=== PATIENT | female | born 1980 | race Caucasian/White ===

== ENCOUNTER 2018-02-06 21:09 | Emergency (ER) | payer MEDICAID ==
--- OUTSIDE RECORDS SUMMARY | 2018-02-06 21:17 | XMS REPORT ---
:1980 External Reference #:[id number] Author Organization [email or web address] Address [address] [address] Phone [phone] Care Team Providers Name Role Phone Chary Glass MD Primary Care Physician Unavailable Payers Type Date Identification Numbers Payment Provider Subscriber Medicaid Policy Number: [id number] Medicaid Arminda Conrad Group Name: 1 1 [address] PayID: [id number] [place] [address] Commercial Expires: 2016 Policy Number: [id number] Edgar Conrad Group Name: [id number] [address] PayID: [id number] [place] [address] Problems Description No Information Social History Type Date Description Comments Smoking Heavy tobacco smoker (more than 10 cigarettes/day) Allergies, Adverse Reactions, Alerts Date Description Reaction Status Severity Comments 01/31/2018 Penicillin active hives/swallowing Medications Medication Date Status Form Strength Qnty SIG Indications Ordering Provider Gabapentin Active Capsules 300mg 90caps 1 by M54.5 Leonora 018 mouth at Varn, N.P. bedtime x 7 nights, then boost to bid for 7 days, then take tid Omeprazole Active Tablets DR 20mg 30tabs 1 by Leonora 018 mouth Varn, N.P. every day Hydroxyzine Active Tablets 50mg take 2 Unknown HCL 000 tab by mouth daily for anxiety as needed Buspirone HCL Active Tablets 10mg 1 by Unknown 000 mouth 5 times a day Venlafaxine Active Tablets ER 75mg 2 by Unknown HCL ER 000 24HR mouth every day Duloxetine HCL 00/00/[address] 30mg 3 by Unknown 000 Part mouth every day Vital Signs Date Vital Result Comment 01/31/2018 Height 63.5 inches 5'3.50" Weight 162.00 lb Heart Rate 104 /min BP Systolic Sitting 110 mmHg BP Diastolic Sitting 75 mmHg Body Temperature 98.5 F Pain Level 6 back/degen disc, etc. O2 % BldC Oximetry 98 % BMI (Body Mass Index) 28.2 kg/m2 Results Description No Information Procedures Date CPT Code Description Status 02/19/2016 20848 EKG, Interpretation Only Completed 01/21/2013 97920 Polysomnography Sleep Staging 4+ Parameters W/Cpap Completed 11/07/2012 73609 EEG Recording Awake & Asleep Completed 10/22/2012 43904 Polysomnography Sleep Staging 4+ Parameters W/Cpap Completed 10/26/2009 22112 EKG, Interpretation Only Completed Encounters Type Date Location Provider CPT E/M Dx Office Visit 02/14/2016 [facility], Jared Hernandez, [address]79 F19.20 12:27p Hospitalists Pal F32.9 A41.9 Office Visit 02/13/2016 12:27p [facility], Jared Hernandez, [address] F32.9 Hospitalists Pal F19.20 G89.29 A41.9 Office Visit 02/12/2016 12:26p [facility], Jared Hernandez, 42147 F32.9 Hospitalists Pal F19.20 G89.29 A41.9 Office Visit 02/11/2016 12:25p 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, Kacey Cash, N.P. 91859 R41.0 Hospitalists J11.1 G47.33 Office Visit 12/01/2015 10:[facility]a [facility] Kacey Cash, N.P. 92014 R41.0 Hospitalists J11.1 G47.33 Office Visit 11/30/2015 10:29a [facility], Joon Juarez, 81887 R41.0 Hospitalists N.P. J11.1 G47.33 Office Visit 04/07/2014 4:52p [facility], Kacey Cash N.P. 68917 519.11 Hospitalists 276.2 780.97 305.1 Office Visit 04/06/2014 4:51p [facility], 95316 519.11 Assoc, Hospitalists Pal 276.2 780.97 305.1 Office Visit 04/05/2014 4:50p [facility], Adithya Grover D.O. 50974 519.11 Hospitalists 276.2 780.97 305.1 Office Visit 01/07/2014 2:58p [facility], Dayton Arteaga M.D. 85124 466.0 Hospitalists 305.60 278.01 305.1 Office Visit 01/06/2014 2:58p [facility],yk Arteaga M.D. 49753 466.0 Hospitalists 305.60 278.01 305.1 Office Visit 01/05/2014 2:58p [facility], Adithya Grover D.O. 67912 785.0 Hospitalists 466.0 305.60 305.1 Office Visit 01/04/2014 2:57p [facility],ky Grover D.O. 37300 276.2 Hospitalists 780.97 305.60 785.0 Office Visit 03/27/2013 2:45p [facility] Yahir Rico, 60967 327.23 M.DOly Office Visit 11/30/2012 8:20a [facility],ky Arteaga M.D. 97994 300.00 Hospitalists 311 305.1 493.12 Office Visit 11/29/2012 8:20a [facility],ky Arteaga M.D. 10064 493.12 Hospitalists 300.00 311 305.1 Office Visit 11/28/2012 8:19a [facility],ky Arteaga M.D. 26053 493.12 Hospitalists 311 300.00 305.1 Office Visit 11/27/2012 8:19a [facility], 19062 493.12 Assoc, Hospitalists N.P. 311 300.00 305.1 Office Visit 10/30/2012 2:24p [facility] John Tejada, 94804 327.23 Disorder Center M.D. Office Visit 09/10/2012 11:08a [facility] John Tejada, 61578 786.09 Disorder Center MJoceline 780.79 Office Visit 06/29/2012 1:45p [facility], Deangelo Gibson, 01155 995.91 Hospitalists M.Dane 780.97 507.0 Office Visit 06/28/2012 11:10a [facility], Deangelo Gibson, 59142 995.91 Hospitalists M.DOly 780.97 507.0 Office Visit 06/27/2012 11:09a [facility], Deangelo Gibson, 10793 995.91 Hospitalists M.Dane 780.97 507.0 Office Visit 06/26/2012 11:09a [facility], Adithya Grover D.O. 10265 518.84 Hospitalists 427.0 250.90 338.19 Office Visit 06/25/2012 1:44p [facility], 32914 995.91 Assoc, Hospitalists N.P. 780.97 507.0 Office Visit 10/27/2009 12:30a [facility], Adithya Grover D.O. 20784 977.9 Hospitalists 507.0 311 Office Visit 10/26/2009 12:15a [facility], Adithya Grover D.O. 73874 977.9 Hospitalists 348.89 507.0 288.60 790.29 278.00 Office Visit 10/14/2009 10:15a [facility], 08075 724.2 Garrick Aguillon Plan of Care Future Appointment(s):03/04/2018 10:20 am - Leonora Hoffman NAllyson at [facility]01/31/2018 - Leonora Hoffman N.KaylaM54.5 Low back painNew Medication:Gabapentin 300 mgNew Therapy:Physical TherapyComments:For your back pain: I have prescribe Gabapentin for you. Take 1 tablet at bedtime for 7 nights , thenboost it to twice daily, then your maintenance will be to take this 3 times daily.If you find a clinic you would like to be referred to, please contact me, I will be happy to refer you to.Follow up:[facility] 4 kajhgR59.9 Major depressive disorder, single episode, unspecifiedComments:For your depression and anxiety: Conitue your current management. Please touch base with the [facility] Department to set up an appointment.N91.2 Amenorrhea, unspecifiedComments:I am ordering blood work to check your thyroid hormone and a hormone to screen you for menopause.B18.2 Chronic viral hepatitis CComments:I am ordering blood work to screen for Hepatitis C and antibody level. I also am ordering blood workto check your kidney and liver function.H02.402 Unspecified ptosis of left eyelidComments:To help evaluate your left eyelid you need to see a specialist.Referral:Timbo Cobb MD, Ophthalmology
[2018-02-06 21:18] VITALS: BP 115/76
--- NOTE | 2018-02-06 21:47 | UC ---
Skin Complaint HPI - HPI Summary HPI Summary: Patient is an otherwise healthy 37-year-old female presenting to the with chief complaint of bilateral erythema, itching and burning feeling to the bilateral groin area. Symptoms have been present for approximately one month. She states nothing has improved her symptoms. She has not shaved in the area recently. She has not taken anything for relief. - History of Current Complaint Chief Complaint: UCSkin Time Seen by Provider: 02/06/18 21:25 Stated Complaint: SKIN IRRITATION Hx Obtained From: Patient Hx Last Menstrual Period: 9 YEARS AGO (HX PCOS) ?: No Onset/Duration: Sudden Onset Skin Exposure Onset/Duration: Hours Ago Timing: Constant Onset Severity: Mild Current Severity: Mild Pain Intensity: 7 Pain Scale Used: 0-10 Numeric Character: Pruritus, Pain, Redness Alleviating Factor(s): Nothing Associated Signs & Symptoms: Positive: Negative - Allergy/Home Medications Allergies/Adverse Reactions: Allergies Allergy/AdvReac Type Severity Reaction Status Date / Time Penicillins Allergy Severe Rash Verified 02/06/18 21:20 varenicline [From Chantix] Allergy Severe GI Upset Verified 02/06/18 21:20 bupropion [From Wellbutrin] Allergy Anxiety Verified 02/06/18 21:20 Home Medications: Home Medications Buprenorphine/Naloxone SL TAB* [Suboxone 8-2 mg SL TAB*] 1 tab SL 02/06/18 [ History] Gabapentin CAP(*) [Neurontin 300 CAP(*)] 300 mg PO TID 02/06/18 [History Confirmed 02/06/18] Venlafaxine TAB (NF) [Effexor TAB (NF)] 02/06/18 [History Confirmed 02/06/18] Review of Systems Constitutional: Negative Skin: Rash Eyes: Negative Cardiovascular: Negative Gastrointestinal: Negative Genitourinary: Negative Neurovascular: Negative Musculoskeletal: Negative Neurological: Negative Is Patient Immunocompromised?: No All Other Systems Reviewed And Are Negative: Yes PMH/Surg Hx/FS Hx/Imm Hx Previously Healthy: Yes - Surgical History Surgical History: Yes Surgery Procedure, Year, and Place: LEFT EYE SURGERY (LAZY EYE REPAIR) 2008, RHINOPLASTY. APPENDECTOMY. BREAST REDUCTION. BILAT EYE SURGERY AT AGE 9 (SO SHE WOULD NOT HAVE TO WEAR GLASSES). left knee arthroscopic surgery, TWO KNEE SURGERIES - Family History Known Family History: Positive: None - Social History Occupation: Employed Full-time Lives: With Family Alcohol Use: None Substance Use Type: None Substance Use Comment - Amount & Last Used: HX HEROIN USE Smoking Status (MU): Current Some Day Smoker Type: Cigarettes Amount Used/How Often: 1 ppd Length of Time of Smoking/Using Tobacco: 10 Have You Smoked in the Last Year: Yes When Did the Patient Quit Smoking/Using Tobacco: 22 Household Exposure Type: Cigarettes - Immunization History Most Recent Influenza Vaccination: None Most Recent Tetanus Shot: thinks current Most Recent Pneumonia Vaccination: None Physical Exam Triage Information Reviewed: Yes Appearance: Well-Appearing, Well-Nourished Vital Signs: Initial Vital Signs Temp 97.3 F 02/06/18 21:15 Pulse 84 02/06/18 21:15 Resp 16 02/06/18 21:15 BP 115/76 02/06/18 21:15 Pulse Ox 98 02/06/18 21:15 Vital Signs Reviewed: Yes Eye Exam: Normal Eyes: Positive: Conjunctiva Clear Neck exam: Normal Neck: Positive: Supple, No Lymphadenopathy Respiratory Exam: Normal Respiratory: Positive: Chest non-tender, Lungs clear Cardiovascular Exam: Normal Cardiovascular: Positive: RRR Musculoskeletal Exam: Normal Musculoskeletal: Positive: Strength Intact Psychological Exam: Normal Psychological: Positive: Normal Response To Family Skin: Positive: rashes Course/Dx - Course Course Of Treatment: Patient has excoriations with erythema resembling chafing to the intertriginous regions of the bilateral groins. Symptoms have been present times one month, but worsening recently. She wears boxer's and states she lost a lot of weight recently with excess skin to the area. She states she does not routinely dry the area and it is soft and moist. The area appears to have a minor amount of Maryann to the area. Patient is given nystatin as a barrier. For any worsening or changing symptoms she will return to the . - Diagnoses Provider Diagnoses: Intertriginous Rash Discharge - Sign-Out/Discharge Documenting (check all that apply): Discharge/Admit/Transfer - Discharge Plan Condition: Stable Disposition: HOME Prescriptions: Nystatin TOP POWDER* 1 applic TOPICAL TID #1 btl Patient Education Materials: Nystatin (On the skin) Referrals: Leonora Hoffman NP [Primary Care Provider] - Additional Instructions: Ol[place]a starch until you are able to bead picker nystatin Apply this three times daily Keep the area cool and dry Periodically throughout the day, dry the area and reapply the nystatin - Billing Disposition and Condition Condition: STABLE Disposition: HOME
== END 2018-02-06 22:09 | disposition home or self-care (01) ==
LOC: UCEAST 21:09
DX: L30.4 Erythema intertrigo (principal); Z88.0 Allergy status to penicillin; Z88.8 Allergy status to other drugs, medicaments and biological substances; Z72.0 Tobacco use
CPT/HCPCS: 99212; G0463

== ENCOUNTER 2018-02-08 18:15 | Emergency (ER) | payer MEDICAID ==
[2018-02-08 19:43] LABS: ABS Basophils 0 10^3/ul (0-0.2); ABS Eosinophils 0.1 10^3/ul (0-0.6); ABS Lymphocytes 1.7 10^3/ul (1.0-4.8); ABS Monocytes 0.7 10^3/ul (0-0.8); ABS Neutrophils 5.3 10^3/ul (1.5-7.7); ABS Nucleated RBC 0 10^3/ul; Eosinophil % 1.4 % (0-6); Hematocrit 34 % (35-47); Hemoglobin 11.4 g/dl (12.0-16.0); Lymphocyte % 21.6 % (25-47); Mean Corpuscular HGB Conc 33 g/dl (31-36); Mean Corpuscular Hemoglobin 29 pg (27-31); Mean Corpuscular Volume 87 fL (80-97); Mean Platelet Volume 7.2 um3 (7.4-10.4); Nucleated Red Blood Cells % 0; Platelet Count 315 10^3/ul (150-450); Red Blood Count 3.97 10^6/ul (4.0-5.4); Red Cell Distribution Width 15 % (10.5-15); White Blood Count 7.9 10^3/ul (3.5-10.8)
[2018-02-08 19:44] LABS: EGFR Non-African American 83.6 (>60)
[2018-02-08 19:53] LABS: Urine Appearance Cloudy; Urine Blood Negative (Negative); Urine Color Amber; Urine Ketones Trace (Negative); Urine Protein Negative (Negative); Urine Specific Gravity 1.027 (1.010-1.030); Urine Urobilinogen Negative (Negative)
--- NOTE | 2018-02-08 20:37 | RAD ---
INDICATION: Weakness and fatigue COMPARISON: CT of the brain November 30, 2015 TECHNIQUE: Contiguous axial sections of the brain were obtained from the skull base to the vertex without contrast. FINDINGS: The ventricles, cisterns and sulci are within normal limits. The tabor-white matter differentiation is adequately maintained and there is no sulcal effacement. No significant focal abnormality or mass effect is present. There is no evidence for intracranial hemorrhage. No significant focal osseous abnormality is present. The visualized portion of the paranasal sinuses appear clear. The mastoid air cells are well aerated bilaterally. IMPRESSION: Normal CT of the brain.
--- NOTE | 2018-02-08 21:13 | ED ---
Maninder Carver Natalie, scribed for Avtar Sommers MD on 02/08/18 at 1907 . Altered Mental Status - HPI Summary HPI Summary: The pt is a 37 y/o F presenting to the ED per mother c/o being lethargic for a few days. The pt was a drug addict who had just gotten out of assisted three weeks ago. Since then, she has relapsed and used heroin and cocaine. After the heroin incident, the pt was placed on Suboxone, which she took two of today. She most recently used cocaine on 02/04/18. She also takes other psychotropic medications, which have been added and changed recently. The pt may possibly take these medications in the wrong dosage or at the wrong time, per mother. Pt additionally c/o minor head trauma s/p fall the other day. She has hx of asthma. - History Of Current Complaint Chief Complaint: EDAltMentalStatus Stated Complaint: WEAKNESS/FATIGUE Time Seen by Provider: 02/08/18 18:30 Hx Obtained From: Patient, Family/Pra[employer]raw[employer] Hand - mother Hx Last Menstrual Period: 9 YEARS AGO (HX PCOS) Onset/Duration: Still Present Timing: Constant, Lasting Days Severity Initially: Moderate Severity Currently: Moderate Character: Lethargy Aggravating Factor(s): Medication Change, Drug Abuse Alleviating Factor(s): Nothing Associated Signs And Symptoms: Positive: Recent Trauma - head injury - Allergies/Home Medications Allergies/Adverse Reactions: Allergies Allergy/AdvReac Type Severity Reaction Status Date / Time Penicillins Allergy Severe Rash Verified 02/08/18 18:27 varenicline [From Chantix] Allergy Severe GI Upset Verified 02/08/18 18:27 bupropion [From Wellbutrin] Allergy Anxiety Verified 02/08/18 18:27 Home Medications: Home Medications Buprenorphine/Naloxone SL TAB* [Suboxone 8-2 mg SL TAB*] 1 tab.sl SL BID [History Confirmed 02/08/18] PMH/Surg Hx/FS Hx/Imm Hx Respiratory History: Reports: Hx Asthma, Hx Chronic Bronchitis, Hx Pneumonia, Hx Sleep Apnea Comment Only: Other Respiratory Problems/Disorders - HX OF MULTIPLE PNEUMONIAS GI History: Reports: Hx Gastroesophageal Reflux Disease Musculoskeletal History: Reports: Hx Arthritis - LEFT KNEE, Hx Back Problems, Other Musculoskeletal History - chronic pain Sensory History: Reports: Other Sensory Impairments - eye surgeries Opthamlomology History: Reports: Other Sensory Impairments - eye surgeries Psychiatric History: Reports: Hx Anxiety - meds, Hx Depression, Hx Community Mental Health Tx, Hx Suicide Attempt - didnt remember what she did, Hx Substance Abuse Denies: Hx Eating Disorder, Hx of Violent Episodes Against Others - Cancer History Hx Chemotherapy: No Hx Radiation Therapy: No Hx Palliative Cancer Treatment: No - Surgical History Surgery Procedure, Year, and Place: LEFT EYE SURGERY (LAZY EYE REPAIR) 2008, RHINOPLASTY. APPENDECTOMY. BREAST REDUCTION. BILAT EYE SURGERY AT AGE 9 (SO SHE WOULD NOT HAVE TO WEAR GLASSES). left knee arthroscopic surgery, TWO KNEE SURGERIES Hx Anesthesia Reactions: No - Immunization History Date of Tetanus Vaccine: Unknown Date of Influenza Vaccine: never Infectious Disease History: No Infectious Disease History: Denies: Hx Hepatitis, Hx Tuberculosis, History Other Infectious Disease, Traveled Outside the [place] in Last 30 Days - Family History Known Family History: Negative: Hypertension - Social History Alcohol Use: None Hx Substance Use: Yes Substance Use Type: Reports: None Substance Use Comment - Amount & Last Used: HX HEROIN USE Hx Tobacco Use: Yes Smoking Status (MU): Light Every Day Tobacco Smoker Type: Cigarettes Amount Used/How Often: 1 ppd Length of Time of Smoking/Using Tobacco: 10 Have You Smoked in the Last Year: Yes Review of Systems Positive: Fatigue Positive: Other - head injury with bruising Positive: Other - drug use (heroin, cocaine) All Other Systems Reviewed And Are Negative: Yes Physical Exam - Summary Physical Exam Summary: Appearance: The patient is well-nourished in no acute distress and in no acute pain. The patient is stuporous but rousable to voice. She falls back asleep again very quickly. Skin: The skin is warm and dry and skin color reflects adequate perfusion. HEENT: The head is normocephalic and atraumatic. The pupils are equal and reactive. The conjunctivae are clear and without drainage. Nares are patent and without drainage. Mouth reveals moist mucous membranes and the throat is without erythema and exudate. The external ears are intact. The ear canals are patent and without drainage. The tympanic membranes are intact. Neck: the neck is supple with full range of motion and non-tender. There are no carotid bruits. There is no neck vein distension. Respiratory: Chest is non-tender. Lungs are clear to auscultation and breath sounds are symmetrical and equal. Cardiovascular: Heart is regular rate and rhythm. There is no murmur or rub auscultated. There is no peripheral edema and pulses are symmetrical and equal. Abdomen: The abdomen is soft and non-tender. There are normal bowel sounds heard in all four quadrants and there is no organomegaly palpated. Musculoskeletal: There is no back tenderness noted. Extremities are non-tender with full range of motion. There is good capillary refill. There is no peripheral edema or calf tenderness elicited. Neurological: Patient is alert and oriented to person, place and time. The patient has symmetrical motor strength in all four extremities. Cranial nerves are grossly intact. Deep tendon reflexes are symmetrical and equal in all four extremities. Psychiatric: The patient has an appropriate affect and does not exhibit any anxiety or depression. Triage Information Reviewed: Yes Vital Signs On Initial Exam: Initial Vitals Temp Pulse Resp BP Pulse Ox 98.4 F 98 14 98/68 100 02/08/18 18:19 02/08/18 18:19 02/08/18 18:19 02/08/18 18:19 02/08/18 18:19 Vital Signs Reviewed: Yes Diagnostics - Vital Signs Vital Signs Temp Pulse Resp BP Pulse Ox 02/08/18 18:19 98.4 F 98 14 98/68 100 - Laboratory Lab Results: Lab Results 02/08/18 02/08/18 02/08/18 Range/Units 19:17 19:17 19:17 WBC 7.9 (3.5-10.8) 10^3/ul RBC 3.97 L (4.0-5.4) 10^6/ul Hgb 11.4 L (12.0-16.0) g/dl Hct 34 L (35-47) % MCV 87 (80-97) fL MCH 29 (27-31) pg MCHC 33 (31-36) g/dl RDW 15 (10.5-15) % Plt Count 315 (150-450) 10^3/ul MPV 7.2 L (7.4-10.4) um3 Neut % (Auto) 67.5 (38-83) % Lymph % (Auto) 21.6 L (25-47) % [place] % (Auto) 9.2 H (0-7) % Eos % (Auto) 1.4 (0-6) % Baso % (Auto) 0.3 (0-2) % Absolute Neuts (auto) 5.3 (1.5-7.7) 10^3/ul Absolute Lymphs (auto) 1.7 (1.0-4.8) 10^3/ul Absolute Monos (auto) 0.7 (0-0.8) 10^3/ul Absolute Eos (auto) 0.1 (0-0.6) 10^3/ul Absolute Basos (auto) 0 (0-0.2) 10^3/ul Absolute Nucleated RBC 0 10^3/ul Nucleated RBC % 0 Sodium 140 (139-145) mmol/L Potassium 4.2 (3.5-5.0) mmol/L Chloride 101 (101-111) mmol/L Carbon Dioxide 34 H (22-32) mmol/L Anion Gap 5 (2-11) mmol/L BUN 13 (6-24) mg/dL Creatinine 0.78 (0.51-0.95) mg/dL Est GFR ( Amer) 107.5 (>60) Est GFR (Non-Af Amer) 83.6 (>60) BUN/Creatinine Ratio 16.7 (8-20) Glucose 109 H (70-100) mg/dL Lactic Acid 1.0 (0.5-2.0) mmol/L Calcium 8.8 (8.6-10.3) mg/dL Total Bilirubin 0.50 (0.2-1.0) mg/dL AST 152 H (13-39) U/L ALT 382 H (7-52) U/L Alkaline Phosphatase 81 (34-104) U/L Total Protein 6.3 L (6.4-8.9) g/dL Albumin 3.7 (3.2-5.2) g/dL Globulin 2.6 (2-4) g/dL Albumin/Globulin Ratio 1.4 (1-3) Beta HCG, Quant < 0.60 mIU/mL Urine Color Urine Appearance Urine pH (5-9) Ur Specific [place] (1.010-1.030) Urine Protein (Negative) Urine Ketones (Negative) Urine Blood (Negative) Urine Nitrate (Negative) Urine Bilirubin (Negative) Urine Urobilinogen (Negative) Ur Leukocyte Esterase (Negative) Urine WBC (Auto) (Absent) Urine RBC (Auto) (Absent) Ur Squamous Epith Cells (Absent) Urine Bacteria (Absent) Urine Glucose (Negative) Urine Ascorbic Acid (Negative) Salicylates < 2.50 (<30) mg/dL Urine Opiates Screen (None Detect) Acetaminophen < 15 mcg/mL Ur Barbiturates Screen (None Detect) Ur Phencyclidine Scrn (None Detect) Ur Amphetamines Screen (None Detect) U Benzodiazepines Scrn (None Detect) Urine Cocaine Screen (None Detect) U Cannabinoids Screen (None Detect) Serum Alcohol < 10 (<10) mg/dL 02/08/18 02/08/18 Range/Units 19:29 19:29 WBC (3.5-10.8) 10^3/ul RBC (4.0-5.4) 10^6/ul Hgb (12.0-16.0) g/dl Hct (35-47) % MCV (80-97) fL MCH (27-31) pg MCHC (31-36) g/dl RDW (10.5-15) % Plt Count (150-450) 10^3/ul MPV (7.4-10.4) um3 Neut % (Auto) (38-83) % Lymph % (Auto) (25-47) % [place] % (Auto) (0-7) % Eos % (Auto) (0-6) % Baso % (Auto) (0-2) % Absolute Neuts (auto) (1.5-7.7) 10^3/ul Absolute Lymphs (auto) (1.0-4.8) 10^3/ul Absolute Monos (auto) (0-0.8) 10^3/ul Absolute Eos (auto) (0-0.6) 10^3/ul Absolute Basos (auto) (0-0.2) 10^3/ul Absolute Nucleated RBC 10^3/ul Nucleated RBC % Sodium (139-145) mmol/L Potassium (3.5-5.0) mmol/L Chloride (101-111) mmol/L Carbon Dioxide (22-32) mmol/L Anion Gap (2-11) mmol/L BUN (6-24) mg/dL Creatinine (0.51-0.95) mg/dL Est GFR ( Amer) (>60) Est GFR (Non-Af Amer) (>60) BUN/Creatinine Ratio (8-20) Glucose (70-100) mg/dL Lactic Acid (0.5-2.0) mmol/L Calcium (8.6-10.3) mg/dL Total Bilirubin (0.2-1.0) mg/dL AST (13-39) U/L ALT (7-52) U/L Alkaline Phosphatase (34-104) U/L Total Protein (6.4-8.9) g/dL Albumin (3.2-5.2) g/dL Globulin (2-4) g/dL Albumin/Globulin Ratio (1-3) Beta HCG, Quant mIU/mL Urine Color [place] Urine Appearance Cloudy Urine pH 5.0 (5-9) Ur Specific [place] 1.027 (1.010-1.030) Urine Protein Negative (Negative) Urine Ketones Trace A (Negative) Urine Blood Negative (Negative) Urine Nitrate Negative (Negative) Urine Bilirubin Negative (Negative) Urine Urobilinogen Negative (Negative) Ur Leukocyte Esterase 3+ A (Negative) Urine WBC (Auto) 2+(11-20/hpf) A (Absent) Urine RBC (Auto) 2+(6-10/hpf) A (Absent) Ur Squamous Epith Cells Present A (Absent) Urine Bacteria 1+ A (Absent) Urine Glucose Negative (Negative) Urine Ascorbic Acid * A (Negative) Salicylates (<30) mg/dL Urine Opiates Screen Presumptive positive A (None Detect) Acetaminophen mcg/mL Ur Barbiturates Screen None detected (None Detect) Ur Phencyclidine Scrn None detected (None Detect) Ur Amphetamines Screen None detected (None Detect) U Benzodiazepines Scrn Presumptive positive A (None Detect) Urine Cocaine Screen Presumptive positive A (None Detect) U Cannabinoids Screen None detected (None Detect) Serum Alcohol (<10) mg/dL Result Diagrams: 02/08/18 19:17 02/08/18 19:17 Lab Statement: Any lab studies that have been ordered have been reviewed, and results considered in the medical decision making process. - CT Brain CT CT Interpretation: No Acute Changes - Normal CT of the brain. ED physician has reviewed this report. CT Interpretation Completed By: Radiologist Altered Mental Statu Course/Dx - Course Course Of Treatment: Ms. Conrad presented stuporous but easily arousable to voice. She will wake up and answer questions and coopeerate with the exam but falls immediately back asleep if unattended for more than a minute or so. She is currently on maintenance suboxone and alprazolam and that is consistent with her urine with the addition of cocaine. She is currently sleeping and will have to be questioned more when she is more alert. Her mother believes that she is taking her medications improperly and that is possible. - Diagnoses Provider Diagnoses: Polysubstance abuse Discharge - Sign-Out/Discharge Documenting (check all that apply): Discharge/Admit/Transfer - Discharge Plan Condition: Stable Disposition: HOME Patient Education Materials: Polysubstance Abuse (ED) Referrals: Leonora Hoffman NP [Primary Care Provider] - 3 Days Additional Instructions: Follow up with your primary care physician in 2-3 days. Return to the emergency department for any new or worsening symptoms. - Billing Disposition and Condition Condition: STABLE Disposition: HOME The documentation as recorded by the Maninder hernández Natalie accurately reflects the service I personally performed and the decisions made by me, Avtar Sommers MD.
[2018-02-09 02:57] VITALS: BP 100/63
--- NOTE | 2018-02-12 08:29 | ED ---
Progress - Progress Note Progress Note: Patient's urine culture reveals 10-25,000 Staphylococcus aureus, 1-10,000 strep group B, 25-50,000 normal nora. This appears to be a contaminated specimen and with low counts, no treatment is necessary at this time. Course/Dx - Course Course Of Treatment: Ms. Conrad presented stuporous but easily arousable to voice. She will wake up and answer questions and coopeerate with the exam but falls immediately back asleep if unattended for more than a minute or so. She is currently on maintenance suboxone and alprazolam and that is consistent with her urine with the addition of cocaine. She is currently sleeping and will have to be questioned more when she is more alert. Her mother believes that she is taking her medications improperly and that is possible. - Diagnoses Provider Diagnoses: Polysubstance abuse Discharge - Sign-Out/Discharge Documenting (check all that apply): Post-Discharge Follow Up - Discharge Plan Condition: Stable Disposition: HOME Patient Education Materials: Polysubstance Abuse (ED) Referrals: Leonora Hoffman NP [Primary Care Provider] - 3 Days Additional Instructions: Follow up with your primary care physician in 2-3 days. Return to the emergency department for any new or worsening symptoms. - Billing Disposition and Condition Condition: STABLE Disposition: HOME
== END 2018-02-09 03:07 | disposition home or self-care (01) ==
LOC: ED 18:15
DX: F19.10 Other psychoactive substance abuse, uncomplicated (principal); R53.83 Other fatigue; F17.210 Nicotine dependence, cigarettes, uncomplicated
CPT/HCPCS: 36415; 70450; 80053; 80307; 80320; 80329; 81003; 81015; 83605; 84702; 85025; 87077; 87086; 87186; 99284; G0480

== ENCOUNTER 2018-02-18 22:01 | Emergency (ER) | payer MEDICAID ==
[2018-02-18] MEDS ORDERED: Naloxone* 0.4 MG/ML 1 ML VIAL ONE (22:31)
[2018-02-18] MEDS ORDERED: Naloxone Nasal Spray* 4 MG/0.1 ML NASAL.SPR NASAL ONE ×2 (22:31)
--- OUTSIDE RECORDS SUMMARY | 2018-02-18 22:46 | XMS REPORT ---
:1980 External Reference #:[id number] Author Organization [facility] Address [address] [address] Phone [phone] Care Team Providers Name Role Phone Chary Glass MD Primary Care Physician Unavailable Payers Type Date Identification Numbers Payment Provider Subscriber Medicaid Policy Number: [id number] Medicaid [employer] Name: 1 1 [address] PayID: [id number] [place] [address] Commercial Expires: 2016 Policy Number: [id number] [place] [employer] Name: [id number] [address] PayID: [id number] [place] [address] Problems Date Description Provider Status Onset: 02/08/2018 History of drug abuse Leonora Hoffman, N.P. Active Onset: 02/08/2018 Viral hepatitis C Leonora Hoffman, N.P. Active Onset: 02/08/2018 Depressive disorder Leonora Hoffman, N.P. Active Onset: 02/08/2018 Anxiety Leonora Hoffman, N.P. Active Note: cigarette Onset: 02/08/2018 Cigarette smoker Leonora Hoffman, N.P. Active Family History Date Family Member(s) Problem(s) Comments Father Alive And Well Mother Hypertension Mother Hypercholesterolemia Siblings 1 1 Sister - Healthy Social History Type Date Description Comments Smoking Heavy tobacco smoker (more than 10 cigarettes/day) Recreational Drug Use Former Drug User Recovering heroin addict. Has not used since 2015 Allergies, Adverse Reactions, Alerts Date Description Reaction [...] 000 24HR mouth every day Duloxetine HCL Active Caps DR 30mg 3 by Unknown 000 Part mouth every day Alprazolam Active Tablets 1mg take 1 Unknown 000 tablet twice daily as needed Suboxone Active Film 8-2mg 3 films Unknown 000 per day Vital Signs Date Vital Result Comment 02/11/2018 Weight 192.50 lb Heart Rate 93 /min BP Systolic 90 mmHg BP Diastolic 50 mmHg Body Temperature 97.2 F O2 % BldC Oximetry 95 % 01/31/2018 Height 63.5 inches 5'3.50" Weight 162.00 lb Heart Rate 104 /min BP Systolic Sitting 110 mmHg BP Diastolic Sitting 75 mmHg Body Temperature 98.5 F Pain Level 6 back/degen disc, etc. O2 % BldC Oximetry 98 % BMI (Body Mass Index) 28.2 kg/m2 Results Test Date Test Result H/L Range Note Laboratory test finding 02/08/2018 Lactic Acid 1.0 mmol/L 0.5-2.0 1 CBC Auto Diff 02/08/2018 White Blood Count 7.9 10^3/uL 3.5-10.8 Red Blood Count 3.97 10^6/uL Low 4.0-5.4 Hemoglobin 11.4 g/dL Low 12.0-16.0 Hematocrit 34 % Low 35-47 Mean Corpuscular Volume 87 fL 80-97 Mean Corpuscular Hemoglobin 29 pg 27-31 Mean Corpuscular HGB Conc 33 g/dL 31-36 Red Cell Distribution Width 15 % 10.5-15 Platelet Count 315 10^3/uL 150-450 Mean Platelet Volume 7.2 um3 Low 7.4-10.4 Abs Neutrophils 5.3 10^3/uL 1.5-7.7 Abs Lymphocytes 1.7 10^3/uL 1.0-4.8 Abs Monocytes 0.7 10^3/uL 0-0.8 Abs Eosinophils 0.1 10^3/uL 0-0.6 Abs Basophils 0 10^3/uL 0-0.2 Abs Nucleated RBC 0 10^3/uL Granulocyte % 67.5 % 38-83 Lymphocyte % 21.6 % Low 25-47 Monocyte % 9.2 % High 0-7 Eosinophil % 1.4 % 0-6 Basophil % 0.3 % 0-2 Nucleated Red Blood Cells % 0 Urinalysis Profile 02/08/2018 Urine Color [place] Urine Appearance Cloudy Urine Specific [place] 1.027 1.010-1.030 Urine pH 5.0 5-9 Urine Urobilinogen Negative Negative Urine Ketones Trace Negative Urine Protein Negative Negative Urine Leukocytes 3+ Negative Urine Blood Negative Negative * * Negative 2 Urine Nitrite Negative Negative Urine Bilirubin Negative Negative Urine Glucose Negative Negative Urine White Blood Cell 2+(11-20/hpf) Absent Urine Red Blood Cell 2+(6-10/hpf) Absent Urine Bacteria 1+ Absent Urine Squamous Epithelial Cell Present Absent Urine Drug SCR ED 02/08/2018 Amphetamine Ur Screen None Detected None Detect & [facility] Barbiturates Urine Screen None Detected None Detect Benzodiazepine Urine Screen Presumptive Posi <SEE NOTE> None Detect 3 Urine Cannabinoids Screen None Detected None Detect Urine Cocaine Screen Presumptive Posi <SEE NOTE> None Detect 4 Urine Opiates Screen Presumptive Posi <SEE NOTE> None Detect 5 Urine Phencyclidine Screen None Detected None Detect 6 Comp Metabolic Panel 02/08/2018 Sodium 140 mmol/L 139-145 Potassium 4.2 mmol/L 3.5-5.0 Chloride 101 mmol/L 101-111 Co2 Carbon Dioxide 34 mmol/L High 22-32 Anion Gap 5 mmol/L 2-11 Glucose 109 mg/dL High 70-100 Blood Urea Nitrogen 13 mg/dL 6-24 Creatinine 0.78 mg/dL 0.51-0.95 BUN/Creatinine Ratio 16.7 8-20 Calcium 8.8 mg/dL 8.6-10.3 Total Protein 6.3 g/dL Low 6.4-8.9 Albumin 3.7 g/dL 3.2-5.2 Globulin 2.6 g/dL 2-4 Albumin/Globulin Ratio 1.4 1-3 Total Bilirubin 0.50 mg/dL 0.2-1.0 Alkaline Phosphatase 81 U/L 34-104 Alt 382 U/L High 7-52 Ast 152 U/L High 13-39 Egfr Non- 83.6 >60 Egfr 107.5 >60 7 Laboratory test finding 02/08/2018 HCG < 0.60 mIU/mL 8 Acetaminophen < 15 g/mL 9 Alcohol < 10 mg/dL <10 Salicylate < 2.50 mg/dL <30 Urine Culture And 02/08/2018 Urine Culture SEE RESULT BELOW 10 Sensitivities Laboratory test finding 02/08/2018 Point of Care 125 mg/dL High 70-100 11 Glucose Laboratory test finding 02/06/2018 TSH (Thyroid Stim 2.80 mcIU/mL 0.34- 5.60 Horm) FSH (Follicle Stim Hormone) 1.4 mIU/mL 12 Hepatitis C Antibody High Reactive Nonreactive 13 Hepatitis C Rna Quant [id number] IU/mL Undetected 14 Comp Metabolic Panel 02/06/2018 Sodium 139 mmol/L 139-145 Potassium 4.1 mmol/L 3.5-5.0 Chloride 101 mmol/L 101-111 Co2 Carbon Dioxide 32 mmol/L 22-32 Anion Gap 6 mmol/L 2-11 Glucose 84 mg/dL 70-100 Blood Urea Nitrogen 8 mg/dL 6-24 Creatinine 0.68 mg/dL 0.51-0.95 BUN/Creatinine Ratio 11.8 8-20 Calcium 8.8 mg/dL 8.6-10.3 Total Protein 6.0 g/dL Low 6.4-8.9 Albumin 3.7 g/dL 3.2-5.2 Globulin 2.3 g/dL 2-4 Albumin/Globulin Ratio 1.6 1-3 Total Bilirubin 0.40 mg/dL 0.2-1.0 Alkaline Phosphatase 76 U/L 34-104 Alt 339 U/L High 7-52 Ast 163 U/L High 13-39 Egfr Non- 97.9 >60 Egfr 125.9 >60 15 1 [facility] Severe Sepsis and Septic Shock Management Bundle Measure requires all lactic acids initially measuring >2.0 mmol/L be repeated. 2 *Ascorbic acid is present which may interfere with detection of blood. 3 Presumptive Positive Presumptive positive results are unconfirmed. 4 Presumptive Positive Presumptive positive results are unconfirmed. 5 Presumptive Positive Presumptive positive results are unconfirmed. 6 The urine specimen was tested at the listed cutoffs: Drug class test level (ng/mL) Amphetamines 500 Barbiturates 200 Benzodiazepine metabolites 200 Cocaine metabolites 150 Cannabinoids 50 Opiates 300 Pcp 25 Specimen was received without chain of custody. Results should be used for medical purposes only. 7 Because ethnic data is not always readily available, this report includes an eGFR for both -Americans and non- Americans. The National Kidney Disease Education Program (NKDEP) does not endorse the use of the MDRD equation for patients that are not between the ages of 18 and 70, are , have extremes of body size, muscle mass, or nutritional status, or are non- or non-. According to the National Kidney Foundation, irrespective of diagnosis, the stage of the disease is based on the level of kidney function: Stage Description GFR(mL/min/1.73 m(2)) 1 Kidney damage with normal or decreased GFR 90 2 Kidney damage with mild decrease in GFR 60-89 3 Moderate decrease in GFR 30-59 4 Severe decrease in GFR 15-29 5 Kidney failure <15 (or dialysis) 8 <5.0 Negative 5.0 - 25.0 Indeterminate (Repeat testing recommended after 72 hours) >25.0 Positive Perimenopausal women can display HCG levels of up to 20 mIU/mL 9 Therapeutic concentration: <50 ug/mL Toxic concentration: >120 ug/mL 10 SEE RESULT BELOW Name: ЮЛИЯ THOMAS : [address]: Avtar Sommers MD Acct: [id number] Unit: [id number] AGE: 37 Location: ED Re02/08/18 SEX: F Status: DEP ER SPEC: [id number] LEON: [birth year][address] [facility] [address]: Avtar Sommers MD REQ: [id number] RECD: 02/08/18 STATUS: CRESCENCIO DAMON DR: Leonora Hoffman 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 _ SOURCE: URINE SPDESC: ORDERED: Urine Culture Procedure Result Reported Site Urine Culture Final 02/11/18- 0840 ML Organism 1 STAPHYLOCOCCUS AUREUS [place] Count 10-25,000 (Moderate) CFU/ML Organism 2 STREP GROUP B [place] Count 1-10,000 (Few) CFU/ML Organism 3 NORMAL VIVI [place] Count 25-50,000 (Moderate) CFU/ML Susceptibility testing of penicillins and other B-lactams approved by FDA for treatment of Streptococcus pyogenes (Group A Strep) and Streptococcus agalactiae (Group B Strep) is not necessary for clinical purposes and need not be done routinely, since as with vancomycin, resistant strains have not been recognized. (CLSI W729-L78;p.66) Positive isolates will be saved for one week. Please call the Microbiology Laboratory if further susceptibility testing is needed. 1. STAPHYLOCOCCUS AUREUS M.I.C. RX --------- ------ Penicillin 0.06 S Gentamicin <=0.5 S Linezolid 2 S Nitrofurantoin <=16 S Oxacillin <=0.25 S * Quinupristin/Dalfopristin <=0.25 S Rifampin <=0.5 S Tetracycline <=1 S CONTINUED ON NEXT PAGE DEPARTMENT OF PATHOLOGY, [address] [place] [address] Johan Quiroz M.D. Director [facility] # [id number] Patient: ЮЛИЯ THOMAS [id number] (Continued) Specimen: [id number] Collected: 02/08/18 Received: 02/08/18 (Continued) Procedure Result Reported Site Urine Culture Final (continued) 02/11/18- 839 1. STAPHYLOCOCCUS AUREUS (continued) M.I.C. RX --------- ------ Doxycycline - Deduced S * Minocycline - Deduced S Trimethoprim/Sulfamethoxazole <=10 S Vancomycin <=0.5 S Imipenem-Deduced S * Ampicillin/Sulbactam-Deduced S Cefazolin-Deduced S * These antibiotics are not available in the [facility] Formulary Contact the Microbiology Department for any additional antibiotic reporting. * ML - Main Lab . END OF REPORT DEPARTMENT OF PATHOLOGY, [address] [place] [address] Johan Quiroz M.D. Director [facility] # [id number] 11 Dining Room Host: [id number] 12 Normally menstruating females - Follicular phase 3 - 9 - Mid-cycle peak 4 - 23 - Luteal phase 1 - 6 Postmenopausal females 16 - 114 13 High reactive sample are considered positive for Hepatitis C 14 Result in log IU/mL is 6.40. ADDITIONAL INFORMATION The quantification range of this assay is 15 to 100,000,000 IU/mL (1.18 log to 8.00 log IU/mL). Testing was performed using the rick HCV test ([employer] with the rick 6800 System. Test Performed by: [facility] [address] [place] [address] 15 Because ethnic data is not always readily available, this report includes an eGFR for both -Americans and non- Americans. The National Kidney Disease Education Program (NKDEP) does not endorse the use of the MDRD equation for patients that are not between the ages of 18 and 70, are , have extremes of body size, muscle mass, or nutritional status, or are non- or non-. According to the National Kidney Foundation, irrespective of diagnosis, the stage of the disease is based on the level of kidney function: Stage Description GFR(mL/min/1.73 m(2)) 1 Kidney damage with normal or decreased GFR 90 2 Kidney damage with mild decrease in GFR 60-89 3 Moderate decrease in GFR 30-59 4 Severe decrease in GFR 15-29 5 Kidney failure <15 (or dialysis) Procedures Date CPT Code Description Status 02/19/2016 15519 EKG, Interpretation Only Completed 01/21/2013 17826 Polysomnography Sleep Staging 4+ Parameters W/Cpap Completed 11/07/2012 86294 EEG Recording Awake & Asleep Completed 10/22/2012 53481 Polysomnography Sleep Staging 4+ Parameters W/Cpap Completed 10/26/2009 06469 EKG, Interpretation Only Completed Encounters Type Date Location Provider CPT E/M Dx Office Visit 01/31/2018 9:00a [facility] Internal Medicine Leonora Hoffman, N.P. 81554 M54.5 [facility] F32.9 N91.2 B18.2 H02.402 Office Visit 02/14/2016 12:27p [facility] Jared Hernandez, 49320 F19.20 [facility]oc[facility] F32.9 A41.9 Office Visit 02/13/2016 12:27p [facility] , Jared Hernandez, 25344 F32.9 Hospital[facility] F19.20 G89.29 A41.9 Office Visit 02/12/2016 12:26p [facility] Jared Hernnadez, 34768 F32.9 Hospitalists Pal F19.20 G89.29 A41.9 Office Visit 02/11/2016 12:25p [facility] Hilda Kearney, 90310 F32.9 Assoc,pc 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 Hospitalists F19.20 G89.29 A41.9 Office Visit 12/02/2015 10:30a [facility] Kacey Cash, N.P. 39300 R41.0 Hospitalists J11.1 G47.33 Office Visit 12/01/2015 10:30a [facility], Kacey Cash, N.P. 58579 R41.0 Hospitalists J11.1 G47.33 Office Visit 11/30/2015 10:29a [facility], Joon Juarez, 11103 R41.0 Hospitalists N.P. J11.1 G47.33 Office Visit 04/07/2014 4:52p [facility] Kacey Cash, N.P. 08335 519.11 Hospitalists 276.2 780.97 305.1 Office Visit 04/06/2014 4:51p [facility] James Pulido, 25968 519.11 Assoc, Hospitalists Pal 276.2 780.97 305.1 Office Visit 04/05/2014 4:50p [facility], Adithya Grover D.O. 80994 519.11 Hospitalists 276.2 780.97 305.1 Office Visit 01/07/2014 2:58p [facility], Dayton Arteaga M.D. 05578 466.0 Hospitalists 305.60 278.01 305.1 Office Visit 01/06/2014 2:58p [facility], [place] Arteaga M.D. 89419 466.0 Hospitalists 305.60 278.01 305.1 Office Visit 01/05/2014 2:58p [facility], Adithya Grover D.O. 18538 785.0 Hospitalists 466.0 305.60 305.1 Office Visit 01/04/2014 2:57p [facility], Adithya Grover D.O. 43522 276.2 Hospitalists 780.97 305.60 785.0 Office Visit 03/27/2013 2:45p [facility] Yahir FANGOly Rico, 16642 327.23 M.D. Office Visit 11/30/2012 8:20a [facility],ky Arteaga M.D. 03077 300.00 Hospitalists 311 305.1 493.12 Office Visit 11/29/2012 8:20a [facility], Dayton Arteaga M.D. 69386 493.12 Hospitalists 300.00 311 305.1 Office Visit 11/28/2012 8:19a [facility], [place] Arteaga M.D. 09388 493.12 Hospitalists 311 300.00 305.1 Office Visit 11/27/2012 8:19a [facility] Juarez, 88202 493.12 Assoc, Hospitalists N.P. 311 300.00 305.1 Office Visit 10/30/2012 2:[facility]p [facility] Tejada, 05048 327.23 Disorder Center M.Dane Office Visit 09/10/2012 11:08a [facility] John Tejada, 75390 786.09 Disorder Center MJoceline 780.79 Office Visit 06/29/2012 1:45p [facility], Deangelo Gibson, 64391 995.91 Hospitalists MJoceline 780.97 507.0 Office Visit 06/28/2012 11:10a [facility], Deangelo Gibson, 60201 995.91 Hospitalists MJoceline 780.97 507.0 Office Visit 06/27/2012 11:09a [facility], Deangelo Gibson 16542 995.91 Hospitalists MOlyDOly 780.97 507.0 Office Visit 06/26/2012 11:09a [facility], Adithya Grover D.O. 51679 518.84 Hospitalists 427.0 250.90 338.19 Office Visit 06/25/2012 1:44p [facility], 47246 995.91 Assoc, Hospitalists N.P. 780.97 507.0 Office Visit 10/27/2009 12:30a [facility], Adithya Grover D.O. 99151 977.9 Hospitalists 507.0 311 Office Visit 10/26/2009 12:15a [facility]pc Adithya Grover D.O. 07297 977.9 Hospitalists 348.89 507.0 288.60 790.29 278.00 Office Visit 10/14/2009 10:15a [facility] Thompson, 91359 724.2 [facility] Pal Plan of Care Future Appointment(s):03/04/2018 10:20 am - Leonora Hoffman N.P. at [facility] Internal Medicine [facility]02/11/2018 - Leonora Hoffman NZaire.Z71.51 Drug abuse counseling and surveillance of drug abuserComments:I have set up an appointment for you with the yenny at [facility] at 9:40. I STRONGLY urge you to consider some type of rehab program.F41.1 Generalized anxiety disorder
[2018-02-18 23:13] LABS: ABS Basophils 0.1 10^3/ul (0-0.2); ABS Eosinophils 0.3 10^3/ul (0-0.6); ABS Lymphocytes 2.2 10^3/ul (1.0-4.8); ABS Monocytes 0.6 10^3/ul (0-0.8); ABS Neutrophils 3.1 10^3/ul (1.5-7.7); ABS Nucleated RBC 0 10^3/ul; Eosinophil % 4.4 % (0-6); Hematocrit 34 % (35-47); Hemoglobin 11.1 g/dl (12.0-16.0); Lymphocyte % 35.7 % (25-47); Mean Corpuscular HGB Conc 32 g/dl (31-36); Mean Corpuscular Hemoglobin 28 pg (27-31); Mean Corpuscular Volume 87 fL (80-97); Mean Platelet Volume 7.8 um3 (7.4-10.4); Nucleated Red Blood Cells % 0; Platelet Count 356 10^3/ul (150-450); Red Blood Count 3.97 10^6/ul (4.0-5.4); Red Cell Distribution Width 14 % (10.5-15); White Blood Count 6.2 10^3/ul (3.5-10.8)
[2018-02-18 23:58] LABS: Urine Appearance Cloudy; Urine Blood Negative (Negative); Urine Color Yellow; Urine Ketones Negative (Negative); Urine Protein Negative (Negative); Urine Specific Gravity 1.023 (1.010-1.030); Urine Urobilinogen Negative (Negative)
--- NOTE | 2018-02-19 00:12 | ED ---
Altered Mental Status - HPI Summary HPI Summary: 37-year-old female with history of substance abuse brought in by her mother with chief complaint of altered mental status. The patient is drowsy but is able to provide some history. She developed this alteration in mental status just prior to arrival. It is worsening now. Mother states that she went to her doctor's appointment downtown today which is the first time she's been out of the house alone in about 2 weeks. 2 weeks ago she used drugs, was evaluated here and proved to have several substances in her system. At that time she reported cocaine and heroin use. Today, the patient denies using any type of substance. She is on probation after recently being released from detention. The patient denies any injury, changes in her medication or use of alcohol. We suggested trialing Narcan which she has refused initially but then submitted to. She denies any headache, numbness or weakness, nausea or vomiting or pain of any sort. - History Of Current Complaint Chief Complaint: EDOverdose Stated Complaint: WEAKNESS Time Seen by Provider: 02/18/18 22:22 Hx Obtained From: Patient, Family/Legal Support Specialist Hx Last Menstrual Period: 9 YEARS AGO (HX PCOS) - Allergies/Home Medications Allergies/Adverse Reactions: Allergies Allergy/AdvReac Type Severity Reaction Status Date / Time Penicillins Allergy Severe Rash Verified 02/08/18 18:27 varenicline [From Chantix] Allergy Severe GI Upset Verified 02/08/18 18:27 bupropion [From Wellbutrin] Allergy Anxiety Verified 02/08/18 18:27 PMH/Surg Hx/FS Hx/Imm Hx Previously Healthy: No - take several prescribed medications. Known history of substance abuse Respiratory History: Reports: Hx Asthma, Hx Chronic Bronchitis, Hx Pneumonia, Hx Sleep Apnea Comment Only: Other Respiratory Problems/Disorders - HX OF MULTIPLE PNEUMONIAS GI History: Reports: Hx Gastroesophageal Reflux Disease Musculoskeletal History: Reports: Hx Arthritis - LEFT KNEE, Hx Back Problems, Other Musculoskeletal History - chronic pain Sensory History: Reports: Other Sensory Impairments - eye surgeries Opthamlomology History: Reports: Other Sensory Impairments - eye surgeries Psychiatric History: Reports: Hx Anxiety - meds, Hx Depression, Hx Community Mental Health Tx, Hx Suicide Attempt - didnt remember what she did, Hx Substance Abuse Denies: Hx Eating Disorder, Hx of Violent Episodes Against Others - Cancer History Hx Chemotherapy: No Hx Radiation Therapy: No Hx Palliative Cancer Treatment: No - Surgical History Surgery Procedure, Year, and Place: LEFT EYE SURGERY (LAZY EYE REPAIR) 2009, RHINOPLASTY. APPENDECTOMY. BREAST REDUCTION. BILAT EYE SURGERY AT AGE 9 (SO SHE WOULD NOT HAVE TO WEAR GLASSES). left knee arthroscopic surgery, TWO KNEE SURGERIES Hx Anesthesia Reactions: No - Immunization History Date of Tetanus Vaccine: Unknown Date of Influenza Vaccine: never Infectious Disease History: No Infectious Disease History: Denies: Hx Hepatitis, Hx Tuberculosis, History Other Infectious Disease, Traveled Outside the [place] in Last 30 Days - Family History Known Family History: Positive: None Negative: Hypertension - Social History Alcohol Use: None Hx Substance Use: Yes Substance Use Type: Reports: Prescribed, Sedatives Substance Use Comment - Amount & Last Used: HX HEROIN USE, benzo, gabipentin Hx Tobacco Use: Yes Smoking Status (MU): Heavy Every Day Tobacco Smoker Type: Cigarettes Amount Used/How Often: 1 ppd Length of Time of Smoking/Using Tobacco: 10 Have You Smoked in the Last Year: Yes Review of Systems Negative: Fever Negative: Palpitations Negative: Shortness Of Breath Negative: Abdominal Pain, Vomiting Negative: Myalgia Negative: Rash Positive: Slurred Speech. Negative: Headache Positive: Other - denies use of any substance today. Negative: Anxious All Other Systems Reviewed And Are Negative: Yes Physical Exam Triage Information Reviewed: Yes Vital Signs On Initial Exam: Initial Vitals Temp Pulse Resp BP Pulse Ox 97.5 F 88 16 85/61 100 02/18/18 22:02 02/18/18 22:02 02/18/18 22:02 02/18/18 22:02 02/18/18 22:02 Vital Signs Reviewed: Yes Completion Of Physical Exam Limited Due To: Other - Intoxication Appearance: Positive: No Pain Distress - Appears intoxicated, require repeat stimulation to answer questions, participate in physical exam. Negative: Signs of Trauma Skin: Positive: Warm, Dry, Pale Head/Face: Positive: Normal Head/Face Inspection Eyes: Positive: Other: - Pupils 2-3 mm bilaterally but dilated with decreased light ENT: Positive: Normal ENT inspection, Hearing grossly normal. Negative: Nasal drainage Neck: Positive: Supple, Nontender Respiratory/Lung Sounds: Positive: Clear to Auscultation, Breath Sounds Present. Negative: Rales, Rhonchi Cardiovascular: Positive: Normal, RRR Abdomen Description: Positive: Nontender, Soft Musculoskeletal: Positive: Normal. Negative: Edema Left, Edema Right Neurological: Positive: Sensory/Motor Intact, Alert, Oriented to Person Place, Time, Other - Gait not tested. Slurred speech but easily arousable and answers questions appropriately. Psychiatric: Positive: Other - Unable to fully assess due to alteration of mental status Diagnostics - Vital Signs Vital Signs Temp Pulse Resp BP Pulse Ox 02/18/18 23:26 18 80/54 02/18/18 23:05 17 02/18/18 22:25 82 12 95/63 97 02/18/18 22:02 97.5 F 88 16 85/61 100 - Laboratory Lab Results: Lab Results 02/18/18 02/18/18 02/18/18 Range/Units 22:52 22:54 23:41 WBC 6.2 (3.5-10.8) 10^3/ul RBC 3.97 L (4.0-5.4) 10^6/ul Hgb 11.1 L (12.0-16.0) g/dl Hct 34 L (35-47) % MCV 87 (80-97) fL MCH 28 (27-31) pg MCHC 32 (31-36) g/dl RDW 14 (10.5-15) % Plt Count 356 (150-450) 10^3/ul MPV 7.8 (7.4-10.4) um3 Neut % (Auto) 49.6 (38-83) % Lymph % (Auto) 35.7 (25-47) % [place] % (Auto) 9.2 H (0-7) % Eos % (Auto) 4.4 (0-6) % Baso % (Auto) 1.1 (0-2) % Absolute Neuts (auto) 3.1 (1.5-7.7) 10^3/ul Absolute Lymphs (auto) 2.2 (1.0-4.8) 10^3/ul Absolute Monos (auto) 0.6 (0-0.8) 10^3/ul Absolute Eos (auto) 0.3 (0-0.6) 10^3/ul Absolute Basos (auto) 0.1 (0-0.2) 10^3/ul Absolute Nucleated RBC 0 10^3/ul Nucleated RBC % 0 Urine Color Yellow Urine Appearance Cloudy Urine pH 5.0 (5-9) Ur Specific [place] 1.023 (1.010-1.030) Urine Protein Negative (Negative) Urine Ketones Negative (Negative) Urine Blood Negative (Negative) Urine Nitrate Negative (Negative) Urine Bilirubin Negative (Negative) Urine Urobilinogen Negative (Negative) Ur Leukocyte Esterase 3+ A (Negative) Urine WBC (Auto) 3+(>20/hpf) A (Absent) Urine RBC (Auto) Absent (Absent) Ur Squamous Epith Cells Present A (Absent) Urine Bacteria Absent (Absent) Urine Glucose Negative (Negative) Urine Ascorbic Acid * A (Negative) Serum Alcohol < 10 (<10) mg/dL Result Diagrams: 02/18/18 22:52 02/18/18 22:54 Lab Statement: Any lab studies that have been ordered have been reviewed, and results considered in the medical decision making process. - CT CT brain CT Interpretation: No Acute Changes CT Interpretation Completed By: Radiologist Re-Evaluation - Re-Evaluation First Eval Re-Evaluation Time: 01:50 Change: Improved Altered Mental Statu Course/Dx - Course Course Of Treatment: Patient with presumed intoxication from substance use. This could be prescription drugs to include overmedication with benzodiazepines. She is on long-term benzos and so flumazenil was not appropriate. There is no response with Narcan. She is expected to be negative for opiates given that she is on only synthetic Suboxone. There is 3+ WBCs and 3+ leukocyte esterase with absence of bacteria seen in the urine. Antibiotic will be given in case this is early UTI. CT scan was obtained and was negative. I does possible that this may be related to her gabapentin or other nonopiate medications obtained off the street. Laboratory testing is nonrevealing. Her screen is positive only for benzos today. She remains easily arousable but drowsy. She was able to get up and use the restroom. She is able to reason at this point will be discharged to the care of her mother. We have discussed rehabilitation opportunities. I'm sure her business practices officer also has opportunities for her to seek recovery. - Diagnoses Differential Diagnosis/HQI/PQRI: Hypoglycemia, Injury, Intoxication, Medication Reaction, Sepsis, Seizure Provider Diagnoses: Substance abuse, Drug intoxication Discharge - Sign-Out/Discharge Documenting (check all that apply): Discharge/Admit/Transfer - Discharge Plan Condition: Improved Disposition: HOME Patient Education Materials: Polysubstance Abuse (ED) Referrals: Leonora Hoffman NP [Primary Care Provider] - Additional Instructions: You have been provided with handout regarding local resources for drug and alcohol abuse. You may also investigate [facility], which is a long-term [place]-based rehabilitation program that might be of little help you. It is very low-cost. Return if worse, new symptoms or other concerns. Do not take medications above prescribed dose or street drugs. - Billing Disposition and Condition Condition: IMPROVED Disposition: HOME
[2018-02-19] MEDS ORDERED: cefTRIAXone(*) 1 GM in NS 0.9% 50 ML* 50 ML IVPB ONE (00:19)
[2018-02-19] MEDS ORDERED: cefTRIAXone VIAL(*) 1,000 MG VIAL IM ONE ×2 (00:30)
[2018-02-19 00:48] LABS: EGFR Non-African American 78.9 (>60)
[2018-02-19 01:40] VITALS: BP 95/56
--- NOTE | 2018-02-19 07:47 | RAD ---
INDICATION: Altered mental status COMPARISON: CT brain February 08, 2018 TECHNIQUE: Noncontrast axial source images were acquired from the skull base to the vertex. FINDINGS: Ventricles/sulci: The ventricles and cisterns are normal in size and configuration for age. Brain parenchyma: There is no focal parenchymal finding, evidence of intracranial mass, or intracranial mass effect. Intracranial hemorrhage:None. Extra-axial spaces: There are no abnormal extra axial fluid collections or evidence of extra-axial mass. Calvarium: There is no calvarial fracture or other calvarial abnormality. Scalp: There is no evidence of scalp or extracalvarial soft tissue abnormality. Paranasal sinuses/mastoid: The paranasal sinuses and mastoid air cells are clear. Other: None. IMPRESSION: No acute intracranial findings
--- NOTE | 2018-02-21 06:50 | PN ---
Progress Note - Progress Note Date of Service: 02/21/18 Note: Patient's urine showed 1 through 10,000 staph aureus and normal nora. Patient given Rocephin. not significant amount to continue treating. no further action required.
== END 2018-02-19 02:03 | disposition home or self-care (01) ==
LOC: ED 22:01
DX: F19.10 Other psychoactive substance abuse, uncomplicated (principal)
CPT/HCPCS: 36415; 70450; 80053; 80307; 80320; 81003; 81015; 85025; 87077; 87086; 87186; 93005; 96365; 96372; 99283; A9270-GY; G0480; J0696; J2310

== ENCOUNTER 2018-02-26 17:49 | Inpatient (IN) | payer MEDICAID ==
--- OUTSIDE RECORDS SUMMARY | 2018-02-26 18:08 | XMS REPORT ---
:1980 External Reference #:[id number] Author Organization [email or web address] Address [address] [address] Phone [phone] Care Team Providers Name Role Phone Chary Glass MD Primary Care Physician Unavailable Payers Type Date Identification Numbers Payment Provider Subscriber Medicaid Policy Number: [id number] Medicaid [employer] Name: 1 1 [address] PayID: [id number] [place] [address] Commercial Expires: 2016 Policy Number: [id number] Liborio Negron Torres [employer] Name: [id number] [address] PayID: [id number] [place] [address] Problems Date Description Provider Status Onset: 02/08/2018 History of drug abuse Leonora Hoffman, N.P. Active Onset: 02/08/2018 Viral hepatitis C Leonora Hoffmna, N.P. Active Onset: 02/08/2018 Depressive disorder Leonora Hoffman, N.P. Active Onset: 02/08/2018 Anxiety Leonora Hoffman, N.P. Active Note: cigarette Onset: 02/08/2018 Cigarette smoker Leonora Hoffman, N.P. Active Onset: 02/19/2018 Gastroesophageal reflux disease Leonora Hoffman, N.P. Active Family History Date [...] day Vital Signs Date Vital Result Comment 02/21/2018 Height 64 inches 5'4" Weight 187.00 lb Heart Rate 84 /min BP Systolic Sitting 100 mmHg BP Diastolic Sitting 66 mmHg Respiratory Rate 14 /min Body Temperature 97.8 F BMI (Body Mass Index) 32.1 kg/m2 02/11/2018 Weight 192.50 lb Heart Rate 93 [...] Test Date Test Result H/L Range Note Urine Culture And 02/18/2018 Urine Culture SEE RESULT BELOW 1 Sensitivities Laboratory test finding 02/18/2018 Alcohol < 10 mg/dL <10 Comp Metabolic Panel 02/18/2018 Sodium 138 mmol/L Low 139-145 Potassium 4.0 mmol/L 3.5-5.0 Chloride 104 mmol/L 101-111 Co2 Carbon Dioxide 32 mmol/L 22-32 Anion Gap 2 mmol/L 2-11 Glucose 99 mg/dL 70-100 Blood Urea Nitrogen 12 mg/dL 6-24 Creatinine 0.82 mg/dL 0.51-0.95 BUN/Creatinine Ratio 14.6 8-20 Calcium 9.0 mg/dL 8.6-10.3 Total Protein 6.5 g/dL 6.4-8.9 Albumin 3.6 g/dL 3.2-5.2 Globulin 2.9 g/dL 2-4 Albumin/Globulin Ratio 1.2 1-3 Total Bilirubin 0.40 mg/dL 0.2-1.0 Alkaline Phosphatase 107 U/L High 34-104 Alt 124 U/L High 7-52 Ast 77 U/L High 13-39 Egfr Non- 78.9 >60 Egfr 101.4 >60 2 Urine Drug SCR ED 02/18/2018 Amphetamine Ur Screen None Detected None Detect & [facility] Barbiturates Urine Screen None Detected None Detect Benzodiazepine Urine Screen Presumptive Posi <SEE NOTE> None Detect 3 Urine Cannabinoids Screen None Detected None Detect Urine Cocaine Screen None Detected None Detect Urine Opiates Screen None Detected None Detect Urine Phencyclidine Screen None Detected None Detect 4 Urinalysis Profile 02/18/2018 Urine Color Yellow Urine Appearance Cloudy Urine Specific [place] 1.023 1.010-1.030 Urine pH 5.0 5-9 Urine Urobilinogen Negative Negative Urine Ketones Negative Negative Urine Protein Negative Negative Urine Leukocytes 3+ Negative Urine Blood Negative Negative * * Negative 5 Urine Nitrite Negative Negative Urine Bilirubin Negative Negative Urine Glucose Negative Negative Urine White Blood Cell 3+(>20/hpf) Absent Urine Red Blood Cell Absent Absent Urine Bacteria Absent Absent Urine Squamous Epithelial Cell Present Absent CBC Auto Diff 02/18/2018 White Blood Count 6.2 10^3/uL 3.5-10.8 Red Blood Count 3.97 10^6/uL Low 4.0-5.4 Hemoglobin 11.1 g/dL Low 12.0-16.0 Hematocrit 34 % Low 35-47 Mean Corpuscular Volume 87 fL 80-97 Mean Corpuscular Hemoglobin 28 pg 27-31 Mean Corpuscular HGB Conc 32 g/dL 31-36 Red Cell Distribution Width 14 % 10.5-15 Platelet Count 356 10^3/uL 150-450 Mean Platelet Volume 7.8 um3 7.4-10.4 Abs Neutrophils 3.1 10^3/uL 1.5-7.7 Abs Lymphocytes 2.2 10^3/uL 1.0-4.8 Abs Monocytes 0.6 10^3/uL 0-0.8 Abs Eosinophils 0.3 10^3/uL 0-0.6 Abs Basophils 0.1 10^3/uL 0-0.2 Abs Nucleated RBC 0 10^3/uL Granulocyte % 49.6 % 38-83 Lymphocyte % 35.7 % 25-47 Monocyte % 9.2 % High 0-7 Eosinophil % 4.4 % 0-6 Basophil % 1.1 % 0-2 Nucleated Red Blood Cells % 0 Laboratory test finding 02/08/2018 Lactic Acid 1.0 mmol/L 0.5-2.0 6 CBC Auto Diff 02/08/2018 White Blood Count [...] Color Dayana Urine Appearance Cloudy Urine Specific [place] 1.027 1.010-1.030 Urine pH 5.0 5-9 Urine Urobilinogen Negative Negative Urine Ketones Trace Negative Urine Protein Negative Negative Urine Leukocytes 3+ Negative Urine Blood Negative Negative * * Negative 7 Urine Nitrite Negative Negative Urine Bilirubin Negative [...] Screen Presumptive Posi <SEE NOTE> None Detect 8 Urine Cannabinoids Screen None Detected None Detect Urine Cocaine Screen Presumptive Posi <SEE NOTE> None Detect 9 Urine Opiates Screen Presumptive Posi <SEE NOTE> None Detect 10 Urine Phencyclidine Screen None Detected None Detect 11 Comp Metabolic Panel 02/08/2018 Sodium 140 mmol/L [...] Egfr Non- 83.6 >60 Egfr 107.5 >60 12 Laboratory test finding 02/08/2018 HCG < 0.60 mIU/mL 13 Acetaminophen < 15 g/mL 14 Alcohol < 10 mg/dL <10 Salicylate < 2.50 mg/dL <30 Urine Culture And 02/08/2018 Urine Culture SEE RESULT BELOW 15 Sensitivities Laboratory test finding 02/08/2018 Point of Care 125 mg/dL High 70-100 16 Glucose Laboratory test finding 02/06/2018 TSH (Thyroid Stim 2.80 mcIU/mL 0.34- 5.60 Horm) FSH (Follicle Stim Hormone) 1.4 mIU/mL 17 Hepatitis C Antibody High Reactive Nonreactive 18 Hepatitis C Rna Quant [id number] IU/mL Undetected 19 Comp Metabolic Panel 02/06/2018 Sodium 139 mmol/L [...] Egfr Non- 97.9 >60 Egfr 125.9 >60 20 1 SEE RESULT BELOW Name: ЮЛИЯ THOMAS : [address]: Evgeny Haynes MD Acct: [id number] Unit: [id number] AGE: 37 Location: ED Re02/18/18 SEX: F Status: DEP ER SPEC: [id number] LEON: 02/18/[address]: Evgeny Haynes MD REQ: [id number] RECD: 02/18/18 STATUS: CRESCENCIO DAMON DR: Leonora Hoffman PHARMACY GENERAL MANAGER _ SOURCE: URINE SPDESC: ORDERED: Urine Culture Procedure Result Reported Site Urine Culture Final 02/21/18- 0821 ML Organism 1 STAPHYLOCOCCUS AUREUS Muse Count 1-10,000 (Few) CFU/ML Organism 2 NORMAL VIVI Muse Count 1-10,000 (Few) CFU/ML 1. STAPHYLOCOCCUS AUREUS M.I.C. RX --------- ------ Penicillin 0.06 S Gentamicin <=0.5 S Linezolid 2 S Nitrofurantoin <=16 S Oxacillin <=0.25 S * Quinupristin/Dalfopristin <=0.25 S Rifampin <=0.5 S Tetracycline <=1 S Doxycycline - Deduced S * Minocycline - Deduced S Trimethoprim/Sulfamethoxazole <=10 S Vancomycin <=0.5 S Imipenem-Deduced S * Ampicillin/Sulbactam-Deduced S Cefazolin-Deduced S CONTINUED ON NEXT PAGE DEPARTMENT OF PATHOLOGY, [address] [place] [address] Johan Quiroz M.D. Director TODD # [id number] Patient: ЮЛИЯ THOMAS [id number] (Continued) Specimen: [id number] Collected: 02/18/18 Received: 02/18/18 (Continued) Procedure Result Reported Site Urine Culture Final (continued) * These antibiotics are not available in the [facility] Formulary Contact the Microbiology Department for any additional antibiotic reporting. * ML - Main Lab . END OF REPORT DEPARTMENT OF PATHOLOGY, [address] [place] [address] Johan Quiroz M.D. Director [facility] # [id number] 2 Because ethnic data is not always readily [...] 15-29 5 Kidney failure <15 (or dialysis) 3 Presumptive Positive Presumptive positive results are unconfirmed. 4 The urine specimen was tested at the listed cutoffs: Drug class test level (ng/mL) Amphetamines 500 Barbiturates 200 Benzodiazepine metabolites 200 Cocaine metabolites 150 Cannabinoids 50 Opiates 300 Pcp 25 Specimen was received without chain of custody. Results should be used for medical purposes only. 5 *Ascorbic acid is present which may interfere with detection of blood. 6 PRS Severe Sepsis and Septic Shock Management Bundle Measure requires all lactic acids initially measuring >2.0 mmol/L be repeated. 7 *Ascorbic acid is present which may interfere with detection of blood. 8 Presumptive Positive Presumptive positive results are unconfirmed. 9 Presumptive Positive Presumptive positive results are unconfirmed. 10 Presumptive Positive Presumptive positive results are unconfirmed. 11 The urine specimen was tested at the listed cutoffs: Drug class test level (ng/mL) Amphetamines 500 Barbiturates 200 Benzodiazepine metabolites 200 Cocaine metabolites 150 Cannabinoids 50 Opiates 300 Pcp 25 Specimen was received without chain of custody. Results should be used for medical purposes only. 12 Because ethnic data is not always readily [...] 15-29 5 Kidney failure <15 (or dialysis) 13 <5.0 Negative 5.0 - 25.0 Indeterminate (Repeat testing recommended after 72 hours) >25.0 Positive Perimenopausal women can display HCG levels of up to 20 mIU/mL 14 Therapeutic concentration: <50 ug/mL Toxic concentration: >120 ug/mL 15 SEE RESULT BELOW Name: ЮЛИЯ THOMAS : [address]: Avtar Sommers MD Acct: [id number] Unit: [id number] AGE: 37 Location: ED Re02/08/18 SEX: F Status: DEP ER SPEC: [id number] LEON: 02/08/[address] [facility] [address]: Avtar Sommers MD REQ: [id number] RECD: 02/08/18 STATUS: CRESCENCIO DAMON DR: Leonora Hoffman PHARMACY GENERAL MANAGER _ SOURCE: URINE [facility]: ORDERED: Urine Culture Procedure Result Reported Site Urine Culture Final 02/11/18- 0840 ML Organism 1 STAPHYLOCOCCUS AUREUS Muse Count 10-25,000 (Moderate) CFU/ML Organism 2 STREP GROUP B Muse Count 1-10,000 (Few) CFU/ML Organism 3 NORMAL VIVI Muse Count 25-50,000 (Moderate) CFU/ML Susceptibility testing of penicillins and other B-lactams approved by FDA for treatment of Streptococcus pyogenes (Group A Strep) and Streptococcus agalactiae (Group B Strep) is not necessary for clinical purposes and need not be done routinely, since as with vancomycin, resistant strains have not been recognized. (CLSI R817-P56;p.66) Positive isolates will be saved for one week. Please call the Microbiology Laboratory if further susceptibility testing is needed. 1. STAPHYLOCOCCUS AUREUS M.I.C. RX --------- ------ Penicillin 0.06 S Gentamicin <=0.5 S Linezolid 2 S Nitrofurantoin <=16 S Oxacillin <=0.25 S * Quinupristin/Dalfopristin <=0.25 S Rifampin <=0.5 S Tetracycline <=1 S CONTINUED ON NEXT PAGE DEPARTMENT OF PATHOLOGY, [address] [place] [address] Johan Quiroz M.D. Director [facility] # [id number] Patient: ЮЛИЯ THOMAS [id number] (Continued) Specimen: [id number] Collected: 02/08/18 Received: 02/08/18 (Continued) Procedure Result Reported Site Urine Culture Final (continued) 02/11/18- 839 1. STAPHYLOCOCCUS AUREUS (continued) M.I.C. RX --------- ------ Doxycycline - Deduced S * Minocycline - Deduced S Trimethoprim/Sulfamethoxazole <=10 S Vancomycin <=0.5 S Imipenem-Deduced S * Ampicillin/Sulbactam-Deduced S Cefazolin-Deduced S * These antibiotics are not available in the [facility] Formulary Contact the Microbiology Department for any additional antibiotic reporting. * ML - Main Lab . END OF REPORT DEPARTMENT OF PATHOLOGY, [address] [place] [address] Johan Quiroz M.D. Director [facility] # [id number] 16 Thermospray Operator: [id number] 17 Normally menstruating females - Follicular phase 3 - 9 - Mid-cycle peak 4 - 23 - Luteal phase 1 - 6 Postmenopausal females 16 - 114 18 High reactive sample are considered positive for Hepatitis C 19 Result in log IU/mL is 6.40. ADDITIONAL INFORMATION The quantification range of this assay is 15 to 100,000,000 IU/mL (1.18 log to 8.00 log IU/mL). Testing was performed using the rick HCV test ([employer] with the rick 6800 System. Test Performed by: [facility] [address] [place] [address] 20 Because ethnic data is not always readily [...] Procedures Date CPT Code Description Status 02/19/2016 44074 EKG, Interpretation Only Completed 01/21/2013 72852 Polysomnography Sleep Staging 4+ Parameters W/Cpap Completed 11/07/2012 54861 EEG Recording Awake & Asleep Completed 10/22/2012 96320 Polysomnography Sleep Staging 4+ Parameters W/Cpap Completed 10/26/2009 27233 EKG, Interpretation Only Completed Encounters Type Date Location Provider CPT E/M Dx Office Visit 02/11/2018 [facility] Leonora Hoffman, N.P. 58115 Z71.51 3:40p - Roland F41.1 Office Visit 01/31/2018 9:00a [facility] Leonora Hoffman, N.P. 35655 M54.5 - Roland F32.9 N91.2 B18.2 H02.402 Office Visit 02/14/2016 12:27p [facility] Jared Hernandez, 07509 F19.20 Assoc,ky Payne M.D. F32.9 A41.9 Office Visit 02/13/2016 12:27p [facility] ,ky Hernandez, 61348 F32.9 Hospitalists Pal F19.20 G89.29 A41.9 Office Visit 02/12/2016 12:26p [facility] Jared Hernandez, 77660 F32.9 Hospitalists MJoceline F19.20 G89.29 A41.9 Office Visit 02/11/2016 12:25p [facility] Hilda Caio, 19585 F32.9 Assoc,pc PHARMACY GENERAL MANAGER Hospitalists F19.20 G89.29 A41.9 Office Visit 12/02/2015 10:30a [facility] Kacey Cash, N.P. 82629 R41.0 Hospitalists J11.1 G47.33 Office Visit 12/01/2015 10:30a [facility] Kacey Cash, N.P. 37284 R41.0 Hospitalists J11.1 G47.33 Office Visit 11/30/2015 10:29a [facility], Joon Juarez, 92065 R41.0 Hospitalists N.P. J11.1 G47.33 Office Visit 04/07/2014 4:52p [facility] Kacey Cash, N.P. 01270 519.11 Hospitalists 276.2 780.97 305.1 Office Visit 04/06/2014 4:51p [facility] James Pulido, 77218 519.11 Assoc, Hospitalists Pal 276.2 780.97 305.1 Office Visit 04/05/2014 4:50p [facility], Adithya Grover D.O. 85462 519.11 Hospitalists 276.2 780.97 305.1 Office Visit 01/07/2014 2:58p [facility] Dayton Arteaga M.D. 44488 466.0 Hospitalists 305.60 278.01 305.1 Office Visit 01/06/2014 2:58p [facility], Dayton Arteaga M.D. 13109 466.0 Hospitalists 305.60 278.01 305.1 Office Visit 01/05/2014 2:58p [facility], Adithya Grover D.O. 85748 785.0 Hospitalists 466.0 305.60 305.1 Office Visit 01/04/2014 2:57p [facility], Adithya Grover D.O. 97037 276.2 Hospitalists 780.97 305.60 785.0 Office Visit 03/27/2013 2:45p [facility] Yahir GEORGE Rico, 77298 327.23 M.D. Office Visit 11/30/2012 8:20a [facility],ky Arteaga M.D. 42320 300.00 Hospitalists 311 305.1 493.12 Office Visit 11/29/2012 8:20a [facility] Ass, Dayton Arteaga M.D. 58765 493.12 Hospitalists 300.00 311 305.1 Office Visit 11/28/2012 8:19a [facility], Dayton Arteaga M.D. 54845 493.12 Hospitalists 311 300.00 305.1 Office Visit 11/27/2012 8:19a [facility], 52273 493.12 Assoc, Hospitalists N.P. 311 300.00 305.1 Office Visit 10/30/2012 2:24p [facility] John Tejada, 73149 327.23 Disorder Center M.D. Office Visit 09/10/2012 11:08a [facility] John Tejada, 25813 786.09 Disorder Center M.DOly 780.79 Office Visit 06/29/2012 1:45p [facility], Deangelo Gibson, 26590 995.91 Hospitalists M.DOly 780.97 507.0 Office Visit 06/28/2012 11:10a [facility], Deangelo Gibson, 25016 995.91 Hospitalists M.DOly 780.97 507.0 Office Visit 06/27/2012 11:09a [facility], Deangelo Gibson 82105 995.91 Hospitalists M.D. 780.97 507.0 Office Visit 06/26/2012 11:09a [facility], Adithya Grover D.O. 06926 518.84 Hospitalists 427.0 250.90 338.19 Office Visit 06/25/2012 1:44p [facility] Juarez, 26984 995.91 Assoc,pc Hospitalists N.P. 780.97 507.0 Office Visit 10/27/2009 12:30a [facility], Adithya Grover D.O. 60755 977.9 Hospitalists 507.0 311 Office Visit 10/26/2009 12:15a [facility], Adithya Grover D.O. 17738 977.9 Hospitalists 348.89 507.0 288.60 790.29 278.00 Office Visit 10/14/2009 10:15a [facility] Thompson, 80012 724.2 [facility] Future Appointment(s):03/21/2018 2:00 pm - Tigre Alvarez M.D. at [facility] [id number] 10:20 am - Leonora Hoffman N.P. at [facility]02/21/2018 - Tigre Alvarez M.D.B18.2 Chronic viral hepatitis CFollow up:3 weeks
[2018-02-26] MEDS ORDERED: NS 0.9% 1000 ML* 1,000 ML IV ONE (18:14)
--- NOTE | 2018-02-26 18:46 | RAD ---
HISTORY: Altered mental status COMPARISONS: February 18, 2018 TECHNIQUE: Multiple contiguous axial CT scans were obtained of the head without intravenous contrast. FINDINGS: HEMORRHAGE/INFARCT: There is no hemorrhage or acute infarct. MASSES/SHIFT: There is no mass or shift. EXTRA-AXIAL SPACES: There are no extra-axial fluid collections. SULCI AND VENTRICLES: The sulci and ventricles are normal in size and position for the patient's stated age. CEREBRUM: There are no focal parenchymal abnormalities. BRAINSTEM: There are no focal parenchymal abnormalities. CEREBELLUM: There are no focal parenchymal abnormalities. VESSELS: The vessels are grossly normal. PARANASAL SINUSES: The paranasal sinuses are clear. ORBITS: The orbits are unremarkable. BONES AND SOFT TISSUE: No bone or soft tissue abnormalities are noted. OTHER: None IMPRESSION: NO ACUTE INTRACRANIAL PATHOLOGY.
--- NOTE | 2018-02-26 18:50 | RAD ---
HISTORY: Altered mental status COMPARISONS: 14 2015 VIEWS: 1: frontal portable view of the chest at 6:47 PM FINDINGS: LINES AND TUBES: None. CARDIOMEDIASTINAL SILHOUETTE: The cardiomediastinal silhouette is normal for portable technique. PLEURA: The costophrenic angles are sharp. No pleural abnormalities are noted. LUNG PARENCHYMA: The lung volumes are low. The lungs are clear accounting for the phase of respiration. ABDOMEN: The upper abdomen is clear. There is no subphrenic gas. BONES AND SOFT TISSUES: No bone or soft tissue abnormalities are noted. IMPRESSION: NO ACTIVE CARDIOPULMONARY DISEASE.
[2018-02-26 19:03] LABS: ABS Basophils 0.1 10^3/ul (0-0.2); ABS Eosinophils 0.3 10^3/ul (0-0.6); ABS Lymphocytes 2.4 10^3/ul (1.0-4.8); ABS Monocytes 0.6 10^3/ul (0-0.8); ABS Neutrophils 2.6 10^3/ul (1.5-7.7); ABS Nucleated RBC 0 10^3/ul; Eosinophil % 4.5 % (0-6); Hematocrit 34 % (35-47); Hemoglobin 11.2 g/dl (12.0-16.0); Lymphocyte % 39.9 % (25-47); Mean Corpuscular HGB Conc 33 g/dl (31-36); Mean Corpuscular Hemoglobin 28 pg (27-31); Mean Corpuscular Volume 87 fL (80-97); Mean Platelet Volume 7.9 um3 (7.4-10.4); Nucleated Red Blood Cells % 0; Platelet Count 306 10^3/ul (150-450); Red Blood Count 3.94 10^6/ul (4.0-5.4); Red Cell Distribution Width 14 % (10.5-15); White Blood Count 5.9 10^3/ul (3.5-10.8)
[2018-02-26 19:22] LABS: EGFR Non-African American 86.1 (>60)
[2018-02-26 20:11] LABS: Urine Appearance Clear; Urine Blood Negative (Negative); Urine Color Yellow; Urine Ketones Negative (Negative); Urine Protein Negative (Negative); Urine Specific Gravity 1.012 (1.010-1.030); Urine Urobilinogen Negative (Negative)
[2018-02-26] MEDS ORDERED: Ondansetron INJ* 2 MG/ML VIAL IV PRN (21:43)
[2018-02-26 22:18] LABS: INR 0.94 (0.77-1.02)
[2018-02-26] MEDS ORDERED: Albuterol 2.5 MG/3 ML NEB.SOL* (0.083%) INH PRN (22:24)
[2018-02-27] MEDS: NS 0.9% 1000 ML* 1,000 ML IV SCH ×2 (00:43→10:42)
[2018-02-27] MEDS ORDERED: Ondansetron 40 MG VIAL* 2 MG/ML 20 ML VIAL IV PRN (05:00)
[2018-02-27 06:39] LABS: ABS Basophils 0 10^3/ul (0-0.2); ABS Eosinophils 0.3 10^3/ul (0-0.6); ABS Lymphocytes 2.2 10^3/ul (1.0-4.8); ABS Monocytes 0.5 10^3/ul (0-0.8); ABS Neutrophils 4.3 10^3/ul (1.5-7.7); ABS Nucleated RBC 0 10^3/ul; Eosinophil % 3.7 % (0-6); Hematocrit 35 % (35-47); Hemoglobin 11.2 g/dl (12.0-16.0); Lymphocyte % 29.8 % (25-47); Mean Corpuscular HGB Conc 32 g/dl (31-36); Mean Corpuscular Hemoglobin 28 pg (27-31); Mean Corpuscular Volume 87 fL (80-97); Mean Platelet Volume 7.9 um3 (7.4-10.4); Nucleated Red Blood Cells % 0; Platelet Count 303 10^3/ul (150-450); Red Cell Distribution Width 14 % (10.5-15); White Blood Count 7.3 10^3/ul (3.5-10.8)
[2018-02-27 06:49] LABS: EGFR Non-African American 96.3 (>60)
--- NOTE | 2018-02-27 07:10 | RAD ---
INDICATION: Elevated liver function tests. COMPARISON: Comparison is made with a prior study from July 01, 2014. TECHNIQUE: Multiple real-time images of the right upper quadrant were obtained. FINDINGS: There is a small amount of sludge within the gallbladder. No gallstones or gallbladder wall thickening is seen. No pericholecystic fluid or positive sonographic Casey sign was present. No intra or extrahepatic ductal distention is present. The common bile duct measured 0.3 cm in diameter. The liver is mildly enlarged without significant focal abnormality. The pancreas is partially inferior by overlying bowel gas. No ductal distention is present. The right kidney is normal in size without evidence for hydronephrosis. IMPRESSION: 1. SMALL AMOUNT OF BILIARY SLUDGE, NO EVIDENCE FOR ACUTE CHOLECYSTITIS. 2. MILD HEPATOMEGALY.
[2018-02-27] MEDS: Buprenorphine/Naloxone 8-2 MG SL TAB* 1 TAB SL SCH ×3 (08:41→20:37)
--- NOTE | 2018-02-27 08:49 | HP ---
CC: Leonora Hoffman NP * HISTORY AND PHYSICAL: DATE OF ADMISSION: 02/26/18 PRIMARY CARE PROVIDER: Leonora Hoffman NP ATTENDING PHYSICIAN WHILE IN THE HOSPITAL: Dr. Layton Carreon * (report dictated by Julian Juarez NP). CHIEF COMPLAINT: Altered mental status. HISTORY OF PRESENT ILLNESS: Ms. Conrad is a 37-year-old female patient. She has a history of polysubstance abuse, history of asthma, chronic pain, TRACI, history of GERD, anxiety, depression, PTSD, and PCOS. She comes into our ER today, the mother says that she was recently incarcerated for about a year. She has been home for the last month and she has had intermittent episodes where she has been confused and not acting herself for the last month. She has been very drowsy, almost at times lethargic. The mother said that she was discharged, [facility] from [facility], and was prescribed 5 medications which she has been giving with the exception the last 3 days the patient's mother did withhold Cymbalta, Effexor, and her BuSpar. The patient, when evaluating her, says that she does not have a headache or neck pain but she is very drowsy, she falls asleep quickly during my exam. She denies having any chest pain or shortness of breath. No fevers. She denies any abdominal pain. No nausea or vomiting. The mom to her knowledge states that there has not been any illicit drug use, there has not been any again abdominal pain or any nausea or vomiting. No fevers or chills or shortness of breath. It has been noted that she has been evaluated in the ED several times for this drowsiness. She was positive again for cocaine on 02/08/18 and she was positive for opiates on 02/08 as well, but she was negative last week and today. She has been again in the ER several times for altered mental status, she comes back again today for drowsiness, altered mental status, and because of this, we were asked to evaluate. There have been no reports of weakness to one side, slurring of her words, no reports of facial drooping according to the mother. She was in the ED , it was noted that she had an elevated ammonia level and because of this, we were asked to evaluate for admission. PAST MEDICAL HISTORY: 1. Polysubstance abuse. 2. Asthma. 3. Chronic pain. 4. TRACI. 5. GERD. 6. Anxiety and depression. 7. PTSD. 8. PCOS. PAST SURGICAL HISTORY: 1. She has had bilateral eye surgery. 2. She has had breast reduction. 3. She has had rhinoplasty. 4. She has had appendectomy. MEDICATIONS: Home medications include: 1. BuSpar 50 mg at bedtime. 2. Cymbalta 90 mg at bedtime. 3. Effexor 150 mg p.o. at bedtime. 4. Suboxone 1 tablet sublingual t.i.d. 5. Xanax 1 mg p.o. b.i.d. These were read from the pill bottles to me from her mother. ALLERGIES TO MEDICATIONS: Include PENICILLIN, CHANTIX, and WELLBUTRIN. FAMILY HISTORY: Reviewed and noncontributory. SOCIAL HISTORY: She is a kedi-t-jhkj-a-day smoker. She has been smoking for 12 plus years now. She does not drink alcohol. She has a history of polysubstance abuse. According to last drug screen, she did have cocaine and opiates in her system on 02/08/18. Surrogate decision maker is her mother. REVIEW OF SYSTEMS: Again, it is difficult to obtain from the patient, but when she does awaken, she does state to me she had no fevers recently, no vomiting or diarrhea. No chest pain or shortness of breath. No abdominal pain. There has been no nausea, vomiting, or any dysuria. She denied having any loss of consciousness to me as well. Review of 14 systems completed, all others negative. PHYSICAL EXAMINATION GENERAL: At this time, Ms. Conrad is a 37-year-old female patient. She is sitting in the ED stretcher. She does not appear to be in any acute distress. VITAL SIGNS: Blood pressure 105/81, respirations were 14, O2 sat 96%, and temperature 98.0. HEENT: Head is atraumatic and normocephalic. Eyes: EOMs are intact. Her sclerae were anicteric and not pale. Throat: Oral mucosa appears to be moist. No oropharyngeal erythema. NECK: Her neck was supple. LUNGS: Clear to auscultation bilaterally. She had no wheezes, rales, or rhonchi. HEART: Sounds S1 and S2. She had a regular rate and rhythm. No murmurs, rubs , or gallops. ABDOMEN: Soft, it was flat, and nontender. Bowel sounds were present. EXTREMITIES: Pulses were 2+ throughout. She is moving all 4 extremities with 5 /5 strength. NEUROLOGIC: The patient does awaken. She will follow commands. Her speech was clear. She is not confused, but she is definitely drowsy. No gross focal deficits, no facial drooping. Scgscn-xz-[id number] intact bilaterally. Svff-hz-jvcq intact bilaterally. SKIN: Intact. DIAGNOSTIC STUDIES/LAB DATA: Reveal a WBC of 5.9, RBC of 3.94, hemoglobin of 11.2, hematocrit of 34, platelet count of 306. Sodium is 141, potassium 4.3, chloride 105, bicarb was 34, glucose 96, lactate 0.7, calcium 8.8, mag 2.0. Total bili 0.4, AST 143, ALT 185. Ammonia 69. Albumin 2.6. TSH was normal. Urine showed 3+ leukocyte esterase, 3+ wbc's, and she was positive for benzodiazepine from [employer]. U-tox again previously, she was positive this month for opiates and cocaine. She did have a brain CT obtained today, which revealed no acute intracranial pathology. She had a chest x-ray obtained today, showed no active cardiopulmonary disease. There was an EKG obtained today, which did show a normal sinus rhythm, rate of , no ST elevations or T-wave inversions were noted. Old medical records were reviewed. ASSESSMENT AND PLAN: Ms. Conrad is a 37-year-old female patient with multiple medical problems coming into the ED today with complaints of altered mental status. The etiology is unclear. She will be admitted under inpatient status for: 1. Altered mental status. Etiology is unclear. I am concerned that she is on 2 SNRI medications, Cymbalta and Effexor. Obviously, the altered mental status could be secondary to serotonin syndrome, although she is not exhibiting hyperthermia or agitation. There is no tremor noted in her muscles. There was no rigidity in her muscles. She did not appear to have dry mucous membranes or she did not appear to be flushed and diaphoretic. She was not tachycardic or hypertensive; however, this is in the differential. In addition to this, the other reasons for altered mental status could be accumulation of benzodiazepines given the liver disease and in addition to this, could be also hepatic encephalopathy as her ammonia is 69. I am going to go ahead and give her lactulose, hold her medications. I am going to ask Psychiatry come and evaluate her to help with her medication regimen as I am concerned that she in on Cymbalta and Effexor and also is taking standing Xanax with BuSpar and she is taking an unusual dose in the sense that she is taking 50 mg all at once at bedtime and then may need to be spread out for the BuSpar. So, again I am going to get Psychiatry involved to help us to manage these medications. I am holding them for now and we will continue to follow. 2. History of polysubstance abuse. Continue meds as prescribed. 3. Asthma. I will order p.r.n. albuterol, though she does not appear to be in any acute exacerbation currently. 4. History of obstructive sleep apnea. I am going to check an ABG given the altered mental status and make sure she is not having any hypercarbia. 5. Hepatitis C. I do note that her LFTs have been elevated. Her quantitative levels have been coming down. I did touch base with Dr. Magana. He will be evaluating her tomorrow. I did order an ultrasound of the liver as well. 6. Chronic pain. Again, will continue with supportive care. 7. History of gastroesophageal reflux disease. Continue meds as prescribed. 8. Anxiety and depression. Continue supportive care. 9. History of posttraumatic stress disorder. Continue supportive care. 10. History of polycystic ovarian syndrome. Follow up with her primary. 11. DVT prophylaxis. She is actually low risk. I will place her on SCDs. 12. Code status. Full code. 13. Fluids, electrolytes, and nutrition. I will go ahead and put her on normal saline and I will order n.p.o. except meds until she is a little bit more awake to take a diet. TIME SPENT: On admission is 60 minutes, greater than half the time spent face- to- face with the patient obtaining my history and physical; other half the time spent going over the plan of care with the patient, implementing the plan of care with the patient. I did discuss the plan of care with my attending, Dr. Carreon; he is in agreement. JULIAN JUAREZ NP [id number]/[facility] #: [id number] BELÉN
--- NOTE | 2018-02-27 16:55 | PN ---
Subjective Date of Service: 02/27/18 Interval History: Patient seen and examined at bedside. Denies fever, chills, shortness of breath , chest discomfort, N/V/D. Pt states that she feels much better and is anxious to get home. Per NSG staff Pt continues to be drowsy and appears altered. Family History: Unchanged from Admission Social History: Unchanged from Admission Past Medical History: Unchanged from Admission Objective Active Medications: Albuterol (Ventolin 2.5 Mg/3 Ml Neb.Michela*) 2.5 mg INH Q2H PRN Reason: SOB/ WHEEZING Buprenorphine/Naloxone (Suboxone 8-2 Mg Sl Tab*) 1 tab.sl SL TID JENNIFER Buspirone HCl (Buspar Tab*) 20 mg PO BID JENNIFER Duloxetine HCl (Cymbalta Cap*) 90 mg PO BEDTIME JENNIFER Sodium Chloride (Ns 0.9% 1000 Ml*) 1,000 mls @ 125 mls/hr IV PER RATE JENNIFER Lactulose (Lactulose*) 30 ml PO QID JENNIFER Ondansetron HCl (Zofran 40 Mg Vial*) 4 mg IV Q6H PRN Reason: NAUSEA Vital Signs - 8 hr 02/27/18 02/27/18 02/27/18 11:27 11:34 11:37 Temperature 98.2 F Pulse Rate 87 87 Respiratory 16 16 Rate Blood Pressure 95/56 93/62 (mmHg) O2 Sat by Pulse 97 Oximetry 02/27/18 02/27/18 02/27/18 11:44 13:30 16:04 Temperature Pulse Rate Respiratory 14 16 Rate Blood Pressure 92/68 (mmHg) O2 Sat by Pulse Oximetry Oxygen Devices in Use Now: None Appearance: NAD, sitting up in bed Ears/Nose/Mouth/Throat: Mucous Membranes Moist Respiratory: Symmetrical Chest Expansion and Respiratory Effort, Clear to Auscultation Cardiovascular: NL Sounds; No Murmurs; No JVD, RRR Abdominal: NL Sounds; No Tenderness; No Distention Extremities: No Edema Skin: No Rash or Ulcers Neurological: Alert and Oriented x 3, NL Muscle Strength and Tone, - - Pt with slow cognition and some slurred speech Lines/Tubes/Other Access: Clean, Dry and Intact Peripheral IV - site benign Nutrition: Taking PO's Result Diagrams: 02/27/18 06:24 02/27/18 06:24 Assess/Plan/Problems-Billing Assessment: Ms. Conrad is a 37 yo female with PMH significant for polysubstance abuse, GERD , anxiety, depression, PTSC, PCOS, asthma, TRACI, chronic pain and hep C who presented to the emergency room with confusion and not acting herself. - Patient Problems (1) Altered mental status Code(s): R41.82 - ALTERED MENTAL STATUS, UNSPECIFIED SNOMED Code(s): 363609089 Comment: - Suspect secondary to polysubstance use (toxic encephalopathy) vs hepatic encephalopathy - Unclear baseline - Psych consult, input appreciated - No signs of serotonin syndrome - Will recheck ammonia in the AM - Continue lactulose (2) Hepatitis C Comment: - LFTs elevated - ID consult, input appreciated - Plan for outpatient follow-up (3) Polysubstance abuse Code(s): F19.10 - OTHER PSYCHOACTIVE SUBSTANCE ABUSE, UNCOMPLICATED SNOMED Code(s): 085721939 Comment: - Continue suboxone (4) Anxiety and depression Code(s): F41.9 - ANXIETY DISORDER, UNSPECIFIED; F32.9 - MAJOR DEPRESSIVE DISORDER, SINGLE EPISODE, UNSPECIFIED SNOMED Code(s): 65454544 Comment: - Appreciate Psych input - Continue Buspirone 20 mg PO BID (decreased from 50 daily) - Continue Duloxetine 90 mg PO DAILY - Discontinue effexor and xanax (5) Chronic pain Code(s): G89.29 - OTHER CHRONIC PAIN SNOMED Code(s): 09287865 Comment: - Continue supportive care (6) Asthma Code(s): J45.909 - UNSPECIFIED ASTHMA, UNCOMPLICATED SNOMED Code(s): 412070847 Comment: - No evidence for acute exacerbation (7) GERD (gastroesophageal reflux disease) Code(s): K21.9 - GASTRO-ESOPHAGEAL REFLUX DISEASE WITHOUT ESOPHAGITIS SNOMED Code(s): 784010473 Comment: - Not currently on medications (8) TRACI (obstructive sleep apnea) Code(s): G47.33 - OBSTRUCTIVE SLEEP APNEA (ADULT) (PEDIATRIC) SNOMED Code(s): 14087366 (9) PCOS (polycystic ovarian syndrome) Code(s): E28.2 - POLYCYSTIC OVARIAN SYNDROME SNOMED Code(s): 99747354 Comment: - Associated with obesity and insulin resistance - On metformin in the past, but not currently (10) Obesity (BMI 30-39.9) Code(s): E66.9 - OBESITY, UNSPECIFIED SNOMED Code(s): 720707859 Comment: - BMI ~ 33 (11) PTSD (post-traumatic stress disorder) Code(s): F43.10 - POST-TRAUMATIC STRESS DISORDER, UNSPECIFIED SNOMED Code(s): 73281274 Comment: - Chronic problem; noted. (12) DVT prophylaxis Code(s): USO0121 - SNOMED Code(s): 235744884 Comment: - Heparin SQ (13) Full code status Code(s): Z78.9 - OTHER SPECIFIED HEALTH STATUS SNOMED Code(s): 593187190 Status and Disposition: Inpatient. Discharge to home when medically stable.
--- NOTE | 2018-02-27 20:29 | CONS ---
CONSULTATION REPORT: DATE OF CONSULT: 02/27/18 REQUESTING PROVIDER: Julian Juarez NP CONSULTING SERVICE: Infectious Disease. REASON FOR CONSULT: Encephalopathy. IMPRESSION: 1. Encephalopathy was present on admission. Differential diagnosis includes medication side effects including the 2 serotonergic medications, I think a serotonin syndrome less likely as she is afebrile, no diarrhea, no clonus versus hepatic encephalopathy. She has an elevated ammonia, which is mild that could be contributing to her symptoms. She has had no fevers or headache to suggest a meningitis or encephalitis. Her mental status is improving today with decrease in serotonergic medicines and with lactulose. 2. Hepatitis C. I suspect acute hepatitis C a few months ago. Her transaminase is trending down. The activity of the virus may be leading to some decreased liver function and elevated ammonia; however, INR is 1, her bilirubin is normal, so I think liver synthetic function is essentially normal. 3. History of injection drug use, in remission. 4. Opioid dependence, on maintenance therapy. RECOMMENDATION: Psychiatry consultation is pending. She is going to continue lactulose, follow up with me regarding hep C treatment as an outpatient. HISTORY OF PRESENT ILLNESS: This 37-year-old woman with hepatitis C admitted with encephalopathy. According to her mother, she had been more and more drowsy over the last day and basically sleeping for the last 24 hours, which was worse than her baseline, which had included being drowsy most of the time for about the last 6 weeks. She attributed it to about the time [facility] left [facility] when she was there on a couple of psychiatric medications. She denies fevers, chills, or sweats. Both she and the mom agree that this morning she is much more alert. She had a dose of lactulose overnight. Her other medications were held except for the Suboxone. Her bilirubin and INR normal. When she was here 02/06/18, here ALT was 239, it is down to the 180 range now; her AST was 160, it is 130s now. She has had no fevers, chills, sweats. No headache, no neck pain. Other lab studies here include normal white count, normal TSH, low protein. Tox screen positive for benzos, otherwise negative. Ammonia was 69 last night; 58 this morning after a dose of lactulose. PAST MEDICAL HISTORY: 1. Hepatitis C. 2. Depression. 3. Asthma. 4. Chronic pain. 5. Obstructive sleep apnea. 6. Gastroesophageal reflux disease. 7. Anxiety. 8. PTSD. 9. Polycystic ovary syndrome. 10. History of bilateral eye surgeries. 11. History of breast reduction. 12. Status post rhinoplasty. 13. Status post appendectomy. CURRENT MEDICATIONS: 1. Albuterol. 2. Suboxone. 3. Lactulose. FAMILY HISTORY: No recurrent infections. SOCIAL HISTORY: She has been living with her mother. Recent incarceration. Past injection drug use with relapse recently, now in brief remission. REVIEW OF SYSTEMS: All negative except as noted above to 14-point review. PHYSICAL EXAM: Vital Signs: Temperature 36.4, heart rate is 70, respiratory rate 14, blood pressure is 103/69, oxygen saturation 95% on 2 L. In general, she is awake, not in distress. Neurologic: She is oriented x3, follows all commands. Moves all of her extremities. Cranial nerves II through XII are intact. HEENT: There is no conjunctival hemorrhage. Oropharynx without lesions. Neck: Supple without mass. Heart: Regular rate and rhythm without murmurs, rubs, or gallops. Lungs are clear to auscultation bilaterally. Abdomen : Soft, nontender, nondistended. There are bowel sounds present. Skin: There is no rash or splinter hemorrhages. Musculoskeletal: There is no spine tenderness to palpation or joint synovitis. There is no asterixis. LABORATORY DATA: White blood cell count 7, hemoglobin 11, platelets 303. Creatinine is 0.7. ALT 193. Please see impressions and recommendations outlined above, which I have discussed with Hilda Olsen NP. Thanks for asking me to see Ms. Conrad in consultation. [id number]/[facility] #: [id number] [facility] HOSPITALAamir
[2018-02-27] MEDS: busPIRone TAB* 10 MG PO SCH (20:35)
[2018-02-27] MEDS ORDERED: DULoxetine DR CAP* 30 MG CAP.DR PO SCH (21:00)
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
[2018-02-28 07:58] VITALS: BP 124/79
[2018-02-28] MEDS: busPIRone TAB* 10 MG PO SCH (09:35)
[2018-02-28] MEDS: Buprenorphine/Naloxone 8-2 MG SL TAB* 1 TAB SL SCH (09:35)
--- NOTE | 2018-02-28 09:42 | PN ---
Progress Note - Progress Note Date of Service: 02/28/18 SOAP: Subjective: CC: encephalopathy HPI: 37 year old woman with likely acute HCV and encephalopathy, more awake today and eager to go home. Appetite is good. Fever overnight. No dysuria rash or diarrhea. Objective: Vital Signs Temp 36.6 C 02/28/18 07:46 Pulse 71 02/28/18 07:46 Resp 20 02/28/18 09:35 BP 124/79 02/28/18 07:46 Pulse Ox 92 02/28/18 07:46 Intake & Output 02/27/18 02/28/18 02/28/18 18:59 06:59 18:59 Intake Total 1170 1623 Output Total 0 Balance 1170 1623 Intake: IV Fluids 1573 NS (0.9%) 1573 Oral 1170 50 Output: Urine 0 Other: Estimated Void Small Large # Bowel Movements 1 Estimated Stool Amount Small # Voids 4 2 Gen:awake, no distress HEENT:no thrush Heart:RRR no murmur Lungs:CTA BL Abd:+BS NTND soft; no SP or flank tenderness Skin: no rash MSK: no joint synovitis Laboratory Results - last 24 hr 02/28/18 06:47 Ammonia 61 H Microbiology 02/26/18 19:57 Urine Culture - Final Urine Staphylococcus Aureus Assessment: 1. encephalopathy, present on admission, much improved after decr in serotonergic medications, I do not think it is related to liver function acute HCV 2. Staph aureus in urine, asymptomatic, not a pathogen 3. HCV Plan: 1. fu with me as already scheduled for HCV treatment
--- NOTE | 2018-02-28 21:26 | ED ---
David Carver Angela, scribed for Rudolph Vieira MD on 02/26/18 at 1831 . Complex/Multi-Sys Presentation - HPI Summary HPI Summary: This pt is a 37 y/o female, accompanied by her mother, [facility] [place] [facility]CP for lethargy and weakness for the past month. Mother reports the pt was in [facility] and has hx of substance abuse. Per mother, pt has only used once (in December 2017) since pt was released from [facility]. Mother states the pt suddenly began to become lethargic and brought her to the ED. Pt has been in the ED twice before in the past month. Per mother, doctors assumed she was over using her own medications. Mother decided to take control of the medications and dispense them to the pt herself. Mother reports the only medication the pt has taken in the last 2 days is Xanax BID and suboxone BID. Pt has been very lethargic (sleeps all day) and is unable to get up and eat or even take a shower. Per mother, lethargy happens intermittently and one day she'll be fine but the next day she'll be tired and lethargic. Mother states pt's PCP (Leonora Hoffman NP) today referred her to the ED to acquire an ammonia level. Pt was also referred to Dr. Magana. Dr. Magana reported elevated liver levels and pt is scheduled for a liver biopsy in 1 month. PMHx includes Hepatitis C, substance abuse. LMP: pt has not had one in 10-12 years. - History Of Current Complaint Chief Complaint: EDWeakness Time Seen by Provider: 02/26/18 17:56 Hx Obtained From: Patient, Family/Furniture Maker - Mother Onset/Duration: Lasting Weeks, Still Present Timing: Intermittent, Lasting:, Weeks Severity Initially: Severe Location: Negative Aggravating Factor(s): nothing Alleviating Factor(s): nothing Associated Signs And Symptoms: Positive: Weakness - generalized, Other - POS: fatigue, lethargy. Negative: Headache, Chest Pain, Nausea, Vomiting, Diarrhea, Abdominal Pain, Fever - Allergies/Home Medications Allergies/Adverse Reactions: Allergies Allergy/AdvReac Type Severity Reaction Status Date / Time Penicillins Allergy Severe Rash Verified 02/08/18 18:27 varenicline [From Chantix] Allergy Severe GI Upset Verified 02/08/18 18:27 bupropion [From Wellbutrin] Allergy Anxiety Verified 02/08/18 18:27 PMH/Surg Hx/FS Hx/Imm Hx Respiratory History: Reports: Hx Asthma, Hx Chronic Bronchitis, Hx Pneumonia, Hx Sleep Apnea Comment Only: Other Respiratory Problems/Disorders - HX OF MULTIPLE PNEUMONIAS GI History: Reports: Hx Gastroesophageal Reflux Disease Musculoskeletal History: Reports: Hx Arthritis - LEFT KNEE, Hx Back Problems, Other Musculoskeletal History - chronic pain Sensory History: Reports: Other Sensory Impairments - eye surgeries Opthamlomology History: Reports: Other Sensory Impairments - eye surgeries Psychiatric History: Reports: Hx Anxiety - meds, Hx Depression, Hx Community Mental Health Tx, Hx Suicide Attempt - didnt remember what she did, Hx Substance Abuse Denies: Hx Eating Disorder, Hx of Violent Episodes Against Others - Cancer History Hx Chemotherapy: No Hx Radiation Therapy: No Hx Palliative Cancer Treatment: No - Surgical History Surgery Procedure, Year, and Place: LEFT EYE SURGERY (LAZY EYE REPAIR) 2008, RHINOPLASTY. APPENDECTOMY. BREAST REDUCTION. BILAT EYE SURGERY AT AGE 9 (SO SHE WOULD NOT HAVE TO WEAR GLASSES). left knee arthroscopic surgery, TWO KNEE SURGERIES Hx Anesthesia Reactions: No - Immunization History Date of Tetanus Vaccine: Unknown Date of Influenza Vaccine: never Infectious Disease History: No Infectious Disease History: Denies: Hx Hepatitis, Hx Tuberculosis, History Other Infectious Disease, Traveled Outside the [place] in Last 30 Days - Family History Known Family History: Negative: Hypertension - Social History Alcohol Use: None Hx Substance Use: Yes Substance Use Type: Reports: Prescribed, Sedatives Substance Use Comment - Amount & Last Used: HX HEROIN USE, benzo, gabapentin Hx Tobacco Use: Yes Smoking Status (MU): Heavy Every Day Tobacco Smoker Type: Cigarettes Amount Used/How Often: 1 ppd Length of Time of Smoking/Using Tobacco: 10 Have You Smoked in the Last Year: Yes Review of Systems Positive: Fatigue. Negative: Fever Negative: Chest Pain Negative: Shortness Of Breath Negative: Abdominal Pain, Vomiting, Diarrhea, Nausea Neurological: Other - POS: lethargy Positive: Weakness. Negative: Headache All Other Systems Reviewed And Are Negative: Yes Physical Exam - Summary Physical Exam Summary: VITAL SIGNS: Reviewed. GENERAL: Patient is a well-developed and nourished female who is lying comfortable in the stretcher. Patient is not in any acute respiratory distress. Pt is very lethargic and obtunded. Most of the history is obtained from the mother. Pt seems dry. HEAD AND FACE: No signs of trauma. No ecchymosis, hematomas or skull depressions. No sinus tenderness. EYES: PERRLA, EOMI x 2, No injected conjunctiva, no nystagmus. EARS: Hearing grossly intact. Ear canals and tympanic membranes are within normal limits. MOUTH: Oropharynx within normal limits. NECK: Supple, trachea is midline, no adenopathy, no JVD, no carotid bruit, no c- spine tenderness, neck with full ROM. CHEST: Symmetric, no tenderness at palpation LUNGS: Clear to auscultation bilaterally. No wheezing or crackles. CVS: Regular rate and rhythm, S1 and S2 present, no murmurs or gallops appreciated. ABDOMEN: Soft, non-tender. No signs of distention. No rebound no guarding, and no masses palpated. Bowel sounds are normal. EXTREMITIES: FROM in all major joints, no edema, no cyanosis or clubbing. NEURO: Pt is very lethargic. No acute neurological deficits. Speech is normal and follows commands. She answers questions appropriate when awake. SKIN: Dry and warm Triage Information Reviewed: Yes Vital Signs On Initial Exam: Initial Vitals Temp Pulse Resp BP Pulse Ox 98 F 75 12 108/69 96 02/26/18 17:50 02/26/18 17:50 02/26/18 17:50 02/26/18 17:50 02/26/18 17:50 Vital Signs Reviewed: Yes Diagnostics - Vital Signs Vital Signs Temp Pulse Resp BP Pulse Ox 02/26/18 18:00 74 9 98 02/26/18 17:57 77 12 100 02/26/18 17:53 74 9 108/69 96 02/26/18 17:50 98 F 75 12 108/69 96 - Laboratory Lab Results: Lab Results 02/26/18 02/26/18 02/26/18 Range/Units 18:53 18:53 18:53 WBC 5.9 (3.5-10.8) 10^3/ul RBC 3.94 L (4.0-5.4) 10^6/ul Hgb 11.2 L (12.0-16.0) g/dl Hct 34 L (35-47) % MCV 87 (80-97) fL MCH 28 (27-31) pg MCHC 33 (31-36) g/dl RDW 14 (10.5-15) % Plt Count 306 (150-450) 10^3/ul MPV 7.9 (7.4-10.4) um3 Neut % (Auto) 44.7 (38-83) % Lymph % (Auto) 39.9 (25-47) % [place] % (Auto) 9.9 H (0-7) % Eos % (Auto) 4.5 (0-6) % Baso % (Auto) 1.0 (0-2) % Absolute Neuts (auto) 2.6 (1.5-7.7) 10^3/ul Absolute Lymphs (auto) 2.4 (1.0-4.8) 10^3/ul Absolute Monos (auto) 0.6 (0-0.8) 10^3/ul Absolute Eos (auto) 0.3 (0-0.6) 10^3/ul Absolute Basos (auto) 0.1 (0-0.2) 10^3/ul Absolute Nucleated RBC 0 10^3/ul Nucleated RBC % 0 Sodium 141 (139-145) mmol/L Potassium 4.3 (3.5-5.0) mmol/L Chloride 105 (101-111) mmol/L Carbon Dioxide 34 H (22-32) mmol/L Anion Gap 2 (2-11) mmol/L BUN 16 (6-24) mg/dL Creatinine 0.76 (0.51-0.95) mg/dL Est GFR ( Amer) 110.7 (>60) Est GFR (Non-Af Amer) 86.1 (>60) BUN/Creatinine Ratio 21.1 H (8-20) Glucose 96 (70-100) mg/dL Lactic Acid 0.7 (0.5-2.0) mmol/L Calcium 8.8 (8.6-10.3) mg/dL Magnesium 2.0 (1.9-2.7) mg/dL Total Bilirubin 0.40 (0.2-1.0) mg/dL AST 143 H (13-39) U/L ALT 185 H (7-52) U/L Alkaline Phosphatase 79 (34-104) U/L Ammonia (16-53) mcmol/L Total Creatine Kinase 46 (10-223) U/L Troponin I 0.01 (<0.04) ng/mL Total Protein 6.2 L (6.4-8.9) g/dL Albumin 3.6 (3.2-5.2) g/dL Globulin 2.6 (2-4) g/dL Albumin/Globulin Ratio 1.4 (1-3) TSH 2.15 (0.34-5.60) mcIU/mL Urine Color Urine Appearance Urine pH (5-9) Ur Specific [place] (1.010-1.030) Urine Protein (Negative) Urine Ketones (Negative) Urine Blood (Negative) Urine Nitrate (Negative) Urine Bilirubin (Negative) Urine Urobilinogen (Negative) Ur Leukocyte Esterase (Negative) Urine WBC (Auto) (Absent) Urine RBC (Auto) (Absent) Ur Squamous Epith Cells (Absent) Urine Bacteria (Absent) Urine Glucose (Negative) Urine Ascorbic Acid (Negative) Salicylates < 2.50 (<30) mg/dL Urine Opiates Screen (None Detect) Acetaminophen < 15 mcg/mL Ur Barbiturates Screen (None Detect) Ur Phencyclidine Scrn (None Detect) Ur Amphetamines Screen (None Detect) U Benzodiazepines Scrn (None Detect) Urine Cocaine Screen (None Detect) U Cannabinoids Screen (None Detect) Serum Alcohol < 10 (<10) mg/dL 02/26/18 02/26/18 02/26/18 Range/Units 18:53 19:57 19:57 WBC (3.5-10.8) 10^3/ul RBC (4.0-5.4) 10^6/ul Hgb (12.0-16.0) g/dl Hct (35-47) % MCV (80-97) fL MCH (27-31) pg MCHC (31-36) g/dl RDW (10.5-15) % Plt Count (150-450) 10^3/ul MPV (7.4-10.4) um3 Neut % (Auto) (38-83) % Lymph % (Auto) (25-47) % [place] % (Auto) (0-7) % Eos % (Auto) (0-6) % Baso % (Auto) (0-2) % Absolute Neuts (auto) (1.5-7.7) 10^3/ul Absolute Lymphs (auto) (1.0-4.8) 10^3/ul Absolute Monos (auto) (0-0.8) 10^3/ul Absolute Eos (auto) (0-0.6) 10^3/ul Absolute Basos (auto) (0-0.2) 10^3/ul Absolute Nucleated RBC 10^3/ul Nucleated RBC % Sodium (139-145) mmol/L Potassium (3.5-5.0) mmol/L Chloride (101-111) mmol/L Carbon Dioxide (22-32) mmol/L Anion Gap (2-11) mmol/L BUN (6-24) mg/dL Creatinine (0.51-0.95) mg/dL Est GFR ( Amer) (>60) Est GFR (Non-Af Amer) (>60) BUN/Creatinine Ratio (8-20) Glucose (70-100) mg/dL Lactic Acid (0.5-2.0) mmol/L Calcium (8.6-10.3) mg/dL Magnesium (1.9-2.7) mg/dL Total Bilirubin (0.2-1.0) mg/dL AST (13-39) U/L ALT (7-52) U/L Alkaline Phosphatase (34-104) U/L Ammonia 69 H (16-53) mcmol/L Total Creatine Kinase (10-223) U/L Troponin I (<0.04) ng/mL Total Protein (6.4-8.9) g/dL Albumin (3.2-5.2) g/dL Globulin (2-4) g/dL Albumin/Globulin Ratio (1-3) TSH (0.34-5.60) mcIU/mL Urine Color Yellow Urine Appearance Clear Urine pH 6.0 (5-9) Ur Specific [place] 1.012 (1.010-1.030) Urine Protein Negative (Negative) Urine Ketones Negative (Negative) Urine Blood Negative (Negative) Urine Nitrate Negative (Negative) Urine Bilirubin Negative (Negative) Urine Urobilinogen Negative (Negative) Ur Leukocyte Esterase 3+ A (Negative) Urine WBC (Auto) 3+(>20/hpf) A (Absent) Urine RBC (Auto) Trace(0-2/hpf) (Absent) Ur Squamous Epith Cells Present A (Absent) Urine Bacteria Absent (Absent) Urine Glucose Negative (Negative) Urine Ascorbic Acid * A (Negative) Salicylates (<30) mg/dL Urine Opiates Screen None detected (None Detect) Acetaminophen mcg/mL Ur Barbiturates Screen None detected (None Detect) Ur Phencyclidine Scrn None detected (None Detect) Ur Amphetamines Screen None detected (None Detect) U Benzodiazepines Scrn Presumptive positive A (None Detect) Urine Cocaine Screen None detected (None Detect) U Cannabinoids Screen None detected (None Detect) Serum Alcohol (<10) mg/dL Result Diagrams: 02/26/18 18:53 02/26/18 18:53 Lab Statement: Any lab studies that have been ordered have been reviewed, and results considered in the medical decision making process. - Radiology Chest XR Xray Interpretation: No Acute Changes - IMPRESSION: No active cardiopulmonary disease. Dr. Vieira has reviewed this radiology report. Radiology Interpretation Completed By: Radiologist - CT Brain CT CT Interpretation: No Acute Changes - IMPRESSION: No acute intracranial pathology. Dr. Vieira has reviewed this radiology report. CT Interpretation Completed By: Radiologist - EKG 18:51 Cardiac Rate: NL - at 66 bpm EKG Rhythm: Sinus Rhythm EKG Interpretation: No ST elevations. Complex Multi-Symp Course/Dx Assessment/Plan: 37-year-old female who presents to the emergency room with mother with chief complaint of having weakness, lethargy, spending most of the day sleeping. She has past medical history of hepatitis and substance abuse. Blood cultures results without any significant abnormality except for normocytic normochromic anemia, Increased LFTs, ammonia 69 which is elevated, urinalysis is negative for UTI, and urine toxicology positive for benzodiazepines. Therefore I believe that since the patient has hepatic disease the use of benzodiazepines will stay longer in the system and that is the reason the patient is having these somnolence and lethargy. She will be also given lactulose for the increased ammonia. I discuss my physical exam, findings and test results with Dr. Carreon from the hospitalist services and he agrees to admit patient to his services. Patient is hemodynamically stable And she continues to be somnolent but arousable. - Diagnoses Provider Diagnoses: Hepatic encephalopathy, Lethargy - Physician Notifications Discussed Care Of Patient With: Julian Juarez Time Discussed With Above Provider: 21:05 Instructed by Provider To: Other - I discussed pt care with GREGORY Evans under Dr. Carreon's services, who have accepted the pt for admission. Discharge - Sign-Out/Discharge Documenting (check all that apply): Discharge/Admit/Transfer - Admit - Discharge Plan Condition: Stable Disposition: ADMITTED TO [facility] Referrals: Leonora Hoffman NP [Primary Care Provider] - - Billing Disposition and Condition Condition: STABLE Disposition: [facility] The documentation as recorded by the David hernández Angela accurately reflects the service I personally performed and the decisions made by Dariel anderson Walter, MD.
--- NOTE | 2018-03-01 14:05 | DS ---
CC: Leonora Hoffman NP; Dr. Tigre Magana; Dr. Ziggy Flores * DISCHARGE SUMMARY: DATE OF ADMISSION: 02/26/18 DATE OF DISCHARGE: 02/28/18 - against medical advice. ATTENDING PHYSICIAN: Dr. Brown Browning * (dictated by Jonelle Mckeon NP). PRIMARY CARE PROVIDER: Leonora Hoffman NP PRIMARY DIAGNOSES: 1. Altered mental status. 2. Polypharmacy. 3. Hepatitis C. 4. Elevated ammonia. SECONDARY DIAGNOSES: 1. Anxiety. 2. Depression. 3. Chronic pain. 4. Asthma. 5. Gastroesophageal reflux disease. 6. Obstructive sleep apnea. 7. Polycystic ovarian syndrome. 8. Obesity with BMI of 33. 9. Posttraumatic stress disorder. CONSULTATIONS WHILE IN THE HOSPITAL: Dr. Tigre Magana with Infectious Disease and Dr. Ziggy Flores with Psychiatry. STUDIES WHILE IN THE HOSPITAL: 1. Brain CT on 02/26/18. Radiologist's impression: No active intracranial pathology. 2. Chest x-ray on 02/26/18. Radiologist's impression: No active cardiopulmonary disease. 3. Liver ultrasound on 02/26/18. Radiologist's impression: Small amount of biliary sludge, no evidence for acute cholecystitis. Mild hepatomegaly. DISCHARGE MEDICATIONS: Continued home medications: 1. Suboxone 8-2 mg sublingual 3 times daily. 2. Duloxetine 90 mg oral daily at bedtime. Changed home medications: 1. BuSpar decreased to 20 mg oral twice daily. Discontinued home medications: 1. Xanax. 2. Effexor. HISTORY OF PRESENT ILLNESS/HOSPITAL COURSE: Ms. Conrad is a 37-year-old female with past medical history significant for polysubstance abuse, asthma, chronic pain, TRACI, GERD, anxiety, depression, PTSD, PCOS, who presented to the emergency room after recently being released from shelter where she has been for approximately a year. The patient has been home for approximately a month with intermittent episodes of confusion and not acting like herself. She has been very drowsy and lethargic. She was prescribed 5 medications, Cymbalta, Effexor , BuSpar, Suboxone of which the mother had been withholding for 3 days due to her behavior. Due to the symptoms, she was brought to the emergency room for further evaluation. While in the emergency room, the patient was noted to be very lethargic, it was felt though this is secondary to polypharmacy and the patient's medications were held. During her stay, she became more awake and less lethargic. She was seen in consultation by Dr. Ziggy Flores with Psychiatry, who recommended discontinuing her Xanax and Effexor and continuing her on her Cymbalta and decreasing her BuSpar to 20 mg twice daily. She was also noted to have slightly elevated ammonia and suspected to have a possible hepatic encephalopathy and she was placed on lactulose. She was also noted to have elevated LFTs and hepatitis C. She was seen in consultation by Dr. Tigre Magana for this. She had a liver ultrasound without significant findings. Initially on the day after admission, she continued to be lethargic with slurred speech. She stayed overnight with plans to be discharged this morning. The patient refused to wait to be seen by a provider to be discharged today and left against medical advice. Ms. Conrad left against medical advice today. Vital signs are as follows: Temperature 97.9, heart rate 71, respiratory rate 18, O2 sat 92% on room air, blood pressure 124/79. DISCHARGE PLAN: Ms. Conrad left against medical advice. Activity as tolerated. She should be on a regular diet. In regards to her medications, her BuSpar should be decreased to 20 mg twice daily. I did not sent in a script to this as she left prior to me seeing her and discussing which pharmacy she would like this send to. Her Effexor and Xanax should be discontinued. She should no longer be prescribed Xanax. She will be continued on her usual Cymbalta for her history of polysubstance abuse. She will be continued on her Suboxone. She has been asked to continue to follow up with the [facility]. Additionally, the patient has been asked to continue to follow up with the [facility] and to follow up with her primary care provider, Leonora Hoffman. She reported yesterday that she has appointments within the next week for this. This is a summarized report of a complex medical history and hospital stay. For further details, please see the entire medical record. TIME SPENT: Time for this discharge was approximately 30 minutes. CONDITION ON DISCHARGE: Left against medical advice. JONELLE BUSTILLO, LAND DEVELOPMENT PROJECT MANAGER [id number]/[facility] #: [id number] BELÉN
== END 2018-02-28 11:45 | disposition left against medical advice (07) | DRG 279 ==
LOC: ED 17:49 → MED 21:54
PROVIDERS: ADMIT Hospitalist; ATTEND Student in an Organized Health Care Education/Training Program
DX: K72.90 Hepatic failure, unspecified without coma (principal); F11.20 Opioid dependence, uncomplicated; E72.20 Disorder of urea cycle metabolism, unspecified; J45.909 Unspecified asthma, uncomplicated; J42 Unspecified chronic bronchitis; G47.33 Obstructive sleep apnea (adult) (pediatric); K21.9 Gastro-esophageal reflux disease without esophagitis; M17.12 Unilateral primary osteoarthritis, left knee; G89.29 Other chronic pain; F32.9 Major depressive disorder, single episode, unspecified; F41.9 Anxiety disorder, unspecified; F17.210 Nicotine dependence, cigarettes, uncomplicated; F43.10 Post-traumatic stress disorder, unspecified; E28.2 Polycystic ovarian syndrome; E66.9 Obesity, unspecified; R16.0 Hepatomegaly, not elsewhere classified; B19.20 Unspecified viral hepatitis C without hepatic coma; A49.01 Methicillin susceptible Staphylococcus aureus infection, unspecified site; D64.9 Anemia, unspecified; F14.10 Cocaine abuse, uncomplicated; F13.10 Sedative, hypnotic or anxiolytic abuse, uncomplicated; Z81.8 Family history of other mental and behavioral disorders; Z81.1 Family history of alcohol abuse and dependence; Z87.01 Personal history of pneumonia (recurrent); Z88.0 Allergy status to penicillin; Z91.410 Personal history of adult physical and sexual abuse; Z68.33 Body mass index [BMI] 33.0-33.9, adult; Z88.8 Allergy status to other drugs, medicaments and biological substances; Z91.5 Personal history of self-harm; Z90.49 Acquired absence of other specified parts of digestive tract
CPT/HCPCS: 36415; 70450; 71045; 76705; 80053; 80307; 80320; 80329; 81003; 81015; 82140; 82550; 82803; 83605; 83735; 84443; 84484; 85025; 85610; 87077; 87086; 87186; 93005; 99285; 99406; A9270-GY; G0480

== ENCOUNTER 2018-12-15 17:07 | Inpatient (IN) | payer MEDICAID, OTHER ==
--- NOTE | 2018-12-15 17:47 | ED ---
Substance Abuse/Use - HPI Summary HPI Summary: This patient is a 38 year old F presenting to [facility] with a chief complaint of polysubstance abuse in a suicide attempt. Patient reports strained relationship with her mother due to her heroin addiction. Patients medications reviewed. Fifty-six 2mg Lorazepam tablets were taken in the past two days, Thirty-two Klonopin were taken since 12/09/18. - History Of Current Complaint Chief Complaint: EDOverdose Stated Complaint: SUICIDAL PER PT Time Seen by Provider: 12/15/18 17:31 Hx Obtained From: Patient Hx Last Menstrual Period: 9 YEARS AGO (HX PCOS) Onset/Duration of Drug/ETOH Abuse: Hours Ingestion History: Type/Name Of Drug - Lorazepam and Klonopin, Amount Ingested - Fifty-six 2mg Lorazepam Thirty-two Klonopin Overdose Characteristics: Oral Character: Depressed Related Hx: Suicidal, Prior Drug Abuse Counseling/Admission, Suicidal: Gesture - Allergies/Home Medications Allergies/Adverse Reactions: Allergies Allergy/AdvReac Type Severity Reaction Status Date / Time Penicillins Allergy Severe Rash Verified 10/02/18 14:08 varenicline [From Chantix] Allergy Severe GI Upset Verified 10/02/18 14:08 bupropion [From Wellbutrin] Allergy Anxiety Verified 10/02/18 14:08 Home Medications: Home Medications LORazepam [Lorazepam] 2 mg PO BID PRN 12/15/18 [History Confirmed 12/15/18] Naloxone Nasal Banks* [Narcan Nasal Banks] 1 spray LEFT NARE DAILY PRN 12/15/18 [History Confirmed 12/15/18] Pregabalin CAP(*) [Lyrica CAP(*)] 300 mg PO BID 12/15/18 [History Confirmed ] clonazePAM [Clonazepam] 1 mg PO BID PRN 12/15/18 [History Confirmed 12/15/18] PMH/Surg Hx/FS Hx/Imm Hx Endocrine/Hematology History: Denies: Hx Diabetes, Hx Sickle Cell Disease, Hx Unexplained Bleeding Cardiovascular History: Denies: Hx Hypertension, Hx Pacemaker/ICD Respiratory History: Reports: Hx Asthma, Hx Chronic Bronchitis, Hx Pneumonia, Hx Sleep Apnea Comment Only: Other Respiratory Problems/Disorders - HX OF MULTIPLE PNEUMONIAS GI History: Reports: Hx Gastroesophageal Reflux Disease History: Denies: Hx Renal Disease Musculoskeletal History: Reports: Hx Arthritis - LEFT KNEE, Hx Back Problems, Other Musculoskeletal History - chronic pain Sensory History: Reports: Other Sensory Impairments - eye surgeries Denies: Hx Contacts or Glasses, Hx Hearing Aid Opthamlomology History: Reports: Other Sensory Impairments - eye surgeries Denies: Hx Contacts or Glasses Psychiatric History: Reports: Hx Anxiety - meds, Hx Depression, Hx Community Mental Health Tx, Hx Suicide Attempt - didnt remember what she did, Hx Substance Abuse Denies: Hx Eating Disorder, Hx Panic Disorder, Hx of Violent Episodes Against Others - Cancer History Hx Chemotherapy: No Hx Radiation Therapy: No Hx Palliative Cancer Treatment: No - Surgical History Surgery Procedure, Year, and Place: LEFT EYE SURGERY (LAZY EYE REPAIR) 2008, RHINOPLASTY. APPENDECTOMY. BREAST REDUCTION. BILAT EYE SURGERY AT AGE 9 (SO SHE WOULD NOT HAVE TO WEAR GLASSES). left knee arthroscopic surgery, LT KNEE DEBRIDEMENT Hx Anesthesia Reactions: No - Immunization History Date of Tetanus Vaccine: Unknown Date of Influenza Vaccine: never Infectious Disease History: Denies: Hx Hepatitis, Hx Tuberculosis, History Other Infectious Disease - Family History Known Family History: Positive: None Negative: Hypertension - Social History Alcohol Use: None Hx Substance Use: Yes Substance Use Type: Reports: Prescribed, Sedatives Substance Use Comment - Amount & Last Used: HX HEROIN USE, benzo, gabapentin Hx Tobacco Use: Yes Smoking Status (MU): Heavy Every Day Tobacco Smoker Type: Cigarettes Amount Used/How Often: 1 ppd Length of Time of Smoking/Using Tobacco: 10 Have You Smoked in the Last Year: Yes Review of Systems Positive: Slurred Speech - slow speech Positive: Depressed, Other - suicidal gesture All Other Systems Reviewed And Are Negative: Yes Physical Exam - Summary Physical Exam Summary: VITAL SIGNS: Reviewed. GENERAL: Patient is a well-developed and nourished female who is lying comfortable in the stretcher. Patient is not in any acute respiratory distress. HEAD AND FACE: No signs of trauma. No ecchymosis, hematomas or skull depressions. No sinus tenderness. EYES: PERRLA, EOMI x 2, No injected conjunctiva, no nystagmus. EARS: Hearing grossly intact. Ear canals and tympanic membranes are within normal limits. MOUTH: Oropharynx within normal limits. NECK: Supple, trachea is midline, no adenopathy, no JVD, no carotid bruit, no c- spine tenderness, neck with full ROM. CHEST: Symmetric, no tenderness at palpation LUNGS: Clear to auscultation bilaterally. No wheezing or crackles. CVS: Regular rate and rhythm, S1 and S2 present, no murmurs or gallops appreciated. ABDOMEN: Soft, non-tender. No signs of distention. No rebound no guarding, and no masses palpated. Bowel sounds are normal. EXTREMITIES: FROM in all major joints, no edema, no cyanosis or clubbing. NEURO: Alert and oriented x 3. No acute neurological deficits. Slow in responding to questioning. SKIN: Dry and warm GCS: 15 Triage Information Reviewed: Yes Vital Signs On Initial Exam: Initial Vitals Temp Pulse Resp BP Pulse Ox 98.6 F 105 20 0/0 97 12/15/18 17:25 12/15/18 17:25 12/15/18 17:25 12/15/18 17:25 12/15/18 17:25 Vital Signs Reviewed: Yes Diagnostics - Vital Signs Vital Signs Temp Pulse Resp BP Pulse Ox 12/15/18 17:25 98.6 F 105 20 0/0 97 - Laboratory Result Diagrams: 12/15/18 17:54 12/15/18 17:54 Lab Statement: Any lab studies that have been ordered have been reviewed, and results considered in the medical decision making process. - Radiology CXR Radiology Interpretation Completed By: ED Physician Summary of Radiographic Findings: Negative. - EKG 1757 Cardiac Rate: NL - 99 BPM EKG Rhythm: Sinus Rhythm Summary of EKG Findings: Low voltage EKG with no ST elevations Course/Dx - Course Assessment/Plan: 38-year-old female who presents to the emergency department with a chief complaint of having suicidal ideation and attempt. The patient reports that she took an unknown number of lorazepam and clonidine. Blood work without any significant abnormality except for CPK of 45, and urinalysis is negative for UTI and urine toxicology positive for benzodiazepines. Poison control recommends for the patient to be observed until the patient is at baseline. At this time the patient continues to be obtunded somnolent. Patient continues to be preserved her airway and she is saturating 97% on room air. I discussed my physical exam, findings and test results with Dr. Pearson from the hospitalist services who accepted the patient for admission. - Diagnoses Differential Diagnosis/HQI/PQRI: Positive: Anxiety, Suicidal Risk Provider Diagnoses: Overdose, Suicidal ideation - Physician Notifications Discussed Care Of Patient With: Natividad Pearson - hospitalist Time Discussed With Above Provider: 20:35 Instructed by Provider To: Admit As Inpatient - Critical Care Time Critical Care Time: 30-74 min Discharge - Sign-Out/Discharge Documenting (check all that apply): Patient Departure - admit - Discharge Plan Condition: Stable Disposition: ADMITTED TO [facility] - Billing Disposition and Condition Condition: STABLE Disposition: Admitted to [facility] - Attestation Statements Document Initiated by Scribe: Yes Documenting Scribe: Anita Cuevas Provider For Whom Maikibe is Documenting (Include Credential): Rudolph Vieira MD Scribe Attestation: Anita Carver, scribed for Rudolph Vieira MD on 12/16/18 at 0742. Scribe Documentation Reviewed: Yes Provider Attestation: The documentation as recorded by the scribeAnita accurately reflects the service I personally performed and the decisions made by Rudolph andesron MD Status of Scribe Document: Viewed
[2018-12-15 18:05] LABS: ABS Basophils 0.1 10^3/ul (0-0.2); ABS Eosinophils 0.3 10^3/ul (0-0.6); ABS Lymphocytes 2.5 10^3/ul (1.0-4.8); ABS Monocytes 0.4 10^3/ul (0-0.8); ABS Neutrophils 3.2 10^3/ul (1.5-7.7); ABS Nucleated RBC 0 10^3/ul; Eosinophil % 4.8 %; Hematocrit 36 % (33-41); Hemoglobin 11.8 g/dL (12.0-16.0); Lymphocyte % 38.9 %; Mean Corpuscular HGB Conc 33 g/dL (31-36); Mean Corpuscular Hemoglobin 28 pg (27-31); Mean Corpuscular Volume 85 fL (80-97); Mean Platelet Volume 8.4 fL (7.4-10.4); Nucleated Red Blood Cells % 0.1; Platelet Count 286 10^3/uL (150-450); Red Blood Count 4.25 10^6 /uL (3.70-4.87); Red Cell Distribution Width 15 % (10.5-15); White Blood Count 6.5 10^3/uL (3.5-10.8)
[2018-12-15 18:11] LABS: Urine Appearance Clear; Urine Bilirubin Negative (Negative); Urine Blood Negative (Negative); Urine Color Yellow; Urine Glucose Negative (Negative); Urine Ketones Negative (Negative); Urine Nitrite Negative (Negative); Urine Protein Negative (Negative); Urine Urobilinogen Negative (Negative)
[2018-12-15 18:21] LABS: Acetaminophen < 15 mcg/mL; Alcohol < 10 mg/dL (<10); Salicylate < 2.50 mg/dL (<30)
[2018-12-15 18:23] LABS: ALT 21 U/L (7-52); AST 28 U/L (13-39); Albumin 4.1 g/dL (3.2-5.2); Albumin/Globulin Ratio 1.6 (1-3); Alkaline Phosphatase 80 U/L (34-104); Anion Gap 7 mmol/L (2-11); BUN/Creatinine Ratio 24.6 (8-20); Barbiturates Urine Screen None Detected (None Detect); Benzodiazepine Urine Screen Presumptive Positive (None Detect); Blood Urea Nitrogen 14 mg/dL (6-24); CO2 Carbon Dioxide 29 mmol/L (22-32); Calcium 8.9 mg/dL (8.6-10.3); Chloride 103 mmol/L (101-111); Creatine Kinase 405 U/L (10-223); EGFR African American 144.4 (>60); EGFR Non-African American 119.3 (>60); Globulin 2.5 g/dL (2-4); Glucose 99 mg/dL (70-100); Sodium 139 mmol/L (135-145); Total Protein 6.6 g/dL (6.4-8.9); Urine Cannabinoids Screen None Detected (None Detect)
[2018-12-15 18:29] LABS: HCG Pregnancy < 0.60 mIU/mL
[2018-12-15] MEDS ORDERED: Nicotine Inhaler* 10 MG AMP INH ONE (18:34)
[2018-12-15] MEDS ORDERED: PROCHLORPERAZINE INJ 5 MG/ML 2 ML VIAL IV PRN (20:32)
[2018-12-15] MEDS: Lactated Ringers 1000 ML Bag* 1,000 ML IV SCH (23:04)
--- NOTE | 2018-12-15 23:39 | HP ---
CC: Dr. Whitney Aguirre at [facility]; Dr. Chary Glass HISTORY AND PHYSICAL: DATE OF ADMISSION: 12/15/18 TIME OF EVALUATION: 8:20 p.m. CHIEF COMPLAINT: Overdose. HISTORY OF PRESENT ILLNESS: Ms. Conrad is a 38-year-old lady with a past medical history of anxiety, depression, chronic pain, asthma, GERD, obstructive sleep apnea, polycystic ovarian syndrome, obesit y, PTSD, hepatitis C, who presents to the emergency room with lethargy. Most of the information is obtained from her chart and from the ED nurse. Apparently, the patient filled up her prescription for Klonopin 56 tablets on 12/09/18 and took 30 ta blets since then and also filled the prescription for lorazepam 56 tablets on 12/13/18 and those pill s are all gone. Her mother brought her in stating that the patient has had multiple falls around the house, it is uncoordinated. It was also reported the patient stole her credit card, her car when dr lopez while the influence of drugs. There was also question of prescription for Lyrica that the blaze ent took reportedly 6 tablets. When I asked the patient, she tells me that she lost a bottle of Lyrica and she does not know what miner ppened to the other pills. Her major complaint at the time of my interview is that she is hungry and she wants another sandwich. She denies suicidal or homicidal ideation to me at this time, but as per ED provider, she was suicida l when he saw her. Poison control was called and recommended the patient be monitored until she is back at her baseline. She denies chest pain, palpitations, shortness of breath, nausea, vomiting, or any other complaints, but she is very persistent in telling me that she is hungry and needs another turkey sandwich. PAST MEDICAL HISTORY: 1. Polysubstance abuse. 2. Asthma. 3. Chronic pain. 4. Obstructive sleep apnea. 5. GERD. 6. Anxiety and depression. 7. PTSD. 8. PCOS. MEDICATION LIST: 1. Suboxone 8/2 mg sublingual t.i.d. 2. Buspirone 10 mg p.o. b.i.d. 3. Clonazepam 1 mg p.o. b.i.d. as needed for anxiety. 4. Duloxetine 90 mg p.o. at bedtime. 5. Lorazepam 2 mg p.o. b.i.d. as needed for anxiety. 6. Naloxone nasal spray 1 spray to the left naris as needed for overdose. 7. Lyrica 300 mg p.o. b.i.d. ALLERGIES: To PENICILLIN, CHANTIX, and WELLBUTRIN. SOCIAL HISTORY: The patient is a half a pack a day smoker for more than 10 years. No history of alco hol abuse, but has a history of polysubstance abuse. On the prior drug screen in 2017, she had cocai ne and opiates. Surrogate decision maker is her mother, Lolita Mendieta, phone number is [phone]. PHYSICAL EXAMINATION GENERAL: The patient is a young, obese lady, lying on the ED stretcher, in no acute distress. VITAL SIGNS: Temperature 98.6, heart rate is 97, respiratory rate is 17, oxygen saturation 96% on ro om air, blood pressure is 98/72. HEENT: Pupils are equal. Moist mucous membranes. CVS: Normal S1, S2. Regular rate and rhythm. CHEST: Breath sounds are present bilaterally with no added sounds. ABDOMEN: Obese. Bowel sounds are present. NEUROLOGIC: She is sleeping, but arousable to voice. She is oriented x3, but her speech is very slu rred. LABORATORY AND IMAGING DATA: The patient had a CBC that showed a WBC of 6.5, hemoglobin of 11.8, he matocrit 36, platelets of 286 with 49% neutrophils. Chemistry showed a sodium of 139, potassium of 4, chloride of 103, bicarb of 29, BUN of 14, creatinine of 0.57, glucose of 99, lactic acid of 1, calci um 8.9. LFTs were normal. HCG is less than 0.6. Urinalysis was negative. Toxicology was positive for benzos. EKG done on 12/15/18 at 1757 shows sinus rhythm at 99 beats per minute with no ST-T changes. No sign ificant change when compared to her prior EKG from January 2018. Chest x-ray done at 1743 not yet officially read by Radiology, but to my read, has poor respiratory e ffort, but no acute pulmonary disease. ASSESSMENT AND PLAN: Ms. Conrad is a 38-year-old lady with a past medical history of polysubstance a buse, asthma, chronic pain, obstructive sleep apnea, gastroesophageal reflux disease, anxiety, depres obey, post-traumatic stress disorder, polycystic ovary syndrome, obesity, who presents to the emergen cy room with altered mental status secondary to likely benzodiazepines overdose. 1. Benzodiazepine overdose. It is unclear to me if this was intentional or accidental. The patient states she does not know what happened to her pills and she denies suicidal ideation, although the E D physician endorsed suicidal ideation when we discussed the case. Apparently, she is taking 40 tabl ets of Klonopin and more than 50 tablets of lorazepam from 12/09/18 till today. She will be admitted to the telemetry floor where we are going to monitor her and when she is alert and awake back to her baseline, she will be seen in consultation by Mental Health. In the meantime, she will be kept as o ne-to-one observation. 2. History of polysubstance abuse. When she is more awake, we may be able to resume her medications . 3. DVT prophylaxis. The patient has a score of 1 on the DVT Prophylaxis Assessment Guide and she wi ll have SCDs. 4. Code status is full. TIME SPENT: Approximately 50 minutes was spent with patient interview, medical record review, physic al examination to complete the admission. More than half this time was spent [id number] with the p atient and coordination of care. [id number]/[facility] #: [id number]
[2018-12-16] MEDS: Lactated Ringers 1000 ML Bag* 1,000 ML IV SCH (08:15)
[2018-12-16] MEDS: Mouth Piece, Nicotine* 1 EACH CARTRIDGE INH PRN ×2 (09:09→12:44)
[2018-12-16] MEDS: Nicotine Inhaler* 10 MG AMP INH PRN ×2 (09:09→12:41)
[2018-12-16] MEDS: Acetaminophen TAB* 325 MG PO PRN (09:09)
[2018-12-16] MEDS: Nicotine PATCH 21 MG/24 HR* PATCH TRANSDERM SCH (12:41)
[2018-12-16] MEDS ORDERED: Al Hydrox/Mg Hydrox/Simet LIQ* 30 ML UDC PO PRN (14:35)
--- NOTE | 2018-12-16 16:12 | CONS ---
PSYCHIATRIC CONSULTATION/HISTORY AND PHYSICAL DATE OF CONSULTATION: 12/16/2018. DATE OF ADMISSION: 12/15/2018. ATTENDING CLINICIAN: Nurse practitioner Carol Perez. CONSULTING PSYCHIATRIST: Dr. Ziggy Flores. REASON FOR CONSULTATION: Benzodiazepine overdose. SUBJECTIVE HISTORY: Psychiatry is asked to see this 38-year-old, single, white female to male transgendered patient with a history of polysubstance abuse, alleged PTSD, and multiple medical comorbidities such as gastroesophageal reflux disease, chronic pain, polycystic ovarian syndrome, obesity, and hepatitis C who is currently receiving treatment on [facility] following a significant overdose on large quantities of benzodiazepines that were prescribed at [facility]. The patient was brought in by her mother with whom she resides with a history that she had been stumbling around the apartment for several days and had been falling. They checked her pill bottles and compared them to the [facility] controlled substances website. These indicated that a supply of 56 tablets of Clonazepam received on the 09 of December only had 24 tablets remaining. Similarly, a 56 tablet supply of Lorazepam which was filled on the 13 of December were all gone. I did speak with Ms. Lolita Mendieta , the patient's mother. She has been allowing Arminda to live with her since her discharge from long term in the spring. She notes that the patient has been stealing her credit card in order to buy beer and cigarettes for some of the friends that she has made at [facility]. She also indicates that the patient has been taking her car out against her wishes. The mother is fearful to report this to Arminda's certified juvenile probation officer, given the fact that her initial offense was for stealing her mother's credit card and she is fearful that Arminda would end up back in long term. When I met with Arminda, she indicates that she is transitioning to male and requests to be called Miguel. Miguel is drowsy and has difficulty following the conversation, but clearly states several times that she was not suicidal and not trying to hurt herself. Despite this, she has no coherent explanation for how so many of her pills could be missing in so short a time frame. She initially insists that she wants to return to her mother's house; however, we mutually confirmed over the phone that her mother is not willing to take her home and thereafter she states that she will live on the streets. I asked her about the possibility of inpatient substance abuse treatment and she declines this saying that she has been going to outpatient treatment at [facility]. Her mother contradicts this by stating that the patient has only attended two total appointments there and has likely been dropped from their service at this time. On examination, Miguel is mostly lethargic and then becomes argumentative and attempts to leave against medical advice at the end of our interview. She is insistent that she not be made to stay in the hospital any longer. PAST PSYCHIATRIC HISTORY: The patient has had several psychiatric admissions to the Behavioral Science Unit, the most recent being in November of 2015 when she requested drug detoxification and was thereafter referred to substance abuse treatment at [facility]. Prior to this, she had several BSU admissions, including one in 2009 and three total in the year 1999 while on the adolescent unit. SUBSTANCE ABUSE HISTORY: Substance abuse history is quite extensive, mostly for cocaine and heroin. The patient denies using heroin recently, but her mother indicates that she has used at least within the last month. She has been through substance abuse treatment at [facility], but recently has not been attending. She denies the abuse of alcohol. She smokes one to two packs of cigarettes per day. PAST MEDICAL HISTORY: Significant for degenerative disk disease, spondylolisthesis of the spine, polycystic ovarian syndrome, osteoarthritis, obesity, gastroesophageal reflux disease, chronic pain, and asthma. FAMILY HISTORY: Significant for a maternal grandfather and paternal uncle both with alcohol abuse. Her mother has been diagnosed with depression and taken Celexa in the past. SOCIAL HISTORY: The patient has one older sister who is a registered nurse. She grew up in the [place] area, going to [employer] before dropping out. She did complete her GED while in long term in her early 20s and does have two years of college at [employer]. Most recently she was jailed for two years of forgery in the second degree after stealing her mother's credit card. She currently has a certified juvenile probation officer, but cannot remember this person's name. She currently lives with her mother here in [place]. She has never been , has no children, has never been in the . She is currently identifying as male and does not have any current relationships. MENTAL STATUS EXAMINATION: The patient is a young, white female with extremely short brown hair, looking fairly masculine, dressed in patient blue scrubs, lying down in bed. She is awake, but lethargic. Morbidly obese. At times she appears to close her eyes as though falling asleep. She is calm, but somewhat argumentative. Speech is halting at times, but otherwise fluent. Mood appears to be euthymic with a somewhat dulled affect. Thought process is confused at times. Thought content is significant for her desire to be discharged from the hospital. She adamantly denies suicidal or homicidal ideations. She denies auditory or visual hallucinations. Insight and judgment appear to be markedly impaired given her gross over utilization of several benzodiazepine medications. Cognitively, she is awake but lethargic and drowsy. DIAGNOSES: AXIS I: Benzodiazepine use disorder, opioid use disorder, cocaine use disorder by history, posttraumatic stress disorder by history. AXIS II: Deferred. ASSESSMENT: The patient is a 38-year-old, single, white female to male transgendered individual with a history of alleged posttraumatic stress disorder , as well as abuse of opioids, benzodiazepines, and cocaine who was brought to the hospital by her mother and currently admitted to the Hospitalist Service due to confusion, lethargy, and periods of falling presumed to be secondary to over utilization of benzodiazepines. This clinician has placed a call to the [facility] and left a message for the patient's prescriber, Dr. Whitney Aguirre. I have also spoken extensively with the patient's mother with whom she resides. Clearly the mother is no longer willing to enable the patient' s misuse of substances. I do not have any alona at this time that the patient would be safe if discharged given her lack of insight into her drug misuse and her proven history of overutilizing very dangerous narcotic substances. RECOMMENDATIONS TO PRIMARY TEAM: Psychiatry feels this patient would be best served on the [facility] Science Unit. We are encouraging the primary team to sign 9.39 involuntary paperwork and I will put in an order for admission to the BSU. We will certainly continue her treatment with Duloxetine, but hold all narcotic agents and look for signs of symptoms of acute withdrawal. We will be reaching out to her certified juvenile probation officer and we will also be encouraging substance abuse treatment on an inpatient basis. [id number]/[facility] #: [id number] BELÉN
[2018-12-16] MEDS: busPIRone TAB* 10 MG PO SCH (22:04)
[2018-12-16] MEDS: Buprenorp/Nalox 8-2 MG SL TAB.SL SL SCH (22:05)
[2018-12-16] MEDS: DULoxetine DR CAP* 30 MG CAP.DR PO SCH (22:05)
[2018-12-16] MEDS: Nicotine Patch Removal NOTE FOLLOW UP SCH (22:11)
--- NOTE | 2018-12-16 22:50 | DS ---
CC: Dr. Flores; Dr. Glass * DISCHARGE/TRANSFER SUMMARY: DATE OF ADMISSION: 12/15/18 DATE OF TRANSFER TO [facility]: 12/16/18 PROVIDER: Carol Perez NP. ATTENDING PHYSICIAN: Dr. Paulette Godwin * (dictated by Carol Perez NP) PRIMARY CARE PROVIDER: Dr. Chary Glass. PRIMARY DIAGNOSES: 1. Intentional drug overdose. 2. Polysubstance abuse. PAST MEDICAL HISTORY: 1. Asthma. 2. Chronic pain. 3. Obstructive sleep apnea. 4. Gastroesophageal reflux disease. 5. Anxiety, depression. 6. History of polysubstance abuse. STUDIES COMPLETED WHILE IN THE HOSPITAL: She had an EKG on 12/15/18, which showed sinus rhythm with a rate of 99, QT was 368, QTc was 473. TRANSFER MEDICATIONS: 1. Acetaminophen 650 mg p.o. q.6 hours as needed. 2. Maalox 30 mL q.4 hours as needed. 3. Suboxone one tablet 8/2 mg t.i.d. 4. BuSpar 20 mg p.o. b.i.d. 5. Nicotine inhaler. 6. Duloxetine 90 mg p.o. at bedtime. 7. Nicotine patch 21 mg transdermally daily. 8. Nicotine gum. HISTORY OF PRESENT ILLNESS AND HOSPITAL COURSE: Ms. Conrad is a 38-year-old lady with a past medical history of anxiety, depression, chronic pain, asthma, GERD, obstructive sleep apnea, polycystic ovarian syndrome, obesity, PTSD, hepatitis C who presented to the emergency room with lethargy with a known history of polysubstance abuse. According to the nursing record, the patient apparently had a prescription filled of Klonopin 56 tablets on 12/09/18 and took 30 tablets since then, also filled a prescription for lorazepam 56 tablets on 12/13/18 and all those pills are gone. Mother brought the patient to the emergency room complaining of multiple falls around the house and non- coordination. It was also reported that she stole her credit card and was driving her car under the influence of drugs. There was also a question of prescription for Lyrica which the patient took reportedly 6 tablets. When the patient was asked, she told the medical provider that the prescription of Lyrica was lost. While in the hospital, she was monitored on one-to-one observation. She denied any suicidal or homicidal ideation. When interviewed this a.m., the patient reports that she was admitted to the hospital due to her stupidity. The patient reports that she took too many pills, but would not elaborate. During the interview, poison control was contacted and recommended the patient be monitored until her lethargy resolved. The patient is more alert this morning and able to respond to questions appropriately. She was seen in consultation by Mental Health who recommended inpatient therapy for her. At this time, the patient is stable for transfer to Mental Health. REVIEW OF SYSTEMS: The patient denies any chest pain or shortness of breath. Denies any fever or chills. Denies any nausea, vomiting, or diarrhea. Denies any abdominal pain. PHYSICAL EXAMINATION: General: At this time, Ms. Conrad is alert to verbal, resting in bed. She is in no acute distress. HEENT: Head is atraumatic, normocephalic. Eyes: EOMs are intact. Sclerae anicteric and not pale. Oral mucosa appeared to be moist. Neck is supple. Lungs are clear to auscultation bilaterally. No wheezes, rales, or rhonchi. Cardiac: S1 and S2, regular rate and rhythm. No murmurs, rubs, or gallops. Abdomen is soft and nontender. Bowel sounds are present x4. Extremities: She moves all 4 extremities with 5/ 5 strength. Pedal pulses are +2 bilaterally. Skin is intact. Vital Signs: Blood pressure 124/88, temperature was 97.3, heart rate is 84, respirations are 20, O2 saturation 96% on room air. DISCHARGE PLAN: The patient will be transferred to behavioral health unit at [facility]. Further management will be per Mental Health recommendations. CONDITION AT TRANSFER: Stable. DISPOSITION: Behavioral health unit at [facility]. TIME SPENT: Time spent on this transfer was approximately 45 minutes, greater than half the time was spent implementing my transfer plan. CAROL PEREZ, DOMINGO [id number]/CPS #: [id number] BELÉN
[2018-12-17 08:15] LABS: HDL Cholesterol 39.1 mg/dL
[2018-12-17] MEDS: Nicotine PATCH 21 MG/24 HR* PATCH TRANSDERM SCH (08:29)
[2018-12-17] MEDS: busPIRone TAB* 10 MG PO SCH ×2 (08:29→20:15)
[2018-12-17] MEDS: Mouth Piece, Nicotine* 1 EACH CARTRIDGE INH PRN ×2 (08:32→22:03)
[2018-12-17] MEDS: Nicotine Inhaler* 10 MG AMP INH PRN ×3 (08:32→22:03)
[2018-12-17] MEDS: Buprenorp/Nalox 8-2 MG SL TAB.SL SL SCH (08:39)
--- NOTE | 2018-12-17 11:35 | PN ---
Subjective - Subjective Date of Service: 12/17/18 Service Type: [id number] Hosp care 15 min low complexity Subjective: "Miguel" is laying in bed and not participating much in the milieu as of yet. He still seems quite sedated despite not receiving clonazepam or suboxone in several days. The patient wants to be resumed on clonazepam and denies having overutilized them. "No, you got it wrong. I wasn't taking too much of the Klonopin. I was taking too much of the Ativan, because it doesn't work as well. I'm going to have a seizure!" The patient continues to deny that the overdose was a suicide attempt. For collateral information I spoke with her homicide squad commanding officer, Mr. Lucero ([phone]). He is aware of her misutilization of her medications but is unsure of whether this would warrant a violation of her parole terms. He, along with Miguel's mother (Lolita Mendieta), is very interested in seeing the patient go to inpatient substance abuse treatment. He indicates that he will come to the unit on to meet with Miguel in person and go over some options then. Objective - Appearance Appearance: Obese Dysmorphic Features: No Hygiene: Normal Grooming: Disheveled - Behavior Psychomotor Activities: Normal Exhibits Abnormal Movement: No - Attitude and Relatedness Attitude and Relatedness: Cooperative Eye Contact: Good - Speech Quality: Unpressured Latencies: Normal Quantity: Appropriate - Mood Patient's Decription of Mood: "Fine" - Affect Observed Affect: Tense Affect Consistent with: Dysphoria - Thought Process Patient's Thought Process: Coherent, Goal Directed Thought Content: No Passive Wish, No Suicidal Planning, No Homicidal Ideation, No Paranoid Ideation - Sensorium Experiencing Hallucinations: No, Sensorium is Clear Type of Hallucinations: Visual: No, Auditory: No, Command: No - Level of Consciousness Level of Consciousness: Alert Orientation: Yes Intact, Yes Orientated to Time, Yes Orientated to Place, Yes Orientated to Person - Impulse Control Impulse Control: Poor - Insight and Judgement Insight and Judgement: Impaired - Group Participation Particating in Group Activities: No - Medication Management Medication Management Adherence: Yes Assessment - Assessment Merits Inpatient Hospitalization: For Immediate Safety, For Stabilization Inpatient DSM-V Dx: F13.20 Clinical Impression: 38 y.o. single, obese, white, female to male transgendered patient with a history of alleged PTSD and dependence on several substances, including opioids , sedative-hypnotics and cocaine, transferred from the Hospitalist service following medical clearance from an intentional overdose on 56 tablets of 2mg lorazepam and 32 tablets of 1mg clonazepam in a 3-6 day period. The patient denies that this was a suicide attempt but has been participating in unsafe behaviors such as stealing her mother's credit card and car and driving impaired. BSU: Problem List - Patient Problems (1) Sedative dependence Current Visit: Yes Status: Acute Priority: High Code(s): F13.20 - SEDATIVE , HYPNOTIC OR ANXIOLYTIC DEPENDENCE, UNCOMPLICATED SNOMED Code(s): 080021720 Plan - Plan Treatment Plan: Name: ЮЛИЯ THOMAS Birthdate: 1980 [id number] We are encouraging the patient to consider inpatient rehab but she does not want to make any decisions until talking with her homicide squad commanding officer. She is at some risk for benzodiazepine withdrawal so we will monitor her closely. I will resume suboxone, busiparone and duloxetine therapies. Consider transfer to rehab once detoxified. Continued Medication Management: Different Medication Medications: Current Medications Acetaminophen (Tylenol Tab*) 650 mg PO Q6H PRN PRN Reason: pain/fever Last Admin: 12/16/18 09:09 Dose: 650 mg Al Hydrox/Mg Hydrox/Simethicone (Maalox Plus*) 30 ml PO Q4H PRN PRN Reason: INDIGESTION Buprenorphine/Naloxone (Suboxone 8 Mg-2 Mg Sl Film) 1 each SL FILM TID [facility] Buspirone HCl (Buspar Tab*) 20 mg PO BID [facility] Last Admin: 12/17/18 08:29 Dose: 20 mg Device (Nicotine Mouth Piece*) 1 each INH .USE W/ CARTRIDGE PRN PRN Reason: WITHDRAWAL - NICOTINE Last Admin: 12/17/18 08:32 Dose: 1 each Duloxetine HCl (Cymbalta Cap*) 90 mg PO BEDTIME [facility] Last Admin: 12/16/18 22:05 Dose: 90 mg Lactated Ringer's (Lactated Ringers 1000 Ml Bag*) 1,000 mls @ 100 mls/hr IV PER RATE [facility] Last Admin: 12/16/18 08:15 Dose: 100 mls/hr Nicotine (Nicotine Inhaler*) 10 mg INH Q2H PRN PRN Reason: CRAVING Last Admin: 12/17/18 08:32 Dose: 10 mg Nicotine (Nicotine Patch 21 Mg/24 Hr*) 1 patch TRANSDERM DAILY [facility] Last Admin: 12/17/18 08:29 Dose: 1 patch Nicotine Polacrilex (Nicotine Gum*) 2 mg PO Q2H PRN PRN Reason: CRAVING Pharmacy Profile Note (Nicotine Patch Removal Note*) 1 note FOLLOW UP 2100 [facility] Last Admin: 12/16/18 22:11 Dose: Not Given Prochlorperazine Edisylate (Compazine Inj*) 5 mg IV Q6H PRN PRN Reason: NAUSEA/VOMITING - Discharge Plan Discharge Plan: Drug/Alcohol Rehab
[2018-12-17] MEDS: Buprenorp/Nalox 8-2 MG FILM 1 EACH SL FILM SCH ×2 (16:12→20:14)
[2018-12-17] MEDS: Nicotine GUM* 2 MG PO PRN ×2 (17:29→20:15)
[2018-12-17] MEDS: LORazepam TAB(*) 1 MG PO SCH ×2 (20:14→23:37)
[2018-12-17] MEDS: DULoxetine DR CAP* 30 MG CAP.DR PO SCH (20:15)
[2018-12-17] MEDS: Nicotine Patch Removal NOTE FOLLOW UP SCH (20:59)
[2018-12-18] MEDS: Nicotine PATCH 21 MG/24 HR* PATCH TRANSDERM SCH (08:38)
[2018-12-18] MEDS: Buprenorp/Nalox 8-2 MG FILM 1 EACH SL FILM SCH ×3 (08:38→21:12)
[2018-12-18] MEDS: busPIRone TAB* 10 MG PO SCH ×2 (08:38→21:12)
[2018-12-18] MEDS: Nicotine Inhaler* 10 MG AMP INH PRN ×3 (08:38→14:39)
[2018-12-18] MEDS: LORazepam TAB(*) 1 MG PO SCH ×2 (10:39→16:51)
[2018-12-18] MEDS: Nicotine GUM* 2 MG PO PRN ×3 (10:39→17:24)
--- NOTE | 2018-12-18 11:41 | PN ---
Subjective - Subjective Date of Service: 12/18/18 Service Type: [id number] Hosp care 15 min low complexity Subjective: "Miguel" reports that he is withdrawing from benzos and again asks to be put back on clonazepam, insisting that he wasn't abusing these. "I lost my bottle and when I went to [facility] they gave me the Ativan. It wasn't working...that's why I was taking so many of them." Miguel is noncommittal about rehab. His precinct commanding officer, Mr. Lucero, is scheduled to come see him tomorrow. This clinician has exchanged several voicemails with Dr. Whitney Aguirre, the patient's outpatient provider at [facility]. Miguel denies SI and would like to be discharged. Assessment - Assessment Merits Inpatient Hospitalization: Consolidate Improvements, Pending Safe DC Plan Inpatient DSM-V Dx: F13.20 Clinical Impression: 38 y.o. single, obese, white, female to male transgendered patient with a history of alleged PTSD and dependence on several substances, including opioids , sedative-hypnotics and cocaine, transferred from the Hospitalist service following medical clearance from an intentional overdose on 56 tablets of 2mg lorazepam and 32 tablets of 1mg clonazepam in a 3-6 day period. The patient denies that this was a suicide attempt but has been participating in unsafe behaviors such as stealing her mother's credit card and car and driving impaired. BSU: Problem List - Patient Problems (1) Sedative dependence Current Visit: Yes Status: Acute Priority: High Code(s): F13.20 - SEDATIVE , HYPNOTIC OR ANXIOLYTIC DEPENDENCE, UNCOMPLICATED SNOMED Code(s): 604980401 Plan - Treatment Plan Level of Observation: 15 Minute Checks Obtain Collateral Information: Yes Schedule Meetings with: Probation Other Treatment in Form of: Structure and Support, Therapeutic Milieu, Group Therapy, Medication Management Continued Medication Management: Different Medication Medications: Current Medications Acetaminophen (Tylenol Tab*) 650 mg PO Q6H PRN PRN Reason: pain/fever Last Admin: 12/16/18 09:09 Dose: 650 mg Al Hydrox/Mg Hydrox/Simethicone (Maalox Plus*) 30 ml PO Q4H PRN PRN Reason: INDIGESTION Buprenorphine/Naloxone (Suboxone 8 Mg-2 Mg Sl Film) 1 each SL FILM TID [facility] Last Admin: 12/18/18 08:38 Dose: 1 each Buspirone HCl (Buspar Tab*) 20 mg PO BID [facility] Last Admin: 12/18/18 08:38 Dose: 20 mg Device (Nicotine Mouth Piece*) 1 each INH .USE W/ CARTRIDGE PRN PRN Reason: WITHDRAWAL - NICOTINE Last Admin: 12/17/18 22:03 Dose: 1 each Duloxetine HCl (Cymbalta Cap*) 90 mg PO BEDTIME [facility] Last Admin: 12/17/18 20:15 Dose: 90 mg Hydroxyzine HCl (Atarax Tab*) 50 mg PO Q6H PRN PRN Reason: ANXIETY Lactated Ringer's (Lactated Ringers 1000 Ml Bag*) 1,000 mls @ 100 mls/hr IV PER RATE [facility] Last Admin: 12/16/18 08:15 Dose: 100 mls/hr Lorazepam (Ativan Tab(*)) 0 - 6 mg PO .PER [place] PROTOCOL [facility]; Protocol Last Admin: 12/18/18 10:39 Dose: 2 mg Nicotine (Nicotine Inhaler*) 10 mg INH Q2H PRN PRN Reason: CRAVING Last Admin: 12/18/18 08:38 Dose: 10 mg Nicotine (Nicotine Patch 21 Mg/24 Hr*) 1 patch TRANSDERM DAILY [facility] Last Admin: 12/18/18 08:38 Dose: 1 patch Nicotine Polacrilex (Nicotine Gum*) 2 mg PO Q2H PRN PRN Reason: CRAVING Last Admin: 12/18/18 10:39 Dose: 2 mg Pharmacy Profile Note (Nicotine Patch Removal Note*) 1 note FOLLOW UP 2100 [facility] Last Admin: 12/17/18 20:59 Dose: 1 note Prochlorperazine Edisylate (Compazine Inj*) 5 mg IV Q6H PRN PRN Reason: NAUSEA/VOMITING - Discharge Plan Discharge Plan: Drug/Alcohol Rehab - Additional Comments Comments: Continue WAM for withdrawal. Continue suboxone, busiparone and duloxetine therapies. Encourage inpatient rehab.
--- NOTE | 2018-12-18 11:44 | PN ---
Subjective - Subjective Date of Service: 12/18/18 Service Type: [id number] Hosp care 15 min low complexity Subjective: "Miguel" reports that he is withdrawing from benzos and again asks to be put back on clonazepam, insisting that he wasn't abusing these. "I lost my bottle and when I went to [facility] they gave me the Ativan. It wasn't working...that's why I was taking so many of them." Miguel is noncommittal about rehab. His immigration officer, Mr. Lucero, is scheduled to come see him tomorrow. This clinician has exchanged several voicemails with Dr. Whitney Aguirre, the patient's outpatient provider at [facility]. Miguel denies SI and would like to be discharged. Objective - General Observations Appearance: Disheveled Appears Stated Age: Yes Stature: Overweight Posture: WNL Eye Contact: Average Behavior/Activity: WNL - Interaction Observations Attitude Towards Examiner: Manipulative Stated Mood: Euthymic Affect: Full Speech Pattern/Tone: Clear Thought Process: Goal Directed Perception: WNL Thought Content: WNL Hallucination Type: None Delusion Type: None - Cognitive Function Orientation: A&O x 4 Level of Consciousness: Sedated Cognition: WNL Estimated Intelligence: Normal Insight: Difficulty Acknowledging Presence of Psyciatric Problems Judgment Within Normal Limits: No Ability to Make Reasonable Decisions: Mildly Impaired - Medication Compliance Cooperative with Inpatient Medication Regimen: Yes - Group Participation Participates in Group Activities: No Assessment - Assessment Merits Inpatient Hospitalization: Consolidate Improvements, Pending Safe DC Plan Inpatient DSM-V Dx: F13.20 Clinical Impression: 38 y.o. single, obese, white, female to male transgendered patient with a history of alleged PTSD and dependence on several substances, including opioids , sedative-hypnotics and cocaine, transferred from the Hospitalist service following medical clearance from an intentional overdose on 56 tablets of 2mg lorazepam and 32 tablets of 1mg clonazepam in a 3-6 day period. The patient denies that this was a suicide attempt but has been participating in unsafe behaviors such as stealing her mother's credit card and car and driving impaired. BSU: Problem List - Patient Problems (1) Sedative dependence Current Visit: Yes Status: Acute Priority: High Code(s): F13.20 - SEDATIVE , HYPNOTIC OR ANXIOLYTIC DEPENDENCE, UNCOMPLICATED SNOMED Code(s): 157772725 Plan - Plan Treatment Plan: Name: ЮЛИЯ THOMAS Birthdate: 1980 [id number] We are encouraging the patient to consider inpatient rehab but she does not want to make any decisions until talking with her immigration officer. She is at some risk for benzodiazepine withdrawal so we will monitor her closely with [facility] protocol. I will resume suboxone, busiparone and duloxetine therapies. Consider transfer to rehab once detoxified. Continued Medication Management: Different Medication Medications: Current Medications Acetaminophen (Tylenol Tab*) 650 mg PO Q6H PRN PRN Reason: pain/fever Last Admin: 12/16/18 09:09 Dose: 650 mg Al Hydrox/Mg Hydrox/Simethicone (Maalox Plus*) 30 ml PO Q4H PRN PRN Reason: INDIGESTION Buprenorphine/Naloxone (Suboxone 8 Mg-2 Mg Sl Film) 1 each SL FILM TID [facility] Last Admin: 12/18/18 08:38 Dose: 1 each Buspirone HCl (Buspar Tab*) 20 mg PO BID [facility] Last Admin: 12/18/18 08:38 Dose: 20 mg Device (Nicotine Mouth Piece*) 1 each INH .USE W/ CARTRIDGE PRN PRN Reason: WITHDRAWAL - NICOTINE Last Admin: 12/17/18 22:03 Dose: 1 each Duloxetine HCl (Cymbalta Cap*) 90 mg PO BEDTIME [facility] Last Admin: 12/17/18 20:15 Dose: 90 mg Hydroxyzine HCl (Atarax Tab*) 50 mg PO Q6H PRN PRN Reason: ANXIETY Lactated Ringer's (Lactated Ringers 1000 Ml Bag*) 1,000 mls @ 100 mls/hr IV PER RATE [facility] Last Admin: 12/16/18 08:15 Dose: 100 mls/hr Lorazepam (Ativan Tab(*)) 0 - 6 mg PO .PER [facility] PROTOCOL [facility]; Protocol Last Admin: 12/18/18 10:39 Dose: 2 mg Nicotine (Nicotine Inhaler*) 10 mg INH Q2H PRN PRN Reason: CRAVING Last Admin: 12/18/18 08:38 Dose: 10 mg Nicotine (Nicotine Patch 21 Mg/24 Hr*) 1 patch TRANSDERM DAILY [facility] Last Admin: 12/18/18 08:38 Dose: 1 patch Nicotine Polacrilex (Nicotine Gum*) 2 mg PO Q2H PRN PRN Reason: CRAVING Last Admin: 12/18/18 10:39 Dose: 2 mg Pharmacy Profile Note (Nicotine Patch Removal Note*) 1 note FOLLOW UP [facility]100 [facility] Last Admin: 12/17/18 20:59 Dose: 1 note Prochlorperazine Edisylate (Compazine Inj*) 5 mg IV Q6H PRN PRN Reason: NAUSEA/VOMITING - Discharge Plan Discharge Plan: Drug/Alcohol Rehab
--- NOTE | 2018-12-18 15:43 | PN ---
BSU: Group Therapy Note - Service Type Service Type: [id number] Group Psychotherapy - Group Participation Patient Participating in Group: Yes Level of Group Participation: Attentive, Spontaneously Participate Relatedness to Group: Other - "Miguel" participated in group and offered a unique viewpoint. He was not always on topic.
[2018-12-18] MEDS: Acetaminophen TAB* 325 MG PO PRN (17:25)
[2018-12-18] MEDS: DULoxetine DR CAP* 30 MG CAP.DR PO SCH (21:12)
[2018-12-18] MEDS: Nicotine Patch Removal NOTE FOLLOW UP SCH (21:15)
[2018-12-19] MEDS: Nicotine Inhaler* 10 MG AMP INH PRN ×3 (07:35→16:54)
[2018-12-19] MEDS: busPIRone TAB* 10 MG PO SCH ×2 (07:35→20:12)
[2018-12-19] MEDS: Nicotine GUM* 2 MG PO PRN ×4 (07:35→20:15)
[2018-12-19] MEDS: Nicotine PATCH 21 MG/24 HR* PATCH TRANSDERM SCH (07:35)
[2018-12-19] MEDS: Buprenorp/Nalox 8-2 MG FILM 1 EACH SL FILM SCH ×3 (07:35→20:14)
--- NOTE | 2018-12-19 13:21 | PN ---
Subjective - Subjective Date of Service: 12/19/18 Service Type: [id number] Hosp care 15 min low complexity Subjective: Miguel remains adamant about going home. She is saying that she will find an inpatient rehab program on her own. "I just need to go home for a few days and be out of this place. These people are driving me crazy." We spoke with her customs officer, Mr. Lucero, who is supportive of a bed-to-bed transfer to an inpatient program, as is the patient's mother. The patient is scoring lower on the WAM protocol and her detoxification is progressing. She continues to deny SI. Objective - General Observations Appearance: Disheveled Appears Stated Age: Yes Stature: Overweight Posture: WNL Eye Contact: Average Behavior/Activity: WNL - Interaction Observations Attitude Towards Examiner: Cooperative Stated Mood: Anxious Affect: Full Speech Pattern/Tone: Slurred Thought Process: Goal Directed Perception: WNL Thought Content: WNL Hallucination Type: None Delusion Type: None - Cognitive Function Orientation: A&O x 4 Level of Consciousness: Awake Cognition: WNL Estimated Intelligence: Normal Insight: WNL Judgment Within Normal Limits: No Ability to Make Reasonable Decisions: Moderately Impaired - Medication Compliance Cooperative with Inpatient Medication Regimen: Yes - Group Participation Participates in Group Activities: No Assessment - Assessment Merits Inpatient Hospitalization: Consolidate Improvements, Pending Safe DC Plan Inpatient DSM-V Dx: F13.20 Clinical Impression: 38 y.o. single, obese, white, female to male transgendered patient with a history of alleged PTSD and dependence on several substances, including opioids , sedative-hypnotics and cocaine, transferred from the Hospitalist service following medical clearance from an intentional overdose on 56 tablets of 2mg lorazepam and 32 tablets of 1mg clonazepam in a 3-6 day period. The patient denies that this was a suicide attempt but has been participating in unsafe behaviors such as stealing her mother's credit card and car and driving impaired. BSU: Problem List - Patient Problems (1) Sedative dependence Current Visit: Yes Status: Acute Priority: High Code(s): F13.20 - SEDATIVE , HYPNOTIC OR ANXIOLYTIC DEPENDENCE, UNCOMPLICATED SNOMED Code(s): 083430529 Plan - Plan Treatment Plan: Name: ЮЛИЯ THOMAS Birthdate: 1980 [id number] We are encouraging the patient to consider inpatient rehab but she only wants to do this after returning home. We will only facilitate a bed-to-bed transfer , as this is more consistent with maintaining abstinence. Continue the [facility] protocol. We have resumed suboxone, busiparone and duloxetine therapies. Consider transfer to rehab once detoxified. Continued Medication Management: Different Medication Medications: Current Medications Acetaminophen (Tylenol Tab*) 650 mg PO Q6H PRN PRN Reason: pain/fever Last Admin: 12/18/18 17:25 Dose: 650 mg Al Hydrox/Mg Hydrox/Simethicone (Maalox Plus*) 30 ml PO Q4H PRN PRN Reason: INDIGESTION Buprenorphine/Naloxone (Suboxone 8 Mg-2 Mg Sl Film) 1 each SL FILM TID [facility] Last Admin: 12/19/18 07:35 Dose: 1 each Buspirone HCl (Buspar Tab*) 20 mg PO BID [facility] Last Admin: 12/19/18 07:35 Dose: 20 mg Device (Nicotine Mouth Piece*) 1 each INH .USE W/ CARTRIDGE PRN PRN Reason: WITHDRAWAL - NICOTINE Last Admin: 12/17/18 22:03 Dose: 1 each Duloxetine HCl (Cymbalta Cap*) 90 mg PO BEDTIME [facility] Last Admin: 12/18/18 21:12 Dose: 90 mg Hydroxyzine HCl (Atarax Tab*) 50 mg PO Q6H PRN PRN Reason: ANXIETY Lactated Ringer's (Lactated Ringers 1000 Ml Bag*) 1,000 mls @ 100 mls/hr IV PER RATE [facility] Last Admin: 12/16/18 08:15 Dose: 100 mls/hr Lorazepam (Ativan Tab(*)) 0 - 6 mg PO .PER [facility] PROTOCOL [facility]; Protocol Last Admin: 12/18/18 16:51 Dose: 2 mg Nicotine (Nicotine Inhaler*) 10 mg INH Q2H PRN PRN Reason: CRAVING Last Admin: 12/19/18 10:14 Dose: 10 mg Nicotine (Nicotine Patch 21 Mg/24 Hr*) 1 patch TRANSDERM DAILY [facility] Last Admin: 12/19/18 07:35 Dose: 1 patch Nicotine Polacrilex (Nicotine Gum*) 2 mg PO Q2H PRN PRN Reason: CRAVING Last Admin: 12/19/18 10:14 Dose: 2 mg Pharmacy Profile Note (Nicotine Patch Removal Note*) 1 note FOLLOW UP 2100 [facility] Last Admin: 12/18/18 21:15 Dose: 1 note Prochlorperazine Edisylate (Compazine Inj*) 5 mg IV Q6H PRN PRN Reason: NAUSEA/VOMITING - Discharge Plan Discharge Plan: Drug/Alcohol Rehab
[2018-12-19] MEDS: hydrOXYzine HCL TAB* 50 MG PO PRN (17:33)
[2018-12-19] MEDS: DULoxetine DR CAP* 30 MG CAP.DR PO SCH (20:12)
[2018-12-19] MEDS: Nicotine Patch Removal NOTE FOLLOW UP SCH (20:14)
[2018-12-19] MEDS: Acetaminophen TAB* 325 MG PO PRN (20:17)
[2018-12-20] MEDS: busPIRone TAB* 10 MG PO SCH ×2 (08:36→20:28)
[2018-12-20] MEDS: Nicotine Inhaler* 10 MG AMP INH PRN ×6 (08:36→21:38)
[2018-12-20] MEDS: Buprenorp/Nalox 8-2 MG FILM 1 EACH SL FILM SCH ×3 (08:36→20:31)
[2018-12-20] MEDS: Nicotine GUM* 2 MG PO PRN ×6 (08:36→21:39)
[2018-12-20] MEDS: Nicotine PATCH 21 MG/24 HR* PATCH TRANSDERM SCH (08:37)
[2018-12-20] MEDS: Acetaminophen TAB* 325 MG PO PRN ×2 (11:09→19:18)
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
[2018-12-20] MEDS: Gabapentin CAP(*) 100 MG PO SCH ×2 (13:40→20:29)
[2018-12-20] MEDS: DULoxetine DR CAP* 30 MG CAP.DR PO SCH (20:29)
[2018-12-20] MEDS: Nicotine Patch Removal NOTE FOLLOW UP SCH (20:32)
[2018-12-21] MEDS: Nicotine Inhaler* 10 MG AMP INH PRN ×4 (08:26→17:39)
[2018-12-21] MEDS: Nicotine GUM* 2 MG PO PRN ×3 (08:26→15:02)
[2018-12-21] MEDS: Gabapentin CAP(*) 100 MG PO SCH ×3 (08:26→20:54)
[2018-12-21] MEDS: busPIRone TAB* 10 MG PO SCH ×2 (08:27→20:55)
[2018-12-21] MEDS: Nicotine PATCH 21 MG/24 HR* PATCH TRANSDERM SCH (08:29)
[2018-12-21] MEDS: Buprenorp/Nalox 8-2 MG FILM 1 EACH SL FILM SCH ×3 (08:31→20:55)
[2018-12-21 08:36] VITALS: BP 139/81
[2018-12-21] MEDS: hydrOXYzine HCL TAB* 50 MG PO PRN (17:39)
[2018-12-21] MEDS: Nicotine Patch Removal NOTE FOLLOW UP SCH (20:55)
[2018-12-21] MEDS: DULoxetine DR CAP* 30 MG CAP.DR PO SCH (20:55)
[2018-12-21] MEDS: Acetaminophen TAB* 325 MG PO PRN (20:55)
[2018-12-22] MEDS: busPIRone TAB* 10 MG PO SCH ×2 (07:19→20:26)
[2018-12-22] MEDS: Nicotine PATCH 21 MG/24 HR* PATCH TRANSDERM SCH (07:19)
[2018-12-22] MEDS: Buprenorp/Nalox 8-2 MG FILM 1 EACH SL FILM SCH ×3 (07:20→20:26)
[2018-12-22] MEDS: Gabapentin CAP(*) 100 MG PO SCH ×3 (07:20→20:26)
[2018-12-22] MEDS: Nicotine GUM* 2 MG PO PRN ×3 (07:21→19:02)
[2018-12-22] MEDS: Nicotine Inhaler* 10 MG AMP INH PRN ×3 (07:21→19:02)
[2018-12-22] MEDS: DULoxetine DR CAP* 30 MG CAP.DR PO SCH (20:26)
[2018-12-22] MEDS: Nicotine Patch Removal NOTE FOLLOW UP SCH (20:30)
[2018-12-23] MEDS: Nicotine PATCH 21 MG/24 HR* PATCH TRANSDERM SCH (08:36)
[2018-12-23] MEDS: busPIRone TAB* 10 MG PO SCH (08:37)
[2018-12-23] MEDS: Nicotine Inhaler* 10 MG AMP INH PRN (08:37)
[2018-12-23] MEDS: Gabapentin CAP(*) 100 MG PO SCH (08:37)
[2018-12-23] MEDS: Buprenorp/Nalox 8-2 MG FILM 1 EACH SL FILM SCH (08:39)
[2018-12-23] MEDS: Nicotine GUM* 2 MG PO PRN (08:41)
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
== END 2018-12-23 11:00 | disposition home or self-care (01) | DRG 812 ==
LOC: ED 17:07 → MEDTELE 20:27 → OBSVTOIN 12-16 14:35 → BSU 12-16 16:20
PROVIDERS: ADMIT Internal Medicine; ATTEND Psychiatry & Neurology Psychiatry
DX: T42.4X2A Poisoning by benzodiazepines, intentional self-harm, initial encounter (principal); F13.20 Sedative, hypnotic or anxiolytic dependence, uncomplicated; Z68.41 Body mass index [BMI] 40.0-44.9, adult; F11.10 Opioid abuse, uncomplicated; F14.10 Cocaine abuse, uncomplicated; F43.10 Post-traumatic stress disorder, unspecified; E66.01 Morbid (severe) obesity due to excess calories; F17.210 Nicotine dependence, cigarettes, uncomplicated; K21.9 Gastro-esophageal reflux disease without esophagitis; G89.29 Other chronic pain; E28.2 Polycystic ovarian syndrome; B19.20 Unspecified viral hepatitis C without hepatic coma; J45.909 Unspecified asthma, uncomplicated; G47.33 Obstructive sleep apnea (adult) (pediatric); F41.9 Anxiety disorder, unspecified; M51.36 Other intervertebral disc degeneration, lumbar region; F32.9 Major depressive disorder, single episode, unspecified; M19.90 Unspecified osteoarthritis, unspecified site; R53.83 Other fatigue; W18.30XA Fall on same level, unspecified, initial encounter; Y92.009 Unspecified place in unspecified non-institutional (private) residence as the place of occurrence of the external cause; Z79.899 Other long term (current) drug therapy; Z88.0 Allergy status to penicillin; Z88.8 Allergy status to other drugs, medicaments and biological substances; Z81.1 Family history of alcohol abuse and dependence; Z81.8 Family history of other mental and behavioral disorders
CPT/HCPCS: 36415; 71045; 80053; 80061; 80307; 80320; 80329; 81003; 82550; 83036; 83605; 84443; 84702; 85025; 90853; 93005; 99222; 99231; 99238; 99285; A9270-GY; G0480; J0780

== ENCOUNTER 2018-12-23 19:59 | Inpatient (IN) | payer OTHER ==
[2018-12-23] MEDS ORDERED: Etomidate* 2 MG/ML 20 ML VIAL (40 MG) ONE (20:01)
[2018-12-23] MEDS ORDERED: Succinylcholine* 20 MG/ML 10 ML VIAL ONE (20:01)
[2018-12-23] MEDS ORDERED: Charcoal 50 GM/Sorbitol* 50 GM/240 ML BTL ONE (20:09)
[2018-12-23] MEDS ORDERED: Charcoal ACTIVATED* 25 GM/120 ML BTL ONE ×2 (20:09→20:13)
[2018-12-23] MEDS ORDERED: Charcoal ACTIVATED* 25 GM/120 ML BTL PO ONE (20:14)
[2018-12-23] MEDS ORDERED: NS 0.9% 1000 ML** 2,000 ML IV ONE (20:14)
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
[2018-12-23] MEDS ORDERED: Midazolam IV for DRIP* 100 MG in NS 0.9% 100 ML* 80 ML IV SCH (20:30)
[2018-12-23] MEDS ORDERED: Clindamycin 900 MG IVPREMIX(* 900 MG/50 ML SDV IV ONE (20:52)
[2018-12-23 20:55] LABS: ABS Basophils 0 10^3/ul (0-0.2); ABS Eosinophils 0.2 10^3/ul (0-0.6); ABS Lymphocytes 2.5 10^3/ul (1.0-4.8); ABS Monocytes 0.4 10^3/ul (0-0.8); ABS Neutrophils 3.3 10^3/ul (1.5-7.7); ABS Nucleated RBC 0 10^3/ul; Eosinophil % 2.5 %; Hematocrit 38 % (33-41); Hemoglobin 12.4 g/dL (12.0-16.0); Lymphocyte % 39.4 %; Mean Corpuscular HGB Conc 33 g/dL (31-36); Mean Corpuscular Hemoglobin 28 pg (27-31); Mean Corpuscular Volume 86 fL (80-97); Mean Platelet Volume 7.7 fL (7.4-10.4); Nucleated Red Blood Cells % 0.1; Platelet Count 269 10^3/uL (150-450); Red Blood Count 4.41 10^6 /uL (3.70-4.87); Red Cell Distribution Width 15 % (10.5-15); White Blood Count 6.4 10^3/uL (3.5-10.8)
[2018-12-23] MEDS ORDERED: fentaNYL INFUSION 50 MCG/ML* 2,500 MCG/50 ML BAG IV SCH (21:00)
[2018-12-23 21:12] LABS: ALT 21 U/L (7-52); AST 19 U/L (13-39); Albumin 4.3 g/dL (3.2-5.2); Albumin/Globulin Ratio 1.6 (1-3); Alkaline Phosphatase 76 U/L (34-104); Anion Gap 5 mmol/L (2-11); Blood Urea Nitrogen 17 mg/dL (6-24); CO2 Carbon Dioxide 31 mmol/L (22-32); Calcium 8.9 mg/dL (8.6-10.3); Chloride 105 mmol/L (101-111); Creatine Kinase 77 U/L (10-223); EGFR African American 106.9 (>60); EGFR Non-African American 88.3 (>60); Globulin 2.7 g/dL (2-4); Glucose 107 mg/dL (70-100); Potassium 3.4 mmol/L (3.5-5.0); Sodium 141 mmol/L (135-145)
[2018-12-23 21:16] LABS: Acetaminophen < 15 mcg/mL; Alcohol 95 mg/dL (<10); Salicylate < 2.50 mg/dL (<30)
[2018-12-23 21:18] LABS: HCG Pregnancy 1.62 mIU/mL
[2018-12-23] MEDS ORDERED: KCL 10 MEQ/50 ML IVPREMIX* 10 MEQ/50 ML BAG IV ONE (21:29)
[2018-12-23 21:31] LABS: TSH (Thyroid Stimulating Horm) 3.19 mcIU/mL (0.34-5.60)
[2018-12-23 21:38] LABS: Barbiturates Urine Screen None Detected (None Detect); Benzodiazepine Urine Screen None Detected (None Detect); Urine Cannabinoids Screen None Detected (None Detect)
[2018-12-23 21:40] LABS: Urine Appearance Clear; Urine Bilirubin Negative (Negative); Urine Blood Negative (Negative); Urine Color Straw; Urine Glucose Negative (Negative); Urine Ketones Negative (Negative); Urine Nitrite Negative (Negative); Urine Protein Negative (Negative); Urine Specific Gravity 1.006 (1.010-1.030); Urine Urobilinogen Negative (Negative)
[2018-12-24] MEDS: NS 0.9% w/ 20 Meq KCL 1000 ML* 1,000 ML IV SCH ×2 (00:55→08:57)
--- NOTE | 2018-12-24 04:08 | ADMNOTE ---
Subjective Date of Service: 12/23/18 Interval History: HISTORY AND PHYSICAL PCP: Dr. Glass, also sees Whitney Aguirre at [facility] Psychiatrist: Dr Flores CC: overdose HPI: This is a 38 year old female to male transition patient, who was discharged from this hospital earlier today. Subsequent to discharge, she took an intentional overdose of Lyrica 300 mg each, had 22 tabs in bottle, 6 are left , so took 18 tabs. Also had 25 tablets of clonazepam 2 mg, 3 tabs are left, so took 22 tablets. She was last admitted 12/15 with overdose of same medications, spent time on medical floor then MHU. Mother alerted EMS and they found patient w/ inadequate respiration, O2 sat 78% . She was bagged in the field and intubated in the ER. Family History: Findings - not obtainable Social History: Findings - lives with mother, who is HCP, smokes 1/2 PPD, alcohol use unclear, has polysubstance abuse. Past Medical History: Findings - PMH: PCOS, OUD, sedative/hypnotic abuse, cocaine abuse, PTSD, GERD, HepC, chronic pain, asthma; PSH strabismus repair OS 2008, appendectomy 2008, breast reduction 2003, LT knee arthroscopic debridement Review of Systems - Measurements Intake and Output: Intake and Output Last 24 Hours 12/21/18 12/22/18 12/23/18 12/24/18 06:59 06:59 06:59 06:59 Output Total 2825 Balance -2825 Weight 104.6 kg Output: García 2825 - Review of Systems General Comments: not obtainable due to intubated status Objective Active Medications: Home meds (from discharge today): DULoxetine CAP* [Cymbalta CAP*] 90 mg PO BEDTIME 02/26/18 busPIRone TAB* [Buspar TAB*] 20 mg PO BID #120 tab 02/28/18 Buprenorp/Nalox 8-2 MG FILM [Suboxone 8 mg-2 mg Sl Film] 1 each SL FILM TID film 12/23/18 Gabapentin CAP(*) [Neurontin 100 mg CAP(*)] 200 mg PO TID #90 cap 12/23/18 Vital Signs - 8 hr 12/23/18 12/23/18 12/23/18 20:14 20:25 20:28 Temperature 36.0 C Pulse Rate 88 82 82 Respiratory 17 6 Rate Blood Pressure 102/67 147/110 (mmHg) O2 Sat by Pulse 93 100 100 Oximetry 12/24/18 12/24/18 12/24/18 02:30 02:46 03:00 Temperature 36.1 C 36.2 C 36.3 C Pulse Rate 74 75 71 Respiratory 14 Rate Blood Pressure 109/82 133/97 109/84 (mmHg) O2 Sat by Pulse 99 100 100 Oximetry Oxygen Devices in Use Now: Mechanical Ventilator Appearance: intubated, sedated Eyes: No Scleral Icterus Ears/Nose/Mouth/Throat: NL Teeth, Lips, Gums Neck: NL Appearance and Movements; NL JVP Respiratory: Symmetrical Chest Expansion and Respiratory Effort, Clear to Auscultation Cardiovascular: NL Sounds; No Murmurs; No JVD, RRR Abdominal: NL Sounds; No Tenderness; No Distention Lymphatic: No Cervical Adenopathy Extremities: No Edema Skin: No Rash or Ulcers Neurological: - - sedated Lines/Tubes/Other Access: Clean, Dry and Intact Peripheral IV Nutrition: - - NPO Result Diagrams: 12/23/18 20:37 12/23/18 20:37 Additional Lab and Data: Laboratory Tests 12/23/18 12/23/18 12/23/18 20:12 20:37 20:37 ABG pH ABG pCO2 ABG pO2 ABG HCO3 Glucose 107 H Lactic Acid 1.8 AST 19 ALT 21 Total Creatine Kinase 77 TSH 3.19 Beta HCG, Quant 1.62 Salicylates < 2.50 Urine Opiates Screen None detected Acetaminophen < 15 Ur Barbiturates Screen None detected Ur Phencyclidine Scrn None detected Ur Amphetamines Screen None detected U Benzodiazepines Scrn None detected Urine Cocaine Screen None detected U Cannabinoids Screen None detected Serum Alcohol 95 H 12/23/18 21:00 ABG pH 7.29 L ABG pCO2 58 H ABG pO2 137 H ABG HCO3 25.0 Glucose Lactic Acid AST ALT Total Creatine Kinase TSH Beta HCG, Quant Salicylates Urine Opiates Screen Acetaminophen Ur Barbiturates Screen Ur Phencyclidine Scrn Ur Amphetamines Screen U Benzodiazepines Scrn Urine Cocaine Screen U Cannabinoids Screen Serum Alcohol Microbiology and Other Data: Microbiology 12/24/18 00:15 Nasal Screen MRSA (PCR) - Final Nasal Mrsa Not Detected Diagnostic Imaging: ET tube in place, fluffy infiltrates bilat EKG Data: NSR, normal axis, low voltage Assess/Plan/Problems-Billing Assessment: - Patient Problems (1) Intentional benzodiazepine overdose Current Visit: Yes Status: Acute Priority: High Code(s): T42.4X2A - POISONING BY BENZODIAZEPINES, INTENTIONAL SELF-HARM, INIT SNOMED Code(s): 173183038 Comment: -Intentional overdose of both Lyrica and benzo -Main plan is ventilatory support, maintenance in ICU, medications will wear off in 10-24 hours -Will need psychiatry consultation when awake. (2) Hypokalemia Current Visit: Yes Status: Acute Priority: Medium Code(s): E87.6 - HYPOKALEMIA SNOMED Code(s): 46043798 Comment: -Will supplement KCl IV and recheck in AM (3) Acute respiratory failure with hypoxia and hypercapnia Current Visit: Yes Status: Acute Priority: High Code(s): J96.01 - ACUTE RESPIRATORY FAILURE WITH HYPOXIA; J96.02 - ACUTE RESPIRATORY FAILURE WITH HYPERCAPNIA SNOMED Code(s): 952115058 Comment: -Resp failure due to overdose -CO2 remains high after intubation, increase resp rate, will recheck ABG. Status and Disposition: inpatient ICU
[2018-12-24] MEDS ORDERED: Midazolam IV for DRIP* 100 MG in NS 0.9% 100 ML* 80 ML IV SCH (05:00)
[2018-12-24] MEDS ORDERED: fentaNYL INFUSION 50 MCG/ML* 2,500 MCG/50 ML BAG IV SCH (05:00)
[2018-12-24 07:02] LABS: ABS Basophils 0 10^3/ul (0-0.2); ABS Eosinophils 0.2 10^3/ul (0-0.6); ABS Lymphocytes 2.4 10^3/ul (1.0-4.8); ABS Monocytes 0.4 10^3/ul (0-0.8); ABS Neutrophils 2.5 10^3/ul (1.5-7.7); ABS Nucleated RBC 0 10^3/ul; Eosinophil % 3.4 %; Hematocrit 34 % (33-41); Hemoglobin 11.4 g/dL (12.0-16.0); Lymphocyte % 43.5 %; Mean Corpuscular HGB Conc 34 g/dL (31-36); Mean Corpuscular Hemoglobin 29 pg (27-31); Mean Corpuscular Volume 86 fL (80-97); Mean Platelet Volume 7.9 fL (7.4-10.4); Nucleated Red Blood Cells % 0.1; Platelet Count 249 10^3/uL (150-450); Red Blood Count 3.97 10^6 /uL (3.70-4.87); Red Cell Distribution Width 15 % (10.5-15); White Blood Count 5.6 10^3/uL (3.5-10.8)
[2018-12-24 08:53] LABS: CO2 Carbon Dioxide 25 mmol/L (22-32); Calcium 7.7 mg/dL (8.6-10.3); Sodium 143 mmol/L (135-145)
[2018-12-24 08:54] LABS: Chloride 112 mmol/L (101-111)
[2018-12-24 08:55] LABS: Anion Gap 6 mmol/L (2-11)
[2018-12-24 08:59] LABS: Blood Urea Nitrogen 11 mg/dL (6-24); EGFR African American 133.5 (>60); EGFR Non-African American 110.4 (>60); Glucose 76 mg/dL (70-100)
[2018-12-24] MEDS ORDERED: Al Hydrox/Mg Hydrox/Simet LIQ* 30 ML UDC PO PRN (11:48)
--- NOTE | 2018-12-24 12:15 | CONSULT ---
Identification - Patient Identification Reason for Psychiatric Consultation: Incapacitating Symptoms -: Patient is a 38 year old, F admitted on 12/23/18. - MHU Identification Employment Status: Unemployed Hx Psychiatric Hospitalization: Yes History - Objective HPI: Arminda is seen in ICU bed 3 following extubation. She is somewhat groggy, but alert enough to give a history and tell me her mother's phone number. I gather from the admission history that following discharge yesterday from the [facility]SU she went home to her mother's apartment, drank some alcohol and took Lyrica and Clonazepam. Her mother had sent in her pill bottles and, following a count, it appears she took 18 tabs of 300mg of Lyrica and 22 tabs of 2mg clonazepam. She was obtunded and unarousable on presentation to the ED and received Narcan at some point, and then intubation. Arminda disputes this account, insisting that she only took 3 clonazepam and 3 Lyrica. "No, I wasn't suicidal. I'm not suicidal. My knee was killing me. I told you I need surgery on it." The patient was just hospitalized for a week on the medical and then psychiatric units here at [facility] following an apparent recreational overdose on lorazepam and clonazepam. We successfully detoxified her from benzodiazepines and referred her to an inpatient drug rehab facility for bed-to-bed transfer. Yesterday, December 23, Arminda notified us that she no longer consented to going directly to rehab, stating that she wanted to spend some time at her mother's before self -referring her to an inpatient facility at a later time. This was despite warnings by her u.s. revenue officer, Mr. Lucero, that he would violate her if she refused inpatient rehab. It's unclear if this overdose was an attempt at avoiding being sent back to [facility]. For collateral information I spoke with the patient's mother, Lolita Mendieta ([phone]) who indicates that even though Arminda was taken off benzo's she was given back her possessions yesterday upon discharge and that's where she got the 22 tabs of clonazepam. The mother now will not allow Arminda to return home until she's completed rehab. Exam Appearance: Obese Hygiene: Normal Grooming: Disheveled Psychomotor Activities: Normal Exhibits Abnormal Movement: No Attitude and Relatedness: Cooperative Eye Contact: Fair - Speech Quality: Unpressured Latencies: Normal Quantity: Appropriate Patient's Decription of Mood: "Upset" Observed Affect: Labile Affect Consistent with: Dysphoria Patient's Thought Process: Goal Directed Thought Content: No Passive Wish, No Suicidal Planning, No Homicidal Ideation, No Paranoid Ideation Experiencing Hallucinations: No, Sensorium is Clear Type of Hallucinations: Visual: No, Auditory: No, Command: No Level of Consciousness: Alert Orientation: Yes Intact, Yes Orientated to Time, Yes Orientated to Place, Yes Orientated to Person Impulse Control: Poor Insight and Judgement: Impaired Impression - Impression Clinical Impression: 38 y.o. single, white, now-homeless, [id number] transgendered patient with a history of addiction to opioids, cocaine and benzodiazepines who was just discharged from the [facility]SU yesterday (12/23), who now returns to the hospital after promptly overdosing on 22 tablets of 2mg clonazepam and 18 tabs of pregabalin in an uncertain effort to either get high or harm herself. Inpatient DSM-V Dx: F19.94 Merits Inpatient Hospitalization: Yes BSU: Problem List - Patient Problems (1) Substance induced mood disorder Current Visit: No Status: Acute Priority: High Onset Date: 02/17/16 Code (s): F19.94 - OTH PSYCHOACTIVE SUBSTANCE USE, UNSP W MOOD DISORDER SNOMED Code (s): 338949424 Plan - Treatment Plan Treatment Plan: We will transfer the patient back to the BSU and prepare her for inpatient drug rehab. She will be placed back on suboxone 8/2 SL TID, duloxetine 90mg PO qhs and busiparone 20mg PO BID. The patient will be placed on an involuntary 9.39 legal status. Continued Medication Management: Continue Outpt Medication Medications: Current Medications Acetaminophen (Tylenol Tab*) 650 mg PO Q4H PRN PRN Reason: for pain; or Temp >101 F Al Hydrox/Mg Hydrox/Simethicone (Maalox Plus*) 30 ml PO Q4H PRN PRN Reason: INDIGESTION Buprenorphine/Naloxone (Suboxone 8 Mg-2 Mg Sl Film) 1 each SL FILM TID JENNIFER Buspirone HCl (Buspar Tab*) 20 mg PO BID JENNIFER Duloxetine HCl (Cymbalta Cap*) 90 mg PO BEDTIME JENNIFER Potassium Chloride/Sodium Chloride (Ns 0.9% W/ 20 Meq Kcl 1000 Ml*) 1,000 mls @ 125 mls/hr IV PER RATE JENNIFER Last Admin: 12/24/18 08:57 Dose: 125 mls/hr Fentanyl Citrate (Fentanyl Infusion Bag 50 Mcg/Ml 50 Ml) 2,500 mcg in 50 mls @ 0.5 mls/hr IV Q72H JENNIFER; Protocol Last Admin: 12/24/18 06:12 Dose: 0.5 mls/hr Midazolam HCl 100 mg/ Sodium (Chloride) 100 mls @ 0 mls/hr IV .Q24HR JENNIFER; Protocol Nicotine (Nicotine Inhaler*) 10 mg INH Q2H PRN PRN Reason: CRAVING Nicotine Polacrilex (Nicotine Gum*) 2 mg PO Q2H PRN PRN Reason: CRAVING - Discharge Plan Discharge Plan: Drug/Alcohol Rehab
--- NOTE | 2018-12-24 13:36 | PN ---
Date of Service: 12/24/18 Critical Care Services: 38 y/o female discharged from behavioral health unit here yesterday AM and admitted last night for overdose (Lyrica and Klonopin). Awoke this AM and was extubated without incident. Denies suicide and claims OD was accidental. Vital Signs: Temp Pulse Resp BP SpO2 FiO2 99.0 F 85 19 101/77 97 30 Physical Exam: Gen:Somnolent but easily arousable and oriented when aroused. HEENT:OP clear Lungs:clear Extremities:No cyanosis or edema Fluid Balance (Past 24 Hours): 12/24/18 06:59 Intake Total 643 Output Total 3045 Balance -2402 Weight 227 lb Intake: IV Fluids 643 NS (0.9%) 20 meq KCL 643 Medicated IV FENTANYL VERSED Output: García 3045 Labs: 12/23/18 12/23/18 12/23/18 20:12 20:12 20:37 WBC 6.4 RBC 4.41 Hgb 12.4 Hct 38 MCV 86 MCH 28 MCHC 33 RDW 15 Plt Count 269 Urine Color Straw Urine Appearance Clear Urine pH 6.0 Ur Specific Russell 1.006 L Urine Protein Negative Urine Ketones Negative Urine Blood Negative Urine Nitrate Negative Urine Bilirubin Negative Urine Urobilinogen Negative Ur Leukocyte Esterase Negative Urine Glucose Negative Salicylates Urine Opiates Screen None detected Acetaminophen Ur Barbiturates Screen None detected Ur Phencyclidine Scrn None detected Ur Amphetamines Screen None detected U Benzodiazepines Scrn None detected Urine Cocaine Screen None detected U Cannabinoids Screen None detected Serum Alcohol 12/23/18 12/23/18 12/23/18 20:37 20:37 21:00 WBC RBC Hgb Hct MCV MCH MCHC RDW Lymph % (Auto) Baso % (Auto) Absolute Neuts (auto) Absolute Lymphs (auto) Absolute Monos (auto) Absolute Eos (auto) Absolute Basos (auto) Absolute Nucleated RBC Nucleated RBC % ABG pH 7.29 L ABG pCO2 58 H ABG pO2 137 H ABG HCO3 25.0 ABG O2 Saturation 100.0 H ABG Base Excess 0.1 Respiration Rate 12 Ventilator Type 600 Vent Mode cmv FiO2 40 PEEP 5 Sodium 141 Potassium 3.4 L Chloride 105 Carbon Dioxide 31 Anion Gap 5 BUN 17 Creatinine 0.74 Glucose 107 H Lactic Acid 1.8 Calcium 8.9 Total Bilirubin 0.60 AST 19 ALT 21 Alkaline Phosphatase 76 Total Creatine Kinase 77 Total Protein 7.0 Albumin 4.3 Globulin 2.7 Albumin/Globulin Ratio 1.6 TSH 3.19 Beta HCG, Quant 1.62 Urine Color Urine Appearance Urine pH Ur Specific Russell Urine Protein Urine Ketones Urine Blood Urine Nitrate Urine Bilirubin Urine Urobilinogen Ur Leukocyte Esterase Urine Glucose Salicylates < 2.50 Urine Opiates Screen Acetaminophen < 15 Ur Barbiturates Screen Ur Phencyclidine Scrn Ur Amphetamines Screen U Benzodiazepines Scrn Urine Cocaine Screen U Cannabinoids Screen Serum Alcohol 95 H 12/24/18 12/24/18 12/24/18 01:11 06:18 06:18 WBC 5.6 RBC 3.97 Hgb 11.4 L Hct 34 MCV 86 MCH 29 MCHC 34 RDW 15 Plt Count 249 MPV 7.9 Neut % (Auto) 44.8 Lymph % (Auto) 43.5 [place] % (Auto) 7.4 Eos % (Auto) 3.4 Baso % (Auto) 0.9 Absolute Neuts (auto) 2.5 Absolute Lymphs (auto) 2.4 Absolute Monos (auto) 0.4 Absolute Eos (auto) 0.2 Absolute Basos (auto) 0 Absolute Nucleated RBC 0 Nucleated RBC % 0.1 ABG pH 7.36 ABG pCO2 46 H ABG pO2 139 H ABG HCO3 25.0 ABG O2 Saturation 99.2 H ABG Base Excess 0.1 Respiration Rate 14 Ventilator Type 600 Vent Mode Ac FiO2 40 PEEP 5 Sodium 143 Potassium TNP Chloride 112 H Carbon Dioxide 25 Anion Gap 6 BUN 11 Creatinine 0.61 Est GFR ( Amer) 133.5 Est GFR (Non-Af Amer) 110.4 BUN/Creatinine Ratio 18.0 Glucose 76 Lactic Acid Calcium 7.7 L Total Bilirubin AST ALT Alkaline Phosphatase Total Creatine Kinase Total Protein Albumin Globulin Albumin/Globulin Ratio TSH Beta HCG, Quant Urine Color Urine Appearance Urine pH Ur Specific Russell Urine Protein Urine Ketones Urine Blood Urine Nitrate Urine Bilirubin Urine Urobilinogen Ur Leukocyte Esterase Urine Glucose Salicylates Urine Opiates Screen Acetaminophen Ur Barbiturates Screen Ur Phencyclidine Scrn Ur Amphetamines Screen U Benzodiazepines Scrn Urine Cocaine Screen U Cannabinoids Screen Serum Alcohol Studies: None today Nutrition: Oral diet started today Impression: Although still somnolent, patient is clinically stable. However, she is currently a danger to her own health and wellbeing. Plan: Will d/c nasal O2 - if no hypoxia, then patient can (and should) return to behavioral health unit. (NOTE: Patient has stated she does NOT want to return to the unit, so involuntary committment may be necessary). Critical Care Time: 40 minutes (including time to wean and extubate the patient) .
[2018-12-24] MEDS: Buprenorp/Nalox 8-2 MG FILM 1 EACH SL FILM SCH (14:16)
[2018-12-24] MEDS: LORazepam INJ* 2 MG/ML 1 ML VIAL IV PUSH PRN ×2 (14:35→15:07)
[2018-12-24] MEDS ORDERED: LORazepam INJ* 2 MG/ML 1 ML VIAL ONE (15:05)
[2018-12-24] MEDS ORDERED: chlorproMAZINE INJ* 25 MG/ML 2 ML (50 MG) IV ONE (15:10)
[2018-12-24] MEDS ORDERED: LORazepam INJ* 2 MG/ML 1 ML VIAL IV PUSH ONE (15:11)
[2018-12-24 20:45] LABS: BUN/Creatinine Ratio 15.4 (8-20); Calcium 8.2 mg/dL (8.6-10.3); EGFR African American 100.6 (>60); EGFR Non-African American 83.1 (>60); Potassium 4.2 mmol/L (3.5-5.0)
[2018-12-25] MEDS: Buprenorp/Nalox 8-2 MG FILM 1 EACH SL FILM SCH ×4 (00:23→20:00)
[2018-12-25] MEDS: Acetaminophen TAB* 325 MG PO PRN ×2 (04:43→16:50)
[2018-12-25] MEDS: busPIRone TAB* 10 MG PO SCH ×2 (10:27)
[2018-12-25] MEDS: Nicotine GUM* 2 MG PO PRN ×3 (12:34→20:03)
[2018-12-25] MEDS ORDERED: Mouth Piece, Nicotine* 1 EACH CARTRIDGE ONE (12:35)
[2018-12-25] MEDS: Nicotine Inhaler* 10 MG AMP INH PRN ×2 (12:35→16:49)
--- NOTE | 2018-12-25 13:46 | PN ---
Subjective - Subjective Date of Service: 12/25/18 Service Type: 04841 Hosp care 15 min low complexity Subjective: Miguel has no insight into his two recent significant overdoses. He appears sedated still with slurred speech. He is declining inpatient rehab and says he wants to be discharged so that he can go to alf. He continues to deny that either of his overdoses were suicidal in nature and denies SI today. He is mostly avoiding social contact and sleeping in his room. Objective - General Observations Appearance: Disheveled Appears Stated Age: Yes Stature: Overweight Posture: Slumped Eye Contact: Average Behavior/Activity: Slowed - Interaction Observations Attitude Towards Examiner: Cooperative Stated Mood: Dysphoric Affect: Blunted Speech Pattern/Tone: Slurred, Garbled Thought Process: Goal Directed Perception: WNL Thought Content: WNL Hallucination Type: None Delusion Type: None - Cognitive Function Orientation: A&O x 4 Level of Consciousness: Awake Cognition: WNL Estimated Intelligence: Normal Insight: Difficulty Acknowledging Presence of Psyciatric Problems Judgment Within Normal Limits: No Ability to Make Reasonable Decisions: Serverely Impaired - Medication Compliance Cooperative with Inpatient Medication Regimen: Yes - Group Participation Participates in Group Activities: No Assessment - Assessment Merits Inpatient Hospitalization: For Immediate Safety, For Stabilization Inpatient DSM-V Dx: F19.94 Clinical Impression: 38 y.o. single, white, now-homeless, [id number] transgendered patient with a history of addiction to opioids, cocaine and benzodiazepines who was just discharged from the BSU yesterday (12/23), who now returns to the hospital after promptly overdosing on 22 tablets of 2mg clonazepam and 18 tabs of pregabalin in an uncertain effort to either get high or harm herself. BSU: Problem List - Patient Problems (1) Substance induced mood disorder Current Visit: No Status: Acute Priority: High Onset Date: 02/17/16 Code (s): F19.94 - OTH PSYCHOACTIVE SUBSTANCE USE, UNSP W MOOD DISORDER SNOMED Code (s): 014442941 Plan - Plan Treatment Plan: We are strongly encouraging drug and alcohol rehabilitation. She has been placed back on suboxone 8/2 SL TID, duloxetine 90mg PO qhs and busiparone 20mg PO BID. Continue inpatient treatment. Continued Medication Management: Continue Outpt Medication Medications: Current Medications Acetaminophen (Tylenol Tab*) 650 mg PO Q4H PRN PRN Reason: for pain; or Temp >101 F Last Admin: 12/25/18 04:43 Dose: 650 mg Al Hydrox/Mg Hydrox/Simethicone (Maalox Plus*) 30 ml PO Q4H PRN PRN Reason: INDIGESTION Buprenorphine/Naloxone (Suboxone 8 Mg-2 Mg Sl Film) 1 each SL FILM TID [facility] Last Admin: 12/25/18 09:21 Dose: 1 each Buspirone HCl (Buspar Tab *) 20 mg PO BID JENNIFER Duloxetine HCl (Cymbalta Cap*) 90 mg PO BEDTIME [facility] Last Admin: 12/25/18 00:00 Dose: Not Given Lorazepam (Ativan Inj*) 1 mg IV PUSH Q2H PRN PRN Reason: ANXIETY Last Admin: 12/24/18 15:07 Dose: 2 mg Nicotine (Nicotine Inhaler*) 10 mg INH Q2H PRN PRN Reason: CRAVING Last Admin: 12/25/18 12:35 Dose: 10 mg Nicotine Polacrilex (Nicotine Gum*) 2 mg PO Q2H PRN PRN Reason: CRAVING Last Admin: 12/25/18 12:34 Dose: 2 mg - Discharge Plan Discharge Plan: Drug/Alcohol Rehab
[2018-12-25] MEDS ORDERED: hydrOXYzine HCL TAB* 50 MG PO PRN (17:28)
[2018-12-25] MEDS: busPIRone TAB* 15 MG PO SCH (19:59)
[2018-12-25] MEDS: DULoxetine DR CAP* 30 MG CAP.DR PO SCH ×2 (19:59)
--- NOTE | 2018-12-25 20:09 | HP ---
CC: Dr. Whitney Aguirre, [facility]; Dr. Chary Glass HISTORY AND PHYSICAL: ADDENDUM: FAMILY HISTORY: Maternal grandfather and paternal uncle had a history of alcohol abuse. Mother has been diagnosed with depression. REVIEW OF SYSTEMS: A 14-point review of systems was performed and it was limited as the patient is s till showing signs of sedation due to benzodiazepines, but all the pertinent negatives and positives are as in the HPI. [id number]/CPS #: [id number]
[2018-12-25 23:54] VITALS: BP 125/84
[2018-12-26] MEDS: Nicotine Inhaler* 10 MG AMP INH PRN (07:47)
[2018-12-26] MEDS: Nicotine GUM* 2 MG PO PRN (07:48)
[2018-12-26] MEDS: busPIRone TAB* 15 MG PO SCH (08:20)
[2018-12-26] MEDS: Buprenorp/Nalox 8-2 MG FILM 1 EACH SL FILM SCH (08:22)
--- NOTE | 2018-12-26 21:51 | DS ---
DISCHARGE SUMMARY: DATE OF ADMISSION: 12/23/18 DATE OF DISCHARGE: 12/26/18 DISCHARGE DIAGNOSES: AXIS I: Benzodiazepine-induced mood disorder; benzodiazepine use disorder; opioid use disorder; cocaine use disorder; posttraumatic stress disorder by history. AXIS II: Deferred. CONDITION AT THE TIME OF DISCHARGE: Improved. The patient is no longer intoxicated on Lyrica or clonazepam. She is clear-headed, calm, cooperative. She is agreeable to a transfer to the [facility] on the [facility], in [place], [place]. She has been continued on her outpatient medications including Suboxone, duloxetine, BuSpar, but taken off benzodiazepines. She is acknowledging her substance misuse patterns and willing to receive recovery services. MENTAL STATUS EXAM AT THE TIME OF DISCHARGE: Arminda is an overweight, female to male transgendered patient, who has fairly moderate grooming. She is calm, cooperative, expressive, easy to establish a rapport with. Speech has a normal rate, tone, and volume. Mood is euthymic with full affect. Thought process is linear and goal directed. Thought content is significant for her desire to be discharged so that she can go to rehab. She denies suicidal or homicidal ideations. She denies auditory or visual hallucinations. Insight and judgment are fair given her willingness to seek rehabilitative services at [facility]. Cognitively, she is awake and alert with what appeared to be an average intellect. DISCHARGE INSTRUCTIONS TO THE PATIENT: Discharge instructions to the patient are as follows: Part A. Medications: She is taking duloxetine 90 mg p.o. q. nightly, BuSpar 20 mg p.o. b.i.d. She takes Suboxone 8/2 mg sublingually one film t.i.d., nicotine inhaler 10 mg inhaled every 2 hours as needed for smoking cessation, nicotine gum 2 mg every 2 hours as needed for nicotine craving. Part B. Diet: Regular. Part C. Activities: As per [facility] protocol. The patient is a smoker. She is accepting nicotine replacement therapy at this time including nicotine gum and a nicotine inhaler. There are no laboratory or diagnostic studies pending at the time of discharge. D. Follow-up care: This will be established by the [facility] at her time of discharge from that program. E. Substance abuse follow-up: She is to be a direct transfer to the [facility] where she will be receiving nicotine replacement as well as Suboxone for her opioid use disorder. HOSPITAL COURSE: Part A: Reason for admission: The patient is a 38-year-old, single, white female to male transgendered individual who was just discharged one day previously from the Behavioral Science Unit, who now returns after an apparent overdose on Lyrica and clonazepam. It appears that she took 18 tablets of 300 mg strength Lyrica, 22 tablets of 2 mg strength clonazepam. She was obtunded and unarousable on presentation to the ED and received Narcan at some point and then intubation. Arminda disputed that this was the amount of pills she took, stating that she only took 3 Klonopin and 3 Lyrica. She said "No, I wasn't suicidal, I'm not suicidal, my knee was killing me. I told you, I need surgery on it." The patient had been hospitalized for a week on the medical and then the psychiatric unit [place] at [facility] [place] an apparent recreational overdose on lorazepam and clonazepam. We successfully detoxified her from benzodiazepines and referred her to an inpatient drug rehab facility for bed-to-bed transfer. On the day of discharge, which was 12/23/18, Arminda notified us that she was no longer consenting to going directly to rehab stating that she wanted to spend some time at her mother's before self referring to an inpatient facility at a later time. This was despite warnings by her business development officer, Mr. Lucero that he would violate her if she refuse inpatient rehab. It was unclear at the time of admission, whether the overdose was intentional or simply recreational. For collateral information, we did speak with Lolita Mendieta, who indicated that although Arminda was taken off benzodiazepines, her clonazepam was given back to her upon discharge and this is part of what she overdosed on. Part B: Psychiatric treatment rendered: The patient was transferred from the ICU directly to the Behavioral Science Unit. Initially, she was still somewhat overmedicated and her oxygen saturations were dipping into the 60s. For that reason, she temporarily received nasal cannula oxygen therapy which greatly improved her O2 saturations. We discontinued gabapentin and continued to withhold benzodiazepines. The patient was referred to substance abuse treatment facilities and was accepted by [facility] and she is being discharged there in good condition. At this time, she is acknowledging the problematic role of substances in her life and is willing and ready to get clean and sober. We certainly wish her the best for a safe and healthy future. [id number]/CPS #: [id number]
== END 2018-12-26 11:12 | DRG 773 ==
LOC: ED 19:59 → ICU 22:48 → BSU 12-24 11:48
PROVIDERS: ADMIT Internal Medicine; ATTEND Psychiatry & Neurology Psychiatry
PROC: 0BH17EZ Insertion of Endotracheal Airway into Trachea, Via Natural or Artificial Opening (ICD-10-PCS; principal; 2018-12-23)
PROC: 5A1935Z Respiratory Ventilation, Less than 24 Consecutive Hours (ICD-10-PCS; 2018-12-23)
DX: F13.94 Sedative, hypnotic or anxiolytic use, unspecified with sedative, hypnotic or anxiolytic-induced mood disorder (principal); F11.90 Opioid use, unspecified, uncomplicated; F14.90 Cocaine use, unspecified, uncomplicated; F43.10 Post-traumatic stress disorder, unspecified; E66.9 Obesity, unspecified; T42.6X1A Poisoning by other antiepileptic and sedative-hypnotic drugs, accidental (unintentional), initial encounter; T42.4X1A Poisoning by benzodiazepines, accidental (unintentional), initial encounter; Y92.9 Unspecified place or not applicable; Z68.37 Body mass index [BMI] 37.0-37.9, adult; Z81.1 Family history of alcohol abuse and dependence; Z81.8 Family history of other mental and behavioral disorders; Z79.899 Other long term (current) drug therapy
CPT/HCPCS: 36415; 36600; 71045; 80048; 80053; 80307; 80320; 80329; 81003; 82550; 82803; 83605; 84443; 84702; 85025; 87040; 87641; 93005; 94002; 99285; 99406; A9270-GY; G0480; J0330; J2060; J2250; J3010; J3480

== ENCOUNTER 2019-04-08 13:45 | Inpatient (IN) | payer MEDICAID ==
[2019-04-08] MEDS ORDERED: NS 0.9% 1000 ML** 1,000 ML IV ONE (14:02)
[2019-04-08 14:50] LABS: ABS Eosinophils 0.2 10^3/ul (0-0.6); ABS Lymphocytes 2.8 10^3/ul (1.0-4.8); ABS Monocytes 0.6 10^3/ul (0-0.8); ABS Neutrophils 5.6 10^3/ul (1.5-7.7); Eosinophil % 1.9 %; Hematocrit 36 % (35-47); Hemoglobin 12.1 g/dL (12.0-16.0); Lymphocyte % 30.5 %; Mean Corpuscular HGB Conc 34 g/dL (31-36); Mean Corpuscular Hemoglobin 30 pg (27-31); Mean Corpuscular Volume 88 fL (80-97); Mean Platelet Volume 8.4 fL (7.4-10.4); Nucleated Red Blood Cells % 0.1; Platelet Count 294 10^3/uL (150-450); Red Blood Count 4.03 10^6 /uL (3.70-4.87); Red Cell Distribution Width 14 % (10-15); White Blood Count 9.2 10^3/uL (3.5-10.8)
[2019-04-08 15:16] LABS: ALT 12 U/L (7-52); AST 14 U/L (13-39); Albumin 3.7 g/dL (3.2-5.2); Albumin/Globulin Ratio 1.7 (1-3); Alkaline Phosphatase 77 U/L (34-104); Anion Gap 3 mmol/L (2-11); BUN/Creatinine Ratio 13.7 (8-20); Blood Urea Nitrogen 7 mg/dL (6-24); CO2 Carbon Dioxide 31 mmol/L (22-32); Calcium 8.3 mg/dL (8.6-10.3); Chloride 106 mmol/L (101-111); Creatine Kinase 108 U/L (10-223); EGFR African American 164.2 (>60); EGFR Non-African American 135.7 (>60); Globulin 2.2 g/dL (2-4); Glucose 113 mg/dL (70-100); Potassium 3.7 mmol/L (3.5-5.0); Sodium 140 mmol/L (135-145); Total Protein 5.9 g/dL (6.4-8.9)
[2019-04-08 15:25] LABS: Acetaminophen < 15 mcg/mL; Salicylate < 2.50 mg/dL (<30)
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
[2019-04-08] MEDS ORDERED: fentaNYL* 50 MCG/ML 2 ML VIAL (100 MCG VIAL) IV SLOW PU ONE (17:02)
[2019-04-08] MEDS ORDERED: Etomidate* 2 MG/ML 20 ML VIAL (40 MG) ONE (17:06)
[2019-04-08] MEDS ORDERED: Succinylcholine* 20 MG/ML 10 ML VIAL ONE (17:06)
--- NOTE | 2019-04-08 17:18 | ED ---
Progress - Progress Note Progress Note: I have seen pt with GREGORY Urbna, and agree with the planned documentation as noted. Briefly this is a 38 year old f with a Hx of substance use present with hypercapnic respiratory failure in the setting of drug overdose, pt noted to be more somnolent in retaining CO2 therefore decision made to intubate. Intubation Progress Note: Intubation method: video assisted Tube Size: 7.5 Medications: succ/etomidate Breath Sounds after Intubation Intubation Complications: none Course/Dx - Diagnoses Provider Diagnoses: Drug overdose - Critical Care Time Critical Care Time: 30-74 min Discharge - Sign-Out/Discharge Documenting (check all that apply): Patient Departure - Admitted - Discharge Plan Condition: Fair Disposition: ADMITTED TO [facility] - Billing Disposition and Condition Condition: FAIR Disposition: Admitted to [facility] - Attestation Statements Document Initiated by Maikibe: Yes Documenting Scribe: Kaylin Manning Provider For Whom Scribe is Documenting (Include Credential): Dr. Nette Kelly MD Scribe Attestation: Kaylin Carver scribed for Dr. Nette Kelly MD on 04/08/19 at 2141. Scribe Documentation Reviewed: Yes Provider Attestation: The documentation as recorded by the Kaylin hernández accurately reflects the service I personally performed and the decisions made by , Dr. Nette Kelly MD Status of Scribe Document: Viewed
[2019-04-08 17:22] LABS: Alcohol < 10 mg/dL (<10)
[2019-04-08 17:47] LABS: Urine Appearance Clear; Urine Bilirubin Negative (Negative); Urine Blood Negative (Negative); Urine Color Straw; Urine Glucose Negative (Negative); Urine Ketones Negative (Negative); Urine Nitrite Negative (Negative); Urine Protein Negative (Negative); Urine Specific Gravity 1.005 (1.010-1.030); Urine Urobilinogen Negative (Negative)
[2019-04-08] MEDS ORDERED: fentaNYL INFUSION 50 MCG/ML* 2,500 MCG/50 ML BAG IV SCH (18:00)
[2019-04-08] MEDS ORDERED: Propofol* 100 ML IV SCH (18:00)
[2019-04-08 18:02] LABS: Urine Benzodiazepine Screen None Detected (None Detect); Urine Opiates Screen None Detected (None Detect)
--- NOTE | 2019-04-08 19:51 | PN ---
Date of Service: 04/08/19 - HD 1 Critical Care Services: 38 yo F with PMH which includes prior hospitalization for benzodiazepine overdose, drug abuse, asthma, chronic bronchitis, sleep apnea, prior pneumonia, GERD, arthritis, chronic anxiety and depression, PTSD and prior suicide attempt. She was brought to the ED by EMS on 04/08 for somnolence. Per patient she took 9 gabapentin in an effort to get high. On exam noted to be tachycardic to 120. VS otherwise stable. Physical exam notable for altered mental status, ill-appearance, tachycardia. CBC and CMP unremarkable. Urine tox screen negative (many of the synthetic opiates do not show up). Admitted to hospitalist service. While in ED pt became more lethargic and difficult to arouse. ABG shows CO2 retention. She progressed to obtundation and could no longer protect her airway. She was intubated for airway protection. Admitted to ICU for vent management. Vital Signs: Temp Pulse Resp BP SpO2 FiO2 96.8 F 87 15 111/80 99 30 04/08/19 18:35 04/08/19 18:35 04/08/19 18:35 04/08/19 18:35 04/08/19 18:35 04/08 19:25 Physical Exam: Gen: resting comfortably HEENT: ETT in place Lungs: Coarse bilaterally. Better air movement on right as compared to left Cardiac: RRR Abdomen: soft, NTND Extremities: warm, dry Neuro: sedated Fluid Balance (Past 24 Hours): I= O= Net Intake & Output 04/06/19 04/07/19 04/08/19 04/09/19 06:59 06:59 06:59 06:59 Intake Total 1000 Balance 1000 Weight 215 lb Intake: IV Fluids 1000 Labs: Laboratory Results - last 24 hr 04/08/19 04/08/19 04/08/19 14:42 14:42 14:42 WBC 9.2 RBC 4.03 Hgb 12.1 Hct 36 MCV 88 MCH 30 MCHC 34 RDW 14 Plt Count 294 MPV 8.4 Neut % (Auto) 61.0 Lymph % (Auto) 30.5 [place] % (Auto) 6.1 Eos % (Auto) 1.9 Baso % (Auto) 0.5 Absolute Neuts (auto) 5.6 Absolute Lymphs (auto) 2.8 Absolute Monos (auto) 0.6 Absolute Eos (auto) 0.2 Absolute Basos (auto) 0.0 Absolute Nucleated RBC 0.0 Nucleated RBC % 0.1 Patient Temperature ABG pH ABG pH (Temp Correct) ABG pCO2 ABG pCO2 (Temp Corrct ABG pO2 ABG pO2 (Temp Correct ABG HCO3 ABG O2 Saturation ABG Base Excess VBG pH VBG pCO2 VBG pO2 VBG HCO3 VBG O2 Saturation VBG Base Excess Respiration Rate O2 Delivery Device Ventilator Type Vent Mode FiO2 Inspiratory Time PEEP Pressure Support Pressure Control EPAP IPAP BiPAP Sodium 140 Potassium 3.7 Chloride 106 Carbon Dioxide 31 Anion Gap 3 BUN 7 Creatinine 0.51 Est GFR ( Amer) 164.2 Est GFR (Non-Af Amer) 135.7 BUN/Creatinine Ratio 13.7 Glucose 113 H Lactic Acid 0.8 Calcium 8.3 L Total Bilirubin 0.40 AST 14 ALT 12 Alkaline Phosphatase 77 Total Creatine Kinase 108 Total Protein 5.9 L Albumin 3.7 Globulin 2.2 Albumin/Globulin Ratio 1.7 Urine Color Urine Appearance Urine pH Ur Specific [place] Urine Protein Urine Ketones Urine Blood Urine Nitrate Urine Bilirubin Urine Urobilinogen Ur Leukocyte Esterase Urine Glucose Salicylates < 2.50 Urine Opiates Screen Acetaminophen < 15 Ur Barbiturates Screen Ur Phencyclidine Scrn Ur Amphetamines Screen U Benzodiazepines Scrn Urine Cocaine Screen U Cannabinoids Screen Serum Alcohol < 10 04/08/19 04/08/19 04/08/19 16:13 16:58 17:29 WBC RBC Hgb Hct MCV MCH MCHC RDW Plt Count MPV Neut % (Auto) Lymph % (Auto) [place] % (Auto) Eos % (Auto) Baso % (Auto) Absolute Neuts (auto) Absolute Lymphs (auto) Absolute Monos (auto) Absolute Eos (auto) Absolute Basos (auto) Absolute Nucleated RBC Nucleated RBC % Patient Temperature Not Reportable ABG pH 7.29 L ABG pH (Temp Correct) Not Reportable ABG pCO2 66 H ABG pCO2 (Temp Corrct Not Reportable ABG pO2 73 L ABG pO2 (Temp Correct Not Reportable ABG HCO3 27.3 ABG O2 Saturation 96.6 ABG Base Excess 3.2 H VBG pH 7.24 L VBG pCO2 74 H VBG pO2 86.0 H VBG HCO3 26.5 VBG O2 Saturation 98.1 H VBG Base Excess 2.1 Respiration Rate Not Reportable O2 Delivery Device oxymask Ventilator Type Not Reportable Vent Mode Not Reportable FiO2 1 Inspiratory Time Not Reportable PEEP Not Reportable Pressure Support Not Reportable Pressure Control Not Reportable EPAP Not Reportable IPAP Not Reportable BiPAP Not Reportable Sodium Potassium Chloride Carbon Dioxide Anion Gap BUN Creatinine Est GFR ( Amer) Est GFR (Non-Af Amer) BUN/Creatinine Ratio Glucose Lactic Acid Calcium Total Bilirubin AST ALT Alkaline Phosphatase Total Creatine Kinase Total Protein Albumin Globulin Albumin/Globulin Ratio Urine Color Straw Urine Appearance Clear Urine pH 6.0 Ur Specific [place] 1.005 L Urine Protein Negative Urine Ketones Negative Urine Blood Negative Urine Nitrate Negative Urine Bilirubin Negative Urine Urobilinogen Negative Ur Leukocyte Esterase Negative Urine Glucose Negative Salicylates Urine Opiates Screen Acetaminophen Ur Barbiturates Screen Ur Phencyclidine Scrn Ur Amphetamines Screen U Benzodiazepines Scrn Urine Cocaine Screen U Cannabinoids Screen Serum Alcohol 04/08/19 17:29 WBC RBC Hgb Hct MCV MCH MCHC RDW Plt Count MPV Neut % (Auto) Lymph % (Auto) [place] % (Auto) Eos % (Auto) Baso % (Auto) Absolute Neuts (auto) Absolute Lymphs (auto) Absolute Monos (auto) Absolute Eos (auto) Absolute Basos (auto) Absolute Nucleated RBC Nucleated RBC % Patient Temperature ABG pH ABG pH (Temp Correct) ABG pCO2 ABG pCO2 (Temp Corrct ABG pO2 ABG pO2 (Temp Correct ABG HCO3 ABG O2 Saturation ABG Base Excess VBG pH VBG pCO2 VBG pO2 VBG HCO3 VBG O2 Saturation VBG Base Excess Respiration Rate O2 Delivery Device Ventilator Type Vent Mode FiO2 Inspiratory Time PEEP Pressure Support Pressure Control EPAP IPAP BiPAP Sodium Potassium Chloride Carbon Dioxide Anion Gap BUN Creatinine Est GFR ( Amer) Est GFR (Non-Af Amer) BUN/Creatinine Ratio Glucose Lactic Acid Calcium Total Bilirubin AST ALT Alkaline Phosphatase Total Creatine Kinase Total Protein Albumin Globulin Albumin/Globulin Ratio Urine Color Urine Appearance Urine pH Ur Specific [place] Urine Protein Urine Ketones Urine Blood Urine Nitrate Urine Bilirubin Urine Urobilinogen Ur Leukocyte Esterase Urine Glucose Salicylates Urine Opiates Screen None detected Acetaminophen Ur Barbiturates Screen None detected Ur Phencyclidine Scrn None detected Ur Amphetamines Screen None detected U Benzodiazepines Scrn None detected Urine Cocaine Screen None detected U Cannabinoids Screen None detected Serum Alcohol Studies: 04/08 CT head - ordered 04/08 CXR - mild pulmonary edema Nutrition: NPO Impression: 38 yo F presented to ED on 04/08 with lethargy proceeding to obtundation. Endorsed taking 9 gabapentin in an effort to get high. Intubated for acute hypoxic and hypercarbic respiratory failure. admitted to ICU. Plan: Cardiovascular: (1) Sinus tachycardia -- HR 87-120, hydrating, follow trend -- SBP 98-146 -- Telemetry Home meds: unable to obtain at this time Pulmonary: (1) Acute hypercarbic respiratory failure, likely secondary to sedative effects of gabapentin and possible narcotics; (2) Chronic asthma; (3) TRACI; (4) Tobacco abuse -- RR 6-20 -- sats 94-100 -- vent -- CXR: mild pulmonary edema -- ABG: pH 7.29; pCO2 66; pO2 73; HCO3 27.3; BE 3.2; %O2 Sat 96.6. Home meds: unable to obtain at this time Gastrointestinal: (1) chronic GERD;(2) hx of hepatitis C -- LFTs within normal limits -- diet: NPO -- bowel regimen: None -- ulcer prophylaxis: Pepcid Home meds: unable to obtain at this time Endocrine: (1) PCOS; (2) Hyperglycemia -- monitor BGs -- start sliding scale insulin if BGs > 180 Home meds: unable to obtain at this time Renal: (1) Hypocalcemia -- UOP: strict ins and outs -- Cr 0.51 -- Lytes Na 140 K 3.7 Ca 8.3, replaced Mag ordered with AM labs Phos ordered with AM labs -- IVF: NS @ 100 ml/hr Home meds: unable to obtain at this time Infectious disease: (1) hx of hepatitis C -- Tmax 98.8 -- WBC 9.2 -- Micro 04/08 MRSA screen negative UA negative -- ABX None Home meds: unable to obtain at this time Neurologic: (1) Obtunded; (2) Overdose with gabapentin and likely a narcotic; ( 3) CO2 narcosis; (4) hx of intentional benzodiazepine overdose; (5) hx of sedative dependence; (6) polysubstance abuse (heroin, prescription meds, sedatives); (7) Chronic anxiety and depression; (8) substance induced mood disorder; (9) tobacco abuse; (10) PTSD; (11) Chronic pain -- CT head ordered -- Urine tox screen negative -- alcohol level negative -- acetaminophen and salicylate levels negative -- Propofol gtt for sedation -- PRN Fentanyl for pain control -- will need psych consult once extubated given history of suicide attempt Home meds: unable to obtain at this time. At 12/23/2018 admission she was taking Cymbalta, Buspar, Suboxone, and gabapentin, Lyrica, Clonazepam. Hematological: No acute issues -- Hgb 12.1 -- Plt 294 -- DVT prophylaxis: SQ Heparin Home meds: unable to obtain at this time Metabolic: No acute issues -- Lactic acid 0.8 Home meds: unable to obtain at this time Deep vein thrombosis prophylaxis: SQ Heparin Dietary: Pepcid Condition: critical Prognosis: guarded Code status: full Disposition: admitted to ICU Cumulative time spent in the care of this patient (excluding any procedure time) : at least 60 minutes. Patient care included clinical interview (with patient and/or family), bedside exam of the patient, review of labs, x-rays, and other ancillary data, coordination of (respiratory, nursing care, review of patient's records, discussion regarding patients management with involved consultants, primary physician, pharmacists, and other healthcare personnel (dietary, case management , physical/occupational therapy etc.) Critical Care Time: 60
--- NOTE | 2019-04-08 19:55 | HP ---
CC: BRAND[facility] Live; Dr. Chary Glass; Dr. Kimi Llamas * HISTORY AND PHYSICAL: DATE OF ADMISSION: 04/08/19 TIME OF EVALUATION: 4:40 p.m. CHIEF COMPLAINT: "Overdose" as per ED provider. HISTORY OF PRESENT ILLNESS: Mrs. Conrad is a 38-year-old female with a past medical history of anxiety, depression, chronic pain, asthma, GERD, obstructive sleep apnea, polycystic ovarian syndrome, obesity, PTSD, hepatitis C who presented to the emergency room with lethargy. She is unable to provide any information at this time, so information was obtained from ED provider and from her chart. She was brought in by EMS with lethargy, unable to answer questions, but arousable to painful stimulation and there is report that around 1 p.m., the patient had taken approximately 9 tablets of gabapentin to get high. From reading the emergency room notes, it is unclear from whom this information was obtained. The patient has a history of prior overdoses with benzodiazepines and in the past, there was reported suicidal ideation as per the ED nurse, the patient denied at this time. On first evaluation, the patient had denied taking any medication, was easily arousable, but very somnolent and needed continuous stimulation to answer questions. Poison Control had been contacted and had recommended EKG followup and observation for at least 6 hours. By the time of my evaluation in the emergency room, the patient was unresponsive even to painful stimuli, had rhonchorous respirations and at that point, she was intubated by the emergency room provider. The patient will be admitted to the intensive care unit under the care of Dr. Llamas at this time. Of note, the patient had an admission in November 2017 with similar complaints of overdose and at that point, the impression was that she had overdosed on prescribed benzodiazepines. She was lethargic, but arousable. At that time, she was admitted and later on, transferred to the mental health unit and at that time, she was discharged to [facility] to help with her polysubstance abuse. Looking at the [facility] Prescription Monitoring Program, her last prescriptions were from November 2017 for clonazepam, lorazepam, and Lyrica, so it is unclear what medications she took today. PAST MEDICAL HISTORY: 1. Polysubstance abuse with overdoses in the past. 2. Asthma. 3. Chronic pain. 4. Obstructive sleep apnea. 5. GERD. 6. Anxiety and depression. 7. PTSD. 8. PCOS. 9. Obesity with a BMI of 35. MEDICATIONS: There is no medication list at this time and it is even unclear if the patient is being prescribed any medications at this point. ALLERGIES: As per records, the patient had reactions to PENICILLINS with rash; CHANTIX, she had GI upset; and with BUPROPION, she had anxiety. FAMILY HISTORY: As per records, her maternal grandfather and paternal uncle had a history of alcohol abuse. Mother has a history of depression. SOCIAL HISTORY: As per records, the patient is a half a pack a day smoker for more than 10 years. No history of alcohol abuse, but history of polysubstance abuse including benzos, cocaine, and opioids. Surrogate decision maker is her mother, Lolita Mendieta, phone number is [phone]. REVIEW OF SYSTEMS: I am unable to obtain from the patient at this time as she is unresponsive. PHYSICAL EXAMINATION GENERAL: The patient is a young obese lady, lying in the ED stretcher, unresponsive. VITAL SIGNS: Temperature 98.8, heart rate is 88, respiratory rate is 18, oxygen saturation 95% on CMV APV. Tidal volume of 450, FiO2 of 50%, PEEP of 5, respiratory rate 18. HEENT: Pupils are equal. Reactive to light. They are small, but not pinpoint. CHEST: Breath sounds present bilaterally with no added sounds. In the ED the patient had rhonchorous respirations and at this time, she is intubated. CVS: Normal S1, S2. Regular rate and rhythm. ABDOMEN: Obese, soft, nontender, nondistended. Bowel sounds are present. EXTREMITIES: No edema. NEURO: The patient was unresponsive even to painful stimuli. LABORATORY/IMAGING DATA: The patient had a CBC that showed a WBC of 9.2, hemoglobin of 12.1, hematocrit 36, platelets of 294,000 with 61% neutrophils. ABG showed pH of 7.29, pCO2 of 66, paO2 of 73, bicarb of 27.3, oxygen saturation 96%. Chemistry showed a sodium of 140, potassium of 3.7, chloride of 106, bicarb of 31, BUN of 7, creatinine of 0.5, glucose of 113. Lactic acid of 3.8. Calcium 8.3. LFTs are normal. Urinalysis was negative. Urine toxicology is pending at the time of my dictation. EKG done on 04/08/19 at 1413 showed sinus tachycardia at 106 beats per minute, with no acute ischemic changes. ASSESSMENT AND PLAN: Mrs. Conrad is a 38-year-old lady with a past medical history of obesity, polysubstance abuse with prior overdoses, asthma, chronic pain, obstructive sleep apnea, gastroesophageal reflux disease, anxiety, depression, posttraumatic stress disorder, PCOS who presented to the emergency room with a reported overdose of 9 tablets of gabapentin who now is unresponsive and has hypercapnic respiratory failure. 1. Acute hypercapnic respiratory failure. This is secondary to overdose. The patient is intubated at this time and her ventilator settings will be adjusted to help correct her CO2 retention. 2. Drug overdose. It is unclear at this time what the patient truly has taken. Nine tablets of gabapentin would not cause this clinical presentation. I will wait for her urine toxicology, but suspect that she has probably taken benzodiazepines or opioids. She has taken non-prescribed benzodiazepines or opioids as her last prescription according to the [facility] Prescription Monitoring was in November 2018 prior to her last overdose. The patient will be admitted to the intensive care unit and she will be under the care of Dr. Llamas. After this episode is resolved, mental health should be involved in her care again. 3. DVT prophylaxis. The patient has a score of 2 on the DVT Prophylaxis Assessment Guide and she will be started on subcutaneous heparin. 4. Code status is full. TIME SPENT: Approximately 60 to 65 minutes of critical care time was spent to complete the admission. [id number]/[facility] #: [id number] BELÉN
[2019-04-08] MEDS: NS 0.9% 1000 ML** 1,000 ML IV SCH (20:30)
[2019-04-08] MEDS ORDERED: Calcium Gluconate INJ* 1 GM in NS 0.9% 50 ML* 50 ML IVPB ONE (20:35)
[2019-04-08] MEDS ORDERED: Norepinephrine 16MCG/ML IVPRE* 4,000 MCG/250 ML BAG IV SCH (21:00)
[2019-04-08] MEDS ORDERED: Norepinephrine VIAL 8 MG in NS 0.9% 500 ML IV SCH (21:00)
[2019-04-08 21:26] LABS: ABS Eosinophils 0.2 10^3/ul (0-0.6); ABS Lymphocytes 1.6 10^3/ul (1.0-4.8); ABS Monocytes 0.4 10^3/ul (0-0.8); ABS Neutrophils 6.7 10^3/ul (1.5-7.7); Eosinophil % 1.9 %; Hematocrit 34 % (35-47); Hemoglobin 11.4 g/dL (12.0-16.0); Lymphocyte % 17.5 %; Mean Corpuscular HGB Conc 34 g/dL (31-36); Mean Corpuscular Hemoglobin 30 pg (27-31); Mean Corpuscular Volume 88 fL (80-97); Mean Platelet Volume 8.6 fL (7.4-10.4); Nucleated Red Blood Cells % 0.1; Platelet Count 229 10^3/uL (150-450); Red Cell Distribution Width 14 % (10-15); White Blood Count 8.9 10^3/uL (3.5-10.8)
[2019-04-08] MEDS: Heparin VIAL(*) 5000 UNITS/ML VIAL (FIVE THOUSAND) SUBCUT SCH (21:28)
[2019-04-08] MEDS: Chlorhexidine MOUTHWASH 0.12%* 15 ML UDC TOPICAL SCH (21:28)
[2019-04-08] MEDS: Famotidine IV* 10 MG/ML 2 ML (20 mg) IV SLOW PU SCH (21:29)
[2019-04-08] MEDS: Nicotine Patch Removal NOTE FOLLOW UP SCH (21:30)
[2019-04-08 21:43] LABS: Calcium 7.6 mg/dL (8.6-10.3); EGFR African American 144.4 (>60); EGFR Non-African American 119.3 (>60); Magnesium 1.7 mg/dL (1.9-2.7); Potassium 4.4 mmol/L (3.5-5.0)
[2019-04-08] MEDS ORDERED: NS 0.9% 1000 ML/HR X 1 BAG (TOTAL 1000 ML) IV ONE (22:00)
[2019-04-08] MEDS ORDERED: Magnesium Sulfate IV* 3 GM in NS 0.9% 100 ML* 100 ML IVPB ONE (22:19)
[2019-04-08] MEDS: Midazolam IV for DRIP* 100 MG in NS 0.9% 100 ML* 80 ML IV SCH (23:01)
[2019-04-09] MEDS: Chlorhexidine MOUTHWASH 0.12%* 15 ML UDC TOPICAL SCH ×6 (01:40→21:33)
[2019-04-09] MEDS ORDERED: NS 0.9% 500 ML* 500 ML IV ONE (04:20)
[2019-04-09 06:05] LABS: Hematocrit 32 % (35-47); Hemoglobin 10.6 g/dL (12.0-16.0); Mean Corpuscular HGB Conc 33 g/dL (31-36); Mean Corpuscular Hemoglobin 30 pg (27-31); Mean Corpuscular Volume 89 fL (80-97); Mean Platelet Volume 8.4 fL (7.4-10.4); Platelet Count 250 10^3/uL (150-450); Red Blood Count 3.57 10^6 /uL (3.70-4.87); Red Cell Distribution Width 14 % (10-15); White Blood Count 19.6 10^3/uL (3.5-10.8)
[2019-04-09] MEDS: Heparin VIAL(*) 5000 UNITS/ML VIAL (FIVE THOUSAND) SUBCUT SCH ×3 (06:19→21:34)
[2019-04-09 06:31] LABS: BUN/Creatinine Ratio 19.5 (8-20); Calcium 6.6 mg/dL (8.6-10.3); EGFR African American 211.2 (>60); EGFR Non-African American 174.6 (>60); Magnesium 1.8 mg/dL (1.9-2.7); Potassium 3.2 mmol/L (3.5-5.0)
[2019-04-09] MEDS ORDERED: Norepinephrine VIAL 8 MG in NS 0.9% 500 ML IV SCH (08:00)
[2019-04-09] MEDS ORDERED: NS 0.9% 1000 ML** 1,000 ML IV.FLUID IV ONE (08:25)
[2019-04-09] MEDS ORDERED: Pantoprazole IV* 40 MG IV SCH (09:00)
[2019-04-09] MEDS ORDERED: Calcium Gluconate INJ* 2 GM in NS 0.9% 100 ML* 100 ML IV ONE (09:06)
--- NOTE | 2019-04-09 09:12 | PN ---
Date of Service: 04/09/19 - HD 2 Critical Care Services: 38 yo F with PMH which includes prior hospitalization for benzodiazepine overdose, drug abuse, asthma, chronic bronchitis, sleep apnea, prior pneumonia, GERD, arthritis, chronic anxiety and depression, PTSD and prior suicide attempt. She was brought to the ED by EMS on 04/08 for somnolence. Per patient she took 9 gabapentin in an effort to get high. On exam noted to be tachycardic to 120. VS otherwise stable. Physical exam notable for altered mental status, ill-appearance, tachycardia. CBC and CMP unremarkable. Urine tox screen negative (many of the synthetic opiates do not show up). Admitted to hospitalist service. While in ED pt became more lethargic and difficult to arouse. ABG shows CO2 retention. She progressed to obtundation and could no longer protect her airway. She was intubated for airway protection. Admitted to ICU for vent management. 04/09: required levophed overnight for hypotension. Vital Signs: Temp Pulse Resp BP SpO2 FiO2 99.1 F 77 18 115/73 100 40 04/09/19 08:45 04/09/19 08:45 04/09/19 08:00 04/09/19 08:45 04/09/19 08:45 04/09 08:06 Physical Exam: Gen: resting comfortably in bed, intubated and sedated HEENT: ETT in place Lungs: coarse bilaterally Cardiac: RRR Abdomen: soft, NTND Extremities: warm, dry Neuro: sedated. best exam following commands and moving all four extremities. Fluid Balance (Past 24 Hours): I= O= Net Intake & Output 04/07/19 04/08/19 04/09/19 04/10/19 06:59 06:59 06:59 06:59 Intake Total 3863 Output Total 420 100 Balance 3443 -100 Weight 233 lb 3.985 oz Intake: IV Fluids 3296 NS (0.9%) 2296 Medicated IV 557 CC - Norepinephrine/ 378 Levophed CC - Propofol/Diprivan 5 Calcium gluconate 60 mag sulfate 114 García Irrigate Amount 10 Output: García 420 100 Labs: Laboratory Results - last 24 hr 04/08/19 04/08/19 04/08/19 14:42 14:42 14:42 WBC 9.2 RBC 4.03 Hgb 12.1 Hct 36 MCV 88 MCH 30 MCHC 34 RDW 14 Plt Count 294 MPV 8.4 Neut % (Auto) 61.0 Lymph % (Auto) 30.5 Franklin % (Auto) 6.1 Eos % (Auto) 1.9 Baso % (Auto) 0.5 Absolute Neuts (auto) 5.6 Absolute Lymphs (auto) 2.8 Absolute Monos (auto) 0.6 Absolute Eos (auto) 0.2 Absolute Basos (auto) 0.0 Absolute Nucleated RBC 0.0 Nucleated RBC % 0.1 Patient Temperature ABG pH ABG pH (Temp Correct) ABG pCO2 ABG pCO2 (Temp Corrct ABG pO2 ABG pO2 (Temp Correct ABG HCO3 ABG O2 Saturation ABG Base Excess VBG pH VBG pCO2 VBG pO2 VBG HCO3 VBG O2 Saturation VBG Base Excess Respiration Rate O2 Delivery Device Ventilator Type Vent Mode FiO2 Inspiratory Time PEEP Pressure Support Pressure Control EPAP IPAP BiPAP Sodium 140 Potassium 3.7 Chloride 106 Carbon Dioxide 31 Anion Gap 3 BUN 7 Creatinine 0.51 Est GFR ( Amer) 164.2 Est GFR (Non-Af Amer) 135.7 BUN/Creatinine Ratio 13.7 Glucose 113 H Hemoglobin A1c Lactic Acid 0.8 Calcium 8.3 L Ionized Calcium Magnesium Total Bilirubin 0.40 AST 14 ALT 12 Alkaline Phosphatase 77 Total Creatine Kinase 108 Troponin I Total Protein 5.9 L Albumin 3.7 Globulin 2.2 Albumin/Globulin Ratio 1.7 Urine Color Urine Appearance Urine pH Ur Specific [place] Urine Protein Urine Ketones Urine Blood Urine Nitrate Urine Bilirubin Urine Urobilinogen Ur Leukocyte Esterase Urine Glucose Salicylates < 2.50 Urine Opiates Screen Acetaminophen < 15 Ur Barbiturates Screen Ur Phencyclidine Scrn Ur Amphetamines Screen U Benzodiazepines Scrn Urine Cocaine Screen U Cannabinoids Screen Serum Alcohol < 10 04/08/19 04/08/19 04/08/19 16:13 16:58 17:29 WBC RBC Hgb Hct MCV MCH MCHC RDW Plt Count MPV Neut % (Auto) Lymph % (Auto) Franklin % (Auto) Eos % (Auto) Baso % (Auto) Absolute Neuts (auto) Absolute Lymphs (auto) Absolute Monos (auto) Absolute Eos (auto) Absolute Basos (auto) Absolute Nucleated RBC Nucleated RBC % Patient Temperature Not Reportable ABG pH 7.29 L ABG pH (Temp Correct) Not Reportable ABG pCO2 66 H ABG pCO2 (Temp Corrct Not Reportable ABG pO2 73 L ABG pO2 (Temp Correct Not Reportable ABG HCO3 27.3 ABG O2 Saturation 96.6 ABG Base Excess 3.2 H VBG pH 7.24 L VBG pCO2 74 H VBG pO2 86.0 H VBG HCO3 26.5 VBG O2 Saturation 98.1 H VBG Base Excess 2.1 Respiration Rate Not Reportable O2 Delivery Device oxymask Ventilator Type Not Reportable Vent Mode Not Reportable FiO2 1 Inspiratory Time Not Reportable PEEP Not Reportable Pressure Support Not Reportable Pressure Control Not Reportable EPAP Not Reportable IPAP Not Reportable BiPAP Not Reportable Sodium Potassium Chloride Carbon Dioxide Anion Gap BUN Creatinine Est GFR ( Amer) Est GFR (Non-Af Amer) BUN/Creatinine Ratio Glucose Hemoglobin A1c Lactic Acid Calcium Ionized Calcium Magnesium Total Bilirubin AST ALT Alkaline Phosphatase Total Creatine Kinase Troponin I Total Protein Albumin Globulin Albumin/Globulin Ratio Urine Color Straw Urine Appearance Clear Urine pH 6.0 Ur Specific [place] 1.005 L Urine Protein Negative Urine Ketones Negative Urine Blood Negative Urine Nitrate Negative Urine Bilirubin Negative Urine Urobilinogen Negative Ur Leukocyte Esterase Negative Urine Glucose Negative Salicylates Urine Opiates Screen Acetaminophen Ur Barbiturates Screen Ur Phencyclidine Scrn Ur Amphetamines Screen U Benzodiazepines Scrn Urine Cocaine Screen U Cannabinoids Screen Serum Alcohol 04/08/19 04/08/19 04/08/19 17:29 19:44 20:41 WBC RBC Hgb Hct MCV MCH MCHC RDW Plt Count MPV Neut % (Auto) Lymph % (Auto) Franklin % (Auto) Eos % (Auto) Baso % (Auto) Absolute Neuts (auto) Absolute Lymphs (auto) Absolute Monos (auto) Absolute Eos (auto) Absolute Basos (auto) Absolute Nucleated RBC Nucleated RBC % Patient Temperature Not Reportable ABG pH 7.34 L ABG pH (Temp Correct) Not Reportable ABG pCO2 58 H ABG pCO2 (Temp Corrct Not Reportable ABG pO2 69 L ABG pO2 (Temp Correct Not Reportable ABG HCO3 27.9 ABG O2 Saturation 96.3 ABG Base Excess 3.9 H VBG pH VBG pCO2 VBG pO2 VBG HCO3 VBG O2 Saturation VBG Base Excess Respiration Rate 18 O2 Delivery Device vent Ventilator Type 450 Vent Mode cmv FiO2 30 Inspiratory Time 0.8 PEEP 5 Pressure Support Not Reportable Pressure Control Not Reportable EPAP Not Reportable IPAP Not Reportable BiPAP Not Reportable Sodium 140 Potassium 4.4 Chloride 110 Carbon Dioxide 29 Anion Gap 1 L BUN 8 Creatinine 0.57 Est GFR ( Amer) 144.4 Est GFR (Non-Af Amer) 119.3 BUN/Creatinine Ratio 14.0 Glucose 92 Hemoglobin A1c Lactic Acid Calcium 7.6 L Ionized Calcium Magnesium 1.7 L Total Bilirubin AST ALT Alkaline Phosphatase Total Creatine Kinase Troponin I 0.00 Total Protein Albumin Globulin Albumin/Globulin Ratio Urine Color Urine Appearance Urine pH Ur Specific [place] Urine Protein Urine Ketones Urine Blood Urine Nitrate Urine Bilirubin Urine Urobilinogen Ur Leukocyte Esterase Urine Glucose Salicylates Urine Opiates Screen None detected Acetaminophen Ur Barbiturates Screen None detected Ur Phencyclidine Scrn None detected Ur Amphetamines Screen None detected U Benzodiazepines Scrn None detected Urine Cocaine Screen None detected U Cannabinoids Screen None detected Serum Alcohol 04/08/19 04/09/19 04/09/19 21:15 00:51 00:51 WBC 8.9 RBC 3.80 Hgb 11.4 L Hct 34 L MCV 88 MCH 30 MCHC 34 RDW 14 Plt Count 229 MPV 8.6 Neut % (Auto) 75.9 Lymph % (Auto) 17.5 Franklin % (Auto) 4.3 Eos % (Auto) 1.9 Baso % (Auto) 0.4 Absolute Neuts (auto) 6.7 Absolute Lymphs (auto) 1.6 Absolute Monos (auto) 0.4 Absolute Eos (auto) 0.2 Absolute Basos (auto) 0.0 Absolute Nucleated RBC 0.0 Nucleated RBC % 0.1 Patient Temperature ABG pH ABG pH (Temp Correct) ABG pCO2 ABG pCO2 (Temp Corrct ABG pO2 ABG pO2 (Temp Correct ABG HCO3 ABG O2 Saturation ABG Base Excess VBG pH VBG pCO2 VBG pO2 VBG HCO3 VBG O2 Saturation VBG Base Excess Respiration Rate O2 Delivery Device Ventilator Type Vent Mode FiO2 Inspiratory Time PEEP Pressure Support Pressure Control EPAP IPAP BiPAP Sodium 142 Potassium 3.2 L Chloride 115 H Carbon Dioxide 24 Anion Gap 3 BUN 8 Creatinine 0.41 L Est GFR ( Amer) 211.2 Est GFR (Non-Af Amer) 174.6 BUN/Creatinine Ratio 19.5 Glucose 116 H Hemoglobin A1c Lactic Acid Calcium 6.6 L Ionized Calcium 0.92 L Magnesium 1.8 L Total Bilirubin AST ALT Alkaline Phosphatase 55 Total Creatine Kinase Troponin I Total Protein Albumin Globulin Albumin/Globulin Ratio Urine Color Urine Appearance Urine pH Ur Specific [place] Urine Protein Urine Ketones Urine Blood Urine Nitrate Urine Bilirubin Urine Urobilinogen Ur Leukocyte Esterase Urine Glucose Salicylates Urine Opiates Screen Acetaminophen Ur Barbiturates Screen Ur Phencyclidine Scrn Ur Amphetamines Screen U Benzodiazepines Scrn Urine Cocaine Screen U Cannabinoids Screen Serum Alcohol 04/09/19 04/09/19 04/09/19 00:51 05:51 05:57 WBC 19.6 H RBC 3.57 L Hgb 10.6 L Hct 32 L MCV 89 MCH 30 MCHC 33 RDW 14 Plt Count 250 MPV 8.4 Neut % (Auto) Lymph % (Auto) Franklin % (Auto) Eos % (Auto) Baso % (Auto) Absolute Neuts (auto) Absolute Lymphs (auto) Absolute Monos (auto) Absolute Eos (auto) Absolute Basos (auto) Absolute Nucleated RBC Nucleated RBC % Patient Temperature Not Reportable ABG pH 7.36 ABG pH (Temp Correct) Not Reportable ABG pCO2 44 ABG pCO2 (Temp Corrct Not Reportable ABG pO2 109 H ABG pO2 (Temp Correct Not Reportable ABG HCO3 24.3 ABG O2 Saturation 99.1 H ABG Base Excess -0.8 VBG pH VBG pCO2 VBG pO2 VBG HCO3 VBG O2 Saturation VBG Base Excess Respiration Rate 18 O2 Delivery Device vent Ventilator Type Not Reportable Vent Mode pcv FiO2 40 Inspiratory Time 0.65 PEEP 8 Pressure Support Not Reportable Pressure Control 33 EPAP Not Reportable IPAP Not Reportable BiPAP Not Reportable Sodium Potassium Chloride Carbon Dioxide Anion Gap BUN Creatinine Est GFR ( Amer) Est GFR (Non-Af Amer) BUN/Creatinine Ratio Glucose Hemoglobin A1c 5.4 Lactic Acid Calcium Ionized Calcium Magnesium Total Bilirubin AST ALT Alkaline Phosphatase Total Creatine Kinase Troponin I Total Protein Albumin Globulin Albumin/Globulin Ratio Urine Color Urine Appearance Urine pH Ur Specific [place] Urine Protein Urine Ketones Urine Blood Urine Nitrate Urine Bilirubin Urine Urobilinogen Ur Leukocyte Esterase Urine Glucose Salicylates Urine Opiates Screen Acetaminophen Ur Barbiturates Screen Ur Phencyclidine Scrn Ur Amphetamines Screen U Benzodiazepines Scrn Urine Cocaine Screen U Cannabinoids Screen Serum Alcohol Studies: 04/09 CXR - trace airspace opacity in LLL 04/08 CT head - NAD 04/08 CXR - mild pulmonary edema Nutrition: start TF if fails SBT Impression: 38 yo F presented to ED on 04/08 with lethargy proceeding to obtundation. Endorsed taking 9 gabapentin in an effort to get high. Intubated for acute hypoxic and hypercarbic respiratory failure. admitted to ICU. Overnight developed septic shock requiring Levophed support, likely secondary to aspiration pneumonia. Plan: Cardiovascular: (1) Septic shock -- HR 87-120, hydrating, follow trend -- SBP 75-120 -- Telemetry -- Vasopressors Levophed @ 15 mcg/min, titrate to MAP > 65 Home meds: unable to obtain at this time Pulmonary: (1) Acute hypercarbic and hypoxic respiratory failure, likely secondary to sedative effects of gabapentin and possible narcotics; (2) LLL aspiration pneumonia; (3) Chronic asthma; (4) TRACI; (4) Tobacco abuse -- RR 6-19 -- sats 94-100 -- vent -- CXR, 04/09: LLL infiltrate -- ABG: pH 7.36; pCO2 44; pO2 109; HCO3 224.3; BE -0.8; %O2 Sat 99.1. -- Nicotine patch for tobacco withdrawal -- Daily sedation vacation and spontaneous breathing trials Home meds: unable to obtain at this time Gastrointestinal: (1) chronic GERD;(2) hx of hepatitis C -- LFTs within normal limits -- diet: NPO, start TF if fails SBT -- bowel regimen: None -- ulcer prophylaxis: Pepcid Home meds: unable to obtain at this time Endocrine: (1) PCOS; (2) Hyperglycemia -- monitor BGs -- start sliding scale insulin if BGs > 180 -- hgb A1c 5.4 Home meds: unable to obtain at this time Renal: (1) Hypocalcemia; (2) Hypokalemia; (3) Hypomagnesemia -- UOP: 25 ml/hr, bolusing IVF -- Cr 0.41 from 0.57 -- Lytes Na 142 from 140 K 3.2, replaced Ca 6.6, ionized 0.92, replaced Mag 18., replaced -- IVF: NS @ 100 ml/hr Home meds: unable to obtain at this time Infectious disease: (1) Sepsis; (2) Left lower lobe aspiration pneumonia; (3) hx of hepatitis C -- Tmax 99.5 -- WBC 19.6 from 8.9 -- Micro 04/09 Sputum in progress blood ordered 04/08 MRSA screen negative UA negative -- ABX Rocephin Home meds: unable to obtain at this time Neurologic: (1) Obtunded, resolved; (2) Overdose with gabapentin and likely a narcotic; (3) CO2 narcosis, resolved; (4) hx of intentional benzodiazepine overdose; (5) hx of sedative dependence; (6) polysubstance abuse (heroin, prescription meds, sedatives); (7) Chronic anxiety and depression; (8) substance induced mood disorder; (9) tobacco abuse; (10) PTSD; (11) Chronic pain -- CT head, 04/08: NAD -- Urine tox screen negative (will not catch many opiates, does not include gabapentin) -- alcohol level negative -- acetaminophen and salicylate levels negative -- Versed gtt for sedation -- PRN Fentanyl for pain control -- will need psych consult once extubated given history of suicide attempt Home meds: unable to obtain at this time. At 12/23/2018 admission she was taking Cymbalta, Buspar, Suboxone, and gabapentin, Lyrica, Clonazepam. Hematological: No acute issues -- Hgb 10.6 from 11.4, follow trend, dilutional -- Plt 250 from 229 -- DVT prophylaxis: SQ Heparin Home meds: unable to obtain at this time Metabolic: No acute issues -- Lactic acid 0.8 Home meds: unable to obtain at this time Deep vein thrombosis prophylaxis: SQ Heparin Dietary: Pepcid Condition: critical Prognosis: guarded Code status: full Disposition: admitted to ICU Cumulative time spent in the care of this patient (excluding any procedure time) : at least 40 minutes. Patient care included clinical interview (with patient and/or family), bedside exam of the patient, review of labs, x-rays, and other ancillary data, coordination of (respiratory, nursing care, review of patient's records, discussion regarding patients management with involved consultants, primary physician, pharmacists, and other healthcare personnel (dietary, case management , physical/occupational therapy etc.) Critical Care Time: 40
[2019-04-09] MEDS ORDERED: Magnesium Sulfate 1 GM IV* 1 GM/100 ML BAG IV ONE (09:13)
[2019-04-09] MEDS ORDERED: Norepinephrine VIAL* 8 MG in NS 0.9% 500 ML* 492 ML IV SCH (09:15)
[2019-04-09] MEDS ORDERED: Perflutren Lipid Microsphere* 3 ML VIAL ONE (09:44)
[2019-04-09] MEDS: cefTRIAXone(*) 1 GM in NS 0.9% 50 ML* 50 ML IVPB SCH (10:07)
[2019-04-09] MEDS: Nicotine PATCH 21 MG/24 HR* PATCH TRANSDERM SCH (10:18)
[2019-04-09] MEDS: NS 0.9% 1000 ML** 1,000 ML IV SCH ×2 (10:25→16:11)
[2019-04-09] MEDS: Famotidine IV* 10 MG/ML 2 ML (20 mg) IV SLOW PU SCH ×2 (10:31→21:33)
[2019-04-09] MEDS: Norepinephrine VIAL* 8 MG in NS 0.9% 500 ML* 492 ML IV SCH ×2 (11:20→21:33)
[2019-04-09] MEDS: KCL 20 MEQ/100 ML IVPREMIX* 20 MEQ/100 ML BAG IV SCH ×2 (13:37→16:07)
--- NOTE | 2019-04-09 15:12 | ECHO ---
*[facility]* [place] [address] Fax #: [phone] Transthoracic Echocardiogram Patient: Arminda Conrad : 1980 Study Date: 04/09/2019 Age: 38 Gender: F HR: 79 bpm Height: 65 in /165.1 cm BSA: 2.04 m^2 Weight: 214.6 lb /97.5 kg BMI: 35.8 kg/m^2 *Seed Collector: Donna Farias [facility] *Referring Physician: * Kimi Llamas *Reading Physician: * Alexia Kurtz MD Indications: Resp Insufficiency. Shock - Unspecified. History: Sleep apnea. Risk factors: Current tobacco use. Obese. Conclusions Summary: 1. Fair quality study, apical views suboptimal. 2. Left ventricle: The cavity size is mildly reduced. Wall thickness is mildly increased. Systolic function is normal. The estimated ejection fraction is 60-65%. 3. Right ventricle: Systolic function is normal. 4. All valves show good function. 5. Mitral valve: There is trace regurgitation. 6. No prior echocardiogram to compare. Study data: Transthoracic echocardiogram. Procedure: Transthoracic echocardiography was performed. Image quality was adequate. The study was technically limited due to Patient on ventilator. Intravenous Definity , 2 mlswas administered. Image enhancement administered by AISHA Trujillo. Complete 2D, spectral Doppler, and color flow Doppler. Location: ICU Patient status: Inpatient. Patient room number: 6. Rhythm: Normal sinus rhythm. Findings Left ventricle: The cavity size is mildly reduced. Wall thickness is mildly increased. Systolic function is normal. The estimated ejection fraction is 60-65%. Wall motion is normal; there are no regional wall motion abnormalities. Left ventricular diastolic function parameters are normal. Right ventricle: The cavity size is normal. Systolic function is normal. Left atrium: The atrium is normal in size. Right atrium: The atrium is mildly dilated. Mitral valve: The leaflets are normal thickness. There is no evidence of stenosis. There is trace regurgitation. Aortic valve: The valve is trileaflet. The leaflets are normal thickness. There is no evidence of stenosis. There is no significant regurgitation. Tricuspid valve: The leaflets are normal thickness. There is no evidence of stenosis. There is no significant regurgitation. Pulmonic valve: The leaflets are normal thickness. There is no evidence of stenosis. There is no significant regurgitation. Aorta: Aortic root: The aortic root is appears normal. Aortic arch: The aortic arch is appears normal. Pericardium: There is no significant pericardial effusion. Pulmonary arteries: Not well visualized. Systolic pressure can not be accurately estimated. Systemic veins: Inferior vena cava: The vessel is dilated. Respirophasic changes in dimension are absent. Measurements Left ventricle Value Ref Aortic valve Value Ref ITZEL, LAX (L) 3.4 cm 3.8 - 5.2 Markos diam, ED 2.2 cm ---- ESD, LAX (L) 1.9 cm 2.2 - 3.5 Peak v, S 1.44 m/sec ---- FS, LAX 43 % 27 - 45 VTI, S 28.4 cm ---- PW, ED, LAX (H) 1.3 cm 0.6 - 0.9 Mean grad, S 4.0 mm Hg ---- EF (H) 75 % 54 - 74 Peak grad, S 8.0 mm Hg ---- E', lat markos, TDI 11.8 cm/sec >=10.0 E/e', lat markos, 8 Mitral valve Value Ref TDI Peak E 0.96 m/sec ---- E', med markos, TDI 9.8 cm/sec >=7.0 Peak A 0.82 m/sec ---- E/e', med markos, 10 Decel time 216 ms ---- TDI Peak grad, D 3.7 mm Hg ---- E', avg, TDI 10.8 cm/sec Peak E/A ratio 1.2 ---- E/e', avg, TDI 9 <=14 Pulmonic valve Value Ref LVOT Value Ref Peak v, S 0.73 m/sec ---- Peak aleksandr, S 1.21 m/sec Peak grad, S 2.0 mm Hg ---- Peak grad, S 6 mm Hg Mean grad, S 3 mm Hg Aortic root Value Ref Root diam 3.1 cm <3.7 Ventricular septum Value Ref IVS, ED (H) 1.5 cm 0.6 - 0.9 Ascending aorta Value Ref AAo AP diam, S 3.0 cm ---- Right ventricle Value Ref ITZEL, LAX 3.1 cm Aortic arch Value Ref Arch diam 2.5 cm ---- Left atrium Value Ref AP dim, ES (H) 4.10 cm 2.70 - Decending aorta Value Ref 3.80 Avtar peak aleksandr 1.03 m/sec ---- ML dim, A4C 4.0 cm SI dim, A4C 4.9 cm Inferior vena cava Value Ref Vol/bsa, ES, A/L 27 ml/m^2 16 - 34 Diam 2.7 cm ---- Right atrium Value Ref SI dim, ES 5.1 cm 3.4 - 5.3 ML dim, ES, A4C (H) 4.8 cm 2.6 - 4.4 Estimated RAP 8 mm Hg Legend: (L) and (H) ruslan values outside specified reference range. Prepared and electronically signed by Alexia Kurtz MD 04/09/2019 15:12
[2019-04-09 15:48] LABS: Calcium 7.7 mg/dL (8.6-10.3); EGFR African American 157.1 (>60); EGFR Non-African American 129.8 (>60); Potassium 4.4 mmol/L (3.5-5.0)
[2019-04-09] MEDS ORDERED: NS 0.9% 1000 ML** 1,000 ML IV ONE (16:45)
[2019-04-09] MEDS: Albumin Human 25%* 25 GM/100 ML BTL IV SCH ×2 (17:08→23:33)
[2019-04-09] MEDS: fentaNYL* 50 MCG/ML 2 ML VIAL (100 MCG VIAL) IV SLOW PU PRN (19:52)
[2019-04-09] MEDS: Raltegravir* 400 MG TAB PO SCH (21:33)
[2019-04-09] MEDS: Nicotine Patch Removal NOTE FOLLOW UP SCH (21:34)
[2019-04-10] MEDS: NS 0.9% 1000 ML** 1,000 ML IV SCH (01:34)
[2019-04-10] MEDS: Chlorhexidine MOUTHWASH 0.12%* 15 ML UDC TOPICAL SCH ×6 (02:25→21:38)
[2019-04-10] MEDS: fentaNYL* 50 MCG/ML 2 ML VIAL (100 MCG VIAL) IV SLOW PU PRN ×2 (02:52→08:49)
[2019-04-10] MEDS: Norepinephrine VIAL* 8 MG in NS 0.9% 500 ML* 492 ML IV SCH ×2 (04:48→12:36)
[2019-04-10] MEDS: Albumin Human 25%* 25 GM/100 ML BTL IV SCH ×2 (04:51→11:04)
[2019-04-10 05:44] LABS: Hematocrit 29 % (35-47); Hemoglobin 9.6 g/dL (12.0-16.0); Mean Corpuscular HGB Conc 34 g/dL (31-36); Mean Corpuscular Hemoglobin 30 pg (27-31); Mean Corpuscular Volume 90 fL (80-97); Mean Platelet Volume 8.9 fL (7.4-10.4); Platelet Count 186 10^3/uL (150-450); Red Blood Count 3.18 10^6 /uL (3.70-4.87); Red Cell Distribution Width 14 % (10-15); White Blood Count 7.7 10^3/uL (3.5-10.8)
[2019-04-10 05:54] LABS: BUN/Creatinine Ratio 18.8 (8-20); Calcium 7.9 mg/dL (8.6-10.3); EGFR African American 176.1 (>60); EGFR Non-African American 145.5 (>60); Magnesium 1.9 mg/dL (1.9-2.7); Potassium 3.7 mmol/L (3.5-5.0)
[2019-04-10] MEDS: Midazolam IV for DRIP* 100 MG in NS 0.9% 100 ML* 80 ML IV SCH (05:59)
[2019-04-10] MEDS: Heparin VIAL(*) 5000 UNITS/ML VIAL (FIVE THOUSAND) SUBCUT SCH ×3 (06:27→22:11)
[2019-04-10] MEDS: cefTRIAXone(*) 1 GM in NS 0.9% 50 ML* 50 ML IVPB SCH (08:55)
[2019-04-10] MEDS ORDERED: fentaNYL* 50 MCG/ML 2 ML VIAL (100 MCG VIAL) IV SLOW PU ONE (09:02)
[2019-04-10] MEDS ORDERED: Dexmedetomidine* 1,000 MCG in NS 0.9% 250 ML* 240 ML IV ONE (09:03)
[2019-04-10] MEDS ORDERED: DEXMEDETOMIDINE IV ONE ×2 (09:14→10:00)
[2019-04-10] MEDS ORDERED: NS 0.9% IV ONE ×2 (09:14→10:00)
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
[2019-04-10] MEDS: Famotidine IV* 10 MG/ML 2 ML (20 mg) IV SLOW PU SCH ×2 (09:34→22:11)
[2019-04-10] MEDS: Nicotine PATCH 21 MG/24 HR* PATCH TRANSDERM SCH (09:35)
[2019-04-10] MEDS: Raltegravir* 400 MG TAB PO SCH ×2 (10:58→21:39)
[2019-04-10] MEDS: Tenofovir/Emtricitab 200/300 * TAB PO SCH (13:26)
[2019-04-10] MEDS ORDERED: Calcium Gluconate INJ* 1 GM in NS 0.9% 50 ML* 50 ML IVPB ONE (14:00)
[2019-04-10] MEDS ORDERED: Furosemide IV* 10 MG/ML 2 ML VIAL (20 MG) IV SLOW PU ONE (15:31)
[2019-04-10] MEDS: Nicotine Patch Removal NOTE FOLLOW UP SCH (22:11)
[2019-04-11] MEDS: Chlorhexidine MOUTHWASH 0.12%* 15 ML UDC TOPICAL SCH ×4 (04:39→15:05)
[2019-04-11 06:02] LABS: Hematocrit 33 % (35-47); Hemoglobin 11.6 g/dL (12.0-16.0); Mean Corpuscular HGB Conc 35 g/dL (31-36); Mean Corpuscular Hemoglobin 31 pg (27-31); Mean Corpuscular Volume 87 fL (80-97); Mean Platelet Volume 8.9 fL (7.4-10.4); Platelet Count 232 10^3/uL (150-450); Red Blood Count 3.79 10^6 /uL (3.70-4.87); Red Cell Distribution Width 14 % (10-15); White Blood Count 8.2 10^3/uL (3.5-10.8)
[2019-04-11 06:17] LABS: BUN/Creatinine Ratio 8.6 (8-20); Calcium 9.1 mg/dL (8.6-10.3); EGFR African American 141.5 (>60); Magnesium 1.8 mg/dL (1.9-2.7); Phosphorus 3.4 mg/dL (2.5-5.0); Potassium 3.4 mmol/L (3.5-5.0)
[2019-04-11] MEDS ORDERED: NS 0.9% 50 ML* 50 ML ONE (08:09)
[2019-04-11] MEDS: cefTRIAXone(*) 1 GM in NS 0.9% 50 ML* 50 ML IVPB SCH (08:40)
[2019-04-11] MEDS: Nicotine PATCH 21 MG/24 HR* PATCH TRANSDERM SCH (08:45)
[2019-04-11] MEDS: Famotidine IV* 10 MG/ML 2 ML (20 mg) IV SLOW PU SCH (08:45)
[2019-04-11] MEDS: Raltegravir* 400 MG TAB PO SCH ×2 (10:26→21:52)
[2019-04-11] MEDS: Tenofovir/Emtricitab 200/300 * TAB PO SCH (10:26)
[2019-04-11] MEDS ORDERED: Magnesium Sulfate 1 GM IV* 1 GM/100 ML BAG IV ONE (13:33)
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
[2019-04-11] MEDS: Heparin VIAL(*) 5000 UNITS/ML VIAL (FIVE THOUSAND) SUBCUT SCH ×3 (15:05→21:50)
[2019-04-11] MEDS: Nicotine Patch Removal NOTE FOLLOW UP SCH (21:45)
[2019-04-11] MEDS: Calcium Carbonate CHEW TAB* 500 MG (TUMS) PO SCH (21:52)
[2019-04-11] MEDS: Potassium Chlor TAB* 20 MEQ TAB.ER PO SCH (21:52)
[2019-04-11] MEDS: Ondansetron INJ* 2 MG/ML VIAL IV PRN (22:13)
[2019-04-12] MEDS: Heparin VIAL(*) 5000 UNITS/ML VIAL (FIVE THOUSAND) SUBCUT SCH ×3 (06:03→20:31)
[2019-04-12 07:54] LABS: Hematocrit 37 % (35-47); Hemoglobin 12.6 g/dL (12.0-16.0); Mean Corpuscular HGB Conc 34 g/dL (31-36); Mean Corpuscular Hemoglobin 30 pg (27-31); Mean Corpuscular Volume 87 fL (80-97); Mean Platelet Volume 8.4 fL (7.4-10.4); Platelet Count 258 10^3/uL (150-450); Red Blood Count 4.26 10^6 /uL (3.70-4.87); Red Cell Distribution Width 14 % (10-15); White Blood Count 7.6 10^3/uL (3.5-10.8)
[2019-04-12 08:10] LABS: BUN/Creatinine Ratio 13.5 (8-20); Calcium 9.7 mg/dL (8.6-10.3); EGFR African American 160.6 (>60); EGFR Non-African American 132.7 (>60); Potassium 3.7 mmol/L (3.5-5.0)
[2019-04-12] MEDS: Raltegravir* 400 MG TAB PO SCH ×2 (08:59→20:19)
[2019-04-12] MEDS: Potassium Chlor TAB* 20 MEQ TAB.ER PO SCH (08:59)
[2019-04-12] MEDS: cefTRIAXone(*) 1 GM in NS 0.9% 50 ML* 50 ML IVPB SCH (08:59)
[2019-04-12] MEDS: Tenofovir/Emtricitab 200/300 * TAB PO SCH (08:59)
[2019-04-12] MEDS: Nicotine PATCH 21 MG/24 HR* PATCH TRANSDERM SCH (08:59)
[2019-04-12] MEDS: Calcium Carbonate CHEW TAB* 500 MG (TUMS) PO SCH (08:59)
[2019-04-12 09:10] LABS: Hepatitis B Surface Antigen Negative (Negative)
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
[2019-04-12 14:29] LABS: Hepatitis C Antibody Reactive (Negative)
[2019-04-12] MEDS ORDERED: DULoxetine DR CAP* 30 MG CAP.DR PO SCH (18:00)
[2019-04-12] MEDS: Ondansetron INJ* 2 MG/ML VIAL IV PRN (18:29)
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
[2019-04-12] MEDS: busPIRone TAB* 10 MG PO SCH (20:19)
[2019-04-12] MEDS: Nicotine Patch Removal NOTE FOLLOW UP SCH (20:24)
[2019-04-12] MEDS: Indomethacin CAP* 25 MG CAP PO SCH (20:30)
[2019-04-13 05:28] LABS: Hematocrit 36 % (35-47); Hemoglobin 12.3 g/dL (12.0-16.0); Mean Corpuscular HGB Conc 34 g/dL (31-36); Mean Corpuscular Hemoglobin 30 pg (27-31); Mean Corpuscular Volume 87 fL (80-97); Mean Platelet Volume 8.3 fL (7.4-10.4); Platelet Count 277 10^3/uL (150-450); Red Blood Count 4.17 10^6 /uL (3.70-4.87); Red Cell Distribution Width 14 % (10-15); White Blood Count 7.5 10^3/uL (3.5-10.8)
[2019-04-13 05:53] LABS: BUN/Creatinine Ratio 17.6 (8-20); Calcium 9.3 mg/dL (8.6-10.3); EGFR African American 117.8 (>60); EGFR Non-African American 97.4 (>60); Phosphorus 4.2 mg/dL (2.5-5.0); Potassium 3.3 mmol/L (3.5-5.0)
[2019-04-13] MEDS: Heparin VIAL(*) 5000 UNITS/ML VIAL (FIVE THOUSAND) SUBCUT SCH (06:05)
[2019-04-13] MEDS ORDERED: Potassium Chlor TAB* 20 MEQ TAB.ER PO ONE (07:27)
[2019-04-13 07:40] VITALS: BP 100/60
[2019-04-13] MEDS: Raltegravir* 400 MG TAB PO SCH (08:03)
[2019-04-13] MEDS: Indomethacin CAP* 25 MG CAP PO SCH (08:03)
[2019-04-13] MEDS: cefTRIAXone(*) 1 GM in NS 0.9% 50 ML* 50 ML IVPB SCH (08:03)
[2019-04-13] MEDS: busPIRone TAB* 10 MG PO SCH (08:04)
[2019-04-13] MEDS: Tenofovir/Emtricitab 200/300 * TAB PO SCH (08:04)
[2019-04-13] MEDS: Nicotine PATCH 21 MG/24 HR* PATCH TRANSDERM SCH (08:04)
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
== END 2019-04-13 10:45 | disposition home or self-care (01) | DRG 812 ==
LOC: ED 13:45 → ICU 16:41 → MEDTELE 04-11 17:57
PROVIDERS: ADMIT Internal Medicine; ATTEND Internal Medicine
PROC: 0BH17EZ Insertion of Endotracheal Airway into Trachea, Via Natural or Artificial Opening (ICD-10-PCS; principal; 2019-04-08)
PROC: 5A1945Z Respiratory Ventilation, 24-96 Consecutive Hours (ICD-10-PCS; 2019-04-08)
PROC: 05HY33Z Insertion of Infusion Device into Upper Vein, Percutaneous Approach (ICD-10-PCS; 2019-04-10)
DX: T50.904A Poisoning by unspecified drugs, medicaments and biological substances, undetermined, initial encounter (principal); J96.02 Acute respiratory failure with hypercapnia; J96.01 Acute respiratory failure with hypoxia; R65.21 Severe sepsis with septic shock; J69.0 Pneumonitis due to inhalation of food and vomit; A41.9 Sepsis, unspecified organism; Z68.41 Body mass index [BMI] 40.0-44.9, adult; F14.20 Cocaine dependence, uncomplicated; F15.20 Other stimulant dependence, uncomplicated; I95.9 Hypotension, unspecified; E83.42 Hypomagnesemia; E83.51 Hypocalcemia; R73.9 Hyperglycemia, unspecified; F32.9 Major depressive disorder, single episode, unspecified; F41.9 Anxiety disorder, unspecified; G89.29 Other chronic pain; F43.10 Post-traumatic stress disorder, unspecified; E87.6 Hypokalemia; J45.909 Unspecified asthma, uncomplicated; K21.9 Gastro-esophageal reflux disease without esophagitis; G47.33 Obstructive sleep apnea (adult) (pediatric); E28.2 Polycystic ovarian syndrome; F11.10 Opioid abuse, uncomplicated; M19.90 Unspecified osteoarthritis, unspecified site; J42 Unspecified chronic bronchitis; M43.10 Spondylolisthesis, site unspecified; F17.210 Nicotine dependence, cigarettes, uncomplicated; E66.9 Obesity, unspecified; Z88.0 Allergy status to penicillin; Z88.8 Allergy status to other drugs, medicaments and biological substances; Z81.1 Family history of alcohol abuse and dependence; Z81.8 Family history of other mental and behavioral disorders; Z86.19 Personal history of other infectious and parasitic diseases; Z79.899 Other long term (current) drug therapy
CPT/HCPCS: 36415; 36600; 70450; 71045; 80048; 80053; 80074; 80307; 80320; 80329; 81003; 82330; 82550; 82803; 83036; 83605; 83735; 84075; 84100; 84484; 85025; 85027; 86780; 86790; 87040; 87070; 87077; 87186; 87205; 87522; 87536; 87641; 93005; 93306; 94003; 99285; 99406; A9270-GY; C8929; G0480; G8978-GP-CI; G8979-GP-CI; G8980-GP-CI; J0330; J0610; J0696; J1644; J1940; J2250; J2405; J2704; J3010; J3475; J3480; P9047

== ENCOUNTER 2019-05-06 17:43 | Inpatient (IN) | payer MEDICAID ==
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
--- OUTSIDE RECORDS SUMMARY | 2019-05-06 18:05 | XMS REPORT | Continuity of Care Document ---
:1980 External Reference #:[id number] Author Name Allison Lemus Care Team Providers Name Role Phone Chary Glass MD Primary Care Physician Unavailable Payers Date Identification Numbers Payment Provider Subscriber Policy Number: [id number] Medicaid [employer] Name: 1 1 [address] PayID: [id number] [place] [address] Expires: 2018 Policy Number: [id number] Medicaid [employer] Name: 1 1 [address] PayID: [id number] [place] [address] Expires: 2016 Policy Number: [id number] Edgar [employer] Name: [id number] [address] PayID: [id number] [place] [address] Policy Number: [id number] [employer] Medicaid [employer]лия Thomas PayID: [id number] [address] [address] [place] [address] Problems Active Problems Provider Date History of drug abuse Leonora Hoffman, N.P. Onset: 02/08/2018 Viral hepatitis C Leonora Hoffman, N.P. Onset: 02/08/2018 Depressive disorder Leonora Hoffman, N.POly Onset: 02/08/2018 Anxiety Leonora Hoffman, N.P. Onset: 02/08/2018 Note: cigarette Cigarette smoker Leonora Hoffman, N.P. Onset: 02/08/2018 Gastroesophageal reflux disease Leonora Hoffman, N.P. 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 Part Buspirone HCL take 2 tablets 120tabs Leonora Varn, 03/04/2018 10mg by mouth two N.P. Tablets times daily Omeprazole 1 by mouth every 30tabs Leonora Varn, 01/31/[address] day N[address]. [address] Suboxone 3 films per day Unknown 8-2mg Film Lorazepam Take 1 Tablet By Unknown 2mg Tablets Mouth Twice A Day History Medications Tobramycin 1 drop in each 5ml H10.89 Leonora Varn, 11/04/2018 - 0.3% eye every 4hours N.P. 04/15/2019 Solution x 7 days Mavyret 3 tabs by mouth 84tabs Tigre Vela 04/16/2018 - 100-40mg once daily Pal Alvarez 08/16/2018 Tablets Zofran take 1 tablet by 30tabs Leonora Hoffman, 03/15/2018 - 4mg Tablets mouth every 8 N.P. 09/13/2018 hours as needed for nausea Gabapentin 1 by mouth at 90caps M54.5 Leonora Varn, 01/31/2018 - 300mg bedtime x 7 N.P. 03/04/2018 Capsules nights, then boost to bid for 7 days, then take tid Hydroxyzine HCL take 2 tab by Unknown - 50mg mouth daily for 03/04/2018 Tablets anxiety as needed Buspirone HCL 1 by mouth 5 Unknown - 10mg times a day 03/04/2018 Tablets Venlafaxine HCL ER 2 by mouth every Unknown - day 03/04/2018 75mg Tablets ER 24HR Duloxetine HCL 3 by mouth every Unknown - 30mg day 03/04/2018 Abhay Barnhart Alprazolam take 1 tablet Unknown - 1mg twice daily as 03/04/2018 Tablets needed Alprazolam 1 tablet twice Unknown - Unsure daily 09/13/2018 Tablets Klonopin 1 by mouth twice Unknown - 1mg Tablets daily prn 04/15/2019 Medications Administered in Office Medication SIG Qnty Indications Ordering Provider Date Records Fee Leonora Hoffman N.P. 01/27/2019 Injection Immunizations CPT Code Status Date Vaccine Reaction Lot # [id number] Given 08/16/2018 Influenza Virus Vaccine, No immediate [id number] Quadrivalent, Split, reaction...jh Preservative Free Vital Signs Date Vital Result Comment 04/16/2019 8:35am Height 64 inches 5'4" Weight 218.38 lb Heart Rate 72 /min BP Systolic Sitting 110 mmHg BP Diastolic Sitting 70 mmHg Respiratory Rate 14 /min Body Temperature 97.5 F BMI (Body Mass Index) 37.5 kg/m2 11/04/2018 3:43pm Height 64 inches 5'4" Weight 207.00 lb Heart Rate 96 /min BP Systolic 125 mmHg BP Diastolic 79 mmHg Body Temperature 96.8 F O2 % BldC Oximetry 99 % BMI (Body Mass Index) 35.5 kg/m2 09/23/2018 11:11am Height 64 inches 5'4" Weight 210.00 lb Heart Rate 113 /min BP Systolic 109 mmHg BP Diastolic 73 mmHg Body Temperature 98.2 F O2 % BldC Oximetry 97 % BMI (Body Mass Index) 36.0 kg/m2 09/13/2018 4:37pm Height 64 inches 5'4" Weight 194.25 lb Heart Rate 86 /min BP Systolic 136 mmHg BP Diastolic 91 mmHg Body Temperature 96.1 F O2 % BldC Oximetry 98 % BMI (Body Mass Index) 33.3 kg/m2 08/16/2018 11:01am Height 64 inches 5'4" Weight 202.00 lb Heart Rate 111 /min BP Systolic 110 mmHg BP Diastolic 76 mmHg Body Temperature 97.4 F O2 % BldC Oximetry 94 % BMI (Body Mass Index) 34.7 kg/m2 03/21/2018 1:55pm Height 64 inches 5'4" Weight 184.50 lb Heart Rate 120 /min BP Systolic Sitting 114 mmHg BP Diastolic Sitting 78 mmHg Respiratory Rate 14 /min Body Temperature 96.7 F BMI (Body Mass Index) 31.7 kg/m2 03/04/2018 10:02am Height 64 inches 5'4" Weight 178.75 lb Heart Rate 89 /min BP Systolic 120 mmHg BP Diastolic 70 mmHg Body Temperature 96.9 F O2 % BldC Oximetry 98 % BMI (Body Mass Index) 30.7 kg/m2 02/21/2018 1:11pm Height 64 inches 5'4" Weight 187.00 lb Heart Rate 84 /min BP Systolic Sitting 100 mmHg BP Diastolic Sitting 66 mmHg Respiratory Rate 14 /min Body Temperature 97.8 F BMI (Body Mass Index) 32.1 kg/m2 02/11/2018 3:32pm Weight 192.50 lb Heart Rate 93 /min BP Systolic 90 mmHg BP Diastolic 50 mmHg Body Temperature 97.2 F O2 % BldC Oximetry 95 % 01/31/2018 9:05am Height 63.5 inches 5'3.50" Weight 162.00 lb Heart Rate 104 /min BP Systolic Sitting 110 mmHg BP Diastolic Sitting 75 mmHg Body Temperature 98.5 F Pain Level 6 back/degen disc, etc. O2 % BldC Oximetry 98 % BMI (Body Mass Index) 28.2 kg/m2 Results Test Date Facility Test Result H/L Range Note Arterial Blood Gas 04/08/2019 [facility] O2 Device oxymask [address] [place] [address] [phone] Fio2 1 PH Arterial 7.29 Low 7.35-7.45 Pco2 Arterial 66 mmHg High 35-45 Po2 Arterial 73 mmHg Low 80-100 O2 Saturation Arterial 96.6 % N 94.0-98.0 Base Excess Arterial 3.2 mmol/L High -2.0-2.0 1 Hco3 Arterial 27.3 mmol/L N 19-31 Venous Blood 04/08/2019 [facility] Venous Blood pH 7.24 Low 7.32-7.[address] [place] [address] [phone] Venous Pco2 74 mmHg High 41-51 Venous Po2 86.0 mmHg High 35-45 Venous O2 Saturation 98.1 % High 70-80 Venous Blood Base Excess 2.1 mmol/L N 0.0-4.0 2 Venous Bicarbonate Hco3 26.5 mmol/L N 24-28 CBC Auto Diff 04/08/2019 [facility] White Blood 9.2 10^3/uL N 3.5-10.[address] [place] [address] [phone] Red Blood Count 4.03 10^6/uL N 3.70-4.87 Hemoglobin 12.1 g/dL N 12.0-16.0 Hematocrit 36 % N 35-47 Mean Corpuscular Volume 88 fL N 80-97 Mean Corpuscular Hemoglobin 30 pg N 27-31 Mean Corpuscular HGB Conc 34 g/dL N 31-36 Red Cell Distribution Width 14 % N 10-15 Platelet Count 294 10^3/uL N 150-450 Mean Platelet Volume 8.4 fL N 7.4-10.4 Abs Neutrophils 5.6 10^3/uL N 1.5-7.7 Abs Lymphocytes 2.8 10^3/uL N 1.0-4.8 Abs Monocytes 0.6 10^3/uL N 0-0.8 Abs Eosinophils 0.2 10^3/uL N 0-0.6 Abs Basophils 0.0 10^3/uL N 0-0.2 Abs Nucleated RBC 0.0 10^3/uL Granulocyte % 61.0 % Lymphocyte % 30.5 % Monocyte % 6.1 % Eosinophil % 1.9 % Basophil % 0.5 % Nucleated Red Blood Cells % 0.1 Laboratory test 04/08/2019 [facility] Lactic Acid 0.8 mmol/L N 0.5-2.0 [address] [place] [address] [phone] Urinalysis Profile 04/08/2019 [facility] Urine Color Straw [address] [place] [address] [phone] Urine Appearance Clear Urine Specific [place] 1.005 Low 1.010-1.030 Urine pH 6.0 N 5-9 Urine Urobilinogen Negative Negative Urine Ketones Negative Negative Urine Protein Negative Negative Urine Leukocytes Negative Negative Urine Blood Negative Negative Urine Nitrite Negative Negative Urine Bilirubin Negative Negative Urine Glucose Negative Negative Comp Metabolic Panel 04/08/2019 [facility] Sodium 140 mmol/L N 135-145 [address] [place] [address] [phone] Potassium 3.7 mmol/L N 3.5-5.0 Chloride 106 mmol/L N 101-111 Co2 Carbon Dioxide 31 mmol/L N 22-32 Anion Gap 3 mmol/L N 2-11 Glucose 113 mg/dL High 70-100 Blood Urea Nitrogen 7 mg/dL N 6-24 Creatinine 0.51 mg/dL N 0.51-0.95 BUN/Creatinine Ratio 13.7 N 8-20 Calcium 8.3 mg/dL Low 8.6-10.3 Total Protein 5.9 g/dL Low 6.4-8.9 Albumin 3.7 g/dL N 3.2-5.2 Globulin 2.2 g/dL N 2-4 Albumin/Globulin Ratio 1.7 N 1-3 Total Bilirubin 0.40 mg/dL N 0.2-1.0 Alkaline Phosphatase 77 U/L N 34-104 Alt 12 U/L N 7-52 Ast 14 U/L N 13-39 Egfr Non- 135.7 >60 Egfr 164.2 >60 4 Laboratory test 04/08/2019 [facility] Creatine 108 U/L N 10- [address] Kinase(CK) [place] [address] [phone] Acetaminophen < 15 g/mL 5 Salicylate < 2.50 mg/dL <30 Alcohol < 10 mg/dL N <10 Urine Drug 04/08/2019 [facility] Urine None Detected None Detect SCR ED & [address] [place] [address] Screen [phone] Urine Barbiturates Screen None Detected None Detect Urine Benzodiazepine Screen None Detected None Detect Urine Cannabinoids Screen None Detected None Detect Urine Cocaine Screen None Detected None Detect Urine Opiates Screen None Detected None Detect Urine Phencyclidine Screen None Detected None Detect 6 Urinalysis Profile 12/23/2018 [facility] Urine Color Straw [address] [place] [address] [phone] Urine Appearance Clear Urine Specific [place] 1.006 Low 1.010-1.030 Urine pH 6.0 N 5-9 Urine Urobilinogen Negative Negative Urine Ketones Negative Negative Urine Protein Negative Negative Urine Leukocytes Negative Negative Urine Blood Negative Negative Urine Nitrite Negative Negative Urine Bilirubin Negative Negative Urine Glucose Negative Negative Urine Drug 12/23/2018 [facility] Amphetamine Ur None Detected None Detect SCR ED & [address] [place] [address] [phone] Barbiturates Urine Screen None Detected None Detect Benzodiazepine Urine Screen None Detected None Detect Urine Cannabinoids Screen None Detected None Detect Urine Cocaine Screen None Detected None Detect Urine Opiates Screen None Detected None Detect Urine Phencyclidine Screen None Detected None Detect 7 Laboratory test 12/23/2018 [facility] Creatine 77 U/L N 10- [address] Kinase(CK) [place] [address] [phone] Acetaminophen < 15 g/mL 8 Alcohol 95 mg/dL High <10 Salicylate < 2.50 mg/dL <30 HCG 1.62 mIU/mL 9 TSH (Thyroid Stim Horm) 3.19 mcIU/mL N 0.34-5.60 Comp Metabolic Panel 12/23/2018 [facility] Sodium 141 mmol/L N 135-[address] [place] [address] [phone] Potassium 3.4 mmol/L Low 3.5-5.0 Chloride 105 mmol/L N 101-111 Co2 Carbon Dioxide 31 mmol/L N 22-32 Anion Gap 5 mmol/L N 2-11 Glucose 107 mg/dL High 70-100 Blood Urea Nitrogen 17 mg/dL N 6-24 Creatinine 0.74 mg/dL N 0.51-0.95 BUN/Creatinine Ratio 23.0 High 8-20 Calcium 8.9 mg/dL N 8.6-10.3 Total Protein 7.0 g/dL N 6.4-8.9 Albumin 4.3 g/dL N 3.2-5.2 Globulin 2.7 g/dL N 2-4 Albumin/Globulin Ratio 1.6 N 1-3 Total Bilirubin 0.60 mg/dL N 0.2-1.0 Alkaline Phosphatase 76 U/L N 34-104 Alt 21 U/L N 7-52 Ast 19 U/L N 13-39 Egfr Non- 88.3 >60 Egfr 106.9 >60 10 CBC Auto Diff 12/23/2018 [facility] White Blood 6.4 10^3/uL N 3.5-10.[address] [place] [address] [phone] Red Blood Count 4.41 10^6/uL N 3.70-4.87 Hemoglobin 12.4 g/dL N 12.0-16.0 Hematocrit 38 % N 33-41 Mean Corpuscular Volume 86 fL N 80-97 Mean Corpuscular Hemoglobin 28 pg N 27-31 Mean Corpuscular HGB Conc 33 g/dL N 31-36 Red Cell Distribution Width 15 % N 10.5-15 Platelet Count 269 10^3/uL N 150-450 Mean Platelet Volume 7.7 fL N 7.4-10.4 Abs Neutrophils 3.3 10^3/uL N 1.5-7.7 Abs Lymphocytes 2.5 10^3/uL N 1.0-4.8 Abs Monocytes 0.4 10^3/uL N 0-0.8 Abs Eosinophils 0.2 10^3/uL N 0-0.6 Abs Basophils 0 10^3/uL N 0-0.2 Abs Nucleated RBC 0 10^3/uL Granulocyte % 51.1 % Lymphocyte % 39.4 % Monocyte % 6.3 % Eosinophil % 2.5 % Basophil % 0.7 % Nucleated Red Blood Cells % 0.1 Laboratory test 12/23/2018 [facility] Lactic Acid 1.8 mmol/L N 0.5-2.0 [address] [place] [address] [phone] Arterial Blood 12/23/2018 [facility] Fio2 [address] [place] [address] [phone] Vent Mode cmv Ventilator Volume 600 Resp Rate 12 Peep 5 PH Arterial 7.29 Low 7.35-7.45 Pco2 Arterial 58 mmHg High 35-45 Po2 Arterial 137 mmHg High 80-100 O2 Saturation Arterial 100.0 % High 94.0-98.0 Base Excess Arterial 0.1 mmol/L N -2.0-2.0 12 Hco3 Arterial 25.0 mmol/L N 19-31 Laboratory test 12/15/2018 [facility] Creatine 405 U/L High 10 -[address] [place] [address] Kinase(CK) [place] [address] [phone] HCG < 0.60 mIU/mL 13 TSH (Thyroid Stim Horm) 4.20 mcIU/mL N 0.34-5.60 Comp Metabolic Panel 12/15/2018 [facility] Sodium 139 mmol/L N 135-[address] [place] [address] [phone] Potassium 4.0 mmol/L N 3.5-5.0 Chloride 103 mmol/L N 101-111 Co2 Carbon Dioxide 29 mmol/L N 22-32 Anion Gap 7 mmol/L N 2-11 Glucose 99 mg/dL N 70-100 Blood Urea Nitrogen 14 mg/dL N 6-24 Creatinine 0.57 mg/dL N 0.51-0.95 BUN/Creatinine Ratio 24.6 High 8-20 Calcium 8.9 mg/dL N 8.6-10.3 Total Protein 6.6 g/dL N 6.4-8.9 Albumin 4.1 g/dL N 3.2-5.2 Globulin 2.5 g/dL N 2-4 Albumin/Globulin Ratio 1.6 N 1-3 Total Bilirubin 0.30 mg/dL N 0.2-1.0 Alkaline Phosphatase 80 U/L N 34-104 Alt 21 U/L N 7-52 Ast 28 U/L N 13-39 Egfr Non- 119.3 >60 Egfr 144.4 >60 14 Laboratory test 12/15/2018 [facility] Lactic Acid 1.0 mmol/L N 0.5-2.0 [address] [place] [address] [phone] Acetaminophen < 15 g/mL 16 Alcohol < 10 mg/dL N <10 Salicylate < 2.50 mg/dL <30 Urine Drug 12/15/2018 [facility] Amphetamine Ur None Detected None Detect SCR ED & [address] [place] [address] [phone] Barbiturates Urine Screen None Detected None Detect Benzodiazepine Urine Screen Presumptive Posi <SEE NOTE> Abnormal None Detect 17 Urine Cannabinoids Screen None Detected None Detect Urine Cocaine Screen None Detected None Detect Urine Opiates Screen None Detected None Detect Urine Phencyclidine Screen None Detected None Detect 18 CBC Auto Diff 12/15/2018 [facility] White Blood 6.5 10^3/uL N 3.5-10.[address] [place] [address] [phone] Red Blood Count 4.25 10^6/uL N 3.70-4.87 Hemoglobin 11.8 g/dL Low 12.0-16.0 Hematocrit 36 % N 33-41 Mean Corpuscular Volume 85 fL N 80-97 Mean Corpuscular Hemoglobin 28 pg N 27-31 Mean Corpuscular HGB Conc 33 g/dL N 31-36 Red Cell Distribution Width 15 % N 10.5-15 Platelet Count 286 10^3/uL N 150-450 Mean Platelet Volume 8.4 fL N 7.4-10.4 Abs Neutrophils 3.2 10^3/uL N 1.5-7.7 Abs Lymphocytes 2.5 10^3/uL N 1.0-4.8 Abs Monocytes 0.4 10^3/uL N 0-0.8 Abs Eosinophils 0.3 10^3/uL N 0-0.6 Abs Basophils 0.1 10^3/uL N 0-0.2 Abs Nucleated RBC 0 10^3/uL Granulocyte % 49.8 % Lymphocyte % 38.9 % Monocyte % 5.7 % Eosinophil % 4.8 % Basophil % 0.8 % Nucleated Red Blood Cells % 0.1 Urinalysis Profile 12/15/2018 [facility] Urine Color Yellow [address] [place] [address] [phone] Urine Appearance Clear Urine Specific [place] 1.020 N 1.010-1.030 Urine pH 6.0 N 5-9 Urine Urobilinogen Negative Negative Urine Ketones Negative Negative Urine Protein Negative Negative Urine Leukocytes Negative Negative Urine Blood Negative Negative Urine Nitrite Negative Negative Urine Bilirubin Negative Negative Urine Glucose Negative Negative Thyroid Panel 11/04/2018 [facility] Free T4 (Free 0.73 ng/dL N 0.61-1.[address] [place] [address] Thyroxine) [place] [address] [phone] Thyroxine 6.76 ?g/dL N 6.09-12.23 TSH (Thyroid Stim Horm) 0.87 mcIU/mL N 0.34-5.60 Iron & Iron Binding 11/04/2018 [facility] Iron 89 g/dL N 50- [address] [place] [address] [phone] Unsaturated Iron Binding < 432 g/dL Total Iron Binding Capacity 447 g/dL N 250-450 Transferrin 319 mg/dL N 203-362 % Iron Saturation 20 % N 15-55 Laboratory test 11/04/2018 [facility] Ferritin 28.1 ng/mL N 11 -[address] [place] [address] [phone] Vitamin B12 239 pg/mL N 180-914 19 Laboratory test 09/23/2018 [facility] Ammonia 52 mcmol/L N 16- [address] [place] [address] [phone] CBC Auto Diff 09/23/2018 [facility] White Blood 10.0 10^3/uL N 3.5-10.[address] [place] [address] [phone] Red Blood Count 3.67 10^6/uL Low 4.00-5.40 Hemoglobin 10.6 g/dL Low 12.0-16.0 Hematocrit 32 % Low 35-47 Mean Corpuscular Volume 87 fL N 80-97 Mean Corpuscular Hemoglobin 29 pg N 27-31 Mean Corpuscular HGB Conc 33 g/dL N 31-36 Red Cell Distribution Width 13 % N 10.5-15 Platelet Count 220 10^3/uL N 150-450 Mean Platelet Volume 8.3 fL N 7.4-10.4 Abs Neutrophils 7.7 10^3/uL N 1.5-7.7 Abs Lymphocytes 1.3 10^3/uL N 1.0-4.8 Abs Monocytes 0.8 10^3/uL N 0-0.8 Abs Eosinophils 0.2 10^3/uL N 0-0.6 Abs Basophils 0 10^3/uL N 0-0.2 Abs Nucleated RBC 0 10^3/uL Granulocyte % 76.9 % Lymphocyte % 13.0 % Monocyte % 8.1 % Eosinophil % 1.6 % Basophil % 0.4 % Nucleated Red Blood Cells % 0 Comp Metabolic Panel 09/23/2018 [facility] Sodium 141 mmol/L N 135-145 [address] [place] [address] [phone] Potassium 4.4 mmol/L N 3.5-5.0 Chloride 102 mmol/L N 101-111 Co2 Carbon Dioxide 33 mmol/L High 22-32 Anion Gap 6 mmol/L N 2-11 Glucose 100 mg/dL N 70-100 Blood Urea Nitrogen 7 mg/dL N 6-24 Creatinine 0.52 mg/dL N 0.51-0.95 BUN/Creatinine Ratio 13.5 N 8-20 Calcium 8.9 mg/dL N 8.6-10.3 Total Protein 5.8 g/dL Low 6.4-8.9 Albumin 3.7 g/dL N 3.2-5.2 Globulin 2.1 g/dL N 2-4 Albumin/Globulin Ratio 1.8 N 1-3 Total Bilirubin 1.10 mg/dL High 0.2-1.0 Alkaline Phosphatase 74 U/L N 34-104 Alt 14 U/L N 7-52 Ast 18 U/L N 13-39 Egfr Non- 132.7 >60 Egfr 160.6 >60 20 Laboratory test 09/23/2018 [facility] Ferritin 56.5 ng/mL N 11 -[address] [place] [address] [phone] TSH (Thyroid Stim Horm) 0.11 mcIU/mL Low 0.34-5.60 Laboratory 08/16/2018 [facility] Hepatitis C Undetected Undetected 21 test finding [address] Rna Quant IU/[place] [address] [phone] Ammonia 44 mcmol/L N 16-53 Comp Metabolic Panel 08/16/2018 [facility] Sodium 140 mmol/L N 135-[address] [place] [address] [phone] Potassium 4.1 mmol/L N 3.5-5.0 Chloride 102 mmol/L N 101-111 Co2 Carbon Dioxide 36 mmol/L High 22-32 Anion Gap 2 mmol/L N 2-11 Glucose 72 mg/dL N 70-100 Blood Urea Nitrogen 10 mg/dL N 6-24 Creatinine 0.59 mg/dL N 0.51-0.95 BUN/Creatinine Ratio 16.9 N 8-20 Calcium 9.0 mg/dL N 8.6-10.3 Total Protein 5.8 g/dL Low 6.4-8.9 Albumin 3.7 g/dL N 3.2-5.2 Globulin 2.1 g/dL N 2-4 Albumin/Globulin Ratio 1.8 N 1-3 Total Bilirubin 0.30 mg/dL N 0.2-1.0 Alkaline Phosphatase 73 U/L N 34-104 Alt 15 U/L N 7-52 Ast 14 U/L N 13-39 Egfr Non- 114.7 >60 Egfr 138.8 >60 22 Liver Function 05/13/2018 [facility] Total Protein 7.7 g/dL N 6.4-8.9 [address] [place] [address] [phone] Albumin 4.9 g/dL N 3.2-5.2 Globulin 2.8 g/dL N 2-4 Albumin/Globulin Ratio 1.8 N 1-3 Total Bilirubin 1.10 mg/dL High 0.2-1.0 Direct Bilirubin 0.20 mg/dL High 0.03-0.18 Indirect Bilirubin 0.9 mg/dL N 0.3-1.0 Alkaline Phosphatase 88 U/L N 34-104 Alt 12 U/L N 7-52 Ast 10 U/L Low 13-39 Laboratory 05/13/2018 [facility] Hepatitis C Undetected Undetected [address] Rna Quant IU/[place] [address] [phone] Laboratory 04/01/2018 [facility] Ammonia 41 mcmol/L N 16-[address] [place] [address] [phone] Herpes-6, 04/01/2018 [facility] Herpesvirus Negative Negative 25 Human Igg & [address] 6 Dna (PCR) [place] [address] [phone] Laboratory 04/01/2018 [facility] Hepatitis B Nonreactive Nonreactive test [address] [place] [address] [phone] Hepatitis B 04/01/2018 [facility] Hepatitis B Not Immune Abnormal Immune Olga AB [address] [place] [place] [address] [phone] Hep B Surf AB Level < 3.10 mIU/mL >12 Laboratory test 04/01/2018 [facility] HCG 0.87 mIU/mL [address] [place] [address] [phone] CBC Auto Diff 02/26/2018 [facility] White Blood 5.9 10^3/uL N 3.5-[address] Count .8 [place] [address] [phone] Red Blood Count 3.94 10^6/uL Low 4.0-5.4 Hemoglobin 11.2 g/dL Low 12.0-16.0 Hematocrit 34 % Low 35-47 Mean Corpuscular Volume 87 fL N 80-97 Mean Corpuscular Hemoglobin 28 pg N 27-31 Mean Corpuscular HGB Conc 33 g/dL N 31-36 Red Cell Distribution Width 14 % N 10.5-15 Platelet Count 306 10^3/uL N 150-450 Mean Platelet Volume 7.9 um3 N 7.4-10.4 Abs Neutrophils 2.6 10^3/uL N 1.5-7.7 Abs Lymphocytes 2.4 10^3/uL N 1.0-4.8 Abs Monocytes 0.6 10^3/uL N 0-0.8 Abs Eosinophils 0.3 10^3/uL N 0-0.6 Abs Basophils 0.1 10^3/uL N 0-0.2 Abs Nucleated RBC 0 10^3/uL Granulocyte % 44.7 % N 38-83 Lymphocyte % 39.9 % N 25-47 Monocyte % 9.9 % High 0-7 Eosinophil % 4.5 % N 0-6 Basophil % 1.0 % N 0-2 Nucleated Red Blood Cells % 0 Laboratory test 02/26/2018 [facility] Lactic Acid 0.7 mmol/L N 0.5-2.0 [address] [place] [address] [phone] Ammonia 69 mcmol/L High 16-53 Acetaminophen < 15 g/mL 28 Alcohol < 10 mg/dL N <10 Salicylate < 2.50 mg/dL <30 Comp Metabolic Panel 02/26/2018 [facility] Sodium 141 mmol/L N 139-145 [address] [place] [address] [phone] Potassium 4.3 mmol/L N 3.5-5.0 Chloride 105 mmol/L N 101-111 Co2 Carbon Dioxide 34 mmol/L High 22-32 Anion Gap 2 mmol/L N 2-11 Glucose 96 mg/dL N 70-100 Blood Urea Nitrogen 16 mg/dL N 6-24 Creatinine 0.76 mg/dL N 0.51-0.95 BUN/Creatinine Ratio 21.1 High 8-20 Calcium 8.8 mg/dL N 8.6-10.3 Total Protein 6.2 g/dL Low 6.4-8.9 Albumin 3.6 g/dL N 3.2-5.2 Globulin 2.6 g/dL N 2-4 Albumin/Globulin Ratio 1.4 N 1-3 Total Bilirubin 0.40 mg/dL N 0.2-1.0 Alkaline Phosphatase 79 U/L N 34-104 Alt 185 U/L High 7-52 Ast 143 U/L High 13-39 Egfr Non- 86.1 >60 Egfr 110.7 >60 29 Laboratory test 02/26/2018 [facility] Magnesium 2.0 mg/dL N 1.9-2.[address] [place] [address] [phone] Creatine Kinase(CK) 46 U/L N 10-223 Troponin-I (TnI) 0.01 ng/mL <0.04 TSH (Thyroid Stim Horm) 2.15 mcIU/mL N 0.34-5.60 Urinalysis Profile 02/26/2018 [facility] Urine Color Yellow [address] [place] [address] [phone] Urine Appearance Clear Urine Specific [place] 1.012 N 1.010-1.030 Urine pH 6.0 N 5-9 Urine Urobilinogen Negative Negative Urine Ketones Negative Negative Urine Protein Negative Negative Urine Leukocytes 3+ Abnormal Negative Urine Blood Negative Negative * * Abnormal Negative 30 Urine Nitrite Negative Negative Urine Bilirubin Negative Negative Urine Glucose Negative Negative Urine White Blood Cell 3+(>20/hpf) Abnormal Absent Urine Red Blood Cell Trace(0-2/hpf) Absent Urine Bacteria Absent Absent Urine Squamous Epithelial Cell Present Abnormal Absent Urine Drug 02/26/2018 [facility] Amphetamine Ur None Detected None Detect SCR ED & [address] [place] [address] [phone] Barbiturates Urine Screen None Detected None Detect Benzodiazepine Urine Screen Presumptive Posi <SEE NOTE> Abnormal None Detect 31 Urine Cannabinoids Screen None Detected None Detect Urine Cocaine Screen None Detected None Detect Urine Opiates Screen None Detected None Detect Urine Phencyclidine Screen None Detected None Detect 32 Urine Culture And 02/26/2018 [facility] Urine Culture SEE RESULT [address] [place] [address] [phone] Fibro Test-Actitest, 02/21/2018 [facility] FibroTest Score 0.[address] [place] [address] [phone] FibroTest Stage F0 FibroTest Interpretation no fibrosis 34 ActiTest Score 0.72 ActiTest Grade A3 ActiTest Interpretation severe activity 35 FibroTest-ActiTest Comment See Comment 36 [employer] Serial Number [id number] Apolipoprotein A1, S 91 mg/dL Abnormal >=140 Dnvuj-4-Gdyvitrhncuej, S 163 mg/dL 100 - 280 Haptoglobin, S 80 mg/dL 30 - 200 Alanine Aminotransferase (Alt) 162 U/L Abnormal 7-45 Gamma Glutamyltransferase GGT 74 U/L Abnormal 5 - 36 Bilirubin, Total, S 0.3 mg/dL <=1.2 37 Laboratory test 02/21/2018 [facility] Hepatitis C 1a Abnormal Undetected [address] [place] [address] [phone] Hepatitis C Rna Quant [id number] IU/mL Abnormal Undetected 39 TSH (Thyroid Stim Horm) 1.67 mcIU/mL N 0.34-5.60 Urine Culture And 02/18/2018 [facility] Urine SEE RESULT [address] [place] [address] [phone] Laboratory test 02/18/2018 [facility] Alcohol < 10 mg/dL N < [address] [place] [address] [phone] Comp Metabolic 02/18/2018 [facility] Sodium 138 mmol/L Low 139 -[address] [place] [address] [phone] Potassium 4.0 mmol/L N 3.5-5.0 Chloride 104 mmol/L N 101-111 Co2 Carbon Dioxide 32 mmol/L N 22-32 Anion Gap 2 mmol/L N 2-11 Glucose 99 mg/dL N 70-100 Blood Urea Nitrogen 12 mg/dL N 6-24 Creatinine 0.82 mg/dL N 0.51-0.95 BUN/Creatinine Ratio 14.6 N 8-20 Calcium 9.0 mg/dL N 8.6-10.3 Total Protein 6.5 g/dL N 6.4-8.9 Albumin 3.6 g/dL N 3.2-5.2 Globulin 2.9 g/dL N 2-4 Albumin/Globulin Ratio 1.2 N 1-3 Total Bilirubin 0.40 mg/dL N 0.2-1.0 Alkaline Phosphatase 107 U/L High 34-104 Alt 124 U/L High 7-52 Ast 77 U/L High 13-39 Egfr Non- 78.9 >60 Egfr 101.4 >60 41 Urine Drug 02/18/2018 [facility] Amphetamine Ur None Detected None Detect SCR ED & [address] [place] [address] [phone] Barbiturates Urine Screen None Detected None Detect Benzodiazepine Urine Screen Presumptive Posi <SEE NOTE> Abnormal None Detect 42 Urine Cannabinoids Screen None Detected None Detect Urine Cocaine Screen None Detected None Detect Urine Opiates Screen None Detected None Detect Urine Phencyclidine Screen None Detected None Detect 43 Urinalysis Profile 02/18/2018 [facility] Urine Color Yellow [address] [place] [address] [phone] Urine Appearance Cloudy Urine Specific [place] 1.023 N 1.010-1.030 Urine pH 5.0 N 5-9 Urine Urobilinogen Negative Negative Urine Ketones Negative Negative Urine Protein Negative Negative Urine Leukocytes 3+ Abnormal Negative Urine Blood Negative Negative * * Abnormal Negative 44 Urine Nitrite Negative Negative Urine Bilirubin Negative Negative Urine Glucose Negative Negative Urine White Blood Cell 3+(>20/hpf) Abnormal Absent Urine Red Blood Cell Absent Absent Urine Bacteria Absent Absent Urine Squamous Epithelial Cell Present Abnormal Absent CBC Auto Diff 02/18/2018 [facility] White Blood 6.2 10^3/uL N 3.5-10.[address] [place] [address] [phone] Red Blood Count 3.97 10^6/uL Low 4.0-5.4 Hemoglobin 11.1 g/dL Low 12.0-16.0 Hematocrit 34 % Low 35-47 Mean Corpuscular Volume 87 fL N 80-97 Mean Corpuscular Hemoglobin 28 pg N 27-31 Mean Corpuscular HGB Conc 32 g/dL N 31-36 Red Cell Distribution Width 14 % N 10.5-15 Platelet Count 356 10^3/uL N 150-450 Mean Platelet Volume 7.8 um3 N 7.4-10.4 Abs Neutrophils 3.1 10^3/uL N 1.5-7.7 Abs Lymphocytes 2.2 10^3/uL N 1.0-4.8 Abs Monocytes 0.6 10^3/uL N 0-0.8 Abs Eosinophils 0.3 10^3/uL N 0-0.6 Abs Basophils 0.1 10^3/uL N 0-0.2 Abs Nucleated RBC 0 10^3/uL Granulocyte % 49.6 % N 38-83 Lymphocyte % 35.7 % N 25-47 Monocyte % 9.2 % High 0-7 Eosinophil % 4.4 % N 0-6 Basophil % 1.1 % N 0-2 Nucleated Red Blood Cells % 0 Laboratory test 02/08/2018 [facility] Lactic Acid 1.0 mmol/L N 0.5-2.0 [address] [place] [address] [phone] CBC Auto Diff 02/08/2018 [facility] White Blood 7.9 10^3/uL N 3.5-10.[address] [place] [address] [phone] Red Blood Count 3.97 10^6/uL Low 4.0-5.4 Hemoglobin 11.4 g/dL Low 12.0-16.0 Hematocrit 34 % Low 35-47 Mean Corpuscular Volume 87 fL N 80-97 Mean Corpuscular Hemoglobin 29 pg N 27-31 Mean Corpuscular HGB Conc 33 g/dL N 31-36 Red Cell Distribution Width 15 % N 10.5-15 Platelet Count 315 10^3/uL N 150-450 Mean Platelet Volume 7.2 um3 Low 7.4-10.4 Abs Neutrophils 5.3 10^3/uL N 1.5-7.7 Abs Lymphocytes 1.7 10^3/uL N 1.0-4.8 Abs Monocytes 0.7 10^3/uL N 0-0.8 Abs Eosinophils 0.1 10^3/uL N 0-0.6 Abs Basophils 0 10^3/uL N 0-0.2 Abs Nucleated RBC 0 10^3/uL Granulocyte % 67.5 % N 38-83 Lymphocyte % 21.6 % Low 25-47 Monocyte % 9.2 % High 0-7 Eosinophil % 1.4 % N 0-6 Basophil % 0.3 % N 0-2 Nucleated Red Blood Cells % 0 Urinalysis Profile 02/08/2018 [facility] Urine Color Day[place] [address] [place] [address] [phone] Urine Appearance Cloudy Urine Specific [place] 1.027 N 1.010-1.030 Urine pH 5.0 N 5-9 Urine Urobilinogen Negative Negative Urine Ketones Trace Abnormal Negative Urine Protein Negative Negative Urine Leukocytes 3+ Abnormal Negative Urine Blood Negative Negative * * Abnormal Negative 46 Urine Nitrite Negative Negative Urine Bilirubin Negative Negative Urine Glucose Negative Negative Urine White Blood Cell 2+(11-20/hpf) Abnormal Absent Urine Red Blood Cell 2+(6-10/hpf) Abnormal Absent Urine Bacteria 1+ Abnormal Absent Urine Squamous Epithelial Cell Present Abnormal Absent Urine Drug 02/08/2018 [facility] Amphetamine Ur None Detected None Detect SCR ED & [address] [place] [address] [phone] Barbiturates Urine Screen None Detected None Detect Benzodiazepine Urine Screen Presumptive Posi <SEE NOTE> Abnormal None Detect 47 Urine Cannabinoids Screen None Detected None Detect Urine Cocaine Screen Presumptive Posi <SEE NOTE> Abnormal None Detect 48 Urine Opiates Screen Presumptive Posi <SEE NOTE> Abnormal None Detect 49 Urine Phencyclidine Screen None Detected None Detect 50 Comp Metabolic Panel 02/08/2018 [facility] Sodium 140 mmol/L N 139-[address] [place] [address] [phone] Potassium 4.2 mmol/L N 3.5-5.0 Chloride 101 mmol/L N 101-111 Co2 Carbon Dioxide 34 mmol/L High 22-32 Anion Gap 5 mmol/L N 2-11 Glucose 109 mg/dL High 70-100 Blood Urea Nitrogen 13 mg/dL N 6-24 Creatinine 0.78 mg/dL N 0.51-0.95 BUN/Creatinine Ratio 16.7 N 8-20 Calcium 8.8 mg/dL N 8.6-10.3 Total Protein 6.3 g/dL Low 6.4-8.9 Albumin 3.7 g/dL N 3.2-5.2 Globulin 2.6 g/dL N 2-4 Albumin/Globulin Ratio 1.4 N 1-3 Total Bilirubin 0.50 mg/dL N 0.2-1.0 Alkaline Phosphatase 81 U/L N 34-104 Alt 382 U/L High 7-52 Ast 152 U/L High 13-39 Egfr Non- 83.6 >60 Egfr 107.5 >60 51 Laboratory test 02/08/2018 [facility] HCG < 0.60 mIU/ mL [address] [place] [address] [phone] Acetaminophen < 15 g/mL 53 Alcohol < 10 mg/dL N <10 Salicylate < 2.50 mg/dL <30 Urine Culture And 02/08/2018 [facility] Urine SEE RESULT [address] [place] [address] [phone] Laboratory test 02/08/2018 [facility] Point of 125 mg/dL High 70-10 [address] Care Glucose 0 [place] [address] [phone] Laboratory test 02/06/2018 [facility] TSH (Thyroid 2.80 N 0.34 - finding [address] Stim Horm) mcIU/mL 5.60 [place] [address] [phone] FSH (Follicle Stim Hormone) 1.4 mIU/mL 56 Hepatitis C Antibody High Reactive Abnormal Nonreactive 57 Hepatitis C Rna Quant [id number] IU/mL Abnormal Undetected 58 Comp Metabolic Panel 02/06/2018 [facility] Sodium 139 mmol/L N 139-[address] [place] [address] [phone] Potassium 4.1 mmol/L N 3.5-5.0 Chloride 101 mmol/L N 101-111 Co2 Carbon Dioxide 32 mmol/L N 22-32 Anion Gap 6 mmol/L N 2-11 Glucose 84 mg/dL N 70-100 Blood Urea Nitrogen 8 mg/dL N 6-24 Creatinine 0.68 mg/dL N 0.51-0.95 BUN/Creatinine Ratio 11.8 N 8-20 Calcium 8.8 mg/dL N 8.6-10.3 Total Protein 6.0 g/dL Low 6.4-8.9 Albumin 3.7 g/dL N 3.2-5.2 Globulin 2.3 g/dL N 2-4 Albumin/Globulin Ratio 1.6 N 1-3 Total Bilirubin 0.40 mg/dL N 0.2-1.0 Alkaline Phosphatase 76 U/L N 34-104 Alt 339 U/L High 7-52 Ast 163 U/L High 13-39 Egfr Non- 97.9 >60 Egfr 125.9 >60 59 1 Reference ranges based on room air. 2 Reference ranges based on room air. 3 [facility] Severe Sepsis and Septic Shock Management Bundle Measure requires all lactic acids initially measuring >2.0 mmol/L be repeated. 4 Because ethnic data is not always readily [...] 15-29 5 Kidney failure <15 (or dialysis) 5 Therapeutic concentration: <50 ug/mL Toxic concentration: >120 ug/mL 6 The urine specimen was tested at the listed cutoffs: Drug class test level (ng/mL) Amphetamines 500 Barbiturates 200 Benzodiazepine metabolites 200 Cocaine metabolites 150 Cannabinoids 50 Opiates 300 Pcp 25 Specimen was received without chain of custody. Results should be used for medical purposes only. 7 The urine specimen was tested at the listed cutoffs: Drug class test level (ng/mL) Amphetamines 500 Barbiturates 200 Benzodiazepine metabolites 200 Cocaine metabolites 150 Cannabinoids 50 Opiates 300 Pcp 25 Specimen was received without chain of custody. Results should be used for medical purposes only. 8 Therapeutic concentration: <50 ug/mL Toxic concentration: >120 ug/mL 9 <5.0 Negative 5.0 - 25.0 Indeterminate (Repeat testing recommended after 72 hours) >25.0 Positive Perimenopausal women can display HCG levels of up to 20 mIU/mL 10 Because ethnic data is not always readily [...] 15-29 5 Kidney failure <15 (or dialysis) 11 [facility] Severe Sepsis and Septic Shock Management Bundle Measure requires all lactic acids initially measuring >2.0 mmol/L be repeated. 12 Reference ranges based on room air. 13 <5.0 Negative 5.0 - 25.0 Indeterminate (Repeat testing recommended after 72 hours) >25.0 Positive Perimenopausal women can display HCG levels of up to 20 mIU/mL 14 Because ethnic data is not always readily [...] 15-29 5 Kidney failure <15 (or dialysis) 15 [facility] Severe Sepsis and Septic Shock Management Bundle Measure requires all lactic acids initially measuring >2.0 mmol/L be repeated. 16 Therapeutic concentration: <50 ug/mL Toxic concentration: >120 ug/mL 17 Presumptive Positive Presumptive positive results are unconfirmed. 18 The urine specimen was tested at the listed cutoffs: Drug class test level (ng/mL) Amphetamines 500 Barbiturates 200 Benzodiazepine metabolites 200 Cocaine metabolites 150 Cannabinoids 50 Opiates 300 Pcp 25 Specimen was received without chain of custody. Results should be used for medical purposes only. 19 Normal Range 180 to 914 Indeterminate Range 145 to 180 Deficient Range <145 20 Because ethnic data is not always [...] 15-29 5 Kidney failure <15 (or dialysis) 21 Result in log IU/mL is Undetected. ADDITIONAL INFORMATION The quantification range of this assay is 15 to 100,000,000 IU/mL (1.18 log to 8.00 log IU/mL). Testing was performed using the rick HCV test ([employer] with the rick [email or web address] System. Test Performed by: [place] [id number] [place] [address] 22 Because ethnic data is not always readily [...] 15-29 5 Kidney failure <15 (or dialysis) 23 [id number] Result in log IU/mL is Undetected. ADDITIONAL INFORMATION The quantification range of this assay is 15 to 100,000,000 IU/mL (1.18 log to 8.00 log IU/mL). Testing was performed using the rick HCV test ([employer] with the rick 6800 System. Test Performed by: [facility] [address] [place] [address] 25 ADDITIONAL INFORMATION This test was developed and its performance characteristics determined by [facility] in a manner consistent with CLIA requirements. This test has not been cleared or approved by the U.S. Food and Drug Administration. Test Performed by: [facility] [address] [place] [address] 26 <5.0 Negative 5.0 - 25.0 Indeterminate (Repeat testing recommended after 72 hours) >25.0 Positive Perimenopausal women can display HCG levels of up to 20 mIU/mL 27 [facility] Severe Sepsis and Septic Shock Management Bundle Measure requires all lactic acids initially measuring >2.0 mmol/L be repeated. 28 Therapeutic concentration: <50 ug/mL Toxic concentration: >120 ug/mL 29 Because ethnic data is not always readily [...] 15-29 5 Kidney failure <15 (or dialysis) 30 *Ascorbic acid is present which may interfere with detection of blood. 31 Presumptive Positive Presumptive positive results are unconfirmed. 32 The urine specimen was tested at the listed cutoffs: Drug class test level (ng/mL) Amphetamines 500 Barbiturates 200 Benzodiazepine metabolites 200 Cocaine metabolites 150 Cannabinoids 50 Opiates 300 Pcp 25 Specimen was received without chain of custody. Results should be used for medical purposes only. 33 SEE RESULT BELOW Name: ЮЛИЯ THOMAS : [address]: Brown Browning MD Acct: [id number] Unit: [id number] AGE: 37 Location: [place] [address] Re02/26/18 SEX: F Status: ADM IN SPEC: [id number] LEON: 02/26/[address] [facility] [address]: Rudolph Vieira MD REQ: [id number] RECD: 02/26/18 STATUS: CRESCENCIO DAMON DR: Leonora Hoffman HAND COUNTER _ SOURCE: URINE SPDESC: ORDERED: Urine Culture Procedure Result Reported Site Urine Culture Final 02/28/18- 0840 ML Organism 1 STAPHYLOCOCCUS AUREUS Taylor Count 25-50,000 (Moderate) CFU/ML 1. STAPHYLOCOCCUS AUREUS M.I.C. RX --------- ------ Penicillin R Gentamicin <=0.5 S Linezolid 2 S Nitrofurantoin <=16 S Oxacillin <=0.25 S * Quinupristin/Dalfopristin 0.5 S Rifampin <=0.5 S Tetracycline <=1 S Doxycycline - Deduced S * Minocycline - Deduced S Trimethoprim/Sulfamethoxazole <=10 S Vancomycin 1 S Imipenem-Deduced S * Ampicillin/Sulbactam-Deduced S Cefazolin-Deduced S * These antibiotics are not available in the [facility] Formulary Contact the Microbiology Department for any additional antibiotic reporting. * ML - Main Lab . END OF REPORT DEPARTMENT OF PATHOLOGY, [address] [place] [address] Johan Quiroz M.D. Director [facility] # [id number] 34 FibroTest estimates liver fibrosis FibroTest Score Stage Interpretation 0.00-0.21 F0 no fibrosis 0.21-0.27 F0-F1 no fibrosis 0.27-0.31 F1 minimal fibrosis 0.31-0.48 F1-F2 minimal fibrosis 0.48-0.58 F2 moderate fibrosis 0.58-0.72 F3 advanced fibrosis 0.72-0.74 F3-F4 advanced fibrosis 0.74-1.00 F4 severe fibrosis (Cirrhosis) 35 ActiTest estimates necroinflammatory activity ActiTest Score Grade Interpretation 0.00-0.17 A0 no activity 0.17-0.29 A0-A1 no activity 0.29-0.36 A1 minimal activity 0.36-0.52 A1-A2 minimal activity 0.52-0.60 A2 significant activity 0.60-0.62 A2-A3 significant activity 0.62-1.00 A3 severe activity 36 The reliability of results is dependent on compliance with the preanalytical and analytical conditions recommended by [employer]. The tests have to be deferred for: acute hemolysis, acute hepatitis, acute inflammation, extra hepatic cholestasis. The advice of a specialist should be sought for interpretation in chronic hemolysis and Gilbert's syndrome. The test interpretation is not validated in liver transplant patients. Isolated extreme values of one of the components should lead to caution in interpreting the results. In case of discordance between a biopsy result and a test, it is recommended to seek advice of a specialist. The causes of these discordances could be due to a flaw of the test or to a flaw in the biopsy: i.e. a liver biopsy has a 33% variability rate for one fibrosis stage. FibroTest is interpretable for chronic hepatitis B and C, alcoholic and non alcoholic steatosis. ActiTest is interpretable for chronic hepatitis B and C. ADDITIONAL INFORMATION This test was developed and its performance characteristics determined by [facility] in a manner consistent with CLIA requirements. This test has not been cleared or approved by the U.S. Food and Drug Administration. 37 Test Performed by: [address] [address] 38 ADDITIONAL INFORMATION This test was performed using the [employer] RealTime HCV Genotype II assay ([employer] [place], [place]). Test Performed by: [address] [address] 39 Result in log IU/mL is 5.81. ADDITIONAL INFORMATION The quantification range of this assay is 15 to 100,000,000 IU/mL (1.18 log to 8.00 log IU/mL). Testing was performed using the rick HCV test ([employer] with the rick [email or web address] System. Test Performed by: [facility] - [address] [address] 40 SEE RESULT BELOW Name: ЮЛИЯ THOMAS : [address]: Evgeny Haynes MD Acct: [id number] Unit: [id number] AGE: 37 Location: ED Re02/18/18 SEX: F Status: DEP ER SPEC: [id number] LEON: 02/18/[address]: Evgeny Haynes MD REQ: [id number] RECD: 02/18/18 STATUS: CRESCENCIO [facility] DR: Leonora Hoffman HAND COUNTER _ SOURCE: URINE SPDESC: ORDERED: Urine Culture Procedure Result Reported Site Urine Culture Final 02/21/18- 820 ML Organism 1 STAPHYLOCOCCUS AUREUS Taylor Count 1-10,000 (Few) CFU/ML Organism 2 NORMAL VIVI Taylor Count 1-10,000 (Few) CFU/ML 1. STAPHYLOCOCCUS AUREUS [...] CONTINUED ON NEXT PAGE DEPARTMENT OF PATHOLOGY, [address] [place] [address] Johan Quiroz M.D. Director [facility] # [id number] Patient: ЮЛИЯ THOMAS [id number] (Continued) Specimen: [id number] Collected: 02/18/18 Received: 02/18/18 (Continued) Procedure Result Reported Site Urine Culture Final (continued) * These antibiotics are not available in the [facility] Formulary Contact the Microbiology Department for any additional antibiotic reporting. * ML - Main Lab . END OF REPORT DEPARTMENT OF PATHOLOGY, [address] [place] [address] Johan Quiroz M.D. Director [facility] # [id number] 41 Because ethnic data is not always readily [...] 15-29 5 Kidney failure <15 (or dialysis) 42 Presumptive Positive Presumptive positive results are unconfirmed. 43 The urine specimen was tested at the listed cutoffs: Drug class test level (ng/mL) Amphetamines 500 Barbiturates 200 Benzodiazepine metabolites 200 Cocaine metabolites 150 Cannabinoids 50 Opiates 300 Pcp 25 Specimen was received without chain of custody. Results should be used for medical purposes only. 44 *Ascorbic acid is present which may interfere with detection of blood. 45 [facility] Severe Sepsis and Septic Shock Management Bundle Measure requires all lactic acids initially measuring >2.0 mmol/L be repeated. 46 *Ascorbic acid is present which may interfere with detection of blood. 47 Presumptive Positive Presumptive positive results are unconfirmed. 48 Presumptive Positive Presumptive positive results are unconfirmed. 49 Presumptive Positive Presumptive positive results are unconfirmed. 50 The urine specimen was tested at the listed cutoffs: Drug class test level (ng/mL) Amphetamines 500 Barbiturates 200 Benzodiazepine metabolites 200 Cocaine metabolites 150 Cannabinoids 50 Opiates 300 Pcp 25 Specimen was received without chain of custody. Results should be used for medical purposes only. 51 Because ethnic data is not always readily [...] 15-29 5 Kidney failure <15 (or dialysis) 52 <5.0 Negative 5.0 - 25.0 Indeterminate (Repeat testing recommended after 72 hours) >25.0 Positive Perimenopausal women can display HCG levels of up to 20 mIU/mL 53 Therapeutic concentration: <50 ug/mL Toxic concentration: >120 ug/mL 54 SEE RESULT BELOW Name: ЮЛИЯ THOMAS : [address]: Avtar Sommers MD Acct: [id number] Unit: [id number] AGE: 37 Location: ED Re02/08/18 SEX: F Status: DEP ER SPEC: [id number] LEON: 02/08/18-[address] [facility] [address]: Avtar Sommers MD REQ: [id number] RECD: 02/08/18 STATUS: COMP [facility] DR: Leonora Hoffman HAND COUNTER _ SOURCE: URINE [facility]: ORDERED: Urine Culture Procedure Result Reported Site Urine Culture Final 02/11/18- 0840 ML Organism 1 STAPHYLOCOCCUS AUREUS Taylor Count 10-25,000 (Moderate) CFU/ML Organism 2 STREP GROUP B Taylor Count 1-10,000 (Few) CFU/ML Organism 3 NORMAL VIVI Taylor Count 25-50,000 (Moderate) CFU/ML Susceptibility testing of penicillins and other B-lactams approved by FDA for treatment of Streptococcus pyogenes (Group A Strep) and Streptococcus agalactiae (Group B Strep) is not necessary for clinical purposes and need not be done routinely, since as with vancomycin, resistant strains have not been recognized. (CLSI B786-A27;p.66) Positive isolates will be saved for one week. Please call the Microbiology Laboratory if further susceptibility testing is needed. 1. STAPHYLOCOCCUS AUREUS M.I.C. RX --------- ------ Penicillin 0.06 S Gentamicin <=0.5 S Linezolid 2 S Nitrofurantoin <=16 S Oxacillin <=0.25 S * Quinupristin/Dalfopristin <=0.25 S Rifampin <=0.5 S Tetracycline <=1 S CONTINUED ON NEXT PAGE DEPARTMENT OF PATHOLOGY, [address] [place] [address] Johan Quiroz M.D. Director [facility] # [id number] Patient: ЮЛИЯ THOMAS [id number] (Continued) Specimen: [id number] Collected: 02/08/18 Received: 02/08/18 (Continued) Procedure Result Reported Site Urine Culture Final (continued) 02/11/18839 1. STAPHYLOCOCCUS AUREUS (continued) M.I.C. RX --------- ------ Doxycycline - Deduced S * Minocycline - Deduced S Trimethoprim/Sulfamethoxazole <=10 S Vancomycin <=0.5 S Imipenem-Deduced S * Ampicillin/Sulbactam-Deduced S Cefazolin-Deduced S * These antibiotics are not available in the [facility] Formulary Contact the Microbiology Department for any additional antibiotic reporting. * ML - Main Lab . END OF REPORT DEPARTMENT OF PATHOLOGY, [address] [place] [address] Johan Quiroz M.D. Director [facility] # [id number] 56 Patrol Man: [id number] 56 Normally menstruating females - Follicular phase 3 - 9 - Mid-cycle peak 4 - 23 - Luteal phase 1 - 6 Postmenopausal females 16 - 114 57 High reactive sample are considered positive for Hepatitis C 58 Result in log IU/mL is 6.40. ADDITIONAL INFORMATION The quantification range of this assay is 15 to 100,000,000 IU/mL (1.18 log to 8.00 log IU/mL). Testing was performed using the rick HCV test ([employer] with the rick 6800 System. Test Performed by: [facility] [address] [place] [address] 59 Because ethnic data is not always readily [...] Kidney failure <15 (or dialysis) Procedures Date Code Description Status 02/19/2016 34528 EKG, Interpretation Only Completed 01/21/2013 69393 Polysomnography Sleep Staging 4+ Parameters W/Cpap Completed 11/07/2012 16410 EEG Recording Awake & Asleep Completed 10/22/2012 69251 Polysomnography Sleep Staging 4+ Parameters W/Cpap Completed 10/26/2009 18916 EKG, Interpretation Only Completed Encounters Type Date Location Provider Dx Diagnosis Office Visit 04/09/2019 [facility] Kimi Llamas, R65.21 Severe sepsis with 9:10a septic shock T42.6x5A Adverse effect of antiepileptic and sed-hypntc drugs, init J96.02 Acute respiratory failure with hypercapnia J96.01 Acute respiratory failure with hypoxia J69.0 Pneumonitis due to inhalation of food and vomit J45.909 Unspecified asthma, uncomplicated G47.33 Obstructive sleep apnea (adult) (pediatric) F17.200 Nicotine dependence, unspecified, uncomplicated K21.9 Gastro-esophageal reflux disease without esophagitis E28.2 Polycystic ovarian syndrome R73.9 Hyperglycemia, unspecified Office Visit 04/08/2019 [facility] Natividad T50.901A Poisoning by unsp 9:08a ky Delgadillo M.D. drug/meds/biol [facility] subst, accidental, init J96.02 Acute respiratory failure with hypercapnia Office Visit 12/24/2018 9:39a [facility] Masoud Calderón M.D. R40.0 Somnolence T42.4x2A Poisoning by benzodiazepines, intentional self-harm, init Office 12/23/2018 [facility] Matthias Vela T42.4x2A Poisoning by Visit 9:39a Assky godinez, benzodiazepines, Hospitalists Pal,FACP intentional self-harm, init E87.6 Hypokalemia J96.01 Acute respiratory failure with hypoxia Office 12/16/2018 [facility] Carol T42.4x2D Poisoning by Visit 9:36a Assoc,ky Perez, HAND COUNTER benzodiazepines, Hospitalists intentional self-harm, subs F19.20 Other psychoactive substance dependence, uncomplicated J45.909 Unspecified asthma, uncomplicated G47.33 Obstructive sleep apnea (adult) (pediatric) K21.9 Gastro-esophageal reflux disease without esophagitis F41.9 Anxiety disorder, unspecified Office 12/15/2018 [facility] Natividad T42.4x1A Poisoning by Visit 9:27a Assoc,ky Pearson M.D. benzodiazepines, Hospitalists accidental, init Z87.898 Personal history of other specified conditions Office Visit 11/04/2018 3:40p [facility] Internal Leonora Hoffman, H10.89 Other conjunctivitis Medicine - N.P. Ccmob D64.9 Anemia, unspecified Office Visit 09/23/2018 11:00a [facility] Internal Leonora Hoffman, R53.83 Other fatigue Medicine - Ccmob N.P. R51 Headache R41.841 Cognitive communication deficit Office Visit 09/13/2018 4:30p [facility] Internal Yuliana Brennan, R10.11 Right upper Medicine - Ccmob MD quadrant pain R11.2 Nausea with vomiting, unspecified B19.20 Unspecified viral hepatitis C without hepatic coma Office Visit 08/16/2018 DoNotUse [facility] Internal Leonora B18.2 Chronic viral 10:40a [facility] Varn, N.P. hepatitis C R41.82 Altered mental status, unspecified Z23 Encounter for immunization Office Visit 03/21/2018 2:00p [facility] Pedro Vela B18.2 Chronic viral Infectious Pal Alvarez hepatitis C Diseases K59.00 Constipation, unspecified Office Visit 03/04/2018 10:20a [facility] Internal Leonora Hoffman, F41.1 Generalized Medicine - N.P. 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 G93.40 Encephalopathy, 2:14p For Yoselin Alvarez M.D. unspecified Diseases B19.20 Unspecified viral hepatitis C without hepatic coma Office Visit 02/27/2018 [facility] Hilda Chu R41.82 Altered mental 11:54a Assoc,ky Mckeon, HAND COUNTER status, Hospitalists unspecified F41.9 Anxiety disorder, unspecified F32.9 Major depressive disorder, single episode, unspecified B19.20 Unspecified viral hepatitis C without hepatic coma Office Visit 02/27/2018 [facility] Tigre D. G93.40 Encephalopathy, 2:12p For Yoselin Alvarez M.D. unspecified Diseases R74.8 Abnormal levels of other serum enzymes B19.20 Unspecified viral hepatitis C without hepatic coma F11.20 Opioid dependence, uncomplicated Office Visit 02/26/2018 [facility] Joon R41.82 Altered mental 11:53a Assoc,ky Juarez, N.P. status, Hospitalists unspecified F41.9 Anxiety disorder, unspecified F32.9 Major depressive disorder, single episode, unspecified B19.20 Unspecified viral hepatitis C without hepatic coma Office Visit 02/21/2018 [facility] Tigre Vela B18.2 Chronic viral 1:40p For Yoselin Alvarez M.D. hepatitis C Diseases Office Visit 02/11/2018 [facility] Internal Leonora Hoffman, Z71.51 Drug abuse 3:40p Medicine - Ccmob N.P. counseling and surveillance of drug abuser F41.1 Generalized anxiety disorder Office Visit 01/31/2018 9:00a [facility] Internal Leonora Hoffman, M54.5 Low back pain Medicine - Ccmob N.P. F32.9 Major depressive disorder, single episode, unspecified N91.2 Amenorrhea, unspecified B18.2 Chronic viral hepatitis C H02.402 Unspecified ptosis of left eyelid Office Visit 02/14/2016 [facility] F19.20 Other psychoactive 12:27p Assoc,yk Hernandez M.D. substance Hospitalists dependence, uncomplicated F32.9 Major depressive disorder, single episode, unspecified A41.9 Sepsis, unspecified organism Office Visit 02/13/2016 [facility] Jared F32.9 Major depressive 12:27p Assoc,ky Hernandez M.D. disorder, single Hospitalists episode, unspecified F19.20 Other psychoactive substance dependence, uncomplicated G89.29 Other chronic pain A41.9 Sepsis, unspecified organism Office Visit 02/12/2016 [facility] Jared F32.9 Major depressive 12:26p Assoc,ky Hernandez M.D. disorder, single Hospitalists episode, unspecified F19.20 Other psychoactive substance dependence, uncomplicated G89.29 Other chronic pain A41.9 Sepsis, unspecified organism Office Visit 02/11/2016 [facility] Hilda Chu F32.9 Major depressive 12:25p Assoc,pc Linda, DOMINGO disorder, single Hospitalists episode, unspecified F19.20 Other psychoactive substance dependence, uncomplicated G89.29 Other chronic pain A41.9 Sepsis, unspecified organism Office Visit 12/02/2015 [facility] Kaceyari Cash, R41.0 Disorientation, 10:30a Assoc,pc N.P. unspecified Hospitalists J11.1 Flu due to unidentified influenza virus w oth resp manifest G47.33 Obstructive sleep apnea (adult) (pediatric) Office Visit 12/01/2015 [facility] Kacey Shailesh, R41.0 Disorientation, 10:30a Assoc,pc N.P. unspecified Hospitalists J11.1 Flu due to unidentified influenza virus w oth resp manifest G47.33 Obstructive sleep apnea (adult) (pediatric) Office Visit 11/30/2015 [facility] Joon R41.0 Disorientation, 10:29a Assoc,pc Larry, N.P. unspecified Hospitalists J11.1 Flu due to unidentified influenza virus w oth resp manifest G47.33 Obstructive sleep apnea (adult) (pediatric) Office Visit 04/07/2014 4:52p [facility] Kacey Cash, 519.11 Acute Bronchospasm Assoc,pc N.P. Hospitalists 276.2 Acidosis 780.97 Altered Mental Status 305.1 Tobacco Use Disorder Office Visit 04/06/2014 [facility] James 519.11 Acute 4:51p Assoc,ky Pulido M.D. Bronchospasm Hospitalists 276.2 Acidosis 780.97 Altered Mental Status 305.1 Tobacco Use Disorder Office Visit 04/05/2014 [facility] Adithya Grover, 519.11 Acute Bronchospasm 4:50p Assoc,pc D.O. Hospitalists 276.2 Acidosis 780.97 Altered Mental Status 305.1 Tobacco Use Disorder Office Visit 01/07/2014 2:58p [facility] Dayton Arteaga, 466.0 Bronchitis Acute Assoc,pc M.Dane Hospitalists 305.60 Cocaine Abuse Unspec 278.01 Obesity Morbid 305.1 Tobacco Use Disorder Office Visit 01/06/2014 2:58p [facility] Dayton Arteaga, 466.0 Bronchitis Acute Assoc,pc M.DOly Hospitalists 305.60 Cocaine Abuse Unspec 278.01 Obesity Morbid 305.1 Tobacco Use Disorder Office Visit 01/05/2014 2:58p [facility] Adithya Dashnon, 785.0 Tachycardia Assoc,pc D.O. Unspec Hospitalists 466.0 Bronchitis Acute 305.60 Cocaine Abuse Unspec 305.1 Tobacco Use Disorder Office Visit 01/04/2014 2:57p [facility] Adithya Dashnon, 276.2 Acidosis Assoc,pc Hospitalists D.O. 780.97 Altered Mental Status 305.60 Cocaine Abuse Unspec 785.0 Tachycardia Unspec Office Visit 03/27/2013 2:45p Sleep Disorder Yahir SKOly 327.23 Obstructive Sleep Center Pal Rico Apnea Adult [facility] Pediatric Office Visit 11/30/2012 8:20a [facility] Chandler, 300.00 Anxiety State Assky godinez M.D. 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 With Acute Hospitalists Exacerbation 300.00 Anxiety State Unspec 311 Depressive Disorder Not Elsewhere Spec 305.1 Tobacco Use Disorder [facility], 493.12 Intrinsic Asthma 8:19a ky Delgadillo M.D. With Acute Hospitalists Exacerbation 311 Depressive Disorder Not Elsewhere Spec 300.00 Anxiety State Unspec 305.1 Tobacco Use Disorder Office Visit 11/27/2012 [facility] Joon 493.12 Intrinsic Asthma 8:19a Assoc,pc Larry, N.P. With Acute Hospitalists Exacerbation 311 Depressive Disorder Not Elsewhere Spec 300.00 Anxiety State Unspec 305.1 Tobacco Use Disorder Office Visit 10/30/2012 2:24p Mallory Lopez 327.23 Obstructive Sleep Disorder Pal [facility] Pediatric Office Visit 09/10/2012 11:08a Mallory Lopez 786.09 Dyspnea & Disorder Pal [facility] Abnormalities Other 780.79 Malaise And Fatigue Other Office Visit 06/29/2012 1:45p [facility] Assoc,pc Deangelo Gibson, 995.91 Sepsis Hospitalists Pal 780.97 Altered Mental Status 507.0 Pneumonitis Due To Inhalation Of Food Or Vomitus Office Visit 06/28/2012 11:10a [facility] Assoc, Deangelo Gibson, 995.91 Sepsis Hospitalists Pal 780.97 Altered Mental Status 507.0 Pneumonitis Due To Inhalation Of Food Or Vomitus [facility] Gibson, 995.91 Sepsis Hospitalists Pal 780.97 Altered Mental Status 507.0 Pneumonitis Due To Inhalation Of Food Or Vomitus Office Visit 06/26/2012 11:09a [facility] Adithya Grover, 518.84 Respiratory Assoc,pc D.O. Failure Acute & Hospitalists Chronic 427.0 PSVT Paroxysmal Supraventricular Tachycardia 250.90 Diabetes W/ Unspec Compl Type II Or Unspec Controlled 338.19 Other Acute Pain Office Visit 06/25/2012 1:44p [facility] Joon Juarez, 995.91 Sepsis Assoc, Hospitalists N.P. 780.97 Altered Mental Status 507.0 Pneumonitis Due To Inhalation Of Food Or Vomitus Office Visit 10/27/2009 12:30a [facility] Adithya Grover, 977.9 Poisoning By Assoc,pc D.O. Medicinal Hospitalists Substance Unspec 507.0 Pneumonitis Due To Inhalation Of Food Or Vomitus 311 Depressive Disorder Not Elsewhere Spec Office Visit 10/26/2009 12:15a [facility] Adithay Grover, 977.9 Poisoning By Assoc,pc D.O. Medicinal Hospitalists Substance Unspec 348.89 Other Conditions Of Brain 507.0 Pneumonitis Due To Inhalation Of Food Or Vomitus 288.60 Leukocytosis, Unspecified 790.29 Other Abnormal Glucose 278.00 Obesity Unspec Office Visit 10/14/2009 10:15a [facility] Iglesia Thompson, 724.2 Lumbago Garrick Aguillon Plan of Treatment 04/16/2019 - Tigre Alvarez M.D.Z20.9 Contact w and exposure to unsp communicable diseaseComments:recheck VL 3 months to check for reinfection
[2019-05-06 18:38] LABS: ABS Eosinophils 0.1 10^3/ul (0-0.6); ABS Lymphocytes 2.3 10^3/ul (1.0-4.8); ABS Monocytes 0.4 10^3/ul (0-0.8); ABS Neutrophils 2.4 10^3/ul (1.5-7.7); Eosinophil % 1.5 %; Hematocrit 37 % (35-47); Hemoglobin 12.4 g/dL (12.0-16.0); Lymphocyte % 44.6 %; Mean Corpuscular HGB Conc 34 g/dL (31-36); Mean Corpuscular Hemoglobin 30 pg (27-31); Mean Corpuscular Volume 88 fL (80-97); Mean Platelet Volume 8.3 fL (7.4-10.4); Nucleated Red Blood Cells % 0.1; Platelet Count 283 10^3/uL (150-450); Red Blood Count 4.16 10^6 /uL (3.70-4.87); Red Cell Distribution Width 14 % (10-15); White Blood Count 5.2 10^3/uL (3.5-10.8)
[2019-05-06 18:56] LABS: ALT 13 U/L (7-52); AST 15 U/L (13-39); Albumin 4.4 g/dL (3.2-5.2); Albumin/Globulin Ratio 1.8 (1-3); Alkaline Phosphatase 72 U/L (34-104); Anion Gap 7 mmol/L (2-11); BUN/Creatinine Ratio 17.9 (8-20); Blood Urea Nitrogen 14 mg/dL (6-24); CO2 Carbon Dioxide 32 mmol/L (22-32); Calcium 9.4 mg/dL (8.6-10.3); Chloride 101 mmol/L (101-111); EGFR African American 100.6 (>60); EGFR Non-African American 83.1 (>60); Globulin 2.4 g/dL (2-4); Glucose 142 mg/dL (70-100); Sodium 140 mmol/L (135-145); Total Protein 6.8 g/dL (6.4-8.9)
[2019-05-06 19:03] LABS: HCG Pregnancy < 0.60 mIU/mL
[2019-05-06 19:13] LABS: Acetaminophen < 15 mcg/mL; Alcohol < 10 mg/dL (<10); Salicylate < 2.50 mg/dL (<30)
[2019-05-06 19:23] LABS: TSH (Thyroid Stimulating Horm) 5.56 mcIU/mL (0.34-5.60)
[2019-05-06 22:14] LABS: Urine Benzodiazepine Screen None Detected (None Detect); Urine Opiates Screen None Detected (None Detect)
[2019-05-06 22:24] LABS: Urine Appearance Cloudy; Urine Bacteria Absent (Absent); Urine Bilirubin Negative (Negative); Urine Blood Negative (Negative); Urine Color Yellow; Urine Glucose Negative (Negative); Urine Ketones Negative (Negative); Urine Nitrite Negative (Negative); Urine Protein Negative (Negative); Urine Red Blood Cell 1+(3-5/hpf) (Absent); Urine Specific Gravity 1.025 (1.010-1.030); Urine Squamous Epithelial Cell Present (Absent); Urine Urobilinogen Negative (Negative); Urine White Blood Cell Trace(0-5/hpf) (Absent)
[2019-05-06] MEDS ORDERED: NS 0.9% 1000 ML** 1,000 ML IV SCH (23:00)
--- NOTE | 2019-05-07 01:46 | HP ---
CC: Dr. Chary Glass * ADMISSION HISTORY AND PHYSICAL: DATE OF ADMISSION: 05/06/19 CHIEF COMPLAINT: Altered mental status secondary to drug overdose. HISTORY OF PRESENT ILLNESS: This is a 38-year-old female with past medical history of anxiety, depression, chronic pain, asthma, gastroesophageal reflux disease, obstructive sleep apnea, polycystic ovarian disease, obesity, posttraumatic stress disorder, hepatitis C presented to the emergency room, noted to be unresponsive. Per the ER physician's note, the patient took 7 of 2 mg Ativan, 10 of 300 mg gabapentin and 25 mg indomethacin. She denied any suicidal ideation and was not sure why she took the medication. The rest of the history was basically obtained from the mother per ER records. I tried to call the mother, myself, Lolita at , but I was unable to reach her and [facility] Control was contacted and the patient was recommended to be observed in the hospital for 6 more hours. The patient seems more arousable and denied any overdose at all to me, but her history was a little unclear as the patient kept falling back asleep even after strong sternal rubs and was snoring heavily in the ER. PAST MEDICAL HISTORY: Polysubstance abuse with overdoses in the past with most recent one being about a month ago for which she was intubated for airway protection, history of asthma, chronic pain, obstructive sleep apnea, gastroesophageal reflux disease, anxiety, depression, PTSD, PCOS, obesity with BMI of 34.3. There is documentation of hepatitis C history. PAST SURGICAL HISTORY: She has had left eye surgery, rhinoplasty, appendectomy , breast reduction, bilateral eye surgery at age 9, left knee arthroscopic surgery and left knee debridement, this is per the ER records. HOME MEDICATIONS: Home medication list is still to be updated, but per most recent discharge summary from 3 weeks ago. The patient was to be on: 1. Suboxone sublingually. 2. Buspirone. 3. Duloxetine. 4. Indomethacin. 5. Isentress. ALLERGIES: The patient is documented to have allergies to PENICILLIN with rash , CHANTIX with GI upset and BUPROPION causes her anxiety. FAMILY HISTORY: Per records, her maternal grandfather and paternal uncle had history of alcohol abuse and mother had history of depression. SOCIAL HISTORY: Per records, she is a half a pack per day smoker for more than 10 years. No alcohol abuse, but has history of polysubstance abuse including benzo, cocaine and opiates. Lolita Dupree is her mother, who is a surrogate decision maker at phone number [phone], but currently not answering her phone. REVIEW OF SYSTEMS: I am unable to obtain review of system as patient is minimally responsive. PHYSICAL EXAMINATION GENERAL: The patients is arousable to deep palpation, but not very conversant. VITAL SIGNS: BP 121/97, heart rate 80, respiration rate16, saturating 93% on room air, temperature documented at 97.9. HEAD AND NECK: Atraumatic, normocephalic. Bilateral pupils were reactive. Oral mucosa was moist without any evidence of any tongue biting. Neck supple. No jugular venous distention. LUNGS: Clear to auscultation bilaterally. No wheezing, rhonchi or rales. HEART: S1, S2. Regular rate and rhythm. ABDOMEN: Obese, soft, nontender. EXTREMITIES: No cyanosis, clubbing or edema. LABS: CBC was unremarkable. Venous blood gas shows pH of 7.37, pCO2 of 58, PaO2 of 50 with oxygen saturation of 85%. Comprehensive metabolic panel was unremarkable except for minimally elevated glucose at 142. Urinalysis was trace positive for leuk esterase, but negative for any nitrites. Urine drug screen surprisingly was negative for anything including no opiates, no barbiturates, no PCP, on amphetamines, no benzodiazepine, no cocaine, no cannabinoids. Serum alcohol was undetectable and so was the Tylenol and salicylate level. IMPRESSION AND PLAN: This is a 38-year-old female allegedly took multiple drugs overdose with altered mental status at this point. Poison Control was contacted, who suggested the patient to be observed for another 6 hours in the medical floor. We will also place the patient on 1:1 in the meantime until seen by Psych to evaluate if patient should be seen in inpatient psych as this is her third episode of overdosing. Regarding rest of her home medications, we will hold them for now until patient is more awake and will keep the patient n.p.o. until she is more awake and arousable. DVT prophylaxis with sequential compression device. [id number]/[facility] #: [id number] [facility] NETWORKAmair
[2019-05-07] MEDS ORDERED: Ondansetron INJ* 2 MG/ML VIAL IV PRN (04:25)
[2019-05-07 07:53] LABS: Calcium 8.5 mg/dL (8.6-10.3); Potassium 4.6 mmol/L (3.5-5.0)
[2019-05-07 07:59] LABS: BUN/Creatinine Ratio 22.2 (8-20); EGFR African American 128.7 (>60); EGFR Non-African American 106.3 (>60)
[2019-05-07 12:27] LABS: ABS Eosinophils 0.2 10^3/ul (0-0.6); ABS Lymphocytes 1.9 10^3/ul (1.0-4.8); ABS Monocytes 0.5 10^3/ul (0-0.8); ABS Neutrophils 5.5 10^3/ul (1.5-7.7); Eosinophil % 2.9 %; Hematocrit 37 % (35-47); Hemoglobin 12.2 g/dL (12.0-16.0); Mean Corpuscular HGB Conc 33 g/dL (31-36); Mean Corpuscular Hemoglobin 29 pg (27-31); Mean Corpuscular Volume 88 fL (80-97); Mean Platelet Volume 8.5 fL (7.4-10.4); Platelet Count 251 10^3/uL (150-450); Red Blood Count 4.16 10^6 /uL (3.70-4.87); Red Cell Distribution Width 14 % (10-15); White Blood Count 8.1 10^3/uL (3.5-10.8)
[2019-05-07] MEDS: Nicotine* 4MG (FRUIT FLAVOR) GUM PO PRN ×4 (12:50→22:23)
--- NOTE | 2019-05-07 14:01 | CONSULT ---
Identification - Patient Identification Reason for Psychiatric Consultation: Other -: Patient is a 38 year old, F admitted on 05/06/19. - MHU Identification Employment Status: Unemployed Hx Psychiatric Hospitalization: Yes History - Objective HPI: Arminda is seen in consultation on the 4th floor where she is recovering from what was apparently a recreational overdose on lorazepam, gabapentin and indomethacin. Although she admitted to the overdose last night in the ED, she is currently retracting that and insisting that she took her normal doses of all her meds last night but "I was just a little bit tired...that's why they couldn't wake me." Arminda steadfastly denies that she was suicidal but does endorse that her substance misuse has gotten out of hand. She is aware that her mother, Lolita Mendieta, is not allowing her to return to live with her without first attending inpatient rehab, and the patient is agreeable with this. I left a message at [facility] for the patient's PMD, Michelle Aguirre MD and am awaiting a call back. For further history, please refer to the full dictated consultation dated 04/12/19 by this clinician. Exam Appearance: Obese Hygiene: Normal Grooming: Well Kept Psychomotor Activities: Normal Exhibits Abnormal Movement: No Attitude and Relatedness: Cooperative Eye Contact: Good - Speech Quality: Unpressured Latencies: Normal Quantity: Appropriate Patient's Decription of Mood: "Okay" Observed Affect: Fair Affect Consistent with: Euthymia Patient's Thought Process: Coherent Thought Content: No Passive Wish, No Suicidal Planning, No Homicidal Ideation, No Paranoid Ideation Experiencing Hallucinations: No, Sensorium is Clear Type of Hallucinations: Visual: No, Auditory: No, Command: No Level of Consciousness: Alert Orientation: Yes Intact, Yes Orientated to Time, Yes Orientated to Place, Yes Orientated to Person Impulse Control: Tenuous Insight and Judgement: Fair Impression - Impression Clinical Impression: 38 y.o. single, white female with a history of significant early life trauma, mood problems and substance misuse who is again hospitalized following an intentional, recreational overdose on prescribed medications in an attempt to get high. Inpatient DSM-V Dx: F13.20 Merits Inpatient Hospitalization: No BSU: Problem List - Patient Problems (1) Sedative dependence Current Visit: Yes Status: Acute Code(s): F13.20 - SEDATIVE, HYPNOTIC OR ANXIOLYTIC DEPENDENCE, UNCOMPLICATED SNOMED Code(s): 868316833 Plan - Treatment Plan Treatment Plan: The patient is agreeable with inpatient drug rehabilitation and psychiatry supports this. There is no rationale for 1:1 observation and we will discontinue this. We will consult the service for rehab placement. I have reached out to Dr. Aguirre to make her informed of this situation. Outpatient medications have been resumed by the primary team. Psychiatry is signing off. Continued Medication Management: Continue Outpt Medication Medications: Current Medications Buprenorphine/Naloxone (Suboxone 8 Mg-2 Mg Sl Film) 1 each SL FILM TID [facility] Buspirone HCl (Buspar Tab*) 10 mg PO BID [facility] Duloxetine HCl (Cymbalta Cap*) 90 mg PO QPM [facility] Sodium Chloride (Ns 0.9% 1000 Ml) 1,000 mls @ 100 mls/hr IV PER RATE [facility] Last Admin: 05/07/19 00:45 Dose: 100 mls/hr Lorazepam (Ativan Tab(*)) 2 mg PO BID PRN PRN Reason: ANXIETY Nicotine (Nicotine Patch 21 Mg/24 Hr*) 1 patch TRANSDERM DAILY@0800 [facility] Nicotine Polacrilex (Nicotine Gum*) 4 mg PO Q2H PRN PRN Reason: CRAVING Last Admin: 05/07/19 13:40 Dose: 4 mg Ondansetron HCl (Zofran Inj*) 4 mg IV Q6H PRN PRN Reason: NAUSEA/VOMITING Pharmacy Profile Note (Nicotine Patch Removal Note*) 1 note FOLLOW UP 2100 [facility] Raltegravir (Isentress*) 400 mg PO BID [facility]; Protocol - Discharge Plan Discharge Plan: Drug/Alcohol Rehab
[2019-05-07] MEDS: LORazepam TAB(*) 1 MG PO PRN ×2 (14:39→19:50)
[2019-05-07] MEDS: Buprenorp/Nalox 8-2 MG FILM SL FILM SCH ×2 (14:39→22:22)
[2019-05-07 15:42] LABS: Urine Benzodiazepine Screen None Detected (None Detect); Urine Opiates Screen None Detected (None Detect)
[2019-05-07] MEDS: DULoxetine DR CAP* 30 MG CAP.DR PO SCH (17:05)
[2019-05-07] MEDS: Nicotine PATCH 21 MG/24 HR* PATCH TRANSDERM SCH (17:06)
[2019-05-07] MEDS: Gabapentin CAP(*) 300 MG PO SCH ×2 (17:06→22:22)
--- NOTE | 2019-05-07 18:46 | PN ---
Subjective Date of Service: 05/07/19 Interval History: Patient evaluated in bed with one to one at bedside. Patient reports she was not attempting to overdose, but took it "just because". Reports she use to take this level of medications all the time when in detention. She reports "it isn't a big deal", but her mother got worried. Patient denies SI, depression, anxiety. Patient denies cp, palpitations, nausea, vomiting, diarrhea. Objective Active Medications: Buprenorphine/Naloxone (Suboxone 8 Mg-2 Mg Sl Film) 1 each SL FILM TID [facility] Last Admin: 05/07/19 14:39 Dose: 1 each Buspirone HCl (Buspar Tab*) 10 mg PO BID [facility] Duloxetine HCl (Cymbalta Cap*) 90 mg PO QPM [facility] Last Admin: 05/07/19 17:05 Dose: 90 mg Gabapentin (Neurontin Cap(*)) 300 mg PO TID [facility] Last Admin: 05/07/19 17:06 Dose: 300 mg Lorazepam (Ativan Tab(*)) 2 mg PO BID PRN PRN Reason: ANXIETY Last Admin: 05/07/19 14:39 Dose: 2 mg Nicotine (Nicotine Patch 21 Mg/24 Hr*) 1 patch TRANSDERM DAILY@0800 [facility] Last Admin: 05/07/19 17:06 Dose: 1 patch Nicotine Polacrilex (Nicotine Gum*) 4 mg PO Q2H PRN PRN Reason: CRAVING Last Admin: 05/07/19 13:40 Dose: 4 mg Ondansetron HCl (Zofran Inj*) 4 mg IV Q6H PRN PRN Reason: NAUSEA/VOMITING Pharmacy Profile Note (Nicotine Patch Removal Note*) 1 note FOLLOW UP 2100 [facility] Raltegravir (Isentress*) 400 mg PO BID [facility]; Protocol Vital Signs - 8 hr 05/07/19 05/07/19 05/07/19 10:49 14:39 15:15 Temperature 97.7 F Pulse Rate 90 84 Respiratory 16 19 16 Rate Blood Pressure 107/68 129/90 (mmHg) O2 Sat by Pulse 99 98 Oximetry 05/07/19 05/07/19 17:06 17:25 Temperature Pulse Rate Respiratory 19 19 Rate Blood Pressure (mmHg) O2 Sat by Pulse Oximetry Oxygen Devices in Use Now: None Appearance: Comfortable, NAD Eyes: No Scleral Icterus, PERRLA Ears/Nose/Mouth/Throat: Clear Oropharnyx, Mucous Membranes Moist Neck: NL Appearance and Movements; NL JVP Respiratory: Symmetrical Chest Expansion and Respiratory Effort, Clear to Auscultation Cardiovascular: NL Sounds; No Murmurs; No JVD, RRR, No Edema Abdominal: NL Sounds; No Tenderness; No Distention Lymphatic: No Cervical Adenopathy Extremities: No Edema Skin: No Rash or Ulcers Neurological: Alert and Oriented x 3, NL Sensation, NL Muscle Strength and Tone Nutrition: Taking PO's Result Diagrams: 05/07/19 11:58 05/07/19 06:57 Additional Lab and Data: Laboratory Results - last 24 hr 05/06/19 05/06/19 05/06/19 18:25 21:48 21:48 WBC RBC Hgb Hct MCV MCH MCHC RDW Plt Count MPV Neut % (Auto) Lymph % (Auto) [place] % (Auto) Eos % (Auto) Baso % (Auto) Absolute Neuts (auto) Absolute Lymphs (auto) Absolute Monos (auto) Absolute Eos (auto) Absolute Basos (auto) Absolute Nucleated RBC Nucleated RBC % Sodium 140 Potassium 4.0 Chloride 101 Carbon Dioxide 32 Anion Gap 7 BUN 14 Creatinine 0.78 Est GFR ( Amer) 100.6 Est GFR (Non-Af Amer) 83.1 BUN/Creatinine Ratio 17.9 Glucose 142 H Calcium 9.4 Total Bilirubin 0.70 AST 15 ALT 13 Alkaline Phosphatase 72 Total Protein 6.8 Albumin 4.4 Globulin 2.4 Albumin/Globulin Ratio 1.8 TSH 5.56 Beta HCG, Quant < 0.60 Urine Color Yellow Urine Appearance Cloudy Urine pH 5.0 Ur Specific [place] 1.025 Urine Protein Negative Urine Ketones Negative Urine Blood Negative Urine Nitrate Negative Urine Bilirubin Negative Urine Urobilinogen Negative Ur Leukocyte Esterase Trace A Urine WBC (Auto) Trace(0-5/hpf) Urine RBC (Auto) 1+(3-5/hpf) A Ur Squamous Epith Cells Present A Urine Bacteria Absent Urine Glucose Negative Salicylates < 2.50 Urine Opiates Screen None detected Acetaminophen < 15 Ur Barbiturates Screen None detected Ur Phencyclidine Scrn None detected Ur Amphetamines Screen None detected U Benzodiazepines Scrn None detected Urine Cocaine Screen None detected U Cannabinoids Screen None detected Serum Alcohol < 10 05/07/19 05/07/19 05/07/19 06:57 11:50 11:58 WBC 8.1 RBC 4.16 Hgb 12.2 Hct 37 MCV 88 MCH 29 MCHC 33 RDW 14 Plt Count 251 MPV 8.5 Neut % (Auto) 67.5 Lymph % (Auto) 23.0 [place] % (Auto) 6.1 Eos % (Auto) 2.9 Baso % (Auto) 0.5 Absolute Neuts (auto) 5.5 Absolute Lymphs (auto) 1.9 Absolute Monos (auto) 0.5 Absolute Eos (auto) 0.2 Absolute Basos (auto) 0.0 Absolute Nucleated RBC 0.0 Nucleated RBC % 0.0 Sodium 138 Potassium 4.6 Chloride 109 Carbon Dioxide 23 Anion Gap 6 BUN 14 Creatinine 0.63 Est GFR ( Amer) 128.7 Est GFR (Non-Af Amer) 106.3 BUN/Creatinine Ratio 22.2 H Glucose 99 Calcium 8.5 L Total Bilirubin AST ALT Alkaline Phosphatase Total Protein Albumin Globulin Albumin/Globulin Ratio TSH Beta HCG, Quant Urine Color Urine Appearance Urine pH Ur Specific [place] Urine Protein Urine Ketones Urine Blood Urine Nitrate Urine Bilirubin Urine Urobilinogen Ur Leukocyte Esterase Urine WBC (Auto) Urine RBC (Auto) Ur Squamous Epith Cells Urine Bacteria Urine Glucose Salicylates Urine Opiates Screen None detected Acetaminophen Ur Barbiturates Screen None detected Ur Phencyclidine Scrn None detected Ur Amphetamines Screen None detected U Benzodiazepines Scrn None detected Urine Cocaine Screen None detected U Cannabinoids Screen None detected Serum Alcohol Microbiology and Other Data: Microbiology 05/06/19 21:48 Urine Culture - Preliminary Urine Staphylococcus Aureus Assess/Plan/Problems-Billing Assessment: 38 yr old female with pmh polysubstance abuse with overdose, asthma, chronic pain, diana, gerd, anxiety, depression, ptsd, pcos; who presented to ED after overdose. - Patient Problems (1) Overdose Comment: - Overdose on Ativan, Gabapentin, Indomethocin - Poison Control contact by admitting provider and recommended 6 more hr obv on medical floor - Today patient is asymptomatic and VSS (2) Polysubstance abuse Comment: - Continue suboxone - Patient seen by Dr Hyatt and is agreeable to inpatient rehab - Social work consulting for inpatient rehab placement - Dr Hyatt also plans to reach out to patient's outpatient provider at [facility] (3) Anxiety and depression Comment: - Resume buspirone, duloxetine (4) Asthma Comment: - No evidence for acute exacerbation (5) Chronic pain Comment: - Cont gabapentin - Hold indomethacin (6) GERD (gastroesophageal reflux disease) Comment: - Not currently on medications (7) DIANA (obstructive sleep apnea) Comment: - Non complaint with CPAP (8) DVT prophylaxis Comment: - Ambulation (9) Full code status Comment: Status and Disposition: Awaiting inpatient rehab Attending: Taniya Pitt
[2019-05-07] MEDS: busPIRone TAB* 10 MG PO SCH (22:22)
[2019-05-07] MEDS: Raltegravir* 400 MG TAB PO SCH (22:23)
[2019-05-07] MEDS: Nicotine Patch Removal NOTE FOLLOW UP SCH (22:28)
[2019-05-08] MEDS: Nicotine* 4MG (FRUIT FLAVOR) GUM PO PRN ×5 (05:00→21:27)
[2019-05-08] MEDS: Nicotine PATCH 21 MG/24 HR* PATCH TRANSDERM SCH (09:25)
[2019-05-08] MEDS: busPIRone TAB* 10 MG PO SCH ×2 (09:26→21:26)
[2019-05-08] MEDS: LORazepam TAB(*) 1 MG PO PRN ×2 (09:26→15:05)
[2019-05-08] MEDS: Raltegravir* 400 MG TAB PO SCH ×2 (09:26→21:24)
[2019-05-08] MEDS: Gabapentin CAP(*) 300 MG PO SCH ×3 (09:26→21:25)
[2019-05-08] MEDS: Buprenorp/Nalox 8-2 MG FILM SL FILM SCH ×3 (09:26→21:24)
[2019-05-08] MEDS ORDERED: LORazepam TAB(*) 0.5 MG PO ONE (12:24)
--- NOTE | 2019-05-08 14:03 | PN ---
Subjective Date of Service: 05/08/19 Interval History: Resting in bed on assessment. SW at bedside also discussing Inpatient Rehab. Plan to send information to more locations as patient is motivated to attend inpatient rehab. Patient expressed concerns about MRSA in urine as nurses had updated her of results. Discussed MRSA and colony count. Patient reports mild burning with urination, therefore, will treat. Denies CVA tenderness, fever, chills, increase frequency, abd pain. Patient is expressing anxiety due to not getting into rehabs, therefore, requesting additional dose of ativan. Denies cp, palpitations, sob, nausea, vomiting, diarrhea. Objective Active Medications: Buprenorphine/Naloxone (Suboxone 8 Mg-2 Mg Sl Film) 1 each SL FILM TID [facility] Last Admin: 05/08/19 12:51 Dose: 1 each Buspirone HCl (Buspar Tab*) 10 mg PO BID [facility] Last Admin: 05/08/19 09:26 Dose: 10 mg Duloxetine HCl (Cymbalta Cap*) 90 mg PO QPM [facility] Last Admin: 05/07/19 17:05 Dose: 90 mg Gabapentin (Neurontin Cap(*)) 300 mg PO TID [facility] Last Admin: 05/08/19 12:51 Dose: 300 mg Lorazepam (Ativan Tab(*)) 2 mg PO BID PRN PRN Reason: ANXIETY Last Admin: 05/08/19 09:26 Dose: 2 mg Nicotine (Nicotine Patch 21 Mg/24 Hr*) 1 patch TRANSDERM DAILY@0800 [facility] Last Admin: 05/08/19 09:25 Dose: 1 patch Nicotine Polacrilex (Nicotine Gum*) 4 mg PO Q2H PRN PRN Reason: CRAVING Last Admin: 05/08/19 09:23 Dose: 4 mg Ondansetron HCl (Zofran Inj*) 4 mg IV Q6H PRN PRN Reason: NAUSEA/VOMITING Pharmacy Profile Note (Nicotine Patch Removal Note*) 1 note FOLLOW UP 2100 [facility] Last Admin: 05/07/19 22:28 Dose: Not Given Raltegravir (Isentress*) 400 mg PO BID [facility]; Protocol Last Admin: 05/08/19 09:26 Dose: 400 mg Vital Signs - 8 hr 05/08/19 05/08/19 05/08/19 07:15 08:00 09:26 Temperature 98.0 F Pulse Rate 75 Respiratory 18 18 16 Rate Blood Pressure 119/77 (mmHg) O2 Sat by Pulse 99 Oximetry 05/08/19 05/08/19 12:50 12:51 Temperature Pulse Rate Respiratory 18 18 Rate Blood Pressure (mmHg) O2 Sat by Pulse Oximetry Oxygen Devices in Use Now: None Appearance: Comfortable, NAD Eyes: No Scleral Icterus Ears/Nose/Mouth/Throat: Clear Oropharnyx, Mucous Membranes Moist Neck: NL Appearance and Movements; NL JVP Respiratory: Symmetrical Chest Expansion and Respiratory Effort, Clear to Auscultation Cardiovascular: NL Sounds; No Murmurs; No JVD, RRR, No Edema Abdominal: NL Sounds; No Tenderness; No Distention, - - No CVA tenderness Lymphatic: No Cervical Adenopathy Extremities: No Clubbing, Cyanosis Skin: No Rash or Ulcers Neurological: Alert and Oriented x 3, NL Muscle Strength and Tone Nutrition: Taking PO's Result Diagrams: 05/07/19 11:58 05/07/19 06:57 Additional Lab and Data: Laboratory Results - last 24 hr 05/07/19 11:50 Urine Opiates Screen None detected Ur Barbiturates Screen None detected Ur Phencyclidine Scrn None detected Ur Amphetamines Screen None detected U Benzodiazepines Scrn None detected Urine Cocaine Screen None detected U Cannabinoids Screen None detected Microbiology and Other Data: Microbiology 05/06/19 21:48 Urine Culture - Final Urine MRSA Normal Ivana Assess/Plan/Problems-Billing Assessment: 38 yr old female with pmh polysubstance abuse with overdose, asthma, chronic pain, diana, gerd, anxiety, depression, ptsd, pcos; who presented to ED after overdose. - Patient Problems (1) Urinary tract infection Comment: - Urine culture grew MRSA with colony count 1 -10,000 - Due to patient having symptoms of burning with urnation, will treat with Bactrim (2) Overdose Comment: - Today patient is asymptomatic and VSS - Overdose on Ativan, Gabapentin, Indomethocin - Poison Control contact by admitting provider and recommended 6 more hr obv on medical floor which patient completed without complication (3) Polysubstance abuse Comment: - Awaiting inpatient rehab. - Continue suboxone - Dr Hyatt consulting - Social work consulting for inpatient rehab placement (4) Anxiety and depression Comment: - Resume buspirone, duloxetine (5) Asthma Comment: - No evidence for acute exacerbation (6) Chronic pain Comment: - Cont gabapentin - Hold indomethacin (7) GERD (gastroesophageal reflux disease) Comment: - Not currently on medications (8) DIANA (obstructive sleep apnea) Comment: - Non complaint with CPAP (9) DVT prophylaxis Comment: - Ambulation (10) Full code status Comment: Status and Disposition: Awaiting inpatient rehab Attending: Lilo Mobley
[2019-05-08] MEDS: DULoxetine DR CAP* 30 MG CAP.DR PO SCH (19:12)
[2019-05-08] MEDS: Sulfamethox/Trimethoprim DS 800/160* TAB PO SCH (21:25)
[2019-05-08] MEDS: Nicotine Patch Removal NOTE FOLLOW UP SCH (21:35)
[2019-05-09] MEDS: Nicotine* 4MG (FRUIT FLAVOR) GUM PO PRN ×2 (04:34→08:16)
[2019-05-09 07:50] LABS: Hepatitis B Surface Antigen Negative (Negative)
[2019-05-09] MEDS: Raltegravir* 400 MG TAB PO SCH (08:13)
[2019-05-09] MEDS: Gabapentin CAP(*) 300 MG PO SCH (08:14)
[2019-05-09] MEDS: Nicotine PATCH 21 MG/24 HR* PATCH TRANSDERM SCH (08:14)
[2019-05-09] MEDS: Buprenorp/Nalox 8-2 MG FILM SL FILM SCH (08:14)
[2019-05-09] MEDS: Sulfamethox/Trimethoprim DS 800/160* TAB PO SCH (08:14)
[2019-05-09] MEDS: busPIRone TAB* 10 MG PO SCH (08:14)
[2019-05-09 08:47] LABS: Hepatitis C Antibody Reactive (Negative)
[2019-05-09 11:07] VITALS: BP 138/96
--- NOTE | 2019-05-09 12:54 | CONSULT ---
Identification - Patient Identification Reason for Psychiatric Consultation: Incapacitating Symptoms -: Patient is a 38 year old, F admitted on 05/07/19. - MHU Identification Employment Status: Unemployed Hx Psychiatric Hospitalization: Yes History - Objective HPI: Arminda is seen for follow up on the 4th floor. It is my understanding that multiple inpatient substance abuse programs could not accept her for transfer for various reasons and that the primary team, including SAKINA, has pivoted to a plan in which she will be referred to [facility] on an outpatient basis and that that agency will continue to work on finding her an appropriate inpatient program to accept her. In the meantime she is to return to her mother, Lolita Mendieta's, home and follow up with [facility]. I spoke this AM with [facility] primary care provider Dr. Michelle Aguirre and gave her recommendations to continue only dispensing short terms of pills. I understand that the patient's mother threw away her medication and this clinician placed an outpatient Rx for 3 days of suboxone to the [facility]. The patient continues to deny SI. Exam Appearance: Obese Hygiene: Normal Grooming: Well Kept Psychomotor Activities: Normal Exhibits Abnormal Movement: No Attitude and Relatedness: Cooperative Eye Contact: Good - Speech Quality: Unpressured Latencies: Normal Quantity: Appropriate Patient's Decription of Mood: "Okay" Observed Affect: Fair Affect Consistent with: Euthymia Patient's Thought Process: Coherent Thought Content: No Passive Wish, No Suicidal Planning, No Homicidal Ideation, No Paranoid Ideation Experiencing Hallucinations: No, Sensorium is Clear Type of Hallucinations: Visual: No, Auditory: No, Command: No Level of Consciousness: Alert Orientation: Yes Intact, Yes Orientated to Time, Yes Orientated to Place, Yes Orientated to Person Impulse Control: Tenuous Insight and Judgement: Fair Impression - Impression Clinical Impression: 38 y.o. single, white female with a history of significant early life trauma, mood problems and substance misuse who is again hospitalized following an intentional, recreational overdose on prescribed medications in an attempt to get high. Inpatient DSM-V Dx: F13.20 Merits Inpatient Hospitalization: No BSU: Problem List - Patient Problems (1) Sedative dependence Current Visit: Yes Status: Acute Code(s): F13.20 - SEDATIVE, HYPNOTIC OR ANXIOLYTIC DEPENDENCE, UNCOMPLICATED SNOMED Code(s): 715126818 Plan - Treatment Plan Treatment Plan: The patient is agreeable with inpatient drug rehabilitation, however, there are no appropriate facilities taking her thus far. She will discharged to her mom' s and follow up with the [facility], who will work on getting her into rehab. I have reached out to Dr. Aguirre and made her aware of this situation. The patient is psychiatrically cleared for discharge and Psychiatry is signing off. Continued Medication Management: Continue Outpt Medication Medications: Current Medications Buprenorphine/Naloxone (Suboxone 8 Mg-2 Mg Sl Film) 1 each SL FILM TID [facility] Last Admin: 05/09/19 08:14 Dose: 1 each Buspirone HCl (Buspar Tab*) 10 mg PO BID [facility] Last Admin: 05/09/19 08:14 Dose: 10 mg Duloxetine HCl (Cymbalta Cap*) 90 mg PO QPM [facility] Last Admin: 05/08/19 19:12 Dose: 90 mg Gabapentin (Neurontin Cap(*)) 300 mg PO TID [facility] Last Admin: 05/09/19 08:14 Dose: 300 mg Lorazepam (Ativan Tab(*)) 2 mg PO BID PRN PRN Reason: ANXIETY Last Admin: 05/08/19 15:05 Dose: 2 mg Nicotine (Nicotine Patch 21 Mg/24 Hr*) 1 patch TRANSDERM DAILY@0800 [facility] Last Admin: 05/09/19 08:14 Dose: 1 patch Nicotine Polacrilex (Nicotine Gum*) 4 mg PO Q2H PRN PRN Reason: CRAVING Last Admin: 05/09/19 08:16 Dose: 4 mg Ondansetron HCl (Zofran Inj*) 4 mg IV Q6H PRN PRN Reason: NAUSEA/VOMITING Pharmacy Profile Note (Nicotine Patch Removal Note*) 1 note FOLLOW UP 2100 [facility] Last Admin: 05/08/19 21:35 Dose: 1 note Raltegravir (Isentress*) 400 mg PO BID [facility]; Protocol Last Admin: 05/09/19 08:13 Dose: 400 mg Trimethoprim/Sulfamethoxazole (Bactrim Ds 800/160 Tab*) 1 tab PO BID [facility] Last Admin: 05/09/19 08:14 Dose: 1 tab - Discharge Plan Discharge Plan: Drug/Alcohol Rehab
[2019-05-09 14:08] LABS: Chlamydia trachomatis NAA Negative (Negative); Neisseria gonorrhoeae (GC) NAA Negative (Negative)
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
== END 2019-05-09 13:20 | disposition home or self-care (01) | DRG 812 ==
LOC: ED 17:43 → MED 22:57 → OBSVTOIN 05-07 16:00 → MED 05-07 21:52
PROVIDERS: ADMIT Internal Medicine; ATTEND Internal Medicine
DX: T42.4X1A Poisoning by benzodiazepines, accidental (unintentional), initial encounter (principal); F13.20 Sedative, hypnotic or anxiolytic dependence, uncomplicated; N39.0 Urinary tract infection, site not specified; F17.210 Nicotine dependence, cigarettes, uncomplicated; J42 Unspecified chronic bronchitis; T42.6X1A Poisoning by other antiepileptic and sedative-hypnotic drugs, accidental (unintentional), initial encounter; T39.391A Poisoning by other nonsteroidal anti-inflammatory drugs [NSAID], accidental (unintentional), initial encounter; F41.9 Anxiety disorder, unspecified; F32.9 Major depressive disorder, single episode, unspecified; J45.909 Unspecified asthma, uncomplicated; G89.29 Other chronic pain; K21.9 Gastro-esophageal reflux disease without esophagitis; G47.33 Obstructive sleep apnea (adult) (pediatric); B19.20 Unspecified viral hepatitis C without hepatic coma; F43.10 Post-traumatic stress disorder, unspecified; E28.2 Polycystic ovarian syndrome; E66.9 Obesity, unspecified; B95.62 Methicillin resistant Staphylococcus aureus infection as the cause of diseases classified elsewhere; M54.9 Dorsalgia, unspecified; Z91.410 Personal history of adult physical and sexual abuse; Z88.0 Allergy status to penicillin; Z88.8 Allergy status to other drugs, medicaments and biological substances; Z68.39 Body mass index [BMI] 39.0-39.9, adult; Z81.8 Family history of other mental and behavioral disorders; Z81.1 Family history of alcohol abuse and dependence; Y92.9 Unspecified place or not applicable; Z91.5 Personal history of self-harm; Z87.01 Personal history of pneumonia (recurrent); Z72.89 Other problems related to lifestyle; Z91.19 Patient's noncompliance with other medical treatment and regimen
CPT/HCPCS: 36415; 80048; 80053; 80074; 80307; 80320; 80329; 81003; 81015; 82803; 84443; 84702; 85025; 86780; 87077; 87086; 87186; 87389; 87491; 87522; 87591; 93005; 99285; A9270-GY; G0378; G0480

== ENCOUNTER 2019-05-18 14:36 | Emergency (ER) | payer MEDICAID ==
[2019-05-18] MEDS ORDERED: NS 0.9% 1000 ML** 1,000 ML IV ONE (16:44)
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
[2019-05-18 17:17] LABS: ABS Eosinophils 0.1 10^3/ul (0-0.6); ABS Monocytes 0.5 10^3/ul (0-0.8); ABS Neutrophils 4.5 10^3/ul (1.5-7.7); Eosinophil % 2.1 %; Hematocrit 35 % (35-47); Hemoglobin 11.6 g/dL (12.0-16.0); Lymphocyte % 28.5 %; Mean Corpuscular HGB Conc 33 g/dL (31-36); Mean Corpuscular Hemoglobin 29 pg (27-31); Mean Corpuscular Volume 88 fL (80-97); Nucleated Red Blood Cells % 0.1; Platelet Count 293 10^3/uL (150-450); Red Blood Count 3.93 10^6 /uL (3.70-4.87); Red Cell Distribution Width 14 % (10-15); White Blood Count 7.2 10^3/uL (3.5-10.8)
[2019-05-18 17:20] LABS: Urine Appearance Clear; Urine Bacteria Absent (Absent); Urine Bilirubin Negative (Negative); Urine Blood Negative (Negative); Urine Color Yellow; Urine Glucose Negative (Negative); Urine Ketones Negative (Negative); Urine Nitrite Negative (Negative); Urine Protein Negative (Negative); Urine Red Blood Cell Trace(0-2/hpf) (Absent); Urine Specific Gravity 1.006 (1.010-1.030); Urine Squamous Epithelial Cell Present (Absent); Urine Urobilinogen Negative (Negative); Urine White Blood Cell Trace(0-5/hpf) (Absent)
[2019-05-18 17:22] LABS: INR 0.9 (0.82-1.09)
[2019-05-18 17:32] LABS: Albumin 3.9 g/dL (3.2-5.2); Albumin/Globulin Ratio 1.8 (1-3); BUN/Creatinine Ratio 18.3 (8-20); C Reactive Protein 3.54 mg/L (<8.01); Calcium 9.2 mg/dL (8.6-10.3); EGFR African American 112.1 (>60); EGFR Non-African American 92.6 (>60); Globulin 2.2 g/dL (2-4); Potassium 3.9 mmol/L (3.5-5.0); Total Bilirubin 0.5 mg/dL (0.2-1.0); Total Protein 6.1 g/dL (6.4-8.9)
[2019-05-18] MEDS ORDERED: Sulfamethox/Trimethoprim DS 800/160* TAB PO ONE (18:00)
[2019-05-18 18:17] LABS: Erythrocyte Sed Rate 8 mm/Hr (0-19)
[2019-05-18 19:12] VITALS: BP 128/76
== END 2019-05-18 19:11 | disposition home or self-care (01) ==
LOC: ED 14:36
DX: L03.313 Cellulitis of chest wall (principal); K21.9 Gastro-esophageal reflux disease without esophagitis; J45.909 Unspecified asthma, uncomplicated; F41.9 Anxiety disorder, unspecified; F32.9 Major depressive disorder, single episode, unspecified; F43.10 Post-traumatic stress disorder, unspecified; F17.210 Nicotine dependence, cigarettes, uncomplicated; Z88.0 Allergy status to penicillin; Z88.8 Allergy status to other drugs, medicaments and biological substances
CPT/HCPCS: 36415; 71045; 80053; 81003; 81015; 83605; 85025; 85610; 85652; 86140; 87040; 87070; 87086; 87205; 96360; 99283; A9270-GY

== ENCOUNTER 2019-06-21 13:03 | Observation (INO) | payer MEDICAID, OTHER ==
[2019-06-21] MEDS ORDERED: NS 0.9% 1000 ML** 1,000 ML IV ONE (13:18)
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
[2019-06-21 13:46] LABS: Hematocrit 39 % (35-47); Hemoglobin 12.8 g/dL (12.0-16.0); Mean Corpuscular HGB Conc 33 g/dL (31-36); Mean Corpuscular Hemoglobin 29 pg (27-31); Mean Corpuscular Volume 88 fL (80-97); Red Cell Distribution Width 13 % (10-15); White Blood Count 7.8 10^3/uL (3.5-10.8)
[2019-06-21 13:59] LABS: ALT 10 U/L (7-52); AST 12 U/L (13-39); Albumin 4.3 g/dL (3.2-5.2); Alkaline Phosphatase 86 U/L (34-104); Anion Gap 6 mmol/L (2-11); BUN/Creatinine Ratio 17.7 (8-20); Blood Urea Nitrogen 14 mg/dL (6-24); CO2 Carbon Dioxide 27 mmol/L (22-32); Calcium 9.3 mg/dL (8.6-10.3); Chloride 105 mmol/L (101-111); Creatine Kinase 55 U/L (10-223); EGFR African American 99.1 (>60); EGFR Non-African American 81.9 (>60); Globulin 2.2 g/dL (2-4); Glucose 110 mg/dL (70-100); Potassium 3.9 mmol/L (3.5-5.0); Sodium 138 mmol/L (135-145); Total Protein 6.5 g/dL (6.4-8.9)
[2019-06-21 14:05] LABS: HCG Pregnancy 0.85 mIU/mL
[2019-06-21 14:19] LABS: ABS Basophils 0.1 10^3/ul (0-0.2); ABS Eosinophils 0.2 10^3/ul (0-0.6); ABS Lymphocytes 2.9 10^3/ul (1.0-4.8); ABS Monocytes 0.6 10^3/ul (0-0.8); ABS Neutrophils 4.1 10^3/ul (1.5-7.7); Eosinophil % 2.8 %; Nucleated Red Blood Cells % 0.1; Platelet Count 281 10^3/uL (150-450)
[2019-06-21 14:37] LABS: Acetaminophen < 15 mcg/mL; Alcohol < 10 mg/dL (<10); Salicylate < 2.50 mg/dL (<30)
[2019-06-21 14:47] LABS: TSH (Thyroid Stimulating Horm) 2.03 mcIU/mL (0.34-5.60)
[2019-06-21] MEDS: NS 0.9% 1000 ML** 1,000 ML IV SCH (15:51)
[2019-06-21] MEDS: Nicotine PATCH 21 MG/24 HR* PATCH TRANSDERM SCH (16:50)
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
[2019-06-21] MEDS: Heparin VIAL(*) 5000 UNITS/ML VIAL (FIVE THOUSAND) SUBCUT SCH (20:16)
[2019-06-21] MEDS: Nicotine* 4MG (FRUIT FLAVOR) GUM PO PRN (20:30)
[2019-06-21 20:54] LABS: Urine Appearance Clear; Urine Bilirubin Negative (Negative); Urine Blood Negative (Negative); Urine Color Yellow; Urine Glucose Negative (Negative); Urine Ketones Negative (Negative); Urine Nitrite Negative (Negative); Urine Protein Negative (Negative); Urine Specific Gravity 1.009 (1.010-1.030); Urine Urobilinogen Negative (Negative)
[2019-06-21] MEDS ORDERED: Nicotine Patch Removal NOTE FOLLOW UP SCH (21:00)
[2019-06-21 21:11] LABS: Urine Benzodiazepine Screen Presumptive Positive (None Detect); Urine Opiates Screen None Detected (None Detect)
[2019-06-22] MEDS: NS 0.9% 1000 ML** 1,000 ML IV SCH ×2 (01:17→11:55)
[2019-06-22] MEDS: Heparin VIAL(*) 5000 UNITS/ML VIAL (FIVE THOUSAND) SUBCUT SCH ×2 (06:12→12:43)
[2019-06-22] MEDS: Nicotine PATCH 21 MG/24 HR* PATCH TRANSDERM SCH (09:04)
[2019-06-22] MEDS: Nicotine* 4MG (FRUIT FLAVOR) GUM PO PRN (09:10)
[2019-06-22] MEDS ORDERED: EFFEXOR 150 MG PO SCH (13:00)
[2019-06-22] MEDS ORDERED: Buprenorp/Nalox 8-2 MG FILM SL FILM SCH (14:00)
[2019-06-22] MEDS ORDERED: Venlafaxine EXT RELEASE CAP* 75 MG PO SCH (14:00)
[2019-06-22] MEDS ORDERED: Indomethacin CAP* 25 MG CAP PO SCH (14:00)
[2019-06-22] MEDS ORDERED: Gabapentin CAP(*) 300 MG PO SCH (14:00)
[2019-06-22 14:09] VITALS: BP 141/96
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
[2019-06-22] MEDS ORDERED: LORazepam TAB(*) 1 MG PO ONE (15:10)
[2019-06-22] MEDS ORDERED: busPIRone TAB* 15 MG PO SCH (21:00)
[2019-06-22] MEDS ORDERED: Raltegravir* 400 MG TAB PO SCH (21:00)
--- NOTE | 2019-06-23 09:39 | DS ---
CC: Dr. Glass; Dr. Whitney Aguirre at [facility] DISCHARGE SUMMARY: DATE OF ADMISSION: 06/21/19 DATE OF DISCHARGE: 06/22/19 PRIMARY DIAGNOSIS: Polysubstance overdose from benzodiazepines, gabapentin, and Suboxone. SECONDARY DIAGNOSES: 1. Anxiety. 2. Depression. 3. Chronic pain. 4. Asthma. 5. Gastroesophageal reflux disease. 6. Obstructive sleep apnea. 7. Polycystic ovarian syndrome. 8. Obesity. 9. Posttraumatic stress disorder. 10. Hepatitis C. 11. Recurrent overdose on similar medications. 12. The patient is also on prep for HIV prevention. 13. Tobacco abuse. MEDICATIONS ON DISCHARGE: 1. Suboxone 8/2 mg 1 sublingual t.i.d. 2. Indomethacin 25 mg p.o. t.i.d. 3. Isentress 400 mg p.o. b.i.d. 4. Ativan 1 mg take one half to 1 tablet 3 times a day, maximum daily dose of 2 mg (not prescribed). 5. Buspirone 15 mg p.o. b.i.d. 6. Gabapentin 300 mg t.i.d. 7. Nicotine gum 4 mg q.2 hours as needed for cravings. 8. Nicotine patch 21 mg topically daily. 9. Venlafaxine ER 150 mg p.o. q.a.m. HOSPITAL COURSE: A 38-year-old woman with multiple overdoses who was brought to the emergency depart ment with lethargy. She apparently had taken unknown quantities of gabapentin and lorazepam as well as her usual doses of Suboxone. The main historian was the patient's mother initially. The patient was treated with supportive care in the emergency department and on the floor did not require any rev ersal agents. Her initial CBC was normal. Her chemistries were normal, blood sugar 110. AST 12, AL T 10. HCG was negative. TSH is 2.3. Urine toxicology showed positive benzodiazepines, everything e lse was negative. The serum salicylate, acetaminophen, and alcohol were negative. The patient had a normal chest x-ray. The patient had improving mental status overnight and was seen by Dr. Uribe of Psychiatry on the [facility] ond day of admission. The patient gave further history at this point stating that she felt that she was going to be accused of fraud by her mother and she wanted to get high by taking extra Ativan and gabapentin. She denied any intention of overdose or suicide. Dr. Uribe stated that she was psychia trically stable for discharge, did not require any involuntary psychiatric stay. The patient was clinical project coordinator perative and willing to discuss her situation. The plan is to follow up with primary care and with [facility]. Because of her multiple overdoses of benzodiazepines, we are recommending that she decrease th e benzodiazepine use and the prescription should be reduced as well. She can start by cutting down f rom 3 to 2 per day at home with the supply she already has. She is to continue the same Suboxone dos es as well as gabapentin. DISPOSITION: To home. STATUS: Observation. CONDITION: Stable. DIET: Regular. ACTIVITY: As tolerated. Treatment goals include reducing benzodiazepine and cessation of tobacco abuse and psychiatric follow up according to Dr. Uribe. [id number]/[id number] #: [id number]
== END 2019-06-22 15:50 | disposition home or self-care (01) ==
LOC: ED 13:03 → MEDTELE 14:44
PROVIDERS: ADMIT Internal Medicine; ATTEND Internal Medicine
DX: T42.4X1A Poisoning by benzodiazepines, accidental (unintentional), initial encounter (principal); T42.6X1A Poisoning by other antiepileptic and sedative-hypnotic drugs, accidental (unintentional), initial encounter; T40.4X1A Poisoning by other synthetic narcotics, accidental (unintentional), initial encounter; Y92.9 Unspecified place or not applicable; F41.9 Anxiety disorder, unspecified; F32.9 Major depressive disorder, single episode, unspecified; G89.29 Other chronic pain; J45.909 Unspecified asthma, uncomplicated; K21.9 Gastro-esophageal reflux disease without esophagitis; G47.33 Obstructive sleep apnea (adult) (pediatric); E28.2 Polycystic ovarian syndrome; E66.9 Obesity, unspecified; F43.10 Post-traumatic stress disorder, unspecified; B19.20 Unspecified viral hepatitis C without hepatic coma; F17.210 Nicotine dependence, cigarettes, uncomplicated; Z88.0 Allergy status to penicillin; Z79.899 Other long term (current) drug therapy
CPT/HCPCS: 36415; 71045; 80053; 80307; 80320; 80329; 81003; 82550; 83605; 84443; 84702; 85025; 93005; 96360; 96361; 96372; 99285; A9270-GY; G0378; G0480; J1644

== ENCOUNTER 2019-08-24 14:45 | Inpatient (IN) | payer OTHER ==
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
[2019-08-24 15:29] LABS: ABS Basophils 0.1 10^3/ul (0-0.2); ABS Eosinophils 0.3 10^3/ul (0-0.6); ABS Lymphocytes 3.2 10^3/ul (1.0-4.8); ABS Monocytes 0.7 10^3/ul (0-0.8); ABS Neutrophils 6.3 10^3/ul (1.5-7.7); Eosinophil % 3.1 %; Hematocrit 36 % (35-47); Hemoglobin 11.9 g/dL (12.0-16.0); Lymphocyte % 30.4 %; Mean Corpuscular HGB Conc 33 g/dL (31-36); Mean Corpuscular Hemoglobin 29 pg (27-31); Mean Corpuscular Volume 87 fL (80-97); Mean Platelet Volume 7.5 fL (7.4-10.4); Nucleated Red Blood Cells % 0.1; Platelet Count 357 10^3/uL (150-450); Red Cell Distribution Width 14 % (10-15); White Blood Count 10.6 10^3/uL (3.5-10.8)
[2019-08-24 15:42] LABS: Albumin 4.1 g/dL (3.2-5.2); Anion Gap 5 mmol/L (2-11); CO2 Carbon Dioxide 30 mmol/L (22-32); Calcium 8.8 mg/dL (8.6-10.3); Chloride 101 mmol/L (101-111); Potassium 3.7 mmol/L (3.5-5.0); Sodium 136 mmol/L (135-145)
[2019-08-24 15:48] LABS: ALT 11 U/L (7-52); AST 14 U/L (13-39); Albumin/Globulin Ratio 1.5 (1-3); Alkaline Phosphatase 81 U/L (34-104); BUN/Creatinine Ratio 18.2 (8-20); Blood Urea Nitrogen 18 mg/dL (6-24); EGFR Non-African American 62.8 (>60); Globulin 2.7 g/dL (2-4); Glucose 84 mg/dL (70-100); Total Protein 6.8 g/dL (6.4-8.9)
[2019-08-24 15:50] LABS: Acetaminophen < 15 mcg/mL; Alcohol < 10 mg/dL (<10); Salicylate < 2.50 mg/dL (<30)
[2019-08-24 16:04] LABS: TSH (Thyroid Stimulating Horm) 2.04 mcIU/mL (0.34-5.60)
--- OUTSIDE RECORDS SUMMARY | 2019-08-24 16:15 | XMS REPORT | Continuity of Care Document ---
:1980 External Reference #:[id number] Author Name Leonora Hoffman, N.P. (transmitted by agent of provider Varsha Tellez) Address [address] [facility], [place] [address] Care Team Providers Name Role Phone Chary Glass MD - Internal Care Team Information Admin Dir Medicine Problems Active Problems Provider Date History of drug abuse Leonora Hoffman, N.P. Onset: 02/08/2018 Viral hepatitis C Leonora Hoffman, N.P. Onset: 02/08/2018 Depressive disorder Leonora Hoffman, N.P. Onset: 02/08/2018 Anxiety Leonora Hoffman, N.P. Onset: 02/08/2018 Note: cigarette Cigarette smoker Leonora Hoffman, N.P. Onset: 02/08/2018 Gastroesophageal reflux disease Leonora Hoffman, N.P. Onset: 02/19/2018 Social History Type Date Description Comments Sex Unknown Tobacco Use Start: Unknown Heavy tobacco smoker (more than 10 cigarettes/day) Recreational Drug Use Former Drug User Recovering heroin addict. Has not used since 2015 Smoking Status Reviewed: 07/08/19 Heavy tobacco smoker (more than 10 cigarettes/day) Allergies, Adverse Reactions, Alerts Active Allergies Reaction Severity Comments Date Penicillin hives/swallowing 01/31/2018 Medications Active Medications SIG Qnty Indications Ordering Provider Date Meloxicam 1 by mouth every 90tabs M54.5 Leonora Hoffman, 07/08/2019 15mg Tablets day N.P. Suboxone 3 films per day Unknown 8-2mg Film Buspirone HCL take one tablet Unknown 15mg by mouth twice a Tablets day Venlafaxine HCL ER 1 by mouth every F41.1 Unknown day 150mg Tablets ER 24HR Ativan take 1/2 to 1 Unknown 1mg Tablets tablet tid Gabapentin 1 by mouth three Unknown 300mg times a day Capsules Ra Nicotine Gum every 2 hours as Unknown 4mg Gum needed [facility] Nicotine apply 1 patch Unknown Transdermal System once a day as Step 1 directed 21mg/24HR Patches 24HR Medications Administered in Office Medication SIG Qnty Indications Ordering Provider Date Records Fee Leonora Hoffman N.Kayla 01/27/2019 Injection Immunizations CPT Code Status Date Vaccine Reaction Lot # [id number] Given 08/16/2018 Influenza Virus Vaccine, No immediate [id number] Quadrivalent, Split, reaction...jh Preservative Free Vital Signs Date Vital Result Comment 07/08/2019 11:25am Height 64 inches 5'4" Weight 234.12 lb With heavy sweater and sneakers Heart Rate 110 /min BP Systolic 141 mmHg Ra sitting BP Diastolic 103 mmHg Ra sitting BP Systolic Recheck 135 mmHg LA sitting BP Diastolic Recheck 100 mmHg LA sitting Body Temperature 97.3 F O2 % BldC Oximetry 96 % BMI (Body Mass Index) 40.2 kg/m2 04/16/2019 8:35am Height 64 inches 5'4" Weight 218.38 lb Heart Rate 72 /min BP Systolic Sitting 110 mmHg BP Diastolic Sitting 70 mmHg Respiratory Rate 14 /min Body Temperature 97.5 F BMI (Body Mass Index) 37.5 kg/m2 Results Test Date Facility Test Result H/L Range Note Laboratory test 06/21/2019 [facility] Lactic Acid 1.1 mmol/L Normal 0.5-2.0 1 finding [address] [place] [address] [phone] Comp Metabolic 06/21/2019 [facility] Sodium 138 mmol/L Normal 135-145 Panel [address] [place] [address] [phone] Potassium 3.9 mmol/L Normal 3.5-5.0 Chloride 105 mmol/L Normal 101-111 Co2 Carbon Dioxide 27 mmol/L Normal 22-32 Anion Gap 6 mmol/L Normal 2-11 Glucose 110 mg/dL High 70-100 Blood Urea Nitrogen 14 mg/dL Normal 6-24 Creatinine 0.79 mg/dL Normal 0.51-0.95 BUN/Creatinine Ratio 17.7 Normal 8-20 Calcium 9.3 mg/dL Normal 8.6-10.3 Total Protein 6.5 g/dL Normal 6.4-8.9 Albumin 4.3 g/dL Normal 3.2-5.2 Globulin 2.2 g/dL Normal 2-4 Albumin/Globulin Ratio 2.0 Normal 1-3 Total Bilirubin 0.30 mg/dL Normal 0.2-1.0 Alkaline Phosphatase 86 U/L Normal 34-104 Alt 10 U/L Normal 7-52 Ast 12 U/L Low 13-39 Egfr Non- 81.9 >60 Egfr 99.1 >60 2 Laboratory test 06/21/2019 [facility] Creatine 55 U/L Normal 10-[address] Kinase(CK) [place] [address] [phone] HCG 0.85 mIU/mL 3 Acetaminophen < 15 g/mL 4 Alcohol < 10 mg/dL Normal <10 Salicylate < 2.50 mg/dL <30 TSH (Thyroid Stim Horm) 2.03 mcIU/mL Normal 0.34-5.60 CBC Auto 06/21/2019 [facility] White Blood 7.8 10^3/uL Normal 3.5-10.[address] [place] [address] [phone] Red Blood Count 4.40 10^6/uL Normal 3.70-4.87 Hemoglobin 12.8 g/dL Normal 12.0-16.0 Hematocrit 39 % Normal 35-47 Mean Corpuscular Volume 88 fL Normal 80-97 Mean Corpuscular Hemoglobin 29 pg Normal 27-31 Mean Corpuscular HGB Conc 33 g/dL Normal 31-36 Red Cell Distribution Width 13 % Normal 10-15 Platelet Count 281 10^3/uL Normal 150-450 5 Abs Neutrophils 4.1 10^3/uL Normal 1.5-7.7 Abs Lymphocytes 2.9 10^3/uL Normal 1.0-4.8 Abs Monocytes 0.6 10^3/uL Normal 0-0.8 Abs Eosinophils 0.2 10^3/uL Normal 0-0.6 Abs Basophils 0.1 10^3/uL Normal 0-0.2 Abs Nucleated RBC 0.0 10^3/uL Granulocyte % 51.7 % Lymphocyte % 37.0 % Monocyte % 7.7 % Eosinophil % 2.8 % Basophil % 0.8 % Nucleated Red Blood Cells % 0.1 Urinalysis Profile 06/21/2019 [facility] Urine Color Yellow [address] [place] [address] [phone] Urine Appearance Clear Urine Specific Semmes 1.009 Low 1.010-1.030 Urine pH 5.0 Normal 5-9 Urine Urobilinogen Negative Negative Urine Ketones Negative Negative Urine Protein Negative Negative Urine Leukocytes Negative Negative Urine Blood Negative Negative Urine Nitrite Negative Negative Urine Bilirubin Negative Negative Urine Glucose Negative Negative Urine Drug 06/21/2019 [facility] Urine None Detected None Detect SCR ED & [address] [place] [address] Screen [phone] Urine Barbiturates Screen None Detected None Detect Urine Benzodiazepine Screen Presumptive Posi <SEE NOTE> Abnormal None Detect 6 Urine Cannabinoids Screen None Detected None Detect Urine Cocaine Screen None Detected None Detect Urine Opiates Screen None Detected None Detect Urine Phencyclidine Screen None Detected None Detect 7 Laboratory test 05/27/2019 [facility] Alcohol < 10 Normal <[address] mg/[place] [address] [phone] Urine Culture And 05/18/2019 [facility] Urine Culture SEE [address] [place] [address] BELOW [phone] Laboratory test 05/18/2019 [facility] Erythrocyte Sed 8 mm/Hr Normal 0-[address] Rate [place], [place] [address] [phone] CBC Auto Diff 05/18/2019 [facility] White Blood 7.2 Normal 3.5 -[address] Count 10^3/uL .8 [place], [place] [id number] [phone] Red Blood Count 3.93 10^6/uL Normal 3.70-4.87 Hemoglobin 11.6 g/dL Low 12.0-16.0 Hematocrit 35 % Normal 35-47 Mean Corpuscular Volume 88 fL Normal 80-97 Mean Corpuscular Hemoglobin 29 pg Normal 27-31 Mean Corpuscular HGB Conc 33 g/dL Normal 31-36 Red Cell Distribution Width 14 % Normal 10-15 Platelet Count 293 10^3/uL Normal 150-450 Mean Platelet Volume 8.0 fL Normal 7.4-10.4 Abs Neutrophils 4.5 10^3/uL Normal 1.5-7.7 Abs Lymphocytes 2.0 10^3/uL Normal 1.0-4.8 Abs Monocytes 0.5 10^3/uL Normal 0-0.8 Abs Eosinophils 0.1 10^3/uL Normal 0-0.6 Abs Basophils 0.0 10^3/uL Normal 0-0.2 Abs Nucleated RBC 0.0 10^3/uL Granulocyte % 62.4 % Lymphocyte % 28.5 % Monocyte % 6.5 % Eosinophil % 2.1 % Basophil % 0.5 % Nucleated Red Blood Cells % 0.1 Laboratory test 05/18/2019 [facility] C Reactive 3.54 mg/L Normal <8.[address] [place] [address] [phone] Lactic Acid 0.7 mmol/L Normal 0.5-2.0 9 Blood Culture SEE RESULT BELOW 10 Comp Metabolic 05/18/2019 [facility] Sodium 138 mmol/L Normal 135-145 Panel [address] [place] [address] [phone] Potassium 3.9 mmol/L Normal 3.5-5.0 Chloride 104 mmol/L Normal 101-111 Co2 Carbon Dioxide 31 mmol/L Normal 22-32 Anion Gap 3 mmol/L Normal 2-11 Glucose 79 mg/dL Normal 70-100 Blood Urea Nitrogen 13 mg/dL Normal 6-24 Creatinine 0.71 mg/dL Normal 0.51-0.95 BUN/Creatinine Ratio 18.3 Normal 8-20 Calcium 9.2 mg/dL Normal 8.6-10.3 Total Protein 6.1 g/dL Low 6.4-8.9 Albumin 3.9 g/dL Normal 3.2-5.2 Globulin 2.2 g/dL Normal 2-4 Albumin/Globulin Ratio 1.8 Normal 1-3 Total Bilirubin 0.50 mg/dL Normal 0.2-1.0 Alkaline Phosphatase 60 U/L Normal 34-104 Alt 12 U/L Normal 7-52 Ast 14 U/L Normal 13-39 Egfr Non- 92.6 >60 Egfr 112.1 >60 11 Inr/Protime 05/18/2019 [facility] Inr 0.90 Normal 0.82-1.[address] [place] [address] [phone] Urinalysis 05/18/2019 [facility] Urine Yellow Profile [address] [place] [address] [phone] Urine Appearance Clear Urine Specific Semmes 1.006 Low 1.010-1.030 Urine pH 5.0 Normal 5-9 Urine Urobilinogen Negative Negative Urine Ketones Negative Negative Urine Protein Negative Negative Urine Leukocytes Trace Abnormal Negative Urine Blood Negative Negative Urine Nitrite Negative Negative Urine Bilirubin Negative Negative Urine Glucose Negative Negative Urine White Blood Cell Trace(0-5/hpf) Absent Urine Red Blood Cell Trace(0-2/hpf) Absent Urine Bacteria Absent Absent Urine Squamous Epithelial Cell Present Abnormal Absent Wound Culture/Sensi 05/18/2019 [facility] Wound/Misc SEE RESULT [address] [place] [address] Stain [phone] Urine Culture And 05/06/2019 [facility] Urine Culture SEE RESULT [address] [place] [address] [phone] Urinalysis Profile 05/06/2019 [facility] Urine Color Yellow [address] [place] [address] [phone] Urine Appearance Cloudy Urine Specific Semmes 1.025 Normal 1.010-1.030 Urine pH 5.0 Normal 5-9 Urine Urobilinogen Negative Negative Urine Ketones Negative Negative Urine Protein Negative Negative Urine Leukocytes Trace Abnormal Negative Urine Blood Negative Negative Urine Nitrite Negative Negative Urine Bilirubin Negative Negative Urine Glucose Negative Negative Urine White Blood Cell Trace(0-5/hpf) Absent Urine Red Blood Cell 1+(3-5/hpf) Abnormal Absent Urine Bacteria Absent Absent Urine Squamous Epithelial Cell Present Abnormal Absent Urine Drug 05/06/2019 [facility] Urine None Detected None Detect SCR ED & [address] [place] [address] Screen [phone] Urine Barbiturates Screen None Detected None Detect Urine Benzodiazepine Screen None Detected None Detect Urine Cannabinoids Screen None Detected None Detect Urine Cocaine Screen None Detected None Detect Urine Opiates Screen None Detected None Detect Urine Phencyclidine Screen None Detected None Detect 15 Laboratory test 05/06/2019 [facility] HCG < 0.60 mIU/ mL [address] [place] [address] [phone] Acetaminophen < 15 g/mL 17 Alcohol < 10 mg/dL Normal <10 Salicylate < 2.50 mg/dL <30 TSH (Thyroid Stim Horm) 5.56 mcIU/mL Normal 0.34-5.60 Comp Metabolic 05/06/2019 [facility] Sodium 140 mmol/L Normal 135-[address] [place] [address] [phone] Potassium 4.0 mmol/L Normal 3.5-5.0 Chloride 101 mmol/L Normal 101-111 Co2 Carbon Dioxide 32 mmol/L Normal 22-32 Anion Gap 7 mmol/L Normal 2-11 Glucose 142 mg/dL High 70-100 Blood Urea Nitrogen 14 mg/dL Normal 6-24 Creatinine 0.78 mg/dL Normal 0.51-0.95 BUN/Creatinine Ratio 17.9 Normal 8-20 Calcium 9.4 mg/dL Normal 8.6-10.3 Total Protein 6.8 g/dL Normal 6.4-8.9 Albumin 4.4 g/dL Normal 3.2-5.2 Globulin 2.4 g/dL Normal 2-4 Albumin/Globulin Ratio 1.8 Normal 1-3 Total Bilirubin 0.70 mg/dL Normal 0.2-1.0 Alkaline Phosphatase 72 U/L Normal 34-104 Alt 13 U/L Normal 7-52 Ast 15 U/L Normal 13-39 Egfr Non- 83.1 >60 Egfr 100.6 >60 18 CBC Auto 05/06/2019 [facility] White Blood 5.2 10^3/uL Normal 3.5-10.[address] [place] [address] [phone] Red Blood Count 4.16 10^6/uL Normal 3.70-4.87 Hemoglobin 12.4 g/dL Normal 12.0-16.0 Hematocrit 37 % Normal 35-47 Mean Corpuscular Volume 88 fL Normal 80-97 Mean Corpuscular Hemoglobin 30 pg Normal 27-31 Mean Corpuscular HGB Conc 34 g/dL Normal 31-36 Red Cell Distribution Width 14 % Normal 10-15 Platelet Count 283 10^3/uL Normal 150-450 Mean Platelet Volume 8.3 fL Normal 7.4-10.4 Abs Neutrophils 2.4 10^3/uL Normal 1.5-7.7 Abs Lymphocytes 2.3 10^3/uL Normal 1.0-4.8 Abs Monocytes 0.4 10^3/uL Normal 0-0.8 Abs Eosinophils 0.1 10^3/uL Normal 0-0.6 Abs Basophils 0.0 10^3/uL Normal 0-0.2 Abs Nucleated RBC 0.0 10^3/uL Granulocyte % 45.9 % Lymphocyte % 44.6 % Monocyte % 7.1 % Eosinophil % 1.5 % Basophil % 0.9 % Nucleated Red Blood Cells % 0.1 Venous Blood 05/06/2019 [facility] Venous Blood 7.37 Normal 7.32-7.[address] [place] [address] [phone] Venous Pco2 58 mmHg High 41-51 Venous Po2 50.0 mmHg High 35-45 Venous O2 Saturation 85.1 % High 70-80 Venous Blood Base Excess 6.4 mmol/L High 0.0-4.0 19 Venous Bicarbonate Hco3 29.5 mmol/L High 24-28 Arterial Blood Gas 04/08/2019 [facility] O2 Device oxymask [address] [place] [address] [phone] Fio2 1 PH Arterial 7.29 Low 7.35-7.45 Pco2 Arterial 66 mmHg High 35-45 Po2 Arterial 73 mmHg Low 80-100 O2 Saturation Arterial 96.6 % Normal 94.0-98.0 Base Excess Arterial 3.2 mmol/L High -2.0-2.0 20 Hco3 Arterial 27.3 mmol/L Normal 19-31 Venous Blood 04/08/2019 [facility] Venous Blood pH 7.24 Low 7.32-7.[address] [place] [address] [phone] Venous Pco2 74 mmHg High 41-51 Venous Po2 86.0 mmHg High 35-45 Venous O2 Saturation 98.1 % High 70-80 Venous Blood Base Excess 2.1 mmol/L Normal 0.0-4.0 21 Venous Bicarbonate Hco3 26.5 mmol/L Normal 24-28 CBC Auto 04/08/2019 [facility] White Blood 9.2 10^3/uL Normal 3.5-10.[address] [place] [address] [phone] Red Blood Count 4.03 10^6/uL Normal 3.70-4.87 Hemoglobin 12.1 g/dL Normal 12.0-16.0 Hematocrit 36 % Normal 35-47 Mean Corpuscular Volume 88 fL Normal 80-97 Mean Corpuscular Hemoglobin 30 pg Normal 27-31 Mean Corpuscular HGB Conc 34 g/dL Normal 31-36 Red Cell Distribution Width 14 % Normal 10-15 Platelet Count 294 10^3/uL Normal 150-450 Mean Platelet Volume 8.4 fL Normal 7.4-10.4 Abs Neutrophils 5.6 10^3/uL Normal 1.5-7.7 Abs Lymphocytes 2.8 10^3/uL Normal 1.0-4.8 Abs Monocytes 0.6 10^3/uL Normal 0-0.8 Abs Eosinophils 0.2 10^3/uL Normal 0-0.6 Abs Basophils 0.0 10^3/uL Normal 0-0.2 Abs Nucleated RBC 0.0 10^3/uL Granulocyte % 61.0 % Lymphocyte % 30.5 % Monocyte % 6.1 % Eosinophil % 1.9 % Basophil % 0.5 % Nucleated Red Blood Cells % 0.1 Laboratory test 04/08/2019 [facility] Lactic Acid 0.8 mmol/L Normal 0.5-2.0 22 finding [address] [place] [address] [phone] Urinalysis 04/08/2019 [facility] Urine Color Straw Profile [address] [place] [address] [phone] Urine Appearance Clear Urine Specific Semmes 1.005 Low 1.010-1.030 Urine pH 6.0 Normal 5-9 Urine Urobilinogen Negative Negative Urine Ketones Negative Negative Urine Protein Negative Negative Urine Leukocytes Negative Negative Urine Blood Negative Negative Urine Nitrite Negative Negative Urine Bilirubin Negative Negative Urine Glucose Negative Negative Comp Metabolic 04/08/2019 [facility] Sodium 140 mmol/L Normal 135-145 Panel [address] [place] [address] [phone] Potassium 3.7 mmol/L Normal 3.5-5.0 Chloride 106 mmol/L Normal 101-111 Co2 Carbon Dioxide 31 mmol/L Normal 22-32 Anion Gap 3 mmol/L Normal 2-11 Glucose 113 mg/dL High 70-100 Blood Urea Nitrogen 7 mg/dL Normal 6-24 Creatinine 0.51 mg/dL Normal 0.51-0.95 BUN/Creatinine Ratio 13.7 Normal 8-20 Calcium 8.3 mg/dL Low 8.6-10.3 Total Protein 5.9 g/dL Low 6.4-8.9 Albumin 3.7 g/dL Normal 3.2-5.2 Globulin 2.2 g/dL Normal 2-4 Albumin/Globulin Ratio 1.7 Normal 1-3 Total Bilirubin 0.40 mg/dL Normal 0.2-1.0 Alkaline Phosphatase 77 U/L Normal 34-104 Alt 12 U/L Normal 7-52 Ast 14 U/L Normal 13-39 Egfr Non- 135.7 >60 Egfr 164.2 >60 23 Laboratory test 04/08/2019 [facility] Creatine 108 U/L Normal 10-[address] Kinase(CK) [place] [address] [phone] Acetaminophen < 15 g/mL 24 Salicylate < 2.50 mg/dL <30 Alcohol < 10 mg/dL Normal <10 Urine Drug 04/08/2019 [facility] Urine None Detected None Detect SCR ED & [address] [place] [address] Screen [phone] Urine Barbiturates Screen None Detected None Detect Urine Benzodiazepine Screen None Detected None Detect Urine Cannabinoids Screen None Detected None Detect Urine Cocaine Screen None Detected None Detect Urine Opiates Screen None Detected None Detect Urine Phencyclidine Screen None Detected None Detect 25 1 [facility] Severe Sepsis and Septic Shock Management Bundle Measure requires all lactic acids initially measuring >2.0 mmol/L be repeated. 2 Because ethnic data is not always [...] 5 Kidney failure <15 (or dialysis) 3 <5.0 Negative 5.0 - 25.0 Indeterminate (Repeat testing recommended after 72 hours) >25.0 Positive Perimenopausal women can display HCG levels of up to 20 mIU/mL 4 Therapeutic concentration: <50 ug/mL Toxic concentration: >120 ug/mL 5 Platelet count confirmed by estimate 6 Presumptive Positive Presumptive positive results are unconfirmed. 7 The urine specimen was tested at the listed cutoffs: Drug class test level (ng/mL) Amphetamines 500 Barbiturates 200 Benzodiazepine metabolites 200 Cocaine metabolites 150 Cannabinoids 50 Opiates 300 Pcp 25 Specimen was received without chain of custody. Results should be used for medical purposes only. 8 SEE RESULT BELOW Name: MARTHAЮЛИЯ L : [address]: Rudolph Vieira MD Acct: [id number] Unit: [id number] AGE: 38 Location: ED Re05/18/19 SEX: F Status: DEP ER SPEC: [id number] LEON: 05/18/19 [facility] DR: Rudolph Vieira MD REQ: [id number] RECD: 05/18/19 STATUS: CRESCENCIO DAMON DR: [facility] Chary Glass MD _ SOURCE: URINE SPDESC: ORDERED: Urine Culture Procedure Result Reported Site Urine Culture Final 05/19/19- 1607 ML No Growth (<1,000 CFU/mL) * ML - Main Lab . END OF REPORT DEPARTMENT OF PATHOLOGY, [address] [place] [address] Johan Quiroz M.D. Director [facility] # [id number] 9 [facility] Severe Sepsis and Septic Shock Management Bundle Measure requires all lactic acids initially measuring >2.0 mmol/L be repeated. 10 SEE RESULT BELOW Name: ЮЛИЯ THOMAS : [address]: Rudolph Vieira MD Acct: [id number] Unit: [id number] AGE: 38 Location: ED Re05/18/19 SEX: F Status: DEP ER SPEC: [id number] LEON: 05/18/19 [facility] DR: Rudolph Vieira MD REQ: [id number] RECD: 05/18/19 STATUS: CRESCENCIO DAMON DR: [facility] Chary Glass MD _ SOURCE: BLOOD,VENO SPDESC: ORDERED: Blood Cult Procedure Result Reported Site Aerobic Culture Bottle Final 05/23/19- 1757 ML No Growth Day 5 Anaerobic Culture Bottle Final 05/18/191756 ML Test not performed * - Main Lab . END OF REPORT DEPARTMENT OF PATHOLOGY, [address] [place] [address] Johan Quiroz M.D. Director [facility] # [id number] 11 Because ethnic data is not always readily [...] 15-29 5 Kidney failure <15 (or dialysis) 12 Standard intensity warfarin therapeutic range: 2.0-3.0 High intensity warfarin therapeutic range: 2.5-3.5 13 SEE RESULT BELOW Name: MARTHAЮЛИЯ L : [address]: Rudolph Vieira MD Acct: [id number] Unit: [id number] AGE: 38 Location: ED Re05/18/19 SEX: F Status: DEP ER SPEC: [id number] LEON: 05/18/19 [facility] DR: Rudolph Vieira MD REQ: [id number] RECD: 05/18/19 STATUS: CRESCENCIO DAMON DR: [facility] Chary Glass MD _ SOURCE: CHEST SPDESC: ORDERED: Culture Stain Procedure Result Reported Site Wound/Misc Gram Stain Final 05/18/19- 1817 ML 1+ Epithelial Cells No Neutrophils Observed 1+ Gram Positive Cocci Wound/Misc Culture Final 05/20/19- 937 ML Organism 1 NORMAL VIVI Quantity 1+ * ML - Main Lab . END OF REPORT DEPARTMENT OF PATHOLOGY, [address] [place] [address] Johan Quiroz M.D. Director [facility] # [id number] 14 SEE RESULT BELOW Name: MARTHA,ЮЛИЯ Sethi : [address]: Lilo Mobley MD Acct: [id number] Unit: [id number] AGE: 38 Location: [facility] 422 Re05/07/19 SEX: F Status: ADM IN SPEC: [id number] LEON: 05/06/[address]: Raúl Quintero MD REQ: [id number] RECD: 05/06/19 STATUS: CRESCENCIO DAMON DR: Chary Glass MD _ SOURCE: URINE SPDESC: ORDERED: Urine Culture COMMENTS: Verbal to [id number] by [id number] at 0856 on 05/08/19. Results read back accurately. Procedure Result Reported Site Urine Culture Final 05/08/19- 1053 ML Organism 1 MRSA Brandon Count 1-10,000 (Few) CFU/ML Organism 2 NORMAL VIVI Brandon Count 10-25,000 (Moderate) CFU/ML 1. MRSA M.I.C. RX --------- ------ Penicillin >=0.5 R Gentamicin <=0.5 S Linezolid 2 S Nitrofurantoin 32 S Oxacillin R * Quinupristin/Dalfopristin <=0.25 S Rifampin <=0.5 S Tetracycline <=1 S Doxycycline - Deduced S * Minocycline - Deduced S Trimethoprim/Sulfamethoxazole <=10 S Vancomycin 1 S Imipenem-Deduced R * Ampicillin/Sulbactam-Deduced R Cefazolin-Deduced R CONTINUED ON NEXT PAGE DEPARTMENT OF PATHOLOGY, [address] [place] [address] Johan Quiroz M.D. Director [facility] # [id number] Patient: ЮЛИЯ THOMAS [id number] (Continued) Specimen: [id number] Collected: 05/06/19 Received: 05/06/19 (Continued) Procedure Result Reported Site Urine Culture Final (continued) * These antibiotics are not available in the [facility] Formulary Contact the Microbiology Department for any additional antibiotic reporting. * ML - Main Lab . END OF REPORT DEPARTMENT OF PATHOLOGY, [address] [place] [address] Johan Quiroz M.D. Director [facility] # [id number] 15 The urine specimen was tested at the listed cutoffs: Drug class test level (ng/mL) Amphetamines 500 Barbiturates 200 Benzodiazepine metabolites 200 Cocaine metabolites 150 Cannabinoids 50 Opiates 300 Pcp 25 Specimen was received without chain of custody. Results should be used for medical purposes only. 16 <5.0 Negative 5.0 - 25.0 Indeterminate (Repeat testing recommended after 72 hours) >25.0 Positive Perimenopausal women can display HCG levels of up to 20 mIU/mL 17 Therapeutic concentration: <50 ug/mL Toxic concentration: >120 ug/mL 18 Because ethnic data is not always readily [...] 15-29 5 Kidney failure <15 (or dialysis) 19 Reference ranges based on room air. 20 Reference ranges based on room air. 21 Reference ranges based on room air. 22 [facility] Severe Sepsis and Septic Shock Management Bundle Measure requires all lactic acids initially measuring >2.0 mmol/L be repeated. 23 Because ethnic data is not always readily [...] 15-29 5 Kidney failure <15 (or dialysis) 24 Therapeutic concentration: <50 ug/mL Toxic concentration: >120 ug/mL 25 The urine specimen was tested at the listed cutoffs: Drug class test level (ng/mL) Amphetamines 500 Barbiturates 200 Benzodiazepine metabolites 200 Cocaine metabolites 150 Cannabinoids 50 Opiates 300 Pcp 25 Specimen was received without chain of custody. Results should be used for medical purposes only. Procedures Date Code Description Status 04/09/2019 95204 ECHO Transthorasic Realtime 2D W Doppler & Color Flow Hosp Completed 04/08/2019 18327 EKG, Interpretation Only Completed Medical Devices Description No Information Available Encounters Type Date Location Provider Dx Diagnosis Office Visit 06/22/2019 [facility] Matthias Vela T42.4x1A Poisoning by 9:40a Assky godinez M.D.,FACP benzodiazepines, Hospitalists accidental, init F41.9 Anxiety disorder, unspecified F32.9 Major depressive disorder, single episode, unspecified G89.29 Other chronic pain J45.909 Unspecified asthma, uncomplicated K21.9 Gastro-esophageal reflux disease without esophagitis G47.33 Obstructive sleep apnea (adult) (pediatric) Z72.0 Tobacco use Office 06/21/2019 [facility] T42.4x1A Poisoning by Visit 9:40a ky Delgadillo M.D. benzodiazepines, Hospitalists accidental, init Office 05/09/2019 [facility] T42.4x1A Poisoning by Visit 4:01p Assocky, MERCHANDISE CARRIER benzodiazepines, Hospitalists accidental, init N39.0 Urinary tract infection, site not specified F19.10 Other psychoactive substance abuse, uncomplicated F41.9 Anxiety disorder, unspecified J45.909 Unspecified asthma, uncomplicated G89.4 Chronic pain syndrome K21.9 Gastro-esophageal reflux disease without esophagitis G47.33 Obstructive sleep apnea (adult) (pediatric) B18.2 Chronic viral hepatitis C F43.10 Post-traumatic stress disorder, unspecified E28.2 Polycystic ovarian syndrome Office Visit 05/08/2019 [facility] B95.62 Methicillin resis 4:01p Assoc,ky Christian, MERCHANDISE CARRIER staph infct Hospitalists causing diseases classd elswhr N39.0 Urinary tract infection, site not specified T42.4x1A Poisoning by benzodiazepines, accidental, init F19.10 Other psychoactive substance abuse, uncomplicated F41.9 Anxiety disorder, unspecified J45.909 Unspecified asthma, uncomplicated G89.4 Chronic pain syndrome K21.9 Gastro-esophageal reflux disease without esophagitis G47.33 Obstructive sleep apnea (adult) (pediatric) Office 05/07/2019 [facility] T42.4x1A Poisoning by Visit 4:00p Assocky NP benzodiazepines, Hospitalists accidental, init F19.10 Other psychoactive substance abuse, uncomplicated F41.9 Anxiety disorder, unspecified J45.909 Unspecified asthma, uncomplicated G89.4 Chronic pain syndrome K21.9 Gastro-esophageal reflux disease without esophagitis G47.33 Obstructive sleep apnea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
[2019-08-24 16:16] LABS: Urine Appearance Cloudy; Urine Bilirubin 1+ (Negative); Urine Blood Negative (Negative); Urine Color Amber; Urine Glucose Negative (Negative); Urine Ketones Trace (Negative); Urine Nitrite Negative (Negative); Urine Protein 1+(30 mg/dL) (Negative); Urine Urobilinogen Negative (Negative)
[2019-08-24] MEDS ORDERED: Naloxone* 0.4 MG/ML 1 ML VIAL ONE (16:17)
[2019-08-24 16:19] LABS: Urine Bacteria Absent (Absent); Urine Red Blood Cell 3+(>10/hpf) (Absent); Urine Squamous Epithelial Cell Present (Absent); Urine White Blood Cell 1+(6-10/hpf) (Absent)
[2019-08-24 16:30] LABS: Urine Benzodiazepine Screen None Detected (None Detect); Urine Opiates Screen None Detected (None Detect)
[2019-08-24] MEDS ORDERED: Lactated Ringers 1000 ML Bag* 1,000 ML IV ONE ×2 (17:02→17:28)
--- NOTE | 2019-08-24 19:39 | PN ---
Progress Note - Progress Note Date of Service: 08/24/19 Note: I was notified by nursing that the patient answered her question of why did you overdose with "I just want to ." Because of this response will place patient on 1:1 observation.
--- NOTE | 2019-08-24 19:42 | HP ---
CC: Dr. Whitney Aguirre, [facility] * HISTORY AND PHYSICAL: DATE OF ADMISSION: 08/24/19 PRIMARY CARE PROVIDER: Dr. Whitney Aguirre at [facility]. HEALTHCARE PROXY: Lolita Mendieta, her mother. Phone number [phone]. CODE STATUS: Full. CHIEF COMPLAINT: Lethargy after taking too many medications. HISTORY OF PRESENT ILLNESS: Mr. Conrad (prefers name Miguel) is a 39-year-old transman with a history of anxiety; depression; chronic pain; opioid use disorder, on Suboxone; asthma; GERD; TRACI; PCOS; obesity; PTSD, hep C; and multiple episodes of intentional overdose with intent to get high, who was brought to the emergency room after calling from his homeless senior living and stating that he felt weak and lethargic. Of note, further HPI unable to be obtained as the patient is very lethargic during interview. He is able to be aroused and denied complaints, but otherwise quickly drifts off after 1 to 2 word responses to questions. Remainder of history obtained from chart and the ER provider. To staff in the ER, the patient reports taking 3 tablets of Ativan 1 to 2 tablets of Effexor, 10 tablets of gabapentin, 2 of BuSpar, three 8 mg tablets of Suboxone and may have also admitted to using heroin, although U-tox is positive for cocaine. Poison Control was contacted in the emergency room and recommended 12 hours of monitoring on telemetry given over dose of Effexor. The patient did not experience respiratory depression or hypoxia throughout emergency room and was asked to be admitted for observation for telemetry. Of note, earlier this year, the patient had similar presentation of intentional overdose with gabapentin and benzos for euphoric effect. During that admission , he required intubation and developed aspiration pneumonia complicated by septic shock and he required ICU admission with Levophed drip. Shortly after discharge, he again returned with similar presentation, was seen by Mental Health and was recommended to go to rehab. The plan was for him to receive medication refills very frequently with low dose administration per prescription. It appears he has been receiving weekly prescriptions for Suboxone and lorazepam, although it was recently increased to 12-day supply. PAST MEDICAL HISTORY: 1. Polysubstance abuse with multiple intentional overdoses in the past. 2. Obesity, complicated by TRACI. 3. Generalized anxiety disorder and PTSD. 4. Major depressive disorder. 5. Chronic pain. 6. Asthma. 7. GERD. 8. PCOS. MEDICATIONS: 1. Lorazepam 1 mg tablet up to 3 times a day as needed for anxiety. 2. Suboxone 8/2 mg sublingually t.i.d. 3. Buspirone 15 mg twice a day. 4. Venlafaxine XR 150 mg daily. 5. Gabapentin 300 mg t.i.d. Of note, the patient also has listed prescriptions for raltegravir and indomethacin. Besides his first 2 medications, the rest could not be verified at this time. ALLERGIES: PENICILLIN cause rash, VARENICLINE cause GI upset and BUPROPION cause allergy. FAMILY HISTORY: Per records, maternal grandfather and paternal uncle had a history of alcohol abuse, mother with history of depression. SOCIAL HISTORY: This history is obtained from the chart. Per records, the patient is a smoker of half a pack per day for more than 10 years. Denies history of alcohol use. Recreational drugs include prescription benzos, cocaine and heroin with also abuse of prescription opioids. The patient is currently homeless, living in a senior living. REVIEW OF SYSTEMS: Unable to obtain given the patient's lethargy. PHYSICAL EXAMINATION GENERAL: He is a well-appearing woman in no acute distress, who is sleeping, but easily arousable to voice, will give few word responses to questions before falling back asleep. VITAL SIGNS: Afebrile, heart rate 70, blood pressure 97/57, respiratory rate 18 , oxygen saturation 99% on room air. HEENT: Pupils are equal and reactive to light measuring 4 mm. OP clear, moist mucous membranes. LUNGS: Clear anteriorly. HEART: Regular rate and rhythm. No murmurs, gallops, or rubs. ABDOMEN: Soft, nontender, nondistended. EXTREMITIES: Warm and well perfused without evidence of edema. NEURO: Oriented to self and place, but unable to give date. Moves all 4 limbs spontaneously. No slurred speech. No facial droop. DIAGNOSTIC STUDIES/LAB DATA: CBC and LFTs unremarkable. Creatinine slightly elevated to 0.99. TSH 2. Beta hCG negative. UA with protein, ketones, 2+ leukocyte esterase, 1+ wbc, 3+ rbc, but negative blood, and hyaline casts. U tox notable for positive cocaine screen, salicylates, and acetaminophen are negative. EKG: With normal sinus rhythm with rate 83. QTc 450. ASSESSMENT AND PLAN: Mr. Conrad is a 39-year-old transman with history of substance use disorder with multiple overdoses, anxiety, depression, post- traumatic stress disorder, obesity, who is presenting again after intentional overdose with gabapentin, benzos, Suboxone and recent heroin use. Per Poison Control recommendations, the patient will be admitted to telemetry service for 12 hours of monitoring given that he also took an extra tablet of his SNRI. His vitals and respiratory status will be monitored closely given that he also took benzos with opioids, although he is currently not showing significant signs of opioid overdose. For example, he does not have miosis or respiratory depression, and he is not requiring oxygen supplementation. Mental health evaluation has also been ordered when the patient is more alert and we will look forward to their recommendations to come up with a plan to see how the patient can still have access to his medical care, but not have enough pills at home to be able to overdose on. DVT prophylaxis: The patient is low risk and he can ambulate as able. Code status: Full code. TIME SPENT: Approximately 60 minutes was spent on admission of this patient, more than half of which was spent at bedside for interview and exam. [id number]/CPS #: [id number] BELÉN
--- NOTE | 2019-08-25 08:44 | PN ---
Subjective Date of Service: 08/25/19 Interval History: Overnight, expressed to RN that overdose was an attempt to . Denies this to me this morning. Still sleepy on interview - easily arousable but quickly falls back to sleep after conversation. Denies pain, SOB, palpitations, SI. Amenable to seeing psychiatry today. Pt states he plans to return to homeless correction after discharge. He also states he will be admitted to inpatient rehab on Sep 02 in [place]. Objective Vital Signs - 8 hr 08/25/19 03:15 Temperature 99.1 F Pulse Rate 82 Respiratory 14 Rate Blood Pressure 99/44 (mmHg) O2 Sat by Pulse 94 Oximetry Appearance: well appearing, in NAD, snoring before interview Eyes: No Scleral Icterus Ears/Nose/Mouth/Throat: Clear Oropharnyx, Mucous Membranes Moist Neck: NL Appearance and Movements; NL JVP, Trachea Midline Respiratory: Symmetrical Chest Expansion and Respiratory Effort, Clear to Auscultation Cardiovascular: NL Sounds; No Murmurs; No JVD, RRR Abdominal: NL Sounds; No Tenderness; No Distention, No Hepatosplenomegaly Extremities: No Edema Skin: No Rash or Ulcers Neurological: Alert and Oriented x 3, - - easily arousable but quickly falls back to sleep, moves 4 extremities spontaneously and equally, no slurred speech Result Diagrams: 08/24/19 15:23 08/24/19 15:23 Assess/Plan/Problems-Billing Assessment: 39 transman (name: Miguel) with substance use disorder and multiple intentional overdoses, anxiety, depression, PTSD, obesity complicated by OHS, who presents again after intentional overdose of gabapentin, venlafaxine, Suboxone, lorazepam , buspirone, and heroin. - Patient Problems (1) Overdose Comment: Overdosed on Ativan, gabapentin, Suboxone, venlafaxine, buspirone, and heroin. No miosis or respiratory depression. - Poison Control contacted and recommended to monitor for 12 hours on telemetry given SNRI overdose (only took 1-2 extra pills), now s/p monitoring without events - pending psychiatry eval - CM team to contact rehab - can patient enter program earlier than next wek? (2) Obesity, morbid, BMI 40.0-49.9 Comment: - discussed diet (3) Tobacco abuse counseling Current Visit: Yes Status: Chronic Priority: Medium Code(s): Z71.6 - TOBACCO ABUSE COUNSELING SNOMED Code(s): 212093359 (4) DVT prophylaxis Comment: - Ambulation
[2019-08-25] MEDS ORDERED: busPIRone TAB* 15 MG PO ONE (09:15)
[2019-08-25] MEDS ORDERED: Nicotine PATCH 7 MG/24 HR* PATCH TRANSDERM SCH (12:00)
[2019-08-25] MEDS ORDERED: Acetaminophen TAB* 325 MG PO PRN (12:24)
[2019-08-25] MEDS ORDERED: Al Hydrox/Mg Hydrox/Simet LIQ* 30 ML UDC PO PRN (12:24)
[2019-08-25] MEDS ORDERED: Albuterol HFA INHALER* 8 gm MDI INH PRN (12:25)
[2019-08-25] MEDS: Gabapentin CAP(*) 300 MG PO SCH ×2 (14:53→19:55)
[2019-08-25] MEDS: chlorproMAZINE TAB* 100 MG PO PRN (16:14)
[2019-08-25] MEDS: Nicotine* 2MG (FRUIT FLAVOR) GUM PO PRN ×2 (16:14→18:42)
--- NOTE | 2019-08-25 16:14 | CONS ---
CONSULTATION REPORT/PSYCHIATRIC HISTORY AND PHYSICAL: DATE OF ADMISSION: 08/24/19 DATE OF CONSULT: 08/25/19 ATTENDING PHYSICIAN: Dr. Paulette Godwin. CONSULTING PHYSICIAN: Dr. Ziggy Flores. REASON FOR CONSULT: Suicidal overdose. SUBJECTIVE HISTORY: "Miguel" is a 39-year-old single white female to male transgendered patient with a history of chronic opioid and benzodiazepine dependence as well as medical comorbidities of chronic pain, asthma, obstructive sleep apnea, polycystic ovarian syndrome, obesity and hepatitis C, who pres ents to our emergency room after calling 911 complaining of weakness and lethargy. The patient was e xtremely lethargic in our emergency room and unable to provide much history, but it was revealed that he overdosed on 3 tablets of Ativan, 1 to 2 tablets of Effexor, 10 tablets of gabapentin, 2 of BuSpa r and three 8 mg tablets of Suboxone and may in fact have also used heroin, although his urine drug s creen was positive only for cocaine. The patient initially denied suicidal intention and indicated t hat he was merely trying to get high, which is a well established pattern with this patient. Later, he made a suicidal statement to a nurse and was placed on one-to-one. This morning, when he met his attending on the hospitalist service, Dr. Paulette Godwin, the patient again denied suicidal ideations, but upon interview, he reports that he was suicidal, not doing well and was unsafe to return to the homeless [facility] where he has been residing for several months. I gathered that the patient's mother has stopped supporting him due to her concerns that she might be enabling him. Her name is Lolita thurman and I see a note that indicates that she substantiated that Miguel has an intake at the [facility] in [place], [place] on 09/02/19. Miguel is agreeabl e to going to [facility] next week, but does not feel safe returning home in the meantime. He endorses multiple neurovegetative symptoms of depression including difficulty sleeping, anhedonia, some guilt , poor energy, poor concentration, lack of appetite, psychomotor retardation, and thoughts of suicida l overdose. PAST PSYCHIATRIC HISTORY: The patient has had several psychiatric admissions on the [facility] with 2 previous ones in November 2017. Her diagnosis tends to be drug related mood disorders. She is not currently in outpatient mental health treatment. SUBSTANCE ABUSE HISTORY: Quite extensive mostly for cocaine, heroin, and benzodiazepines. She denie s recently using heroin to me, but she made the statement in the emergency room. Urine drug screen o cte again is positive only for cocaine. She does get partial agonist therapy through the [facility] here in [place], but also has a tendency to abuse medications such as Lyrica and gabapentin. The patient has been through multiple rehabilitative services including most recently at [facility] 1 year ago. She denies the use of alcohol and typically smokes 1 to 2 packs of cigarettes per day. PAST MEDICAL HISTORY: Significant for degenerative disk disease, spondylolisthesis of the spine, lou ycystic ovarian syndrome, osteoarthritis, obesity, gastroesophageal reflux disease, chronic pain, ast hma. FAMILY HISTORY: Significant for a maternal grandfather as well as paternal uncle who both abuse alco hol. Her mother has been diagnosed with depression and has taken Celexa in the past. SOCIAL HISTORY: The patient has 1 older sister who is a registered nurse. She grew up in the [place] area, having gone to [employer] [place] [employer] before dropping out. She did complete her GED while incarcer ated in her early 20s and does have 2 years of college at [employer]. Most recently, she was jailed for for tori in the second degree after stealing her mother's credit card and using it to buy alcohol for her friends that she met in her outpatient program. She violated parole and was there after incarcerate d between December and March of 2019. Currently, she is completely off parole. She has been living at [facility] here in [place] after being asked to leave her mother's house due to on going drug abuse. The patient has never been and has no children, has never been in the [facility]. At times, he is referring to himself as a male and prefers the name Miguel. Currently, he is not in any significant relationships. MENTAL STATUS EXAM: The patient is a young white female to male transgender with extremely short bro wn hair, looking somewhat obese, dressed in boxer underwear and a T-shirt, sitting down in bed. She is awake, calm, cooperative, expressive. Speech is fluent. Her stated mood is depressed, although sh e appears to be displaying a full affect. Thought process is linear and goal directed. Thought cont ent is significant for her desire to be admitted to the behavioral science unit and later transferred to [facility] the [facility]. She is endorsing suicidal ideations with thoug hts of overdosing, but denies homicidality. She denies auditory or visual hallucinations. Insight an d judgment appeared to be fair given her willingness to come in on a voluntary basis for treatment. DIAGNOSES: As follows: [place] I: Unspecified depressive disorder, benzodiazepine use disorder, opioid use disorder, cocaine use disorder, posttraumatic stress disorder by history. [place] II: Deferred. ASSESSMENT: The patient is a 39-year-old single white female to male transgendered individual with a history of abusing benzodiazepines, opioid and cocaine, who was brought to the hospital via ambulanc e after making a phone call that she had purposely taken too many medications. I do believe at this point that the patient was merely attempting to get intoxicated and is looking for a place to stay in between now and rehab, but I cannot prove this and given the fact that the patient has some history of self-harm, several admissions for overdoses, I do not feel safe sending her home. RECOMMENDATIONS TO PRIMARY TEAM: Psychiatry will have the patient transferred to the [address] [place] [address] ral science unit where we will continue her medications with the exception of Ativan which I will hol d and Suboxone which I will only give once daily. We will be reaching out to the [facility] to make sure that she has a bed pending in their rehab. While she is w ith us, we are going to strongly encourage her to avail herself of all group and milieu activities. [id number]/[facility] #: [id number]
[2019-08-25] MEDS ORDERED: Nicotine PATCH 21 MG/24 HR* PATCH ONE (16:18)
[2019-08-25] MEDS: Nicotine PATCH 21 MG/24 HR* PATCH TRANSDERM SCH (16:19)
[2019-08-25] MEDS: busPIRone TAB* 15 MG PO SCH (19:55)
[2019-08-26] MEDS: Gabapentin CAP(*) 300 MG PO SCH ×3 (08:33→20:52)
[2019-08-26] MEDS: Venlafaxine EXT RELEASE CAP* 75 MG PO SCH (08:35)
[2019-08-26] MEDS: busPIRone TAB* 15 MG PO SCH ×2 (08:36→20:51)
[2019-08-26] MEDS: Nicotine PATCH 21 MG/24 HR* PATCH TRANSDERM SCH (08:36)
[2019-08-26] MEDS: Buprenorp/Nalox 8-2 MG FILM SL FILM SCH (08:36)
[2019-08-26] MEDS: Nicotine* 2MG (FRUIT FLAVOR) GUM PO PRN ×2 (09:38→14:06)
[2019-08-26] MEDS: Meloxicam(NF) 7.5 MG TAB PO SCH (09:57)
[2019-08-26] MEDS: chlorproMAZINE TAB* 100 MG PO PRN (10:53)
--- NOTE | 2019-08-26 13:12 | PN ---
Subjective - Subjective Date of Service: 08/26/19 Service Type: 47714 Hosp care 25 min moderate complexity Subjective: Miguel has now been transferred to the inpatient psychiatric unit and new details emerge from his outpatient circumstances. Miguel informs me today that he only left his mother's home 2 days prior to admission to stay at the homeless halfway. This was precipitated by the fact that the police discovered a great deal of heroin in his mother's car, mostly wrapped in individual baggies, indicating an intent to sell, which is a felony. Miguel denies that the drugs were his but cannot explain how they got in his mother's car, as she does not do nor sell drugs. He also informs me that he was pulled over on a DWI charge in the [facility], which is pending a court date on September 04. He states that he called the [facility] Police and they denied any active warrants but Miguel says that, given his past history of felony incarceration, he is likely facing 5-10 years back in nursing home. "That's why I had to come in here. I just don' t know if I can deal with all that." He denies SI today and would like to go to [facility] inpatient rehab as soon as possible. He is med-seeking and upset about the reduction in his buprenorphine, lorazepam and gabapentin prescriptions. Objective - General Observations Appearance: Well Groomed Appears Stated Age: Yes Stature: Overweight Posture: WNL Eye Contact: Average Behavior/Activity: WNL - Interaction Observations Attitude Towards Examiner: Cooperative Stated Mood: Euthymic Affect: Full Speech Pattern/Tone: Clear Thought Process: Goal Directed Perception: WNL Thought Content: WNL Hallucination Type: None Delusion Type: None - Cognitive Function Orientation: A&O x 4 Level of Consciousness: Awake Cognition: WNL Estimated Intelligence: Normal Insight: WNL Judgment Within Normal Limits: Yes - Medication Compliance Cooperative with Inpatient Medication Regimen: Yes - Group Participation Participates in Group Activities: Yes Assessment - Assessment Merits Inpatient Hospitalization: Consolidate Improvements, Pending Safe DC Plan Inpatient DSM-V Dx: F14.24 Clinical Impression: 39 y.o. single, white, [id number] transgendered individual with a history of opioid, cocaine, benzodiazepine and alcohol misuse who is transferred from the Hospitalist service following medical stabilization of an intentional overdose on several prescribed medications. 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 We are holding lorazepam, as she is obviously addicted to them, and are monitoring her for withdrawal. Her vitals are stable and in normal parameters. She is requesting transfer to [facility] in [place], [place] for inpatient rehab. Continued Medication Management: Continue Outpt Medication Medications: Current Medications Acetaminophen (Tylenol Tab*) 650 mg PO Q4H PRN PRN Reason: for pain; or Temp >101 F Last Admin: 08/25/19 19:56 Dose: 650 mg Al Hydrox/Mg Hydrox/Simethicone (Maalox Plus*) 30 ml PO Q4H PRN PRN Reason: INDIGESTION Albuterol (Ventolin Hfa Inhaler*) 1 puff INH Q2HR PRN PRN Reason: SOB/WHEEZING Buprenorphine/Naloxone (Suboxone 8 Mg-2 Mg Sl Film) 1 each SL FILM DAILY [facility] Last Admin: 08/26/19 08:36 Dose: 1 each Buspirone HCl (Buspar Tab *) 15 mg PO BID [facility] Last Admin: 08/26/19 08:36 Dose: 15 mg Chlorpromazine HCl (Thorazine Tab*) 100 mg PO Q6H PRN PRN Reason: AGITATION Last Admin: 08/26/19 10:53 Dose: 100 mg Gabapentin (Neurontin Cap(*)) 300 mg PO TID [facility] Last Admin: 08/26/19 08:33 Dose: 300 mg Meloxicam (Mobic(Nf)) 15 mg PO DAILY [facility] Last Admin: 08/26/19 09:57 Dose: 15 mg Nicotine (Nicotine Patch 21 Mg/24 Hr*) 1 patch TRANSDERM DAILY [facility] Last Admin: 08/26/19 08:36 Dose: 1 patch Nicotine Polacrilex (Nicotine Gum*) 2 mg PO Q2H PRN PRN Reason: CRAVING Last Admin: 08/26/19 09:38 Dose: 2 mg Pharmacy Profile Note (Nicotine Patch Removal Note*) 1 note PATCH OFF 2099 [facility] Last Admin: 08/26/19 00:00 Dose: Not Given Venlafaxine HCl (Effexor Xr Cap*) 150 mg PO DAILY [facility] Last Admin: 08/26/19 08:35 Dose: 150 mg - Discharge Plan Discharge Plan: Drug/Alcohol Rehab
[2019-08-26] MEDS ORDERED: diPHENhydraMINE PO* 50 MG ONE (14:04)
[2019-08-26] MEDS ORDERED: Haloperidol TAB* 5 MG ONE (14:05)
[2019-08-26] MEDS ORDERED: diPHENhydraMINE PO* 50 MG PO ONE (15:00)
[2019-08-26] MEDS ORDERED: Haloperidol TAB* 5 MG PO ONE (15:00)
[2019-08-26] MEDS: Nicotine Patch Removal NOTE PATCH OFF SCH ×2 (22:23)
[2019-08-27] MEDS: busPIRone TAB* 15 MG PO SCH (07:35)
[2019-08-27] MEDS: Gabapentin CAP(*) 300 MG PO SCH (07:35)
[2019-08-27] MEDS: Buprenorp/Nalox 8-2 MG FILM SL FILM SCH (07:35)
[2019-08-27] MEDS: Venlafaxine EXT RELEASE CAP* 75 MG PO SCH (07:35)
[2019-08-27] MEDS: Nicotine PATCH 21 MG/24 HR* PATCH TRANSDERM SCH (07:35)
[2019-08-27] MEDS: Meloxicam(NF) 7.5 MG TAB PO SCH (07:37)
[2019-08-27 08:22] VITALS: BP 113/93
--- NOTE | 2019-08-27 12:43 | DS ---
DISCHARGE SUMMARY: DATE OF ADMISSION: 08/24/19 DATE OF DISCHARGE: 08/27/19 DISCHARGE DIAGNOSES: As follows: [place] I: Cocaine-induced depressive disorder, benzodiazepine use disorder, opioid use disorder, coca ine use disorder, posttraumatic stress disorder by history. [place] II: Deferred. CONDITION AT THE TIME OF DISCHARGE: Improved. "Miguel" is no longer endorsing suicidal ideations. He is future oriented with a plan to move forward in the substance abuse recovery. We have confirmed t hat he has a bed waiting for him on 09/02/19 at the [facility] on the [facility] in [place], [place]. In addition, he has followups in place with the [facility] where his provider is Dr. Whitney Aguirre. Miguel has demonstrated no behaviors of self-h arm since hospitalization and has denied suicidal ideations for the last 2 days. He has signed a req uest for voluntary discharge. We have been in contact with his mother whose name is Lolita Mendieta and she is supportive of the discharge plan indicating that she will drive him to [facility] to begin r ehab on 09/02/19. The patient has been safe on all checks and is appropriately requesting d ischarge. We see no barriers to his successful treatment temporarily in the community and then [facility]. MENTAL STATUS EXAM AT THE TIME OF DISCHARGE: The patient is a young white female to male transgender ed individual with extremely short brown hair, somewhat obese, dressed in a [employer] T[employer]S vandana and jeans, she is awake, calm, cooperative, expressive. Speech is fluent. Mood is euthymic wit h full affect. Thought process is linear and goal directed. Thought content is significant for her d esire to be discharged. She is denying suicidal or homicidal thoughts. She is denying auditory or v isual hallucinations. Insight and judgment appeared to be fair given her willingness to pursue rehab on an inpatient basis. Cognitively, she is awake and alert with what would appear to be an average intellect. DISCHARGE INSTRUCTIONS TO THE PATIENT: Are as follows: Part A: Medications: The patient takes: 1. Mobic 15 mg daily. 2. Albuterol inhaler 1 puff inhaled every 2 hours as needed for wheezing. 3. Suboxone 8/2 mg 1 film sublingually t.i.d. 4. Neurontin 300 mg in the morning and 600 mg b.i.d. 5. Nicotine patch 21 mg transdermally once daily. 6. Nicotine gum 4 mg every 2 hours as a p.r.n. for nicotine craving. 7. BuSpar 15 mg p.o. b.i.d. 8. Effexor 150 mg p.o. daily. Part B: Diet is regular. Part C: Activities as tolerated. The patient is a smoker and she is in the active state of quitting . She has requested and will receive continuation of nicotine replacement therapy in the form of gum and the transdermal patch. There are no laboratory or diagnostic studies pending at the time of dis charge. Part D: Followup care: The patient will be seen at the [facility] on 09/01/19. Part E: Substance abuse followup: The patient will be admitted to the inpatient service of the [facility] in [place], [place] on 09/02/19. Part E: Disposition: She is being discharged to her mother's house. HOSPITAL COURSE: Part A: Reason for admission: "Miguel" is a 39-year-old single white female to male transgendered individual with a history of chronic opioid and benzodiazepine dependence as well as me dical comorbidities of chronic pain, asthma, obstructive sleep apnea, polycystic ovarian syndrome, ob esity, and hepatitis C, who presents to our emergency room after calling 911 complaining of weakness and lethargy. The patient was extremely lethargic in the ED and was unable to provide much history, but it was revealed that he had overdosed on 3 tablets of Ativan, 1 to 2 tablets of Effexor, 10 table ts of gabapentin, 2 tablets of BuSpar, and three 8 mg tablets of Suboxone and may in fact have also u sed heroin, although the urine drug screen was positive only for cocaine. The patient initially rachael ed suicidal intention and indicated he was merely trying to get high, which is a well-established pat tern with Miguel. Later, he made a suicidal statement to a nurse and was placed on one-to- one. On morning of my consultative evaluation on the hospitalist service, he again denied suicidal ideation s to his attending, but upon my interview, he reported that he was in fact suicidal and that the over dose had been intentional with a thought of hurting himself. I understand that the patient had been recently kicked out of his home and that he has been staying at the [facility] here in [place]. It also became evident that Miguel has an intake appointment at the [facility] in [place], [place] scheduled for 09/02/19. Miguel was agreeable to going to [facility], but did not feel safe returning to the community. He endorsed multiple neurove getative symptoms including depression, difficulty sleeping, anhedonia, some guilt, poor energy, poor concentration, lack of appetite, psychomotor retardation, and thoughts of suicidal overdose. Part B: Psychiatric treatment rendered: The patient was transferred from the inpatient medical serv ice to the behavioral science unit where he was placed on q.15 minute checks for his own safety. Giv en the seriousness of the overdose, we did resume Suboxone treatment, but at the comparatively lower dose of 8/2 mg sublingually daily. Similarly, we reduced his gabapentin to 300 mg t.i.d. and we comp letely held his lorazepam. Throughout the hospitalization, he demonstrated no signs of benzodiazepin e withdrawal, although he did complain vociferously that we had withheld this. I tried to get into t ouch with someone at [facility]; however, at the time of this discharge, no one has returned my ph one call; a message was left specifically for Dr. Whitney Aguirre. Miguel revealed to us early on after being transferred that he had only recently left his mother's house and her reason for kicking him o ut was that the police discovered a great deal of heroin in the trunk of her car, which was reportedl y ready for sale given the fact that it was divided into individual baggies. Miguel denies that she is the perpetrator of this drug stash, but nonetheless given her criminal background, she is aware that she is facing potentially several years of incarceration if convicted. She also revealed to us that she had a recent DWI in the [facility], the court date for which is scheduled for 09/04/19. We were able to contact the [facility] Police who denied that there were any active warrants for iMguel's apprehension. On her unit, her suicidal ideation is quickly resolved and she seemed future oriented . She had contact with her mother who was agreeable with taking her back for the holiday weekend and then transporting her to [facility]. It is really uncertain at this point what her leg al situation might be. Nonetheless, we are encouraging her to follow through with substance abuse tr eatment and she is agreeable to this. She has been safe on all checks and we do not see any rational e for further inpatient behavioral science care. She will follow up with [facility] in the community befo re going to rehab. We are wishing Miguel the best in terms of a safe holiday as well as prolonged sobr iety in the community. [id number]/[facility] #: [id number]
== END 2019-08-27 11:40 | disposition home or self-care (01) | DRG 773 ==
LOC: ED 14:45 → MEDTELE 16:58 → OBSVTOIN 08-25 12:24 → BSU 08-25 12:25
PROVIDERS: ADMIT Internal Medicine; ATTEND Psychiatry & Neurology Psychiatry
DX: F14.24 Cocaine dependence with cocaine-induced mood disorder (principal); F13.20 Sedative, hypnotic or anxiolytic dependence, uncomplicated; F11.20 Opioid dependence, uncomplicated; Z68.41 Body mass index [BMI] 40.0-44.9, adult; T40.1X2A Poisoning by heroin, intentional self-harm, initial encounter; J45.909 Unspecified asthma, uncomplicated; J42 Unspecified chronic bronchitis; J45.30 Mild persistent asthma, uncomplicated; M17.0 Bilateral primary osteoarthritis of knee; K21.9 Gastro-esophageal reflux disease without esophagitis; F43.10 Post-traumatic stress disorder, unspecified; F32.9 Major depressive disorder, single episode, unspecified; F17.210 Nicotine dependence, cigarettes, uncomplicated; E66.9 Obesity, unspecified; T42.6X2A Poisoning by other antiepileptic and sedative-hypnotic drugs, intentional self-harm, initial encounter; T50.7X2A Poisoning by analeptics and opioid receptor antagonists, intentional self-harm, initial encounter; T42.4X2A Poisoning by benzodiazepines, intentional self-harm, initial encounter; G47.33 Obstructive sleep apnea (adult) (pediatric); E28.2 Polycystic ovarian syndrome; B19.20 Unspecified viral hepatitis C without hepatic coma; F41.1 Generalized anxiety disorder; T43.592A Poisoning by other antipsychotics and neuroleptics, intentional self-harm, initial encounter; T43.212A Poisoning by selective serotonin and norepinephrine reuptake inhibitors, intentional self-harm, initial encounter; T40.4X2A Poisoning by other synthetic narcotics, intentional self-harm, initial encounter; M43.10 Spondylolisthesis, site unspecified; G89.29 Other chronic pain; F64.0 Transsexualism; Y92.009 Unspecified place in unspecified non-institutional (private) residence as the place of occurrence of the external cause; Z88.0 Allergy status to penicillin; Z88.1 Allergy status to other antibiotic agents; Z81.1 Family history of alcohol abuse and dependence; Z59.0 Homelessness; Z79.899 Other long term (current) drug therapy
CPT/HCPCS: 36415; 71045; 80053; 80307; 80320; 80329; 81003; 81015; 83605; 84443; 84702; 85025; 87086; 93005; 99222; 99232; 99238; 99284; A9270-GY; G0480; J2310

== ENCOUNTER 2019-12-02 22:57 | Emergency (ER) | payer OTHER ==
--- OUTSIDE RECORDS SUMMARY | 2019-12-02 23:12 | XMS REPORT | Summary of Care ---
:1980 Author Organization [facility] Address 1 [facility] [place] [address] Care Team Providers Name Role Phone Leonora Hoffman NP Primary Care Provider Reason for Visit Reason Comments Follow-up left knee MRI results Encounter Details Date Type Department Care Team Description 11/20/2019 Office Visit [facility] - Donna Alfaro, Acute medial meniscus [place] RPA-C tear, left, [address] subsequent encounter [address] (Primary Dx) [place] [address] [phone] Allergies Active Allergy Reactions Severity Noted Date Comments Varenicline Tartrate GI Reaction 03/24/2011 Penicillins Unknown Reaction 10/30/2008 As a small child Bupropion Other 03/24/2011 Anxious documented as of this encounter (statuses as of 11/20/2019) Medications Medication Sig Dispensed Refills Start Date End Date Status clotrimazole Apply to feet 60 g 0 12/17/2014 Active (LOTRIMIN) 1 % and nails daily Apply externally CreamIndications: Tinea pedis albuterol-ipratrop 3 mL by 360 mL 0 05/11/2015 Active ium (DUO-NEB) Inhalation-SVN 0.5-2.5 (3) MG/3ML route TWICE Inhalation DAILY. Solution albuterol HFA Take 2 Puffs by 1 Inhaler 5 05/11/2015 Active (VENTOLIN HFA) 108 inhalation (90 BASE) MCG/ACT EVERY SIX HOURS Inhalation Aero NEEDED Soln (wheezing). SUBOXONE 8-2 MG 0 05/07/2015 Active Sublingual FILM BusPIRone HCl 30 Take 1 Tab by 60 Tab 5 11/17/2015 Active MG Oral Tab mouth TWICE DAILY. LORazepam (ATIVAN) Take 1 Tab by 10 Tab 0 11/17/2015 Active 0.5 MG Oral mouth TWO TIMES TabIndications: DAILY NEEDED Other chronic pain (pain). Max Daily Amount: 1 mg. venlafaxine Take 150 mg by 0 Active (EFFEXOR XR) 150 mouth. MG Oral CAPSULE SR 24 HR gabapentin Take 300 mg by 0 Active (NEURONTIN) 300 MG mouth THREE Oral Cap TIMES DAILY. Testosterone by Injection 0 Active Cypionate 50 MG/ML route. Injection Solution metFORMIN HCL 1000 TAKE 1 TAB BY 60 Tab 5 04/21/2014 11/20/19 Discontinued MG Oral Tab MOUTH TWO TIMES 20 (Therapy DAILY WITH Completed) MEALS. nicotine Place 1 Patch 30 Patch 0 02/03/2015 11/20/19 Discontinued transdermal onto skin 20 (Therapy patch-daily DAILY. Completed) (NICODERM) 21 MG/24HR Transdermal PATCH 24 HRIndications: Smoking triamcinolone 1 Appl by 1 Tube 0 05/11/2015 11/20/19 Discontinued (KENALOG) 0.1 % Dental route 20 (Therapy Mouth/Throat Paste TWICE DAILY. Completed) Twice daily Omeprazole 40 MG Take 1 Cap by 30 Cap 3 11/17/2015 11/20/19 Discontinued Oral CAPSULE mouth DAILY. 20 (Therapy DELAYED RELEASE Completed) Pregabalin Take 1 Cap by 90 Cap 5 11/17/2015 11/20/19 Discontinued (LYRICA) 200 MG mouth THREE 20 (Therapy Oral TIMES DAILY. Completed) CapIndications: Max Daily Other chronic pain Amount: 600 mg. 2 QAM and 1 QPM baclofen Take 1 Tab by 42 Tab 0 12/17/2015 11/20/19 Discontinued (LIORESAL) 10 MG mouth THREE 20 (Therapy Oral Tab TIMES DAILY. Completed) duloxetine Take 2 Caps by 60 Cap 0 02/10/2016 11/20/19 Discontinued (CYMBALTA) 60 MG mouth DAILY. 20 (Therapy Oral CAPSULE Completed) ENTERIC COATED PARTICLESIndicatio ns: Depression documented as of this encounter (statuses as of 11/20/2019) Active Problems Problem Noted Date Acute medial meniscus tear, left, subsequent encounter 11/20/2019 Hx of drug abuse 05/11/2015 Overview: On suboxone - Heroin overdose 2015 - Smoking 02/03/2015 Overview: Care plan done 02/03/2015 Synovitis 10/05/2014 S/P arthroscopy of knee 08/21/2014 Tear of medial cartilage or meniscus of knee, current 2014 TRACI (obstructive sleep apnea) 06/13/2014 Overview: [facility]-BIPAP AUTO SV min 18 mas 28 Gastroesophageal reflux disease 04/02/2014 S/P left knee arthroscopy 03/03/2014 Knee pain, bilateral 10/21/2013 Medial meniscus tear 10/21/2013 PCO (polycystic ovaries) 02/13/2012 GERD (gastroesophageal reflux disease) 12/29/2011 Fatty liver 03/24/2011 BMI 45.0-49.9, adult 03/16/2011 Overview: This patient's BMI has been calculated and is above average, and BMI management plan is completed. General patient education discussion including: obesity-related excess mortality Spondylisthesis 10/30/2008 Overview: Patient follows with Dr. Lugo for pain management Anxiety 10/30/2008 Overview: Do Not prescribe benzos for patient - on suboxone - Dr Tejada following Depression 10/30/2008 DDD (degenerative disc disease) Overview: L4-L5, Dr. Lugo Asthma, chronic Overview: Admitted for exacerbation to the ICU 12/11 documented as of this encounter (statuses as of 11/20/2019) Resolved Problems Problem Noted Date Resolved Date Accidental drug overdose 11/18/2009 09/19/2012 Alcohol abuse 09/19/2012 Overview: history documented as of this encounter (statuses as of 11/20/2019) Immunizations Name Administration Dates Next Due Human Papillomavirus 04/30/2009, 12/29/2008, 10/30/2008 TDAP Vaccine 03/22/2012 documented as of this encounter Social History Tobacco Use Types Packs/Day Years Used Date Current Every Day Smoker Cigarettes 0.5 9 Smokeless Tobacco: Never Used Tobacco Cessation: Ready to Quit: No; Counseling Given: Yes Alcohol Use Drinks/Week oz/Week Comments No 0 Standard drinks or equivalent 0.0 rare Sex Assigned at Date Recorded Not on file documented as of this encounter Last Filed Vital Signs Vital Sign Reading Time Taken Comments Blood Pressure 126/90 11/20/2019 10:40 AM EST Pulse - - Temperature - - Respiratory Rate - - Oxygen Saturation - - Inhaled Oxygen Concentration - - Weight 110.7 kg (244 lb) 11/20/2019 10:40 AM EST Height 162.6 cm (5' 4") 11/20/2019 10:40 AM EST Body Mass Index 41.88 11/20/2019 10:40 AM EST documented in this encounter Progress Notes Donna Alfaro RPA-C - 11/20/2019 10:30 AM EST Patient: Arminda Conrad : 1980 Date of Service: 11/20/2019 Chief Complaint Patient presents with ? Follow-up left knee MRI results HPI: Arminda Conrad is a 39-y.o. female who is here for follow up from a left knee MRI. The patient reports that she is mobilizing with pain rated as 6/10 in the Knee and catching . Denies fever, chills, constitutional symptoms. Pain is overall similar to last visit and without significant improvement. Physical Exam: Gait: Patient walks unassisted , normal gait. Knee: Range of motion of the left knee demonstrates extension 0, flexion 120 and quadriceps lag of0. There is not crepitus throughout range of motion. There is pain at extremes of motion. Patient has tenderness over the medial joint line. Neurological: Sensation is intact to the foot. Vascular: Pedal pulse is present. Pedal edema is absent. Skin condition to the foot is unremarkable and intact. Imaging: MRI: severe djd medial compartment with complex medial meniscus tear. Also pf DJD. Impression: ICD-9-CM ICD-10-CM 1. Acute medial meniscus tear, left, subsequent encounter V58.89 S83.242D 836.0 Plan: The diagnosis was discussed with the patient. She states she would like to have surgery. Willset her up for a left knee arthroscopy. Return for pre op exam. Author: [facility] [place] 11/20/2019 10:55 documented in this encounter Plan of Treatment Health Maintenance Due Date Last Done Comments PNEUMOCOCCAL 0-64 YRS (1 of 1 1987 - PPSV23) DEPRESSION SCREENING 1993 INFLUENZA VACCINE (#1) 2019 DTaP/Tdap/Td Vaccines (2 - 03/22/2022 03/22/2012 Tdap) HPV IMMUNIZATION SERIES Aged Out 04/30/2009, No longer eligible based 12/29/2008, on patient's age to 10/30/2008 complete this topic HEPATITIS A IMMUNIZATION Aged Out No longer eligible based SERIES on patient's age to complete this topic MENINGOCOCCAL VACCINE IMM Aged Out No longer eligible based on patient's age to complete this topic documented as of this encounter Goals Goal Patient Goal Associated Recent Patient-Stated? Author Type Problems Progress Lifestyle - Lifestyle Smoking No Crepet, Current Smoker MD Jaylin Note: Smoking Cessation Plan Discussed smoking cessation with patient. Patient readiness to quit:yes Discussed smoking cessation plan according to AHRQ guidelines:counseled patient on the risks of tobacco use, advised patient to quit and offered support , discussed current use pattern, educational mater ials distributed and advised regarding importance of setting quit date My Quit Plan: My quit date is set for has stopped - needs support Notify my friends, family, and co-workers about decision to quit. Will ask for their support and understanding Remove tobacco products from my environment. I will ask people not to smoke around me or in my home. I will anticipate challenges at the beginning and will try not to be discouraged. To remember the benefits of quitting such as improved health, feeling better about myself, saving money, etc. Reducing stressors and avoiding triggers are essential keys to my success Finding ways to distract myself when I have the urge to smoke such as taking a walk, reading, playing a board game, putting together a puzzle, etc. Taking medications as my healthcare provider has advised to help alleviate the urge to smoke. If I am unable to take the medication, I will discuss further with my healthcare provider. Recognize reasons for relapse in my past attempts. What did and did not work for me Consider connecting with group, individual, or telephone counseling documented as of this encounter Results Not on filedocumented in this encounter Visit Diagnoses Diagnosis Acute medial meniscus tear, left, subsequent encounter documented in this encounter (Work) documented as of this encounter
--- OUTSIDE RECORDS SUMMARY | 2019-12-02 23:12 | XMS REPORT | Summary of Care ---
:1980 Author Organization [facility] Address [address] [facility] [place] [address] Care Team Providers Name Role Phone Leonora Hoffman NP Primary Care Provider Reason for Referral MRI/CAT/PET Scan (Routine) Status Reason Specialty Diagnoses / Referred By Referred To Procedures Contact Contact Pending Review Diagnoses Traumatic tear of medial meniscus of left knee, initial encounter Edy Negro, Procedures MR LOWER EXTREMITY JOINT WO CONTRAST LEFT [address] [facility] [place] [address] [address] [place] [address] Reason for Visit Reason Comments New Patient Re-injured left knee. DOI: 4-5 wks. 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 SP left knee arthroscopy 08-10-[address] Negro. Encounter Details Date Type Department Care Team Description 10/17/2019 Office Visit [facility] - Edy Negro MD Traumatic tear of [place] [address] [facility] medial meniscus of [address] [facility] [address] left knee, [place] [address] encounter ([place] [address] Dx) [phone] Allergies Active Allergy Reactions Severity Noted Date Comments Varenicline Tartrate GI Reaction 03/24/2011 Penicillins Unknown Reaction 10/30/2008 As a small child Bupropion Other 03/24/2011 Anxious documented as of this encounter (statuses as of 10/17/2019) Medications Medication Sig Dispensed Refills Start Date End Date Status metFORMIN HCL 1000 MG TAKE 1 TAB BY 60 Tab 5 04/21/2014 Active Oral Tab MOUTH TWO TIMES DAILY WITH MEALS. clotrimazole Apply to feet and 60 g 0 12/17/2014 Active (LOTRIMIN) 1 % Apply nails daily externally CreamIndications: Tinea pedis nicotine transdermal Place 1 Patch onto 30 Patch 0 02/03/2015 Active patch-daily (NICODERM) skin DAILY. 21 MG/24HR Transdermal PATCH 24 HRIndications: Smoking albuterol-ipratropium 3 mL by 360 mL 0 05/11/2015 Active (DUO-NEB) 0.5-2.5 (3) Inhalation-SVN MG/3ML Inhalation route TWICE DAILY. Solution albuterol HFA Take 2 Puffs by 1 Inhaler 5 05/11/2015 Active (VENTOLIN HFA) 108 (90 inhalation EVERY BASE) MCG/ACT SIX HOURS Inhalation Aero Soln NEEDED (wheezing). triamcinolone 1 Appl by Dental 1 Tube 0 05/11/2015 Active (KENALOG) 0.1 % route TWICE DAILY. Mouth/Throat Paste Twice daily SUBOXONE 8-2 MG 0 05/07/2015 Active Sublingual FILM BusPIRone HCl 30 MG Take 1 Tab by 60 Tab 5 11/17/2015 Active Oral Tab mouth TWICE DAILY. Omeprazole 40 MG Oral Take 1 Cap by 30 Cap 3 11/17/2015 Active CAPSULE DELAYED mouth DAILY. RELEASE Pregabalin (LYRICA) Take 1 Cap by 90 Cap 5 11/17/2015 Active 200 MG Oral mouth THREE TIMES CapIndications: Other DAILY. Max Daily chronic pain Amount: 600 mg. 2 QAM and 1 QPM LORazepam (ATIVAN) 0.5 Take 1 Tab by 10 Tab 0 11/17/2015 Active MG Oral mouth TWO TIMES TabIndications: Other DAILY NEEDED chronic pain (pain). Max Daily Amount: 1 mg. baclofen (LIORESAL) 10 Take 1 Tab by 42 Tab 0 12/17/2015 Active MG Oral Tab mouth THREE TIMES DAILY. duloxetine (CYMBALTA) Take 2 Caps by 60 Cap 0 02/10/2016 Active 60 MG Oral CAPSULE mouth DAILY. ENTERIC COATED PARTICLESIndications: Depression documented as of this encounter (statuses as of 10/17/2019) Active Problems Problem Noted Date Hx of drug abuse 05/11/2015 Overview: On [...] as of this encounter (statuses as of 10/17/2019) Resolved Problems Problem Noted Date Resolved Date Accidental drug overdose 11/18/2009 09/19/2012 Alcohol abuse 09/19/2012 Overview: history documented as of this encounter (statuses as of 10/17/2019) Immunizations Name Administration Dates Next Due Human Papillomavirus 04/30/2009, 12/29/2008, 10/30/2008 TDAP Vaccine 03/22/2012 documented as of this encounter Social History Tobacco Use Types Packs/Day Years Used Date Current Every Day Smoker Cigarettes 0.5 9 Smokeless Tobacco: Never Used Alcohol Use Drinks/Week oz/Week Comments No 0 Standard drinks or equivalent 0.0 rare Sex Assigned at Date Recorded Not on file Job Start Date Occupation Industry Not on file Not on file Not on file Travel History Travel Start Travel End No recent travel history available. documented as of this encounter Last Filed Vital Signs Vital Sign Reading Time Taken Comments Blood Pressure 142/97 10/17/2019 11:06 AM EST Pulse 94 10/17/2019 11:06 AM EST Temperature - - Respiratory Rate - - Oxygen Saturation - - Inhaled Oxygen Concentration - - Weight 110.7 kg (244 lb) 10/17/2019 11:06 AM EST Height 162.6 cm (5' 4") 10/17/2019 11:06 AM EST Body Mass Index 41.88 10/17/2019 11:06 AM EST documented in this encounter Progress Notes Edy Negro MD - 10/17/2019 11:00 AM EST Name: Arminda Conrad : 1980 Date of Service: 10/17/2019 Referring Provider: Self-Referred Primary Care Provider: Jaylin Garrett Chief Complaint Patient presents with New Patient Re-injured left knee. DOI: 4-5 wks. Patient was running on the [employer] and while she was running her left knee started hurting so bad she had to stop. SP left knee arthroscopy 08-10-[address] Negro. History of Present Illness: Arminda Conrad is a 39-y.o. female patient is in today for complaint of left knee discomfort. Patient states she reinjured her left knee while exercising on elliptical machine. She is status post arthroscopic surgery involving her left knee in 2014. Medial Aspect of her left knee has pain. Past Medical History: Diagnosis Date Accidental drug overdose 11/18/2009 Alcohol abuse history Anxiety 10/30/2008 Asthma, chronic DDD (degenerative disc disease) L4-L5, Dr. Lugo Depression 10/30/2008 Fatty liver 03/24/2011 GERD (gastroesophageal reflux disease) Heroin addiction (HCC) history Sleep apnea Spondylisthesis Past Surgical History: Procedure Laterality Date APPENDECTOMY 08/2008 BREAST RECONSTRUCTION 2004 or 2006 breast reduction OPERATIONS ON NOSE 1998 d/t fracture ME FEMUR/KNEE SURG UNLISTED 02/16/14 left medial meniscus repair Current Outpatient Medications Medication Sig albuterol HFA (VENTOLIN HFA) 108 (90 BASE) MCG/ACT Inhalation Aero Soln Take 2 Puffs by inhalation EVERY SIX HOURS NEEDED (wheezing). albuterol-ipratropium (DUO-NEB) 0.5-2.5 (3) MG/3ML Inhalation Solution 3 mL by Inhalation-SVNroute TWICE DAILY. baclofen (LIORESAL) 10 MG Oral Tab Take 1 Tab by mouth THREE TIMES DAILY. BusPIRone HCl 30 MG Oral Tab Take 1 Tab by mouth TWICE DAILY. clotrimazole (LOTRIMIN) 1 % Apply externally Cream Apply to feet and nails daily duloxetine (CYMBALTA) 60 MG Oral CAPSULE ENTERIC COATED PARTICLES Take 2 Caps by mouth DAILY. LORazepam (ATIVAN) 0.5 MG Oral Tab Take 1 Tab by mouth TWO TIMES DAILY NEEDED (pain). Max Daily Amount: 1 mg. metFORMIN HCL 1000 MG Oral Tab TAKE 1 TAB BY MOUTH TWO TIMES DAILY WITH MEALS. nicotine transdermal patch-daily (NICODERM) 21 MG/24HR Transdermal PATCH [address] 1 Patch onto skin DAILY. Omeprazole 40 MG Oral CAPSULE DELAYED RELEASE Take 1 Cap by mouth DAILY. Pregabalin (LYRICA) 200 MG Oral Cap Take 1 Cap by mouth THREE TIMES DAILY. Max Daily Amount: 600 mg. 2 QAM and 1 QPM SUBOXONE 8-2 MG Sublingual FILM triamcinolone (KENALOG) 0.1 % Mouth/Throat Paste 1 Appl by Dental route TWICE DAILY. Twice daily No current facility-administered medications for this visit. Allergies Allergen Reactions Chantix [Varenicline Tartrate] GI Reaction Penicillins Unknown Reaction As a small child Wellbutrin [Bupropion] Other Anxious Social History Socioeconomic History Marital status: Single Spouse name: Not on file Number of children: Not on file Years of education: Not on file Highest education level: Not on file Occupational History Not on file Social Needs Financial resource strain: Not on file Food insecurity Worry: Not on file Inability: Not on file Transportation needs Medical: Not on file Non-medical: Not on file Tobacco Use Smoking status: Current Every Day Smoker Packs/day: 0.50 Years: 9.00 Pack years: 4.50 Types: Cigarettes Smokeless tobacco: Never Used Substance and Sexual Activity Alcohol use: No Alcohol/week: 0.0 standard drinks Comment: rare Drug use: No Comment: heroin (past) Sexual activity: Never Lifestyle Physical activity Days per week: Not on file Minutes per session: Not on file Stress: Not on file Relationships Social connections Talks on phone: Not on file Gets together: Not on file Attends anabaptist service: Not on file Active member of club or organization: Not on file Attends meetings of clubs or organizations: Not on file Relationship status: Not on file Intimate partner violence Fear of current or ex partner: Not on file Emotionally abused: Not on file Physically abused: Not on file Forced sexual activity: Not on file Other Topics Concern Not on file Social History Narrative Patient is on disability due to back pain Family History Problem Relation Age of Onset Heart Maternal Grandmother Diabetes Maternal Grandmother Hypertension Maternal Grandmother Physical Examination: BP (!) 142/97 | Pulse 94 | Ht 5' 4" (1.626 m) | Wt 244 lb (110.7 kg) | BMI 41.88 kg/m Well-developed well-nourished female in minimal discomfort at rest. Patient has tenderness on palpation of her mid medial to posterior medial joint line. Range of motion of her left knee reveals full extension, flexion 120 degrees after which she has discomfort no varus or valgus instability noted. Patient has a positive Mina's test with reference to pain but not a palpable click regarding her medial joint line. She has no discomfort on palpation of her entirelateral joint line. XRays: Of the left knee revealed mild to moderate degenerative changes involving the medial compartment. Patient has minimal degenerative changes involving her lateral compartment. Patient has minimal degenerative changes involving the patellofemoral joint. Impression: DJD left knee/rule out acute medial meniscus tear. Plan: We will order MRI of left knee and see patient back in the office after the MRI of left knee has been completed. All questions answered. There are no Patient Instructions on file for this visit. Author: Edy Negro MD 10/17/2019 11:12 documented in this encounter Plan of Treatment Date Type Specialty Care Team Description 10/24/2019 Ancillary Procedure Radiology 10/30/2019 Office Visit Orthopedics Donna Alfaro, [facility] [address] [place] [address] [phone] Name Type Priority Associated Diagnoses Order Schedule MR LOWER EXTREMITY Imaging Routine Traumatic tear of medial Expected: 10/17, JOINT WO CONTRAST LEFT meniscus of left knee, Expires: 10/16/2020 initial encounter Health Maintenance Due Date Last Done Comments [...] filedocumented in this encounter Visit Diagnoses Diagnosis Traumatic tear of medial meniscus of left knee, initial encounter documented in this encounter Guarantor Name Account Type Relation to Date of Phone Billing Address Patient Arminda Conrad Personal/Famil 1980 [phone] [address] [phone] [place] [address] (Work) documented as of this encounter
--- NOTE | 2019-12-02 23:33 | ED ---
Skin Complaint - HPI Summary HPI Summary: 39 year old F presenting to [facility] with a chief complaint of a cyst on her left labia since yesterday which has since tripled in size. The patient rates the pain 8/10 in severity. Symptoms aggravated by nothing. Symptoms alleviated by nothing, including baths or hot compresses. She denies any urinary symptoms. Patient reports that she was seen by her PCP yesterday and had the cyst evaluated. Medication list reviewed. Allergy list reviewed. - History of Current Complaint Chief Complaint: EDRashSkinAbscess Time Seen by Provider: 12/02/19 23:25 Stated Complaint: CYST PER PT Hx Obtained From: Patient Hx Last Menstrual Period: HX PCOS Onset/Duration: Started Days Ago Timing: Constant Onset Severity: Severe Current Severity: Severe Pain Intensity: 8 Pain Scale Used: 0-10 Numeric Skin Location: Other: - Labia Aggravating Symptom(s): Nothing Alleviating Symptom(s): Nothing Associated Signs & Symptoms: Negative - Additional Pertinent History Primary Care Physician: ANTHONY - Allergy/Home Medications Allergies/Adverse Reactions: Allergies Allergy/AdvReac Type Severity Reaction Status Date / Time Penicillins Allergy Severe Rash Verified 12/03/19 02:27 Home Medications: Home Medications Buprenorp/Nalox 8-2 MG FILM [Suboxone 8 mg-2 mg Sl Film] 1 film SL TID 04/13/19 [History Confirmed 08/25/19] Nicotine GUM* 4MG FRUIT FLAVOR [Nicotine GUM*] 4 mg PO Q2H PRN #100 gum [Rx Confirmed 08/25/19] Nicotine PATCH 21 MG/24 HR* 1 patch TRANSDERM DAILY #28 patch 06/22/19 [Rx Confirmed 08/25/19] Venlafaxine EXT RELEASE CAP* [Effexor Xr CAP*] 150 mg PO DAILY cap.sr 06/22/19 [Rx Confirmed 08/25/19] busPIRone TAB* [Buspar TAB *] 15 mg PO BID tab 06/22/19 [Rx Confirmed 08/25/19] Albuterol HFA INHALER* [Ventolin HFA Inhaler*] 1 puff INH Q2HR PRN 08/25/19 [ History Confirmed 08/25/19] Gabapentin [Neurontin] 300 mg PO DAILY 08/25/19 [History Confirmed 08/25/19] Gabapentin [Neurontin] 600 mg PO BID 08/25/19 [History Confirmed 08/25/19] Meloxicam [Mobic] 15 mg PO DAILY 08/25/19 [History Confirmed 08/25/19] PMH/Surg Hx/FS Hx/Imm Hx Endocrine/Hematology History: Denies: Hx Diabetes, Hx Sickle Cell Disease, Hx Unexplained Bleeding Cardiovascular History: Denies: Hx Hypertension, Hx Pacemaker/ICD Respiratory History: Reports: Hx Asthma, Hx Chronic Bronchitis, Hx Pneumonia, Hx Sleep Apnea Comment Only: Other Respiratory Problems/Disorders - HX OF MULTIPLE PNEUMONIAS GI History: Reports: Hx Gastroesophageal Reflux Disease History: Reports: Other Problems/Disorders - PCOS Denies: Hx Renal Disease Musculoskeletal History: Reports: Hx Arthritis - Bilateral knees, Hx Back Problems, Other Musculoskeletal History - Torn meniscus left knee x 2 Sensory History: Reports: Other Sensory Impairments - bilateral eye surgeries Denies: Hx Contacts or Glasses - unable to determine, Hx Hearing Aid - unable to determine Opthamlomology History: Reports: Other Sensory Impairments - bilateral eye surgeries Denies: Hx Contacts or Glasses - unable to determine Psychiatric History: Reports: Hx Anxiety, Hx Depression, Hx Post Traumatic Stress Disorder, Hx Community Mental Health Tx, Hx Suicide Attempt, Hx of Violent Episodes Against Others - Multiple fights in [facility], Hx Substance Abuse Denies: Hx Eating Disorder, Hx Panic Disorder, Hx Inpatient Treatment, Hx Schizophrenia - Cancer History Cancer Type, Location and Year: 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 APPENDECTOMY - 2008. BREAST REDUCTION - 2003. BILAT EYE SURGERY AT AGE 9 (SO SHE WOULD NOT HAVE TO WEAR GLASSES). left knee arthroscopic surgery, LT KNEE DEBRIDEMENT Hx Anesthesia Reactions: No - Immunization History Date of Tetanus Vaccine: Unknown Date of Influenza Vaccine: never Infectious Disease History: No Infectious Disease History: Reports: Hx Hepatitis - Hepatitis C, Hx of Known/ Suspected MRSA Denies: Hx Shingles, Hx Tuberculosis, History Other Infectious Disease, Traveled Outside the [place] in Last 30 Days - Family History Known Family History: Negative: Hypertension - Social History Alcohol Use: None Alcohol Amount: uknown Hx Substance Use: Yes Substance Use Type: Reports: Excessive Caffeine, Prescribed Substance Use Comment - Amount & Last Used: known user, unknown at this time Hx Tobacco Use: Yes Smoking Status (MU): Heavy Every Day Tobacco Smoker Type: Cigarettes Amount Used/How Often: 1 ppd Length of Time of Smoking/Using Tobacco: 10 Have You Smoked in the Last Year: Yes - Additional Comments History Additional Comments: PCOS, hepatitis C Review of Systems - ROS Summary Review of Systems Summary: Home Medications Medication Instructions Recorded Confirmed Type Buprenorp/Nalox 8-2 MG FILM 1 film SL TID 04/13/19 08/25/19 History [Suboxone 8 mg-2 mg Sl Film] Nicotine GUM* 4MG FRUIT FLAVOR 4 mg PO Q2H PRN #100 gum 06/22/19 08/25/19 Rx [Nicotine GUM*] Nicotine PATCH 21 MG/24 HR* 1 patch TRANSDERM DAILY #28 patch 06/22/19 08/25/19 Rx Venlafaxine EXT RELEASE CAP* 150 mg PO DAILY cap.sr 06/22/19 08/25/19 Rx [Effexor Xr CAP*] busPIRone TAB* [Buspar TAB *] 15 mg PO BID tab 06/22/19 08/25/19 Rx Albuterol HFA INHALER* [Ventolin 1 puff INH Q2HR PRN 08/25/19 08/25/19 History HFA Inhaler*] Gabapentin [Neurontin] 300 mg PO DAILY 08/25/19 08/25/19 History Gabapentin [Neurontin] 600 mg PO BID 08/25/19 08/25/19 History Meloxicam [Mobic] 15 mg PO DAILY 08/25/19 08/25/19 History Positive: no symptoms reported Positive: Other - Cyst on left labia All Other Systems Reviewed And Are Negative: Yes Physical Exam - Summary Physical Exam Summary: General: Well-developed, morbidly obese. Flat affect. No acute distress. Neck: Soft, FROM Cardiovascular: Normal sinus rhythm, (-) murmur. Lungs: Clear to auscultation bilaterally (-) wheezes, (-) rales, (-) rhonchi. Abdomen: Soft, non-tender, non-distended, (-) organomegaly, normal bowel sounds. Back: (-) CVA tenderness Extremities: No edema. Skin: Warm, dry, (-) rash. Neuro: Alert and oriented x3, moves all extremities equally. No ataxia. No gait disturbance. No sensory deficit. Normal strength, normal sensation. Psychiatric: Mood normal, affect normal. OBGYN Exam: External genitalia with significant swelling inferior left labia, 14 mm sub Q swelling, firm, minimal fluctuance, initially there is some punctation, no obvious drainage could be expressed. Triage Information Reviewed: Yes Vital Signs On Initial Exam: Initial Vitals Temp Pulse Resp BP Pulse Ox 98 F 134 22 156/105 97 12/02/19 23:01 12/02/19 23:01 12/02/19 23:01 12/02/19 23:01 12/02/19 23:01 Vital Signs Reviewed: Yes Procedures - Sedation Patient Received Moderate/Deep Sedation with Procedure: No - Incision and Drainage Left labia Site: left labia Anesthesia: Other - Chloroprep, straight incision Instrument(s): Scalpel - 11 blade Diagnostics - Vital Signs Vital Signs Temp Pulse Resp BP Pulse Ox 12/02/19 23:01 98 F 134 22 156/105 97 - Laboratory Lab Statement: Any lab studies that have been ordered have been reviewed, and results considered in the medical decision making process. Re-Evaluation - Re-Evaluation First Eval Re-Evaluation Time: 00:30 Comment: I have discussed results with the patient. Discussed symptoms that warrant immediate return to ED. Course/Dx - Course Course Of Treatment: 39 year old female presents with pain and swelling of her left vaginal labia. Patient states she started having swelling there yesterday morning. Went to her PCP. Was told to do sitz baths. Taking [id number] medications. She states today the area has tripled in size and is severely painful. She feels warm like a low-grade fever. Has not had any vomiting. no abdominal pain. No vaginal discharge. Patient is currently transforming to male. Taking testosterone shots weekly. on physical exam, patient appears in mild discomfort at rest. left vaginal labia with 14 mm subcutaneous prominence. punctation. No drainage. moderately tender to palpation. Erythema. The area was I&D. Please see note. Mild serosanguineous drainage expressed. no Packing needed. she tolerated the procedure well. No complications.patient given naproxen for pain. Discharged home to continue sitz baths. Follow-up with [facility]. Follow sooner for any worsening symptoms. - Diagnoses Provider Diagnoses: Bartholin cyst, Tobacco use Discharge ED - Sign-Out/Discharge Documenting (check all that apply): Patient Departure - discharge - Discharge Plan Condition: Stable Disposition: HOME Patient Education Materials: Bartholin Cyst (ED) Referrals: Chary Glass MD [Primary Care Provider] - Alcides Suero MD [Medical Doctor] - 3 Days Additional Instructions: Please follow up with your OBGYN within three days. Please return to ED for any new or worsening symptoms. Take sitz baths as needed. - Billing Disposition and Condition Condition: STABLE Disposition: Home - Attestation Statements Document Initiated by Maikibe: Yes Documenting Scribe: Vashti Garcia Provider For Whom Irma is Documenting (Include Credential): Kasia Yan MD Scribe Attestation: Chloe Carver Natalie George, scribed for Kasia Yan MD on 12/03/19 at 0557. Scribe Documentation Reviewed: Yes Provider Attestation: The documentation as recorded by the Chloe hernández Natalie George accurately reflects the service I personally performed and the decisions made by Kasia anderson MD Status of Scribe Document: Viewed
[2019-12-03] MEDS ORDERED: Naproxen TAB* 250 MG PO ONE (00:27)
[2019-12-03 00:55] VITALS: BP 148/100
== END 2019-12-03 00:54 | disposition home or self-care (01) ==
LOC: ED 22:57
DX: N75.0 Cyst of Bartholin's gland (principal); J45.909 Unspecified asthma, uncomplicated; M17.0 Bilateral primary osteoarthritis of knee; F41.9 Anxiety disorder, unspecified; F32.9 Major depressive disorder, single episode, unspecified; Z79.1 Long term (current) use of non-steroidal anti-inflammatories (NSAID); Z79.51 Long term (current) use of inhaled steroids; Z88.0 Allergy status to penicillin; F17.210 Nicotine dependence, cigarettes, uncomplicated
CPT/HCPCS: 56420; 99282; A9270-GY

== ENCOUNTER 2019-12-03 01:30 | Emergency (ER) | payer OTHER ==
--- NOTE | 2019-12-03 02:08 | ED ---
Psychiatric Complaint - HPI Summary HPI Summary: 39 year old F presenting to [facility] with a chief complaint of thoughts of hurting herself since the police came to see her in the ED earlier today. The patient rates the pain 0/10 in severity. Symptoms aggravated by nothing. Symptoms alleviated by nothing. The patient states that she has overdosed in the past but unintentionally. She denies any alcohol or recreational drug use since she was discharged. Home medication list reviewed. Allergy list reviewed. - History Of Current Complaint Chief Complaint: EDMentalHealth Time Seen by Provider: 12/03/19 01:47 Hx Obtained From: Patient Hx Last Menstrual Period: HX PCOS Onset/Duration: Still Present Timing: Constant Severity Initially: Mild Severity Currently: None Character: Depressed Aggravating Factor(s): Nothing Alleviating Factor(s): Nothing Related History: Positive For: Prior Psychiatric Issues - anxiety, depression, PTSD, inpatient treatment Has Suicidal: Reports: Thoughts Recent Stressor(s): Police came to ED - Allergies/Home Medications Allergies/Adverse Reactions: Allergies Allergy/AdvReac Type Severity Reaction Status Date / Time Penicillins Allergy Severe Rash Verified 12/03/19 02:27 Home Medications: Home Medications Buprenorp/Nalox 8-2 MG FILM [Suboxone 8 mg-2 mg Sl Film] 1 film SL TID 04/13/19 [History Confirmed 08/25/19] Nicotine GUM* 4MG FRUIT FLAVOR [Nicotine GUM*] 4 mg PO Q2H PRN #100 gum [Rx Confirmed 08/25/19] Nicotine PATCH 21 MG/24 HR* 1 patch TRANSDERM DAILY #28 patch 06/22/19 [Rx Confirmed 08/25/19] Venlafaxine EXT RELEASE CAP* [Effexor Xr CAP*] 150 mg PO DAILY cap.sr 06/22/19 [Rx Confirmed 08/25/19] busPIRone TAB* [Buspar TAB *] 15 mg PO BID tab 06/22/19 [Rx Confirmed 08/25/19] Albuterol HFA INHALER* [Ventolin HFA Inhaler*] 1 puff INH Q2HR PRN 08/25/19 [ History Confirmed 08/25/19] Gabapentin [Neurontin] 300 mg PO DAILY 08/25/19 [History Confirmed 08/25/19] Gabapentin [Neurontin] 600 mg PO BID 08/25/19 [History Confirmed 08/25/19] Meloxicam [Mobic] 15 mg PO DAILY 08/25/19 [History Confirmed 08/25/19] PMH/Surg Hx/FS Hx/Imm Hx Endocrine/Hematology History: Denies: Hx Diabetes, Hx Sickle Cell Disease, Hx Unexplained Bleeding Cardiovascular History: Denies: Hx Hypertension, Hx Pacemaker/ICD Respiratory History: Reports: Hx Asthma, Hx Chronic Bronchitis, Hx Pneumonia, Hx Sleep Apnea Comment Only: Other Respiratory Problems/Disorders - HX OF MULTIPLE PNEUMONIAS GI History: Reports: Hx Gastroesophageal Reflux Disease History: Reports: Other Problems/Disorders - PCOS Denies: Hx Renal Disease Musculoskeletal History: Reports: Hx Arthritis - Bilateral knees, Hx Back Problems, Other Musculoskeletal History - Torn meniscus left knee x 2 Sensory History: Reports: Other Sensory Impairments - bilateral eye surgeries Denies: Hx Contacts or Glasses - unable to determine, Hx Hearing Aid - unable to determine Opthamlomology History: Reports: Other Sensory Impairments - bilateral eye surgeries Denies: Hx Contacts or Glasses - unable to determine Psychiatric History: Reports: Hx Anxiety, Hx Depression, Hx Post Traumatic Stress Disorder, Hx Community Mental Health Tx, Hx Suicide Attempt, Hx of Violent Episodes Against Others - Multiple fights in [facility], Hx Substance Abuse Denies: Hx Eating Disorder, Hx Panic Disorder, Hx Inpatient Treatment, Hx Schizophrenia - Cancer History Cancer Type, Location and Year: 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 APPENDECTOMY - 2008. BREAST REDUCTION - 2003. BILAT EYE SURGERY AT AGE 9 (SO SHE WOULD NOT HAVE TO WEAR GLASSES). left knee arthroscopic surgery, LT KNEE DEBRIDEMENT Hx Anesthesia Reactions: No - Immunization History Date of Tetanus Vaccine: Unknown Date of Influenza Vaccine: never Infectious Disease History: No Infectious Disease History: Reports: Hx Hepatitis - Hepatitis C, Hx of Known/ Suspected MRSA Denies: Hx Shingles, Hx Tuberculosis, History Other Infectious Disease, Traveled Outside the [place] in Last 30 Days - Family History Known Family History: Negative: Hypertension - Social History Alcohol Use: Rare Alcohol Amount: uknown Hx Substance Use: Yes Substance Use Type: Reports: Cocaine Substance Use Comment - Amount & Last Used: occassional use Hx Tobacco Use: Yes Smoking Status (MU): Heavy Every Day Tobacco Smoker Type: Cigarettes Amount Used/How Often: 1 ppd Length of Time of Smoking/Using Tobacco: 10 Have You Smoked in the Last Year: Yes - Additional Comments History Additional Comments: anxiety, depression, unintentional overdose, PTSD, inpatient treatment Review of Systems - ROS Summary Review of Systems Summary: Home Medications Medication Instructions Recorded Confirmed Type Buprenorp/Nalox 8-2 MG FILM 1 film SL TID 04/13/19 08/25/19 History [Suboxone 8 mg-2 mg Sl Film] Nicotine GUM* 4MG FRUIT FLAVOR 4 mg PO Q2H PRN #100 gum 06/22/19 08/25/19 Rx [Nicotine GUM*] Nicotine PATCH 21 MG/24 HR* 1 patch TRANSDERM DAILY #28 patch 06/22/19 08/25/19 Rx Venlafaxine EXT RELEASE CAP* 150 mg PO DAILY cap.sr 06/22/19 08/25/19 Rx [Effexor Xr CAP*] busPIRone TAB* [Buspar TAB *] 15 mg PO BID tab 06/22/19 08/25/19 Rx Albuterol HFA INHALER* [Ventolin 1 puff INH Q2HR PRN 08/25/19 08/25/19 History HFA Inhaler*] Gabapentin [Neurontin] 300 mg PO DAILY 08/25/19 08/25/19 History Gabapentin [Neurontin] 600 mg PO BID 08/25/19 08/25/19 History Meloxicam [Mobic] 15 mg PO DAILY 08/25/19 08/25/19 History Negative: Fever Positive: Depressed All Other Systems Reviewed And Are Negative: Yes Physical Exam - Summary Physical Exam Summary: General: Well-developed, Well-nourished female. No acute distress. Flat affect. HEENT: Normocephalic, Atraumatic. Eyes: Conjuctiva normal, PERRL. Oropharynx: Clear, mucous membranes moist, (-) exudates. Neck: Soft, FROM, (-) lymphadenopathy, (-) thyromegaly, (-) JVD. Cardiovascular: Normal sinus rhythm, (-) murmur. Lungs: Clear to auscultation bilaterally (-) wheezes, (-) rales, (-) rhonchi. Abdomen: Soft, non-tender, non-distended, (-) organomegaly, normal bowel sounds. Back: (-) CVA tenderness Extremities: No edema. Skin: Warm, dry, (-) rash. Neuro: Alert and oriented x3, moves all extremities equally. No ataxia. No gait disturbance. No sensory deficit. Normal strength, normal sensation. Psychiatric: Mood normal, affect normal. Triage Information Reviewed: Yes Vital Signs On Initial Exam: Initial Vitals Temp Pulse Resp BP Pulse Ox 97 F 115 20 139/103 98 12/03/19 01:30 12/03/19 01:30 12/03/19 01:30 12/03/19 01:30 12/03/19 01:30 Vital Signs Reviewed: Yes Procedures - Sedation Patient Received Moderate/Deep Sedation with Procedure: No Diagnostics - Vital Signs Vital Signs Temp Pulse Resp BP Pulse Ox 12/03/19 01:30 97 F 115 20 139/103 98 - Laboratory Lab Statement: Any lab studies that have been ordered have been reviewed, and results considered in the medical decision making process. Re-Evaluation - Re-Evaluation First Eval Re-Evaluation Time: 01:55 Comment: Patient medically clear for [facility]. Course/Dx - Course Course Of Treatment: 31-year-old female presents with suicidal ideation. Patient was just seen here for a labial cyst. Head and he was discharged. Was waiting in the waiting room. She states her thoughts that the better. She started thinking about hurting herself. She states she has nowhere to go. Had stolen her mother's car tonight to come to the emergency room. Police found her here and gave her a ticket. She also admits to drug use tonight. She has no plan. Just states that she has thoughts of hurting herself. She states her previous attempts to hurt herself or accidental overdose. Patient has no significant findings on physical exam. Urine demonstrates positive opiates and positive cocaine. patient is evaluated by mental health. Per psychiatry patient is not appropriate for admission at this time. Discharged to home. Follow-up with PCP. Follow-up sooner for any worsening symptoms. - Differential Dx/Clinical Impression Provider Diagnosis: Depression, Substance abuse - Physician Notifications Discussed Care Of Patient With: Tez James - psychiatry Instructed by Provider To: Other - Dr. James and mental health staff have evaluated the patient and determined her appropriate for discharge. Discharge ED - Sign-Out/Discharge Documenting (check all that apply): Patient Departure - Discharge - Discharge Plan Condition: Stable Disposition: HOME Referrals: Chary Glass MD [Primary Care Provider] - - Billing Disposition and Condition Condition: STABLE Disposition: Home - Attestation Statements Document Initiated by Irma: Yes Documenting Scribe: Vashti Garcia Provider For Whom Irma is Documenting (Include Credential): Kasia Yan MD Scribe Attestation: Chloe Carver Natalie George, scribed for Kasia Yan MD on 12/03/19 at 0504. Scribe Documentation Reviewed: Yes Provider Attestation: The documentation as recorded by the Chloe hernández Natalie George accurately reflects the service I personally performed and the decisions made by , Kasia Yan MD Status of Scribe Document: Viewed
[2019-12-03 02:34] LABS: Urine Benzodiazepine Screen None Detected (None Detect); Urine Opiates Screen Presumptive Positive (None Detect)
[2019-12-03 04:42] VITALS: BP 117/95
== END 2019-12-03 04:41 | disposition home or self-care (01) ==
LOC: ED 01:30
DX: F32.9 Major depressive disorder, single episode, unspecified (principal); F41.9 Anxiety disorder, unspecified; F19.10 Other psychoactive substance abuse, uncomplicated; F17.210 Nicotine dependence, cigarettes, uncomplicated; Z88.0 Allergy status to penicillin; K21.9 Gastro-esophageal reflux disease without esophagitis; Z79.899 Other long term (current) drug therapy
CPT/HCPCS: 80307; 99285; G0480

== ENCOUNTER 2019-12-03 09:26 | Emergency (ER) | payer OTHER ==
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
[2019-12-03] MEDS ORDERED: Venlafaxine EXT RELEASE CAP* 75 MG PO ONE (10:17)
[2019-12-03] MEDS ORDERED: busPIRone TAB* 5 MG PO ONE (10:17)
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
[2019-12-03 11:36] VITALS: BP 156/112
== END 2019-12-03 11:25 | disposition home or self-care (01) ==
LOC: ED 09:26
DX: F32.9 Major depressive disorder, single episode, unspecified (principal); F41.9 Anxiety disorder, unspecified; R45.851 Suicidal ideations; J45.909 Unspecified asthma, uncomplicated; Z79.51 Long term (current) use of inhaled steroids; Z88.0 Allergy status to penicillin; F17.210 Nicotine dependence, cigarettes, uncomplicated
CPT/HCPCS: 99282; A9270-GY

== ENCOUNTER 2019-12-17 08:53 | Inpatient (IN) | payer OTHER ==
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
[2019-12-17 09:28] LABS: Hematocrit 47 % (35-47); Hemoglobin 15.7 g/dL (12.0-16.0); Mean Corpuscular HGB Conc 33 g/dL (31-36); Mean Corpuscular Hemoglobin 30 pg (27-31); Mean Corpuscular Volume 90 fL (80-97); Mean Platelet Volume 7.8 fL (7.4-10.4); Platelet Count 371 10^3/uL (150-450); Red Blood Count 5.25 10^6 /uL (3.70-4.87); Red Cell Distribution Width 14 % (10-15); White Blood Count 31.1 10^3/uL (3.5-10.8)
[2019-12-17] MEDS ORDERED: Lorazepam PYXIS KEY PRN ×5 (09:37→17:31)
[2019-12-17] MEDS ORDERED: LORazepam INJ* 2 MG/ML 1 ML VIAL IV PUSH ONE ×4 (09:37→14:47)
[2019-12-17] MEDS ORDERED: NS 0.9% 1000 ML** 1,000 ML IV ONE ×3 (09:37→09:51)
[2019-12-17 09:41] LABS: Albumin 5.1 g/dL (3.2-5.2); Anion Gap 21 mmol/L (2-11); CO2 Carbon Dioxide 16 mmol/L (22-32); Calcium 8.6 mg/dL (8.6-10.3); Chloride 97 mmol/L (101-111); Sodium 134 mmol/L (135-145)
[2019-12-17 09:47] LABS: ALT 114 U/L (7-52); AST 271 U/L (13-39); Albumin/Globulin Ratio 1.7 (1-3); Alkaline Phosphatase 133 U/L (34-104); BUN/Creatinine Ratio 10.7 (8-20); Blood Urea Nitrogen 18 mg/dL (6-24); EGFR Non-African American 33.9 (>60); Glucose 74 mg/dL (70-100); Total Protein 8.1 g/dL (6.4-8.9)
[2019-12-17] MEDS ORDERED: metroNIDAZOLE IV 500 MG/100ML* 500 MG/100 ML BAG IVPB ONE (09:51)
[2019-12-17] MEDS ORDERED: Cefepime(*) 2 GM in NS 0.9% 50 ML* 50 ML IVPB ONE (09:51)
[2019-12-17 09:52] LABS: HCG Pregnancy < 0.60 mIU/mL
[2019-12-17 09:58] LABS: Acetaminophen < 15 mcg/mL; Alcohol < 10 mg/dL (<10); Salicylate < 2.50 mg/dL (<30)
[2019-12-17] MEDS ORDERED: Vancomycin(*) 1,000 MG VIAL IVPB SCH (10:00)
--- OUTSIDE RECORDS SUMMARY | 2019-12-17 10:05 | XMS REPORT | Summary of Care ---
:1980 Author Organization [facility] Address [address] [facility] [place] [address] Care Team Providers Name Role Phone Leonora Hoffman NP Primary Care Provider Reason for Visit Reason Comments Pre-op Exam Left Knee Arthroscopy scheduled for 12/17/2019. Encounter Details Date Type Department Care Team Description 12/05/2019 Office Visit [facility] - Donna Alfaro, Acute medial meniscus [place] RPA-C tear, left, [address] subsequent encounter [address] (Primary Dx) [place], [place] [id number] [place] [address] [phone] Allergies Active Allergy Reactions Severity Noted Date Comments Varenicline Tartrate GI Reaction 03/24/2011 Penicillins Unknown Reaction 10/30/2008 As a small child Bupropion Other 03/24/2011 Anxious documented as of this encounter (statuses as of 12/05/2019) Medications Medication Sig Dispensed Refills Start Date End Date Status clotrimazole Apply to feet and 60 g 0 12/17/2014 Active (LOTRIMIN) 1 % Apply nails daily externally CreamIndications: Tinea pedis albuterol-ipratropium 3 mL by 360 mL 0 05/11/2015 Active (DUO-NEB) 0.5-2.5 (3) Inhalation-SVN MG/3ML Inhalation route TWICE DAILY. Solution albuterol HFA Take 2 Puffs by 1 Inhaler 5 05/11/2015 Active (VENTOLIN HFA) 108 inhalation EVERY (90 BASE) MCG/ACT SIX HOURS NEEDED Inhalation Aero Soln (wheezing). SUBOXONE 8-2 MG 0 05/07/2015 Active Sublingual FILM BusPIRone HCl 30 MG Take 1 Tab by mouth 60 Tab 5 11/17/2015 Active Oral Tab TWICE DAILY. LORazepam (ATIVAN) Take 1 Tab by mouth 10 Tab 0 11/17/2015 Active 0.5 MG Oral TWO TIMES DAILY TabIndications: Other NEEDED (pain). Max chronic pain Daily Amount: 1 mg. venlafaxine (EFFEXOR Take 150 mg by 0 Active XR) 150 MG Oral mouth. CAPSULE SR 24 HR gabapentin Take 300 mg by 0 Active (NEURONTIN) 300 MG mouth THREE TIMES Oral Cap DAILY. Testosterone by Injection route. 0 Active Cypionate 50 MG/ML Injection Solution documented as of this encounter (statuses as of 12/05/2019) Active Problems Problem Noted Date Acute medial [...] as of this encounter (statuses as of 12/05/2019) Resolved Problems Problem Noted Date Resolved Date Accidental drug overdose 11/18/2009 09/19/2012 Alcohol abuse 09/19/2012 Overview: history documented as of this encounter (statuses as of 12/05/2019) Immunizations Name Administration Dates Next Due Human [...] Sign Reading Time Taken Comments Blood Pressure 158/106 12/05/2019 11:07 AM EST Pulse 98 12/05/2019 11:07 AM EST Temperature - - Respiratory Rate - - Oxygen Saturation - - Inhaled Oxygen Concentration - - Weight 110.7 kg (244 lb) 12/05/2019 11:07 AM EST Height 162.6 cm (5' 4") 12/05/2019 11:07 AM EST Body Mass Index 41.88 12/05/2019 11:07 AM EST documented in this encounter Progress Notes Donna Alfaro RPA-C - 12/05/2019 11:00 AM EST Name: Arminda Conrad . 1980 Date of Service: 12/05/2019 No chief complaint on file. Subjective: Arminda Conrad is a 39-y.o. female is here for pre-op evaluation for left knee arthroscopy . Surgery is scheduled with Dr. Negro on 12/17/19. Had an mri scan which showed a medial meniscus tear As well as significant DJD medial compartment . Past Medical History: Diagnosis Date ? Accidental drug overdose 11/18/2009 ? Alcohol abuse history ? Anxiety 10/30/2008 ? Asthma, chronic ? DDD (degenerative disc disease) L4-L5, Dr. Lugo ? Depression 10/30/2008 ? Fatty liver 03/24/2011 ? GERD (gastroesophageal reflux disease) ? 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 Sleep apnea ? Spondylisthesis Past Surgical History: Procedure Laterality Date ? APPENDECTOMY 08/2008 ? BREAST RECONSTRUCTION 2004 or 2006 breast reduction ? OPERATIONS ON NOSE 1998 d/t fracture ? DC FEMUR/KNEE SURG UNLISTED 02/16/14 left medial meniscus repair ? DC REDUCTION OF LARGE BREAST ? STRABISMUS SURGERY Allergies Allergen Reactions ? Chantix [Varenicline Tartrate] GI Reaction ? Penicillins Unknown Reaction As a small child ? Wellbutrin [Bupropion] Other Anxious Current Outpatient Medications Medication Sig ? albuterol HFA (VENTOLIN HFA) 108 (90 BASE) MCG/ACT Inhalation Aero Soln Take 2 Puffs by inhalation EVERY SIX HOURS NEEDED (wheezing). ? albuterol-ipratropium (DUO-NEB) 0.5-2.5 (3) MG/3ML Inhalation Solution 3 mL by Inhalation-SVN route TWICE DAILY. ? BusPIRone HCl 30 MG Oral Tab Take 1 Tab by mouth TWICE DAILY. ? clotrimazole (LOTRIMIN) 1 % Apply externally Cream Apply to feet and nails daily ? gabapentin (NEURONTIN) 300 MG Oral Cap Take 300 mg by mouth THREE TIMES DAILY. ? LORazepam (ATIVAN) 0.5 MG Oral Tab Take 1 Tab by mouth TWO TIMES DAILY NEEDED (pain). MaxDaily Amount: 1 mg. ? SUBOXONE 8-2 MG Sublingual FILM ? Testosterone Cypionate 50 MG/ML Injection Solution by Injection route. ? venlafaxine (EFFEXOR XR) 150 MG Oral CAPSULE SR 24 HR Take 150 mg by mouth. No current facility-administered medications for this visit. Physical Exam: <Not on file> GENERAL: alert and oriented time three. no acute distress SKIN: intact without lesions or rashes. LUNGS: clear to ascultation bilaterally in all mccarty without wheezes or rales. HEART: regular rate and rhythm without murmers or rubs noted. ABDOMEN: soft and non tender PVS: Negative edema noted of the left lower extremity. There is no obvious clinical deformity. Range of motion of the left knee demonstrates extension 0, flexion 120. Patient has tenderness over the medial joint line. Ligamentous stress testing reveals Negative Lachmans, Anterior drawer, Posterior drawer, Sag test, Varus instability, Valgus instability Mina's test is Positive. ICD-9-CM ICD-10-CM 1. Acute medial meniscus tear, left, subsequent encounter V58.89 S83.242D 836.0 Plan: Arminda Conrad is scheduled for a knee arthroscopy with Dr. Negro . Arminda Conrad will get her pain medication though her doctor. Will see rajan on 12/07 for elevated blood pressure. Author: [facility] [place] 12/05/2019 11:06 documented in this encounter Plan of Treatment Date Type Specialty Care Team Description [facility] [address] [place] [address] [phone] 12/17/[address] [facility] Edy Negro, ARTHROSCOPY KNEE [address] [place] [address] [phone] 12/29/2019 Office Visit Orthopedics oDnna Alfaro RPA-C [address] [place] [address] [phone] Health Maintenance Due Date Last Done Comments [...] Acute medial meniscus tear, left, subsequent encounter Diagnosis Acute medial meniscus tear, left, subsequent encounter Diagnosis Acute medial meniscus tear, left, subsequent encounter documented in this encounter (Work) documented as of this encounter
--- OUTSIDE RECORDS SUMMARY | 2019-12-17 10:05 | XMS REPORT ---
:1980 Author Name HYACINTH CRUZ Address [address] [facility] [address] [place] [address] Care Team Providers Name Role Phone HYACINTH CRUZ Primary Care Physician Unavailable Allergies, Adverse Reactions, Alerts Allergy Code CodeSystem Reaction Severity Criticality Status Start Substance Date Moderate Medications Medication Medication Medication Start Stop Route Dose Status Fill Code CodeSystem Date Date Instructions RxNorm Relevant diagnostic tests/laboratory data Narrative No Information Procedures Procedure Code CodeSystem Target Date of Status Service Device Device Device Name Site Procedure Delivery Code Name UID Location SNOMED-CT () 2019-11-09 completed [facility] [address] [facility], [place], [address] [id number] SNOMED-CT () 2019-12-02 completed [facility] [address] [place], [address] [id number] SNOMED-CT () 2019-12-02 completed [facility] [address] [place], [address] [id number] Encounters/Encounter Diagnoses Encounter Encounter Diagnosis Diagnosis Diagnosis Date of Service Name Code Code Name CodeSystem Diagnosis Delivery Location [facility] SNOMED-CT 2019-12-08 [facility] , , , Vital Signs No Information Social History Element Description Description Start End Code CodeSystem AdditionalInfo Date Date SexAssignedAtBirth Female 1979-10 F AdministrativeGender 10-04 Hospital Discharge Instructions Reason For Referral Medical Equipment FDA Assessments
--- OUTSIDE RECORDS SUMMARY | 2019-12-17 10:05 | XMS REPORT | Continuity of Care Document ---
:1980 Author Organization [facility] Address [address] [place] [address] Phone Care Team Providers Name Role Phone Anita Lind NP Unavailable Unavailable Allergies, Adverse Reactions, Alerts Substance Reaction Status Penicillins Hives/Skin Rash Active Medications Medication Instructions Dosage Effective Dates Status Comments (start - stop) EFFEXOR XR (unknown Not Available - Active strength) GABAPENTIN (unknown Not Available - Active strength) METHADONE HCL Not Available - Active (unknown strength) CLONIDINE HCL Not Available - Active (unknown strength) ATIVAN (unknown Not Available - Active strength) TESTOSTERONE Not Available - Active CYPIONATE (unknown strength) BUSPIRONE HCL Not Available - Active (unknown strength) SUBOXONE (unknown Not Available - No Longer strength) Active KLONOPIN (unknown Not Available - No Longer strength) Active CYMBALTA (unknown Not Available - No Longer strength) Active Problems Condition Effective Dates (start - Clinical Status Comments stop) Encounter for screening for malignant neoplasm of cervix Encounter for oth screening for malignant neoplasm of breast Encntr screen for infections w sexl mode of transmiss 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) (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) w/o abn findings Cervical high risk HPV DNA test positive Human immunodeficiency virus [HIV] - counseling Encounter for test, result negative Encntr screen for infections w sexl mode of transmiss Acute vaginitis Human immunodeficiency virus [HIV] - counseling Encntr screen for infections w sexl mode of transmiss Encounter for oth general cnsl and advice on contraception Ulceration of vulva Procedures Procedure Date N.GONORRHOEAE, DNA, AMP PROB CHYLMD DNA, AMP PROBE SUREPATH HPV, DNA, AMP PROBE HIGH RISK TRICHOMONAS VAGIN, DIR PROBE PREV VISIT, EST, AGE 18-39 BLOOD PRESSURE Height/Weight BREAST EXAM OTHER Medical Services Contraceptive Solutions Operator.Svc. Other Solutions Operator.Svc. STI Results Test Name Date and Time Measure Units Reference Range Abnormal Flag Status Comments No information Advance Directives Directive Yes / No Effective Date File Name No information Encounters Encounter Practice Location Reason(s) Diagnoses Date Provider Providers Description For Visit Copied on Encounter PREV VISIT, [facility] for [place] Referring EST, [facility] [place] Person screening for 2. [address] Provider: 18-39 Of Greater Visit malignant [address], [place], (chief neoplasm of [place], [place], [place], [address] complaint) cervixEncounter [address], [facility] for oth tel:[phone] [place] [place], [place] [address] [place], [id number], [place], [address]. [place] neoplasm of tel:+[phone] tel:[phone] breastEncntr [id number] screen for infections w sexl mode of transmiss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) (routine) w/o abn findingsCervical high risk HPV DNA test positive [facility]- [place] Referring [facility] [place] immunodeficiency 1-[address]. [address] Provider: Of [facility] virus [HIV] [address], [place], counselingEncoun [place], [place], [place] [address] [place] [place] [address]. s, [address], [facility] test, tel:[phone] [address], [place], [place], result [address] [place], [id number], [place], [address]. [place] screen for tel:+[phone] tel:[phone] infections w [phone] [id number] sexl mode of transmissAcute vaginitis [facility] [place] immunodeficiency 4-201 Of Greater virus [HIV] [place], [facility] [address], [place] infections w [place], [place], sexl mode of [id number], [facility] tel:[phone] general cnsl and [phone] advice on contraceptionUlc eration of vulva Family History Family Member Diagnosis Age At Onset 1st degree relative No hx of cancer of breast, colon, endometrium or ovary 1st degree relative No hx of coronary heart disease (female <65, male <55) 1st degree relative No hx of venous thromboembolism Immunizations Vaccine Date Status Comments No information Payers Payer name Insurance type Covered democrat ID Authorization(s) Edgar ALMENDAREZ [facility] CI [id number] Social History Type Description Quantity Date Captured Comments Alcohol Use Details Unknown Caffeine Use Details Unknown Tobacco Use Status Smoking Status Heavy tobacco smoker Smoking Tobacco Use Cigarette: No Details Available Cigarette: 20 Packs per day Details Sex Female Vital Signs Date / Height Weight BMI Pulse Blood Temperature Respiratory Body Head BMI Pulse Inhaled Time: Rate Pressure Rate Surface Circumference percentile Ox Ox Area 64.00 245.00 42.0 in lbs 5 mm[Hg] 2:46 kg/m PM eter (2) Chief Complaint And Reason For Visit Most recent encounter only, dated '12/11/2019 14:10'. Well Person Visit ( chief complaint) Reason For Referral Reason For Referral No information Plan Of Treatment Date Type Action Status Goal Tobacco cessation counseling completed History Of Present Illness Encounter Date Complaint History Of Present Illness No information Functional Status Date Functional Assessment No information Medications Administered Medication Instructions Dosage Effective Dates (start - stop) Status Comments No information Instructions Date Instruction Additional Information No information Assessments Type Assessment Date assessment Encounter for screening for malignant neoplasm of cervix 2019 assessment Encounter for oth screening for malignant neoplasm of breast assessment Encntr screen for infections w sexl mode of transmiss assessment 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
[2019-12-17 10:09] LABS: T4, Total 4.42 mcg/dL (6.09-12.23)
[2019-12-17 10:13] LABS: TSH (Thyroid Stimulating Horm) 3.87 mcIU/mL (0.34-5.60)
[2019-12-17] MEDS ORDERED: Vancomycin(*) 2,000 MG in NS 0.9% 500 ML* 500 ML IVPB ONE (10:15)
[2019-12-17] MEDS ORDERED: Lorazepam PYXIS KEY ONE ×2 (10:18→12:21)
[2019-12-17 10:24] LABS: ABS Lymphocytes 1.9 10^3/ul (1.0-4.8); ABS Monocytes 2.1 10^3/ul (0-0.8); Eosinophil % 0.1 %; Nucleated Red Blood Cells % 0.1
[2019-12-17] MEDS ORDERED: Cefepime 2 GM in Dextrose(*) 2 GM/50 ML BAG IV ONE (10:30)
[2019-12-17 10:57] LABS: Urine Appearance Cloudy; Urine Bilirubin Negative (Negative); Urine Blood 3+ (Negative); Urine Color Yellow; Urine Glucose 3+(>=500 mg/dL) (Negative); Urine Ketones Negative (Negative); Urine Nitrite Negative (Negative); Urine Protein Negative (Negative); Urine Specific Gravity 1.006 (1.010-1.030); Urine Urobilinogen Negative (Negative)
[2019-12-17 11:02] LABS: C Reactive Protein 4.19 mg/L (<8.01)
[2019-12-17 11:05] LABS: Urine Bacteria Absent (Absent); Urine Red Blood Cell Absent (Absent); Urine Squamous Epithelial Cell Present (Absent); Urine White Blood Cell Trace(0-5/hpf) (Absent)
[2019-12-17 11:22] LABS: Urine Benzodiazepine Screen None Detected (None Detect); Urine Opiates Screen None Detected (None Detect)
[2019-12-17] MEDS ORDERED: diPHENhydraMINE IV* 50 MG/ML 1 ml VIAL (BENADRYL) SLOW PUSH ONE (15:06)
[2019-12-17] MEDS ORDERED: KETAMINE HCL* 50 MG/ML 10 ML VIAL IV ONE ×2 (15:17→16:04)
[2019-12-17] MEDS ORDERED: Ondansetron INJ* 2 MG/ML VIAL IV PRN (16:09)
--- NOTE | 2019-12-17 16:40 | HP ---
History of Present Illness - History of Present Illness Reason for Visit: Drug Overdose History of Present Illness: Arminda Conrad (prefers to be called Miguel) is a 39 y/o transgender man with history of polysubstance use disorder including benzodiazepine use, opioid use on Suboxone, cocaine use, depression, PTSD, asthma, GERD, TRACI, PCOS, obesity, hepC, who had multiple episodes of intentional overdose to get high in the past. She was last admitted to [facility] in Aug, 2019 for polysubstance use, and discharged to [facility] inpatient [facility] in [place] on 08/27/2019. Patient was brought in today after being found unresponsive in skilled nursing. She was found on the floor by skilled nursing staff with decreased RR and needles found nearby according to ED record. She received Narcan 8mg in total and became more responsive. Patient was restless and stuttering when I saw him in ED, he was able to speak in phrases but doze off frequently during conversation. He appeared restless and thrashing most of the time, and a sitter needed to hold his arms constantly. Patient is a poor historian due to his mental status, but he did tell me he injected methadone 2 doses today (70mg according to him). He denied other drug use, alcohol use, medication overdose today. I tried to call his mom for further history, but couldn't get through. Patient had a sloughing, red, swollen right hand up to right wrist involving all knuckles, big hemorrhagic bullae is seen on ortez aspect, multiple bullaes seen. Similar 2-3 red lesions can be seen in right thigh, rectangular shape, raised. ED staff was told patient was burnt by something. Patient can't tell me what happened to his hand. Patient was found to be hypotensive in ED with BP 80+/40+ and sinus tachy at 120 -140bpm. He received 3L IV NS bolus in total, and was given first dose of iv cefepime, vancomycin and flagyl. No fever in ED, in fact one temperature is 95F , blood culture was taken. - Past Medical History Past Medical History: 1. Polysubstance Use including opioid, gabapentin, benzos 2. Asthma 3. GERD 4. TRACI 5. PCOS 6. Obesity 7. PTSD 8. Cocaine induced depressive disorder 9. HepC - Past Surgical History Past Surgical History: Unclear - Past Family History Past Family History: Per record, maternal grandfather and paternal uncle has a history of alcohol abuse, mother with history of depression. - Past Social History Past Social History: Per records, patient is a smoker half a pack a day for 10 years. Denies history of alcohol use. Recreational drug use include benzos, cocaine, heroin as well as prescription opioids. He lives in a skilled nursing. Medications: Home Medications Medication Instructions Recorded Confirmed Type Buprenorp/Nalox 8-2 MG FILM 1 film SL TID 04/13/19 12/17/19 History [Suboxone 8 mg-2 mg Sl Film] Nicotine GUM* 4MG FRUIT FLAVOR 4 mg PO Q2H PRN #100 gum 06/22/19 12/17/19 Rx [Nicotine GUM*] Nicotine PATCH 21 MG/24 HR* 1 patch TRANSDERM DAILY #28 patch 06/22/19 12/17/19 Rx Venlafaxine EXT RELEASE CAP* 150 mg PO DAILY cap.sr 06/22/19 12/17/19 Rx [Effexor Xr CAP*] busPIRone TAB* [Buspar TAB *] 15 mg PO BID tab 06/22/19 12/17/19 Rx Gabapentin [Neurontin] 300 mg PO TID 08/25/19 12/17/19 History Meloxicam [Mobic] 15 mg PO DAILY 08/25/19 12/17/19 History LORazepam [Ativan 1 MG TAB] 0.5 - 1 mg PO TID 12/17/19 12/17/19 History Allergies/Adverse Reactions: Allergies Allergy/AdvReac Type Severity Reaction Status Date / Time Penicillins Allergy Severe Rash Verified 12/03/19 09:44 Review of Systems - Review of Systems Constitutional: Negative: Fever, Chills, Sweats, Weakness, Malaise, Other Genitourinary: Negative: Dysuria, Frequency, Incontinence, Hematuria, Retention , Other Musculoskeletal: Positive: Back Pain Skin: Positive: Rash - As mentioned in H&P Neurological/Mental Status: Positive: Change in Speech, Confusion Other: Unable to do proper ROS due to altered mental status. Exam Vital Signs: Vital Signs (72 hours) 12/17/19 12/17/19 12/17/19 08:58 10:10 10:20 Temperature 97.4 F Pulse Rate 101 109 Respiratory 25 25 Rate Blood Pressure 0/0 (mmHg) O2 Sat by Pulse 95 97 Oximetry 12/17/19 12/17/19 12/17/19 10:54 11:00 11:51 Temperature 95.0 F Pulse Rate 108 104 Respiratory 24 19 Rate Blood Pressure (mmHg) O2 Sat by Pulse 98 Oximetry 12/17/19 12/17/19 12/17/19 12:00 12:23 13:00 Temperature Pulse Rate 115 Respiratory 21 24 16 Rate Blood Pressure (mmHg) O2 Sat by Pulse 100 Oximetry 12/17/19 12/17/19 12/17/19 14:00 14:04 14:54 Temperature Pulse Rate 116 Respiratory 20 18 18 Rate Blood Pressure (mmHg) O2 Sat by Pulse 100 Oximetry Exam: Constitutional: obese habitus, drowsy, restless, able to speak in phrases and doze off, stuttering. Head: normocephalic, atraumatic, one bump in right side of forehead (2cm), also one rectangular area of skin loss in forehead Eyes: no pallor, no icterus, pupils enlarged 4mm bilaterally, less reactive, no conjuctival hemorrhage ENT: moist mucous membranes Neck: soft, supple, no jvd, no stridor CVS: normal rate, regular, no murmur Chest/Resp: bilateral air entry, clear anteriorly on auscultation Abdomen/GI: central obesity,distended, soft. Ext/Msk: cold feet, pulses+, no edema Right hand subburn appearance, red,with diffuse sloughing of skin, multiple hemorrhagic bulla seen, including a linear one in ortez aspect Left arm medial area three injection spots seen, erythema around with mild swelling. Skin: As mentioned above. Also multiple rectangular papules seen on right thigh , raised area with clear borders. Neuro: drowsy, not oriented, moving all extremities, restless Result Diagrams: 12/17/19 09:20 12/17/19 09:20 Additional Lab and Data: Lactic acid 6.1->4.7 Diagnostic Imaging: CTAP: no obvious abnormality other than an old ovid lung nodule. CT brain: WNL CXR: WNL EKG Data: EKG: sinus tachy with HR 106, Qtc mildly prolonged at 506. no significant changes from last EKG 08/24/19 Assessment/Plan - Assessment/Plan Assessment: Arminda Conrad is a 39 y/o transgender man with history of polysubstance use disorder including benzodiazepine use, opioid use on Suboxone, cocaine use, depression, PTSD, asthma, GERD, TRACI, PCOS, obesity, hepC, presented to [facility] for decreased RR and altered mental status after self injecting methdone. He was found to be hypotensive, leukocytosis and lactic acidosis with a extremely red sloughing right hand and multiple skin lesions. I am not sure whether he intentionally burnt himself which leading to his hand injury and multiple similar shape skin lesion, or it's a toxic shock syndrome and subsequent skin changes caused by staph aureus. He will require ICU for his hypotension that was not improving after fluid resucitation. Plan: 1. Septic shock- meets SIRS criteria with tachycardia, hypothermia, leukocytosis and lactic acidosis - likely source is his hand cellulitis. It doesn't appear to be necrotizing fasciitis to me as patient didn't complain about the pain, and it's not extremely tense to me. But we need to monitor his hand circulation and swelling closely, please do circulation chart for right hand. - other source of infection in a iv drug user include infective endocarditis, no other abdominal sources, lung sources we can see in CTAP and CXR right now - blood culture taken, will cover with iv cefepime, vancomycin, flagyl empirically - IV NS 3L given in ED, lactic down to 4, will continue to run LR 125ml/h - continue to trend lactic acid and BMP overnight. - keep MAP>65, start levophed if BP low 2. Opioid intoxication and withdrawal - patient was rescued by Narcan 8mg. He is currently having mild withdrawal with dilated pupil, restless - start Suboxone scheduled dose for today, will taper down tomorrow - iv lorazepam prn - if patient continues to experience withdrawal symptoms, can start Precedex. - Psy consult will be needed when patient stablized - social professionals consult 3. Acute kidney injury - likely due to sepsis vs dehydration - strict I/O - continue to monitor 4. Liver dysfunction - likely ischemic or septic in nature - history of hepc, last RNA check in May 2019 undetected hepc RNA - CTAP no liver structural abnormality seen 5. Depression - continue home med BuSpar, Effexor 6. Polysubstance use disorder - continue gabapentin, Suboxone 7. DVT prophylaxis - sc Lovenox 50mg 8. Full code Attestation Documenting Resident: Alaina Villagran Supervising Physician: Cora Lomas Attending/Supervising Physician Comment: Arminda Conrad (Kyle) is a 39 year-old transgender female to male with h/o polysubstance abuse disorder, PTSD, GERD, obesity, and hepatitis C who was brought to the ED after being found unresponsive in the skilled nursing. She was given Narcan and reportedly become more responsive. In the ED she reported back pain, however she was also very agitated and was not answering questions. SBP was 80s but it was difficult to obtain blood pressure reading because the patient did not hold her arm or leg still. Labs are remarkable for WBC 31, lactic acid of 6.1 then 4.7, and creatinine 1.69. CT head, abd/pelv were unremarkable. On exam in the ED, she was essentially nonverbal and did not answer any questions. When she arrived to the ICU several hours later, she was answering simple questions but appeared intermittently agitated then lethargic and sitting with eyes closed. I was unable to obtain a complete review of systems due to her mental status. She did denie chest pain, shortness of breath, or abdominal pain. She reports that her right hand hurts when asked, however palpation of the hand does not seem to bother her. She cannot tell me what happened to her right hand. Her right fingers have multiple blisters, and the fingers and skin over the metacarpals are pink. The right hand is swollen. There is no erythema. It appears that she has burned her hand but not clear if it was a burn from flame, chemical exposure, or cold. Patient is admitted to the ICU for hypotension, substance withdrawal, and sepsis. Sepsis of unclear etiology. Hand does not appear infected, no evidence of epidural abscess on CT scans. Polysubstance abuse MANINDER likely due to dehydration Transaminitis Morbid obesity H/o hepatitis C Will keep the patient NPO while mental status is altered. Hydration with LR @ 125 ml/h Treat with broad-spectrum antibiotics, unknown source at this point. Will order TTE to look for endocarditis, although no current fevers. Continue home suboxone Apply bacitracin to right hand and wrap with dry kerlix. Likely can see wound clinic as outpatient, depending on this hospital course. [facility] protocol [facility] for DVT prophylaxis Attestation: This service has been performed in part by a resident under the direction of a teaching physician.I, Cora Lomas, performed the service, or was physically present during the critical, or ron portions of the service, furnished by the resident. I participated in the management of the patient.
[2019-12-17] MEDS ORDERED: Enoxaparin(*) 40 MG/0.4 ML SYR SUBCUT SCH (18:00)
[2019-12-17] MEDS ORDERED: Cefepime ADVAN(*) 1 GM in NS 0.9% 50 ML* 50 ML IVPB SCH (18:00)
[2019-12-17] MEDS ORDERED: Vancomycin per Pharmacy* NOTE FOLLOW UP SCH (18:00)
[2019-12-17] MEDS: LORazepam INJ* 2 MG/ML 1 ML VIAL IV PUSH PRN ×2 (18:03→21:44)
[2019-12-17] MEDS: Lactated Ringers 1000 ML Bag* 1,000 ML IV SCH (19:56)
[2019-12-17] MEDS: Nicotine Patch Removal NOTE PATCH OFF SCH (20:44)
[2019-12-17] MEDS: Buprenorp/Nalox 8-2 MG FILM SL FILM SCH (20:44)
[2019-12-17] MEDS: busPIRone TAB* 15 MG PO SCH (21:51)
[2019-12-17] MEDS: Heparin VIAL(*) 5000 UNITS/ML VIAL (FIVE THOUSAND) SUBCUT SCH (21:51)
[2019-12-17] MEDS: Gabapentin CAP(*) 300 MG PO SCH (21:51)
[2019-12-17] MEDS: Vancomycin(*) 1,500 MG in NS 0.9% 250 ML* 250 ML IVPB SCH (23:06)
[2019-12-18] MEDS: LORazepam INJ* 2 MG/ML 1 ML VIAL IV PUSH PRN (04:18)
[2019-12-18 04:19] LABS: ABS Lymphocytes 1.2 10^3/ul (1.0-4.8); ABS Monocytes 1.3 10^3/ul (0-0.8); ABS Neutrophils 17.7 10^3/ul (1.5-7.7); Eosinophil % 0.1 %; Hematocrit 43 % (35-47); Hemoglobin 14.1 g/dL (12.0-16.0); Lymphocyte % 5.9 %; Mean Corpuscular HGB Conc 33 g/dL (31-36); Mean Corpuscular Hemoglobin 29 pg (27-31); Mean Corpuscular Volume 89 fL (80-97); Platelet Count 239 10^3/uL (150-450); Red Blood Count 4.82 10^6 /uL (3.70-4.87); Red Cell Distribution Width 14 % (10-15); White Blood Count 20.3 10^3/uL (3.5-10.8)
[2019-12-18] MEDS: Metoprolol Tartrate IV* 1 MG/ML 5 ML VIAL IV PRN (04:19)
[2019-12-18 04:36] LABS: ALT 287 U/L (7-52); Albumin 3.7 g/dL (3.2-5.2); Albumin/Globulin Ratio 1.3 (1-3); Alkaline Phosphatase 78 U/L (34-104); BUN/Creatinine Ratio 17.9 (8-20); Blood Urea Nitrogen 35 mg/dL (6-24); CO2 Carbon Dioxide 20 mmol/L (22-32); Calcium 7.5 mg/dL (8.6-10.3); Chloride 104 mmol/L (101-111); EGFR African American 34.7 (>60); EGFR Non-African American 28.7 (>60); Globulin 2.8 g/dL (2-4); Glucose 102 mg/dL (70-100); Sodium 133 mmol/L (135-145); Total Protein 6.5 g/dL (6.4-8.9)
[2019-12-18 04:57] LABS: Anion Gap 9 mmol/L (2-11)
[2019-12-18] MEDS: Heparin VIAL(*) 5000 UNITS/ML VIAL (FIVE THOUSAND) SUBCUT SCH ×3 (05:27→22:23)
[2019-12-18] MEDS: Lactated Ringers 1000 ML Bag* 1,000 ML IV SCH ×2 (05:34→14:06)
[2019-12-18] MEDS: busPIRone TAB* 15 MG PO SCH ×2 (08:39→21:26)
[2019-12-18] MEDS: Venlafaxine EXT RELEASE CAP* 75 MG PO SCH (08:39)
[2019-12-18] MEDS: Buprenorp/Nalox 8-2 MG FILM SL FILM SCH ×3 (08:39→21:25)
[2019-12-18] MEDS: Gabapentin CAP(*) 300 MG PO SCH ×3 (08:39→21:26)
[2019-12-18] MEDS: Nicotine PATCH 21 MG/24 HR* PATCH TRANSDERM SCH (08:53)
[2019-12-18] MEDS ORDERED: DEXTROSE IV SCH (09:00)
[2019-12-18] MEDS ORDERED: CEFEPIME IV SCH (09:00)
[2019-12-18 09:35] LABS: Albumin 3.7 g/dL (3.2-5.2); Albumin/Globulin Ratio 1.5 (1-3); BUN/Creatinine Ratio 16.7 (8-20); Calcium 7.5 mg/dL (8.6-10.3); EGFR African American 29.2 (>60); EGFR Non-African American 24.1 (>60); Globulin 2.4 g/dL (2-4); Potassium 4.5 mmol/L (3.5-5.0); Total Bilirubin 0.5 mg/dL (0.2-1.0); Total Protein 6.1 g/dL (6.4-8.9)
[2019-12-18 10:21] LABS: C Reactive Protein 113.53 mg/L (<8.01)
[2019-12-18 10:44] LABS: Urine Creatinine Concentration 50.57 mg/dL
[2019-12-18] MEDS: Vancomycin(*) 1,500 MG in NS 0.9% 250 ML* 250 ML IVPB SCH (12:16)
--- NOTE | 2019-12-18 14:03 | PN ---
<Alaina Villagran - Last Filed: 12/18/19 13:51> Date of Service: 12/18/19 Critical Care Services: Overnight events, Patient was restless down in ED when I saw her, but she was drowsy the whole night. When I saw her at 8am, she was arousable this morning by verbal stimulus but fell into asleep immediately. Around 10am, nurse found her wide awake and acted normally. She didn't receive any dose of Subaxone or ativan overnight. Her bp was going high instead of low. She still can't tell what happened to her hand, she claimed that she stayed with her mom. Tele: NSR, HR in 90-100 O2: RA 98% Infusion: no presser, no sedation Vital Signs: Temp Pulse Resp BP SpO2 FiO2 98.5 F 89 20 123/82 98 12/18/19 12:59 12/18/19 12:59 12/18/19 12:59 12/18/19 12:59 12/18/19 12:59 Physical Exam: Constitutional: obese habitus, drowsy, restless, able to speak in phrases and doze off, less stuttering today. Head: normocephalic, atraumatic, one bump in right side of forehead , also one rectangular area of skin loss in forehead Eyes: no pallor, no icterus, pupils enlarged 4mm bilaterally, reactive, no conjuctival hemorrhage ENT: moist mucous membranes Neck: soft, supple, no jvd, no stridor CVS: normal rate, regular, no murmur Chest/Resp: bilateral air entry, clear anteriorly on auscultation Abdomen/GI: central obesity,distended, soft. Ext/Msk: cold feet, pulses+, no edema Right hand wrapped, with surrounding erythema and swelling up to right arm. Left arm medial area three injection spots seen, erythema around with mild swelling. Skin: As mentioned above. Also multiple rectangular papules seen on right thigh , raised area with clear borders. Neuro: drowsy, not oriented, moving all extremities, restless Fluid Balance (Past 24 Hours): Intake & Output 12/16/19 12/17/19 12/18/19 12/19/19 06:59 06:59 06:59 06:59 Intake Total 1245 0 Output Total 500 Balance 1245 -500 Weight 113 kg Intake: IV Fluids 951 LR 951 IVPB 289 ABX - VANCOMYCIN 289 Oral 5 0 Output: Urine 500 Other: Estimated Void Medium Date of Last Bowel 12/17/2019 Movement # Voids 1 Labs: Laboratory Results - last 24 hr 12/17/19 12/18/19 12/18/19 15:00 04:11 04:11 WBC 20.3 H RBC 4.82 Hgb 14.1 Hct 43 MCV 89 MCH 29 MCHC 33 RDW 14 Plt Count 239 MPV 8.0 Neut % (Auto) 87.2 Lymph % (Auto) 5.9 [place] % (Auto) 6.6 Eos % (Auto) 0.1 Baso % (Auto) 0.2 Absolute Neuts (auto) 17.7 H Absolute Lymphs (auto) 1.2 Absolute Monos (auto) 1.3 H Absolute Eos (auto) 0.0 Absolute Basos (auto) 0.0 Absolute Nucleated RBC 0.0 Nucleated RBC % 0.0 Sodium 133 L Potassium TNP Chloride 104 Carbon Dioxide 20 L Anion Gap 9 BUN 35 H Creatinine 1.95 H Est GFR ( Amer) 34.7 Est GFR (Non-Af Amer) 28.7 BUN/Creatinine Ratio 17.9 Glucose 102 H Lactic Acid 4.7 H* Calcium 7.5 L Total Bilirubin 0.50 Direct Bilirubin TNP Indirect Bilirubin Not Reportable AST TNP ALT 287 H Alkaline Phosphatase 78 Ammonia C-Reactive Protein Total Protein 6.5 Albumin 3.7 Globulin 2.8 Albumin/Globulin Ratio 1.3 Ur Creatinine Concen U Sodium Concentration 12/18/19 12/18/19 12/18/19 04:11 09:11 09:11 WBC RBC Hgb Hct MCV MCH MCHC RDW Plt Count MPV Neut % (Auto) Lymph % (Auto) [place] % (Auto) Eos % (Auto) Baso % (Auto) Absolute Neuts (auto) Absolute Lymphs (auto) Absolute Monos (auto) Absolute Eos (auto) Absolute Basos (auto) Absolute Nucleated RBC Nucleated RBC % Sodium 135 Potassium 4.5 Chloride 103 Carbon Dioxide 24 Anion Gap 8 BUN 38 H Creatinine 2.27 H Est GFR ( Amer) 29.2 Est GFR (Non-Af Amer) 24.1 BUN/Creatinine Ratio 16.7 Glucose 112 H Lactic Acid 0.9 Calcium 7.5 L Total Bilirubin 0.50 Direct Bilirubin Indirect Bilirubin AST 869 H ALT 271 H Alkaline Phosphatase 78 Ammonia 67 H C-Reactive Protein 113.53 H Total Protein 6.1 L Albumin 3.7 Globulin 2.4 Albumin/Globulin Ratio 1.5 Ur Creatinine Concen U Sodium Concentration 12/18/19 09:58 WBC RBC Hgb Hct MCV MCH MCHC RDW Plt Count MPV Neut % (Auto) Lymph % (Auto) [place] % (Auto) Eos % (Auto) Baso % (Auto) Absolute Neuts (auto) Absolute Lymphs (auto) Absolute Monos (auto) Absolute Eos (auto) Absolute Basos (auto) Absolute Nucleated RBC Nucleated RBC % Sodium Potassium Chloride Carbon Dioxide Anion Gap BUN Creatinine Est GFR ( Amer) Est GFR (Non-Af Amer) BUN/Creatinine Ratio Glucose Lactic Acid Calcium Total Bilirubin Direct Bilirubin Indirect Bilirubin AST ALT Alkaline Phosphatase Ammonia C-Reactive Protein Total Protein Albumin Globulin Albumin/Globulin Ratio Ur Creatinine Concen 50.57 U Sodium Concentration 37 Nutrition: Regular diet Impression: Arminda Conrad is a 39 y/o transgender man with history of polysubstance use disorder including benzodiazepine use, opioid use on Suboxone, cocaine use, depression, PTSD, asthma, GERD, TRACI, PCOS, obesity, hepC, presented to [facility] [place] for decreased RR and altered mental status after self injecting methdone. He was found to be in sepsis with fever, leukocytosis, lactic acidosis, and a red sloughing right hand with underlying cellulitis. 1. Sepsis likely due to right hand cellulitis 2. Opioid intoxication and withdrawal 3. Acute kidney injury ?opioid related ?dehydration 4. Liver dysfunction ?ischemic liver injury 5. Depression 6. Polysubstance use disorder Plan: Neuro-alert and oriented now, drowsy overnight, due to ketamine given in ED or sepsis - watch opioid withdrawal sx - she is on suboxone and methadone at home, I will start back Suboxone for now - will continue to watch her mental status - social science analyst consult for her substance use - consider psy consult for further management when out of sepsis (known to psy in the past) - continue home med BuSpar, Effexor, gabapentin CVS- -BP stable now -TTE to look for IE in view of her drug use history Resp- -keep sat>92% -history of asthma, not in exacerbation ID- likely source of infection right hand cellulitis, need to rule out IE in view of iv drug use - continue iv cefepime, vancomycin, flagyl - awaiting blood cs, urine cs - TTE today - right hand wound consult GI- -Nutrition: oral diet -elevated ammonia- present in the past -hepc history, treated, no evidence of cirrhosis in CTAP -GI prophylaxis: not needed Renal- -strict I/O, replete to keep K>4, Mg>2 -monitor urine output -MANINDER, not sure cause, will watch kidney function with adequate hydration - urine blood 3+, no protein -repeat bmp tomorrow Heme- no active issues Endo-Maintain BG<200, insulin protocol as needed Musculsk- pressure ulcer prophylaxis. Bedrest. Wounds- none Nutrition-oral diet DVT prophylaxis: sc heparin GI prophylaxis:no Central Line:no Arterial Line:no García Catheter:no Disposition: Patient will be transferred to today Patient clinical status: stable Code Status: Full code Total Critical Care time is 40 minutes <Cora Lomas - Last Filed: 12/18/19 18:03> Plan: 39F admitted with sepsis with unclear source. Hypotension has resolved and mental status has improved. Sepsis of unclear etiology. Hand does not appear infected, no evidence of epidural abscess on CT scans. Encephalopathy likely metabolic from substance abuse Polysubstance abuse MANINDER likely due to dehydration Transaminitis Morbid obesity H/o hepatitis C Advance diet and saline lock IVF Treat with broad-spectrum antibiotics, unknown source at this point. Leukocytosis trending down and afebrile. TTE overall unremarkable. Continue home suboxone Apply bacitracin to right hand and wrap with dry kerlix. Wound consult inpatient. [facility] protocol [facility] for DVT prophylaxis Dispo: Transfer to floor Status: Fair, improving Attestation: This service has been performed in part by a resident under the direction of a teaching physician.I, Cora Lomas, performed the service, or was physically present during the critical, or ron portions of the service, furnished by the resident. I participated in the management of the patient.
--- NOTE | 2019-12-18 15:48 | ECHO ---
*[facility]* [place] [address] Fax #: [phone] Transthoracic Echocardiogram Patient: Arminda Conrad : 1980 Study Date: 12/18/2019 Age: 39 Gender: F HR: 91 bpm Height: 65 in /165.1 cm BSA: 2.19 m^2 Weight: 253.5 lb /115.2 kg BMI: 42.3 kg/m^2 *Scrap Drop Engineer: Carolyn Toledo *Referring Physician: * Cora Lomas *Reading Physician: * Panfilo Estrella MD Indications: Bacteremia. History: Risk factors: Obese. Poly substance abuse, asthma, Hepatitis C. Conclusions Summary: - Left ventricle: Systolic function is normal. The estimated ejection fraction is 55-60%. - Tricuspid valve: There is trace regurgitation. - C/o 04/09/2019, no overt significant changes. Study data: Transthoracic echocardiogram. Procedure: Transthoracic echocardiography was performed. Image quality was adequate. The study was technically limited due to poor patient compliance and body habitus. Complete 2D, spectral Doppler, and color flow Doppler. Location: Bedside. Patient status: Inpatient. Patient room number: 417-02. Rhythm: Normal sinus rhythm. Findings Left ventricle: The cavity size is normal. Wall thickness is mildly increased. Systolic function is normal. The estimated ejection fraction is 55-60%. Wall motion is normal; there are no regional wall motion abnormalities. Left ventricular diastolic function parameters are normal. Right ventricle: The cavity size is at the upper limits of normal. Wall thickness is normal. Systolic function is normal. Ventricular septum: The ventricular septum is normal. Left atrium: The atrium is normal in size. Right atrium: The atrium is normal in size. Atrial septum: No defect or patent foramen ovale is identified. Mitral valve: The valve is structurally normal. There is no evidence of stenosis. There is no significant regurgitation. Aortic valve: The valve is structurally normal. The valve is trileaflet. Cusp separation is normal. Transvalvular velocity is within the normal range. There is no evidence of stenosis. There is no significant regurgitation. Tricuspid valve: The valve is structurally normal. There is no evidence of stenosis. There is trace regurgitation. Pulmonic valve: The valve is structurally normal. There is no evidence of stenosis. There is trace regurgitation. Aorta: The aortic root appears normal. The aortic arch appears normal. Pericardium: There is no significant pericardial effusion. Pulmonary arteries: Systolic pressure is within the normal range, estimated to be 33 mm Hg. Systemic veins: Inferior vena cava: The vessel is normal in size. There is (>= 50%) respiratory change in the IVC dimension. Pulmonary veins: The Pulmonary veins appear normal. Measurements Left ventricle Value Ref Aortic valve continued Value Ref ITZEL, LAX 4.1 cm 3.8 - 5.2 Mean grad, S 3.0 mm Hg ----- ESD, LAX 2.7 cm 2.2 - 3.5 Peak grad, S 6.0 mm Hg ----- FS, LAX 34 % 27 - 45 ANGELA, VTI 3.23 cm^2 ----- PW, ED, LAX (H) 1.4 cm 0.6 - 0.9 ANGELA, Vmax 2.89 cm^2 ----- E', lat markos, TDI (L) 9.8 cm/sec >=10.0 E/e', lat markos, 11 Mitral valve Value R ef TDI Peak E 1.06 m/sec ----- Peak A 1.29 m/sec ----- LVOT Value Ref Decel time 153 ms ----- Diam, S 2.00 cm Peak grad, D 4.5 mm Hg ----- Area 3.1 cm^2 Peak E/A ratio 0.8 ----- Peak aleksandr, S 1.17 m/sec Peak grad, S 5 mm Hg Pulmonic valve Value Ref Mean grad, S 3 mm Hg Peak v, S 0.9 m/sec ----- SV 76 ml Peak grad, S 3.0 mm Hg ----- Ventricular septum Value Ref Tricuspid valve Value Ref IVS, ED (H) 1.4 cm 0.6 - 0.9 TR peak v 2.66 m/sec <=2 .8 Peak RV-RA grad, S 28 mm Hg ----- Right ventricle Value Ref Max TR aleksandr 2.66 m/sec ----- ITZEL, LAX 3.3 cm ITZEL minor ax, (H) 4.1 cm 1.9 - 3.5 Aortic root Value Ref A4C mid Root diam 3.3 cm <3. 9 Left atrium Value Ref Ascending aorta Value Ref AP dim, ES 3.60 cm 2.70 - AAo AP diam, S 3.3 cm ----- 3.80 ML dim, A4C 4.2 cm Aortic arch Value Ref SI dim, A4C 5.4 cm Arch diam 3.2 cm ----- Vol/bsa, ES, 1-p 22 ml/m^2 11 - 40 A4C Decending aorta Value Ref Avtar peak aleksandr 0.73 m/sec ----- Right atrium Value Ref SI dim, ES 5.2 cm 3.4 - 5.3 Inferior vena cava Value Ref ML dim, ES, A4C 3.6 cm 2.6 - 4.4 Diam 2.4 cm ----- SI dim, ES, A4C 5.2 cm 3.4 - 5.3 Aortic valve Value Ref Peak v, S 1.27 m/sec VTI, S 23.5 cm Legend: (L) and (H) ruslan values outside specified reference range. Prepared and electronically signed by Panfilo Estrella MD 12/18/2019 15:47
[2019-12-18] MEDS: Nicotine Patch Removal NOTE PATCH OFF SCH (21:24)
[2019-12-18] MEDS: CEFEPIME IV SCH (22:15)
[2019-12-18] MEDS: DEXTROSE IV SCH (22:15)
[2019-12-19] MEDS: Lactated Ringers 1000 ML Bag* 1,000 ML IV SCH (02:11)
[2019-12-19] MEDS: Heparin VIAL(*) 5000 UNITS/ML VIAL (FIVE THOUSAND) SUBCUT SCH ×3 (05:28→21:57)
[2019-12-19 05:42] LABS: ABS Basophils 0.1 10^3/ul (0-0.2); ABS Eosinophils 0.1 10^3/ul (0-0.6); ABS Lymphocytes 1.6 10^3/ul (1.0-4.8); ABS Monocytes 0.9 10^3/ul (0-0.8); ABS Neutrophils 11.1 10^3/ul (1.5-7.7); Eosinophil % 0.4 %; Hematocrit 39 % (35-47); Hemoglobin 13.3 g/dL (12.0-16.0); Lymphocyte % 11.6 %; Mean Corpuscular HGB Conc 34 g/dL (31-36); Mean Corpuscular Hemoglobin 30 pg (27-31); Mean Corpuscular Volume 87 fL (80-97); Platelet Count 211 10^3/uL (150-450); Red Blood Count 4.47 10^6 /uL (3.70-4.87); Red Cell Distribution Width 13 % (10-15); White Blood Count 13.8 10^3/uL (3.5-10.8)
[2019-12-19 05:58] LABS: BUN/Creatinine Ratio 14.4 (8-20); Calcium 8.2 mg/dL (8.6-10.3); EGFR African American 20.2 (>60); EGFR Non-African American 16.7 (>60); Potassium 4.2 mmol/L (3.5-5.0)
[2019-12-19] MEDS ORDERED: Vancomycin Random Level* NOTE FOLLOW UP ONE (06:00)
[2019-12-19 06:19] LABS: Vancomycin Random 17.8 mcg/mL
[2019-12-19] MEDS: Buprenorp/Nalox 8-2 MG FILM SL FILM SCH ×3 (08:51→21:15)
[2019-12-19] MEDS: busPIRone TAB* 15 MG PO SCH ×2 (08:53→21:19)
[2019-12-19] MEDS: Gabapentin CAP(*) 300 MG PO SCH ×3 (08:53→21:18)
[2019-12-19] MEDS: Venlafaxine EXT RELEASE CAP* 75 MG PO SCH (08:53)
[2019-12-19] MEDS: DEXTROSE IV SCH ×2 (08:54→21:15)
[2019-12-19] MEDS: CEFEPIME IV SCH ×2 (08:54→21:15)
[2019-12-19] MEDS: Nicotine PATCH 21 MG/24 HR* PATCH TRANSDERM SCH (08:55)
[2019-12-19] MEDS ORDERED: Vancomycin(*) 500 MG in NS 0.9% 250 ML* 250 ML IVPB ONE (10:00)
[2019-12-19] MEDS ORDERED: Vancomycin Trough Check NOTE FOLLOW UP ONE (10:30)
[2019-12-19] MEDS: Metoprolol Tartrate IV* 1 MG/ML 5 ML VIAL IV PRN (11:34)
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
[2019-12-19] MEDS ORDERED: NS 0.9% 1000 ML** 1,000 ML IV SCH (15:00)
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
[2019-12-19 18:19] LABS: Urine Appearance Cloudy; Urine Bilirubin Negative (Negative); Urine Blood 3+ (Negative); Urine Color Yellow; Urine Glucose Negative (Negative); Urine Ketones Trace (Negative); Urine Nitrite Negative (Negative); Urine Protein Negative (Negative); Urine Specific Gravity 1.012 (1.010-1.030); Urine Urobilinogen Negative (Negative)
[2019-12-19 18:22] LABS: Urine Bacteria 1+ (Absent); Urine Red Blood Cell Trace(0-2/hpf) (Absent); Urine Squamous Epithelial Cell Present (Absent); Urine White Blood Cell Trace(0-5/hpf) (Absent)
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
[2019-12-19] MEDS: Acetaminophen TAB* 325 MG PO PRN (21:18)
[2019-12-19] MEDS: Nicotine Patch Removal NOTE PATCH OFF SCH (21:19)
[2019-12-20] MEDS: Metoprolol Tartrate IV* 1 MG/ML 5 ML VIAL IV PRN (04:29)
[2019-12-20] MEDS: Acetaminophen TAB* 325 MG PO PRN ×3 (04:30→21:49)
[2019-12-20] MEDS ORDERED: Vancomycin Random Level* NOTE FOLLOW UP ONE (06:00)
[2019-12-20] MEDS: Heparin VIAL(*) 5000 UNITS/ML VIAL (FIVE THOUSAND) SUBCUT SCH ×3 (06:15→21:01)
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
[2019-12-20] MEDS: Nicotine PATCH 21 MG/24 HR* PATCH TRANSDERM SCH (09:03)
[2019-12-20] MEDS: Buprenorp/Nalox 8-2 MG FILM SL FILM SCH ×2 (09:03→13:46)
[2019-12-20] MEDS: Venlafaxine EXT RELEASE CAP* 75 MG PO SCH (09:04)
[2019-12-20] MEDS: busPIRone TAB* 15 MG PO SCH ×2 (09:04→21:00)
[2019-12-20] MEDS: DEXTROSE IV SCH (09:06)
[2019-12-20] MEDS: CEFEPIME IV SCH (09:06)
[2019-12-20] MEDS: Gabapentin CAP(*) 300 MG PO SCH ×2 (09:14→13:47)
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
[2019-12-20] MEDS: Silver Sulfadiazine 1%* 20 GM TOPICAL SCH ×2 (13:47→21:00)
[2019-12-20 14:53] LABS: CKMB ng/mL 70.1 ng/mL (0.6-6.3)
[2019-12-20 15:49] LABS: Albumin 3.2 g/dL (3.2-5.2); Calcium 8.2 mg/dL (8.6-10.3); Potassium 4.3 mmol/L (3.5-5.0); Total Bilirubin 0.5 mg/dL (0.2-1.0)
[2019-12-20 15:55] LABS: Albumin/Globulin Ratio 1.3 (1-3); BUN/Creatinine Ratio 11.4 (8-20); EGFR African American 15.4 (>60); EGFR Non-African American 12.7 (>60); Globulin 2.4 g/dL (2-4); Total Protein 5.6 g/dL (6.4-8.9); Vancomycin Random 14.7 mcg/mL
[2019-12-20 18:52] LABS: Troponin I 0.46 ng/mL (<0.03)
[2019-12-20 19:06] LABS: Creatine Kinase 7182 U/L (10-223)
[2019-12-20] MEDS: Methadone TAB* 10 MG PO SCH (19:32)
[2019-12-20] MEDS ORDERED: Lactated Ringers 1000 ML Bag* 1,000 ML IV SCH ×2 (20:00→23:28)
[2019-12-20] MEDS ORDERED: Gabapentin CAP(*) 300 MG PO SCH (21:00)
[2019-12-20] MEDS: Nicotine Patch Removal NOTE PATCH OFF SCH (21:06)
[2019-12-20 21:28] LABS: Troponin I 0.55 ng/mL (<0.03)
[2019-12-21] MEDS: Metoprolol Tartrate IV* 1 MG/ML 5 ML VIAL IV PRN (00:39)
[2019-12-21 01:37] LABS: Anion Gap 7 mmol/L (2-11); BUN/Creatinine Ratio 11.3 (8-20); Blood Urea Nitrogen 45 mg/dL (6-24); C Reactive Protein 26.47 mg/L (<8.01); CO2 Carbon Dioxide 25 mmol/L (22-32); Calcium 8.4 mg/dL (8.6-10.3); Chloride 103 mmol/L (101-111); EGFR African American 15.2 (>60); EGFR Non-African American 12.6 (>60); Glucose 94 mg/dL (70-100); Potassium 3.9 mmol/L (3.5-5.0); Sodium 135 mmol/L (135-145)
[2019-12-21 01:51] LABS: Creatine Kinase 6360 U/L (10-223)
[2019-12-21] MEDS ORDERED: Aspirin 81 mg CHEW TAB* 81 MG TAB.CHEW PO ONE (02:12)
--- NOTE | 2019-12-21 02:18 | PN ---
Hospitalist Progress Note Date of Service: 12/21/19 Brief update overnight Due to lab error, CK-MB was drawn instead of requested CK. CK-MB found to be elevated, as well as CK. Have been trending trops since this. Troponin has since downtrended after peak of 0.55. With most recent EKG, there is new ischemic changes with T wave inversions in V1-V3 (previously only in V1). Patient has been without chest pain/SOB/nausea all evening. Patient resting comfortably. Physical exam: General: young, male-identifying white person, laying in bed, appearing comfortable and in NAD Cardio: RRR without M/R/G Lungs: CTA throughout Exrem: no cyanosis or edema A&P: -troponin and CK-MB elevation likely due to ischemic demand of drug overdose and acute infection of hand as well as worsening kidney function -however, due to new ischemic changes on EKG and after discussion with attending Dr. Sierra, will give patient 324 mg ASA -starting tele -day team should d/w cardiology
[2019-12-21] MEDS ORDERED: Lactated Ringers 1000 ML Bag* 1,000 ML IV SCH (07:00)
[2019-12-21] MEDS: Nicotine PATCH 21 MG/24 HR* PATCH TRANSDERM SCH (07:58)
[2019-12-21] MEDS: Gabapentin CAP(*) 100 MG PO SCH ×3 (07:58→20:07)
[2019-12-21] MEDS: busPIRone TAB* 15 MG PO SCH ×2 (07:58→20:07)
[2019-12-21] MEDS: Venlafaxine EXT RELEASE CAP* 75 MG PO SCH (08:00)
[2019-12-21] MEDS: Heparin VIAL(*) 5000 UNITS/ML VIAL (FIVE THOUSAND) SUBCUT SCH (08:00)
[2019-12-21] MEDS: Methadone TAB* 10 MG PO SCH ×2 (08:00→20:09)
[2019-12-21] MEDS ORDERED: Cefepime 1 GM in Dextrose(*) 1 GM/50 ML BAG IV SCH (09:00)
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
[2019-12-21] MEDS: Cefepime 1 GM in Dextrose(*) 1 GM/50 ML BAG IV SCH (09:40)
[2019-12-21] MEDS: Silver Sulfadiazine 1%* 20 GM TOPICAL SCH ×2 (09:41→20:20)
[2019-12-21] MEDS ORDERED: amLODIPine TAB* 5 MG PO ONE (10:03)
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
[2019-12-21] MEDS: Acetaminophen TAB* 325 MG PO PRN ×2 (14:36→20:06)
[2019-12-21] MEDS: Morphine INJ* 4 MG/ML 1 ML SYRINGE (NEW SYRINGE VERSION) IV PRN ×2 (14:51→18:49)
[2019-12-21] MEDS: amLODIPine TAB* 5 MG PO SCH (20:07)
[2019-12-21] MEDS: Nicotine Patch Removal NOTE PATCH OFF SCH (20:11)
[2019-12-21] MEDS ORDERED: Enoxaparin(*) 30 MG/0.3 ML SYR SUBCUT SCH (21:00)
[2019-12-22] MEDS: Morphine INJ* 4 MG/ML 1 ML SYRINGE (NEW SYRINGE VERSION) IV PRN ×2 (01:22→09:38)
[2019-12-22 05:56] LABS: Hematocrit 37 % (35-47); Hemoglobin 12.6 g/dL (12.0-16.0); Mean Corpuscular HGB Conc 34 g/dL (31-36); Mean Corpuscular Hemoglobin 30 pg (27-31); Mean Corpuscular Volume 88 fL (80-97); Mean Platelet Volume 8.1 fL (7.4-10.4); Platelet Count 209 10^3/uL (150-450); Red Cell Distribution Width 14 % (10-15); White Blood Count 8.3 10^3/uL (3.5-10.8)
[2019-12-22 06:22] LABS: BUN/Creatinine Ratio 11.5 (8-20); Calcium 8.6 mg/dL (8.6-10.3); EGFR African American 13.8 (>60); EGFR Non-African American 11.4 (>60); Magnesium 2.2 mg/dL (1.9-2.7)
[2019-12-22] MEDS: Venlafaxine EXT RELEASE CAP* 75 MG PO SCH (09:01)
[2019-12-22] MEDS: busPIRone TAB* 15 MG PO SCH ×2 (09:01→20:40)
[2019-12-22] MEDS: Nicotine PATCH 21 MG/24 HR* PATCH TRANSDERM SCH (09:02)
[2019-12-22] MEDS: Gabapentin CAP(*) 100 MG PO SCH ×3 (09:02→20:39)
[2019-12-22] MEDS: Cefepime 1 GM in Dextrose(*) 1 GM/50 ML BAG IV SCH (09:03)
[2019-12-22] MEDS: Acetaminophen TAB* 325 MG PO PRN ×3 (09:03→20:47)
[2019-12-22] MEDS: Methadone TAB* 10 MG PO SCH ×2 (09:03→20:41)
[2019-12-22] MEDS: Silver Sulfadiazine 1%* 20 GM TOPICAL SCH ×2 (09:14→20:52)
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
[2019-12-22] MEDS: Lactated Ringers 1000 ML Bag* 1,000 ML IV SCH ×2 (11:44→17:08)
[2019-12-22] MEDS: HYDROmorphone INJ* 0.5 MG/0.5 ML SYRINGE IV SLOW PU PRN ×2 (13:44→20:48)
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
[2019-12-22] MEDS: amLODIPine TAB* 5 MG PO SCH (20:40)
[2019-12-22] MEDS: Nicotine Patch Removal NOTE PATCH OFF SCH (20:41)
[2019-12-23 05:53] LABS: BUN/Creatinine Ratio 11.5 (8-20); Calcium 8.9 mg/dL (8.6-10.3); EGFR African American 13.5 (>60); EGFR Non-African American 11.2 (>60); Potassium 4.2 mmol/L (3.5-5.0)
[2019-12-23] MEDS: HYDROmorphone INJ* 0.5 MG/0.5 ML SYRINGE IV SLOW PU PRN (09:46)
[2019-12-23] MEDS: Nicotine PATCH 21 MG/24 HR* PATCH TRANSDERM SCH (09:47)
[2019-12-23] MEDS: Acetaminophen TAB* 325 MG PO PRN ×2 (09:47→18:13)
[2019-12-23] MEDS: busPIRone TAB* 15 MG PO SCH ×2 (09:47→20:55)
[2019-12-23] MEDS: Venlafaxine EXT RELEASE CAP* 75 MG PO SCH (09:47)
[2019-12-23] MEDS: Gabapentin CAP(*) 100 MG PO SCH ×3 (09:47→20:55)
[2019-12-23] MEDS: Cefepime 1 GM in Dextrose(*) 1 GM/50 ML BAG IV SCH (09:52)
[2019-12-23] MEDS: Silver Sulfadiazine 1%* 20 GM TOPICAL SCH ×2 (10:06→20:56)
[2019-12-23] MEDS: Methadone TAB* 10 MG PO SCH (10:19)
[2019-12-23] MEDS: Lactated Ringers 1000 ML Bag* 1,000 ML IV SCH ×2 (10:54→18:25)
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
--- NOTE | 2019-12-23 13:30 | PN ---
Subjective Date of Service: 12/23/19 Interval History: No acute events overnight. Pt reports good response to dilauded prns for hand pain control. Objective Active Medications: Acetaminophen (Tylenol Tab*) 975 mg PO Q8H PRN PRN Reason: PAIN - MILD Last Admin: 12/23/19 09:47 Dose: 975 mg Amlodipine Besylate (Norvasc Tab*) 5 mg PO BEDTIME [facility] Last Admin: 12/22/19 20:40 Dose: 5 mg Buspirone HCl (Buspar Tab *) 15 mg PO BID [facility] Last Admin: 12/23/19 09:47 Dose: 15 mg Famotidine (Pepcid Tab*) 20 mg PO BID PRN PRN Reason: heart burn Last Admin: 12/23/19 14:17 Dose: 20 mg Gabapentin (Neurontin Cap(*)) 200 mg PO TID [facility] Last Admin: 12/23/19 13:52 Dose: 200 mg Hydromorphone HCl (Dilaudid Inj1s*) 1 mg IV SLOW PU Q4H PRN PRN Reason: Pain - Moderate to Severe Last Admin: 12/23/19 13:51 Dose: 1 mg Cefepime HCl (Maxipime 1 Gm In Dextrose Duplex (*)) 1 gm in 50 mls @ 100 mls/ hr IV DAILY [facility] Last Admin: 12/23/19 09:52 Dose: 100 mls/hr Lactated Ringer's (Lactated Ringers 1000 Ml Bag*) 1,000 mls @ 250 mls/hr IV PER RATE [facility] Stop: 12/23/19 22:00 Last Admin: 12/23/19 10:54 Dose: 250 mls/hr Magnesium Hydroxide (Milk Of Magnesia Liq*) 30 ml PO Q6H PRN PRN Reason: CONSTIPATION Methadone HCl (Dolophine Tab*) 20 mg PO ONCE ONE Stop: 12/23/19 22:01 Methadone HCl (Dolophine Tab*) 30 mg PO DAILY [facility] Nicotine (Nicotine Patch 21 Mg/24 Hr*) 1 patch TRANSDERM DAILY [facility] Last Admin: 12/23/19 09:47 Dose: 1 patch Pharmacy Profile Note (Nicotine Patch Removal Note*) 1 note PATCH OFF 2100 [facility] Last Admin: 12/22/19 20:41 Dose: 1 note Senna (Senokot 8.6 Mg Tab*) 1 tab PO BEDTIME PRN PRN Reason: if no BM during day Silver Sulfadiazine (Silvadine 1%*) 1 applic TOPICAL BID [facility] Last Admin: 12/23/19 10:06 Dose: 1 applic Venlafaxine HCl (Effexor Xr Cap*) 150 mg PO DAILY [facility] Last Admin: 12/23/19 09:47 Dose: 150 mg Vital Signs - 8 hr 12/23/19 12/23/19 12/23/19 08:00 09:46 09:47 Temperature Pulse Rate Respiratory 18 18 18 Rate Blood Pressure (mmHg) O2 Sat by Pulse Oximetry 12/23/19 12/23/19 12/23/19 10:19 11:01 11:39 Temperature 97.9 F Pulse Rate 90 Respiratory 18 18 18 Rate Blood Pressure 127/73 (mmHg) O2 Sat by Pulse 94 Oximetry Oxygen Devices in Use Now: None Appearance: well appearing, walking around unit Eyes: No Scleral Icterus Ears/Nose/Mouth/Throat: Clear Oropharnyx Neck: NL Appearance and Movements; NL JVP, Trachea Midline Respiratory: Symmetrical Chest Expansion and Respiratory Effort, Clear to Auscultation Cardiovascular: NL Sounds; No Murmurs; No JVD, RRR Abdominal: NL Sounds; No Tenderness; No Distention, No Hepatosplenomegaly Extremities: No Edema, - - new dressing on R hand Neurological: Alert and Oriented x 3 Result Diagrams: 12/22/19 05:26 12/23/19 05:25 Additional Lab and Data: . Microbiology and Other Data: . Diagnostic Imaging: . EKG Data: . Assess/Plan/Problems-Billing Assessment: Mr. Conrad is a 39 year old transman with substance use disorder c/b multiple overdoses, anxiety, depression, PTSD, obesity, who presents with sepsis from right hand cellulitis and rhabdo c/b MANINDER, in setting of another overdose. - Patient Problems (1) Acute kidney injury Comment: Due to rhabdomyolysis. Unknown how long patient was down after overdose. - creatinine slightly increased, will cont IV hydration for another day - Nephrology consult appreciated - will need BMP f/u outpatient with renal (2) Overdose Comment: - continue home methadone, but at lower dose (3) Polysubstance abuse Comment: Per iSTOP, pt was switched from Suboxone to methadone 40mg early in 2019, then increased to 60mg daily 2 days prior to presentation with opioid overdose. - increase methadone from 20mg total daily to 30mg and monitor response (4) Cellulitis Comment: Burn to R hand with concern for superimposed cellulitis. CT did not show abscess. - Continue cefepime (12/16 - 12/23); s/p few days of vanc - Ortho consult appreciated, Dr Nicole and Dr Vega recommend Silvadene cream and dry dressing - appreciate ID (5) Depression Comment: and anxiety with PTSD - Continue buspar, venlafaxine (6) Smoker Comment: - Nicotine replacement available (7) Hepatitis C Comment: - LFTs elevated, suspect due to sepsis - Recommend outpatient follow up with ID (8) TRACI (obstructive sleep apnea) Comment: - Non complaint with CPAP (9) DVT prophylaxis Comment: - Hep SQ (10) Full code status Current Visit: No Status: Acute Code(s): Z78.9 - OTHER SPECIFIED HEALTH STATUS SNOMED Code(s): 540136631 Comment: Status and Disposition: Inpatient, anticipate need for longterm antibiotics. Patient previously living in senior living.
[2019-12-23] MEDS: HYDROmorphone INJ1* 1 MG/ML SYRINGE IV SLOW PU PRN ×3 (13:51→22:50)
[2019-12-23 14:01] LABS: Complement C3 100 mg/dL (75 - 175)
[2019-12-23] MEDS ORDERED: Famotidine TAB* 20 MG PO PRN (14:02)
[2019-12-23] MEDS ORDERED: Magnesium Hydroxide LIQ* 30 ML UDC PO PRN (14:43)
[2019-12-23] MEDS ORDERED: Senna TAB 8.6 mg* TAB PO PRN (14:43)
[2019-12-23 14:46] LABS: Urine Kappa Total Light Chain 1.76 mg/dL (<0.9000); Urine Kappa/Lambda Light Chain 1.81
--- NOTE | 2019-12-23 14:47 | PN ---
Progress Note - Progress Note Date of Service: 12/23/19 Note: Inpatient Nephrology FU Note: Performed by Dr. Zbigniew Burden, [facility] Nephrology 12/23/2019 39 YO transman Substance OD Sepsis from right hand cellulitis on Cefepime MANINDER 2/2 to Rhabdo. sCr baseline 0.99~08/2019 s/p Progressive MANINDER, in Plateau phase of ATN now, sCr 4.42~12/22 was 4.35~11/30. Objective: .Vital Signs: Vital Signs Temp 97.9 F 12/23/19 11:39 Pulse 90 12/23/19 11:39 Resp 18 12/23/19 13:52 BP 127/73 12/23/19 11:39 Pulse Ox 94 12/23/19 11:39 Intake & Output 12/22/19 12/23/19 12/23/19 18:59 06:59 18:59 Intake Total 1440 640 600 Output Total 400 Balance 1440 240 600 Intake: Oral 1440 640 600 Output: Urine 400 Other: Estimated Void Large Medium # Bowel Movements 0 0 0 # Voids 2 1 2 .Heart: Regular rate and rhythm No murmur LE Edema .Lungs: Clear No wheezes or Crackles .Extremities: No LE edema Rt Hand Cellulitis Laboratory Reviewed and pertinent are: Sodium 136 mmol/L (135-145) 12/23/19 05:25 Potassium 4.2 mmol/L (3.5-5.0) 12/23/19 05:25 BUN 51 mg/dL (6-24) H 12/23/19 05:25 Creatinine 4.42 mg/dL (0.51-0.95) H 12/23/19 05:25 Calcium 8.9 mg/dL (8.6-10.3) 12/23/19 05:25 Magnesium 2.2 mg/dL (1.9-2.7) 12/22/19 05:26 AST 298 U/L (13-39) H 12/20/19 14:26 ALT 175 U/L (7-52) H 12/20/19 14:26 Assessment and Plan: MANINDER, ATN 2/2 Rhabdo in plateau phase. No indication for Dialysis Advise f/u inpatient another day Myoglobin still high, sCr may start improving soon with IVF. Continue LR IVF Needs F/U with labs, possibly Tele-Health in Nephrology clinic in a week Electrolytes Ok He was informed about lab/radiology results & prognosis. All questions were answered. He was made part of the treatment plan. Case discussed with Dr. Godwin
[2019-12-23 16:11] LABS: Troponin I 0.17 ng/mL (<0.03)
[2019-12-23] MEDS: amLODIPine TAB* 5 MG PO SCH (20:55)
[2019-12-23] MEDS: Nicotine Patch Removal NOTE PATCH OFF SCH (20:56)
[2019-12-23] MEDS ORDERED: Methadone TAB* 10 MG PO ONE (22:00)
[2019-12-24 00:36] LABS: Troponin I 0.18 ng/mL (<0.03)
[2019-12-24] MEDS: Acetaminophen TAB* 325 MG PO PRN (06:26)
[2019-12-24] MEDS: HYDROmorphone INJ1* 1 MG/ML SYRINGE IV SLOW PU PRN (06:26)
[2019-12-24 06:34] LABS: BUN/Creatinine Ratio 11.6 (8-20); Calcium 8.5 mg/dL (8.6-10.3); EGFR African American 14.5 (>60); Potassium 4.3 mmol/L (3.5-5.0)
[2019-12-24] MEDS ORDERED: Methadone TAB* 10 MG PO SCH (09:00)
[2019-12-24] MEDS: Cefepime 1 GM in Dextrose(*) 1 GM/50 ML BAG IV SCH (10:01)
[2019-12-24] MEDS: Nicotine PATCH 21 MG/24 HR* PATCH TRANSDERM SCH (10:01)
[2019-12-24] MEDS: Gabapentin CAP(*) 100 MG PO SCH (10:01)
[2019-12-24] MEDS: busPIRone TAB* 15 MG PO SCH (10:02)
[2019-12-24] MEDS: Venlafaxine EXT RELEASE CAP* 75 MG PO SCH (10:02)
[2019-12-24] MEDS ORDERED: Famotidine TAB* 20 MG PO PRN (10:20)
[2019-12-24] MEDS: Silver Sulfadiazine 1%* 20 GM TOPICAL SCH (10:26)
[2019-12-24 11:36] VITALS: BP 136/88
--- NOTE | 2019-12-24 20:35 | DS ---
CC: BRANDI Live* DISCHARGE SUMMARY: DATE OF ADMISSION: 12/17/19 DATE OF DISCHARGE: 12/24/19 PRIMARY CARE PHYSICIAN: BRANDI Live. PRIMARY DIAGNOSES: 1. Septic shock, likely from infected hand. 2. Opioid overdose after injecting mg of methadone. 3. Right hand wound of unknown cause, possibly burn. 4. Rhabdomyolysis. 5. Acute kidney injury. 6. Hypertension. 7. Opioid use disorder. SECONDARY DIAGNOSES: 1. Obesity. 2. Asthma. 3. Posttraumatic stress disorder. 4. Hepatitis C. CONSULTS: Dr. Matilde Alex of Nephrology; Hilda Olsen NP of Infectious Disease; and Dr. Aidan Vega of Orthopedic Surgery. DISCHARGE MEDICATIONS: 1. Hydromorphone 2 mg tabs to take 1 tab every 4 hours as needed for severe pain. The patient was prescribed 12 tablets. 2. Methadone 40 mg daily. 3. Silver sulfadiazine 1% apply topically twice a day. 4. Amlodipine 5 mg daily. 5. Venlafaxine 150 mg daily. 6. Buspirone 15 mg twice a day. 7. Gabapentin 300 mg t.i.d. 8. Nicotine patch 21 mg a day transdermally. 9. Nicotine gum 4 mg every 2 hours as needed for cravings. 10. Milk of magnesia 30 mL every 6 hours as needed for constipation. HISTORY OF PRESENT ILLNESS: Mr. Conrad is a 39-year-old transgender male with history of polysubstance use disorder with multiple hospitalizations for overdoses, now on methadone maintenance therapy, major depressive disorder and PTSD, asthma, obesity, TRACI not on CPAP and hepatitis C, who is presenting after being found unresponsive in his fdc. He was found on the floor of the fdc with a decreased respiratory rate and needles nearby according to ED records. He was given Narcan 8 mg in total and became more responsive. On initial evaluation in the ER, the patient was occasionally thrashing and uncooperative but also noted to be frequently dozing off. The patient was a very poor historian and he was unable to give much history but he did report that he injected methadone approximately 70 mg. On exam in the emergency room, the patient was noted to have a red swollen right hand with blistering consistent with possible burn. The patient does not know how this happened on his hand. Also in the emergency room, the patient was found with blood pressure of 80s/ 40s with sinus tachycardia at 120 to 140. He was given 3 L IV fluid as well as IV cefepime, vancomycin, and Flagyl given hand wounds. One temperature recording was 95 degrees Fahrenheit and his lactate resulted 6.1, so he was admitted to the ICU for septic shock, thought to be from his hand wound. In the ICU, the patient was noted to have mild opiate withdrawal symptoms after receiving Narcan and he was started on Suboxone. He was not initiated on vasopressors for hemodynamic support. By the next day, he was able to be transferred to the general medical floors. Infectious Disease was consulted and cultures remained negative. The vessels on his hand were not deroofed for further cultures given recommendations by Orthopedic Surgery team which was also consulted. A CT of his right hand was performed and showed multiple areas of blistering in between the middle, ring, and index fingers; diffuse edematous infiltration of the soft tissue of the hand, most pronounced in the dorsal subcutaneous tissue. This may be cellulitis as well as some passive edema. There is no soft tissue gas. Dr. Aidan Vega of Orthopedic Surgery thought the patient's hand wounds were most likely from burn. Orthopedic Surgery recommended continued wound care without any surgical intervention. While the patient's initial creatinine on presentation was 1.7 which is higher than his baseline, over the following days his creatinine increased to 4 and Nephrology was consulted. Nephrology consult recommended checking a CPK given that the patient was down on floor for unknown period of time and had UA notable for blood but without rbc. On initial check, the patient's CPK was 7182, so he is initiated on aggressive IV fluids with ongoing creatinine monitoring. The patient also intermittently complained of chest pain and had a troponin checked. This was also initially elevated but thought to be from demand ischemia in the setting of septic shock and drug overdose with impaired clearance from renal failure. His troponin peaked at 0.55 and continued to decrease during admission. Given renal failure, the patient's opioid maintenance therapy doses were decreased and it was confirmed that he actually had been recently switched to methadone as an outpatient. He overdosed on methadone shortly after his dose was increased to 60 mg daily, prior to that he was at 40 mg daily. During admission, he was only given 20 mg daily as well as Dilaudid for breakthrough pain from his hand which he responded to well. The patient was also continued on cefepime per recommendation from Infectious Disease team. He received in total 7 days of cefepime IV. He continued to have daily dressing changes from Orthopedic Surgery team and nursing staff who also recommended Silvadene cream with dry dressings. The patient was noted to be hypertensive throughout admission and was initiated on amlodipine daily with good response. PHYSICAL EXAMINATION: Afebrile, heart rate 87, blood pressure 136/88, respiratory rate 16, oxygen saturation 100% on room air. In general, he is a well-appearing man, in no acute distress, who is alert, interactive, frequently walking around the hallways. Neck: No JVD. Supple. Heart: Regular rate and rhythm. No murmurs, gallops, or rubs. Lungs: Clear to auscultation bilaterally. Abdomen: Soft, nontender, nondistended. Extremities: Warm and well perfused. No edema in lower extremities, right hand with new dressing, clean, dry, and intact. Hand erythema resolved but digits still with multiple bullae, still intact. Neurovascularly, intact distally. PERTINENT DIAGNOSTIC STUDIES: CBC notable for leukocytosis of 31 on admission which resolved by discharge. Hemoglobin and platelets normal. Creatinine on discharge is 4.15. It peaked this hospitalization to 4.42. Troponin peaked at 0.55. TSH 3.7 which is normal. LFTs abnormality with AST peaking at 869 and ALT peaking at 287, both decreased significantly by discharge. Hep C RNA undetected. Brain CT without obvious intracranial mass or hemorrhage, although images are severely limited due to motion artifact. CT pelvis without contrast with the right hip subcutaneous and muscle contusion. No associated fracture findings suggestive of cystitis. Renal and bladder ultrasound unremarkable. CT chest with low lung volumes. No active cardiopulmonary disease. Abdomen, pelvis CT, no free fluid is identified. Left lower lobe ovoid nodule is unchanged from 2013. No evidence of solid organ injury is noted, although motion artifact limits evaluation. DISCHARGE PLAN: Mr. Conrad will be discharged to follow up in [facility] for ongoing primary care and substance use disorder needs. He should also follow up with Dr. Burden of Nephrology for ongoing monitoring of his renal function. For the patient's renal failure, he was advised to avoid all NSAIDs and to continue to hydrate himself with oral fluids at home. For hypertension, the patient was initiated on amlodipine which has good effect. For right hand wound, Orthopedic Surgery taught the patient how to do dressing changes and recommended continued Silvadene with dressing change daily until wounds have healed. For ongoing hand pain, the patient was given 12 tabs of Dilaudid 2 mg. He was given very limited supply given history of overdose and this is also a much smaller dose than the patient was receiving for pain control without negative side effects during admission. The patient was given return precautions which include but are not limited to worsening hand pain, especially associated with purulence and malodor or new symptoms of fevers or chills or decreased urine output. DIET: Healthy diet, low in processed foods for weight loss. ACTIVITY: As tolerated. DISPOSITION: Home. CONDITION: Improved. TIME SPENT: Approximately 60 minutes was spent on discharge of this patient, more than half of which was spent with care coordination at bedside for interview and exam. [id number] #: [id number] MTDD
[2019-12-25 15:13] LABS: Albumin 2.7 g/dL (3.4-4.7); Albumin/Globulin Ratio 0.91; Gamma Globulin 0.9 g/dL (0.6-1.6); Total Protein(PEP) 5.6 g/dL (6.3 - 7.9)
== END 2019-12-24 11:55 | disposition home or self-care (01) | DRG 720 ==
LOC: ED 08:53 → ICU 16:03 → MED 12-18 12:40
PROVIDERS: ADMIT Surgery Surgical Critical Care; ATTEND Internal Medicine
DX: A41.9 Sepsis, unspecified organism (principal); R65.21 Severe sepsis with septic shock; N17.9 Acute kidney failure, unspecified; L03.113 Cellulitis of right upper limb; M62.82 Rhabdomyolysis; I24.8 Other forms of acute ischemic heart disease; Z68.41 Body mass index [BMI] 40.0-44.9, adult; F11.23 Opioid dependence with withdrawal; T40.1X1A Poisoning by heroin, accidental (unintentional), initial encounter; J45.909 Unspecified asthma, uncomplicated; J42 Unspecified chronic bronchitis; M17.0 Bilateral primary osteoarthritis of knee; K21.9 Gastro-esophageal reflux disease without esophagitis; F41.9 Anxiety disorder, unspecified; F32.9 Major depressive disorder, single episode, unspecified; F43.10 Post-traumatic stress disorder, unspecified; F17.210 Nicotine dependence, cigarettes, uncomplicated; E66.01 Morbid (severe) obesity due to excess calories; R40.2352 Coma scale, best motor response, localizes pain, at arrival to emergency department; R40.2142 Coma scale, eyes open, spontaneous, at arrival to emergency department; R40.2242 Coma scale, best verbal response, confused conversation, at arrival to emergency department; G47.33 Obstructive sleep apnea (adult) (pediatric); F11.229 Opioid dependence with intoxication, unspecified; E28.2 Polycystic ovarian syndrome; B19.20 Unspecified viral hepatitis C without hepatic coma; T23.201A Burn of second degree of right hand, unspecified site, initial encounter; F64.0 Transsexualism; Z91.5 Personal history of self-harm; Z88.0 Allergy status to penicillin; Y92.9 Unspecified place or not applicable
CPT/HCPCS: 36415; 70450; 71045; 72192; 74176; 76770; 80048; 80053; 80076; 80202; 80307; 80320; 80329; 81003; 81015; 82140; 82550; 82553; 82570; 83605; 83735; 83874; 83883; 84155; 84165; 84300; 84436; 84443; 84484; 84702; 85025; 85027; 86140; 86160; 87040; 87086; 87522; 87641; 93005; 93306; 96365; 96367; 96375; 99285; A9270-GY; G0480; J0692; J1170; J1200; J1644; J1650; J2060; J2270; J2405; J3370; J3490

== ENCOUNTER 2019-12-26 12:35 | Emergency (ER) | payer OTHER ==
--- OUTSIDE RECORDS SUMMARY | 2019-12-26 12:42 | XMS REPORT | Continuity of Care Document ---
:1980 External Reference #:[id number] Author Name Lilliana Burden MD (transmitted by agent of provider Rosalinda Herman) Address [address] [place] [address] Care Team Providers Name Role Phone Chary Glass MD - Internal Care Team Information Male Model [phone] Medicine Problems Active Problems Provider Date History of drug abuse Leonora Hoffman, N.P. Onset: 02/08/2018 Viral hepatitis C Leonora Lakhwindern, N.P. Onset: 02/08/2018 Depressive disorder Leonora Lakhwindern, N.P. Onset: 02/08/2018 Anxiety Leonora Lakhwindern, N.P. Onset: 02/08/2018 Note: cigarette Cigarette smoker Leonora Varsherif, N.P. Onset: 02/08/2018 Gastroesophageal reflux disease Leonora Lakhwindern, N.P. Onset: 02/19/2018 Social History Type Date [...] every 90tabs M54.5 Leonora Hoffman, 07/08/2019 15mg day N.P. Tablets Suboxone 3 films per day Unknown 8-2mg Film Buspirone HCL take one tablet Unknown 15mg by mouth twice a Tablets day Venlafaxine HCL ER 1 by mouth every F41.1 Unknown day 150mg Tablets ER 24HR Ativan take 1/2 to 1 Unknown 1mg Tablets tablet tid Gabapentin 1 by mouth three Unknown 300mg times a day Capsules Ra Nicotine Gum every 2 hours as 60units Leonora Varn, 4mg needed N.P. Gum [facility] Nicotine apply 1 patch 30units Leonora Varn, Transdermal System once a day as N.P. Step 1 directed 21mg/24HR Patches 24HR Medications Administered in Office Medication SIG Qnty Indications Ordering Provider Date Records Fee Tigre Alvarez M.D. 09/30/2019 Injection Records Fee Leonora Hoffman N.P. 01/27/2019 Injection Immunizations CPT Code Status Date Vaccine Reaction Lot # [id number] Given 08/16/2018 Influenza Virus Vaccine, No immediate [...] (Body Mass Index) 37.5 kg/m2 Results Test Acquired Facility Test Result H/L Range Note Date Laboratory test 12/17/2019 [facility] Lactic 4.7 mmol/L Critical 0.5-2.0 [address] [place] [address] [phone] Laboratory test 12/17/2019 [facility] Lactic 6.1 mmol/L Critical 0.5-2.0 [address] [place] [address] [phone] CBC Auto Diff 12/17/2019 [facility] White 31.1 High 3.5-10.[address] Blood 10^3/[place] [address] Count [phone] Red Blood Count 5.25 10^6/uL High 3.70-4.87 Hemoglobin 15.7 g/dL Normal 12.0-16.0 Hematocrit 47 % Normal 35-47 Mean Corpuscular Volume 90 fL Normal 80-97 Mean Corpuscular Hemoglobin 30 pg Normal 27-31 Mean Corpuscular HGB Conc 33 g/dL Normal 31-36 Red Cell Distribution Width 14 % Normal 10-15 Platelet Count 371 10^3/uL Normal 150-450 Mean Platelet Volume 7.8 fL Normal 7.4-10.4 Abs Neutrophils 27.0 10^3/uL High 1.5-7.7 Abs Lymphocytes 1.9 10^3/uL Normal 1.0-4.8 Abs Monocytes 2.1 10^3/uL High 0-0.8 Abs Eosinophils 0.0 10^3/uL Normal 0-0.6 Abs Basophils 0.0 10^3/uL Normal 0-0.2 Abs Nucleated RBC 0.0 10^3/uL Granulocyte % 87.0 % Lymphocyte % 6.0 % Monocyte % 6.8 % Eosinophil % 0.1 % Basophil % 0.1 % Nucleated Red Blood Cells % 0.1 Urinalysis Profile 12/17/2019 [facility] Urine Color Yellow [address] [place] [address] [phone] Urine Appearance Cloudy Urine Specific [place] 1.006 Low 1.010-1.030 Urine pH 5.0 Normal 5-9 Urine Urobilinogen Negative Negative Urine Ketones Negative Negative Urine Protein Negative Negative Urine Leukocytes Negative Negative Urine Blood 3+ Abnormal Negative Urine Nitrite Negative Negative Urine Bilirubin Negative Negative Urine Glucose 3+(>=500 mg/dL) Abnormal Negative Urine White Blood Cell Trace(0-5/hpf) Absent Urine Red Blood Cell Absent Absent Urine Bacteria Absent Absent Urine Squamous Epithelial Cell Present Abnormal Absent Comp Metabolic Panel 12/17/2019 [facility] Sodium 134 mmol/L Low 135-145 [address] [place] [address] [phone] Potassium 5.0 mmol/L Normal 3.5-5.0 Chloride 97 mmol/L Low 101-111 Co2 Carbon Dioxide 16 mmol/L Low 22-32 Anion Gap 21 mmol/L High 2-11 Calcium 8.6 mg/dL Normal 8.6-10.3 Albumin 5.1 g/dL Normal 3.2-5.2 Total Bilirubin 0.40 mg/dL Normal 0.2-1.0 Glucose 74 mg/dL Normal 70-100 Blood Urea Nitrogen 18 mg/dL Normal 6-24 Creatinine 1.69 mg/dL High 0.51-0.95 BUN/Creatinine Ratio 10.7 Normal 8-20 Total Protein 8.1 g/dL Normal 6.4-8.9 Globulin 3.0 g/dL Normal 2-4 Albumin/Globulin Ratio 1.7 Normal 1-3 Alkaline Phosphatase 133 U/L High 34-104 Alt 114 U/L High 7-52 Ast 271 U/L High 13-39 Egfr Non- 33.9 >60 Egfr 41.0 >60 3 Laboratory test 12/17/2019 [facility] HCG < 0.60 mIU/ mL [address] [place] [address] [phone] Acetaminophen < 15 g/mL 5 Alcohol < 10 mg/dL Normal <10 Salicylate < 2.50 mg/dL <30 Thyroxine 4.42 g/dL Low 6.09-12.23 TSH (Thyroid Stim Horm) 3.87 mcIU/mL Normal 0.34-5.60 C Reactive Protein 4.19 mg/L Normal <8.01 Urine Drug 12/17/2019 [facility] Urine None Detected None Detect SCR ED & [address] A[place] [address] Screen [phone] Urine Barbiturates Screen None Detected None Detect Urine Benzodiazepine Screen None Detected None Detect Urine Cannabinoids Screen None Detected None Detect Urine Cocaine Screen None Detected None Detect Urine Opiates Screen None Detected None Detect Urine Phencyclidine Screen None Detected None Detect 6 Urine Culture And 12/17/2019 [facility] Urine Culture SEE RESULT [address] [place] [address] [phone] Urine Drug SCR ED 12/03/2019 [facility] Urine None None & Pain Clinic [address] [place] [address] Screen [phone] Urine Barbiturates Screen None Detected None Detect Urine Benzodiazepine Screen None Detected None Detect Urine Cannabinoids Screen None Detected None Detect Urine Cocaine Screen Presumptive Posi <SEE NOTE> Abnormal None Detect 8 Urine Opiates Screen Presumptive Posi <SEE NOTE> Abnormal None Detect 9 Urine Phencyclidine Screen None Detected None Detect 10 Urinalysis Profile 08/24/2019 [facility] Urine Color Dayana [address] [place] [address] [phone] Urine Appearance Cloudy Urine Specific [place] 1.030 Normal 1.010-1.030 Urine pH 5.0 Normal 5-9 Urine Urobilinogen Negative Negative Urine Ketones Trace Abnormal Negative Urine Protein 1+(30 mg/dL) Abnormal Negative Urine Leukocytes 2+ Abnormal Negative Urine Blood Negative Negative Urine Nitrite Negative Negative Urine Bilirubin 1+ Abnormal Negative Urine Glucose Negative Negative Urine White Blood Cell 1+(6-10/hpf) Abnormal Absent Urine Red Blood Cell 3+(>10/hpf) Abnormal Absent Urine Bacteria Absent Absent Urine Squamous Epithelial Cell Present Abnormal Absent Urine Hyaline Casts Present Abnormal Absent Urine Calcium Oxalate Cryst Present Abnormal Absent Laboratory 08/24/2019 [facility] Lactic Acid 1.5 mmol/L Normal 0.5-2.0 11 test finding [address] [place] [address] [phone] Urine Drug 08/24/2019 [facility] Urine None None SCR ED & Pain [address] Amphetamine [place] [address] Screen [phone] Urine Barbiturates Screen None Detected None Detect Urine Benzodiazepine Screen None Detected None Detect Urine Cannabinoids Screen None Detected None Detect Urine Cocaine Screen Presumptive Posi <SEE NOTE> Abnormal None Detect 12 Urine Opiates Screen None Detected None Detect Urine Phencyclidine Screen None Detected None Detect 13 CBC Auto 08/24/2019 [facility] White Blood 10.6 10^3/uL Normal 3.5-10.[address] [place] [address] [phone] Red Blood Count 4.10 10^6/uL Normal 3.70-4.87 Hemoglobin 11.9 g/dL Low 12.0-16.0 Hematocrit 36 % Normal 35-47 Mean Corpuscular Volume 87 fL Normal 80-97 Mean Corpuscular Hemoglobin 29 pg Normal 27-31 Mean Corpuscular HGB Conc 33 g/dL Normal 31-36 Red Cell Distribution Width 14 % Normal 10-15 Platelet Count 357 10^3/uL Normal 150-450 Mean Platelet Volume 7.5 fL Normal 7.4-10.4 Abs Neutrophils 6.3 10^3/uL Normal 1.5-7.7 Abs Lymphocytes 3.2 10^3/uL Normal 1.0-4.8 Abs Monocytes 0.7 10^3/uL Normal 0-0.8 Abs Eosinophils 0.3 10^3/uL Normal 0-0.6 Abs Basophils 0.1 10^3/uL Normal 0-0.2 Abs Nucleated RBC 0.0 10^3/uL Granulocyte % 59.1 % Lymphocyte % 30.4 % Monocyte % 6.9 % Eosinophil % 3.1 % Basophil % 0.5 % Nucleated Red Blood Cells % 0.1 Comp Metabolic 08/24/2019 [facility] Sodium 136 mmol/L Normal 135-[address] [place] [address] [phone] Potassium 3.7 mmol/L Normal 3.5-5.0 Chloride 101 mmol/L Normal 101-111 Co2 Carbon Dioxide 30 mmol/L Normal 22-32 Anion Gap 5 mmol/L Normal 2-11 Calcium 8.8 mg/dL Normal 8.6-10.3 Albumin 4.1 g/dL Normal 3.2-5.2 Total Bilirubin 0.30 mg/dL Normal 0.2-1.0 Glucose 84 mg/dL Normal 70-100 Blood Urea Nitrogen 18 mg/dL Normal 6-24 Creatinine 0.99 mg/dL High 0.51-0.95 BUN/Creatinine Ratio 18.2 Normal 8-20 Total Protein 6.8 g/dL Normal 6.4-8.9 Globulin 2.7 g/dL Normal 2-4 Albumin/Globulin Ratio 1.5 Normal 1-3 Alkaline Phosphatase 81 U/L Normal 34-104 Alt 11 U/L Normal 7-52 Ast 14 U/L Normal 13-39 Egfr Non- 62.8 >60 Egfr 76.0 >60 14 Laboratory test 08/24/2019 [facility] Acetaminophen < 15 g/mL [address] [place] [address] [phone] Alcohol < 10 mg/dL Normal <10 Salicylate < 2.50 mg/dL <30 HCG 0.70 mIU/mL 16 TSH (Thyroid Stim Horm) 2.04 mcIU/mL Normal 0.34-5.60 Urine Culture And 08/24/2019 [facility] Urine Culture SEE RESULT [address] [place] [address] [phone] 1 Critical Result LACT:4.7 Called to [id number] at: 15:30:22 by:[id number] Read back by:[id number] [facility] Severe Sepsis and Septic Shock Management Bundle Measure requires all lactic acids initially measuring >2.0 mmol/L be repeated. 2 Critical Result LACT:6.1 Called to [id number] at: 09:48:40 by:[id number] Read back by:[id number] [facility] Severe Sepsis and Septic Shock Management Bundle Measure requires all lactic acids initially measuring >2.0 mmol/L be repeated. [facility] Severe Sepsis and Septic Shock Management Bundle Measure requires all lactic acids initially measuring >2.0 mmol/L be repeated. 3 Because ethnic data is not always readily [...] 15-29 5 Kidney failure <15 (or dialysis) 4 <5.0 Negative 5.0 - 25.0 Indeterminate (Repeat testing recommended after 72 hours) >25.0 Positive Perimenopausal women can display HCG levels of up to 20 mIU/mL 5 Therapeutic concentration: <50 ug/mL Toxic concentration: >120 ug/mL 6 The urine specimen was tested at the listed cutoffs: Drug class test level (ng/mL) Amphetamines 500 Barbiturates 200 Benzodiazepine metabolites 200 Cocaine metabolites 150 Cannabinoids 50 Opiates 300 Pcp 25 Specimen was received without chain of custody. Results should be used for medical purposes only. 7 SEE RESULT BELOW Name: ЮЛИЯ THOMAS : [address]: Cora Lomas MD Acct: [id number] Unit: [id number] AGE: 39 Location: ICU Re12/17/19 SEX: F Status: ADM IN SPEC: [id number] LEON: 12/17/19-[address]: Nette Kelly MD REQ: [id number] RECD: 12/17/19 STATUS: COMP OTHR DR: Chary Glass MD _ SOURCE: URINE SPDESC: ORDERED: Urine Culture Procedure Result Reported Site Urine Culture Final 12/18/19- 0947 ML No Growth (<1,000 CFU/mL) * ML - Main Lab . END OF REPORT DEPARTMENT OF PATHOLOGY, [address] [place] [address] Johan Quiroz M.D. Director [facility] # [id number] 8 Presumptive Positive Presumptive positive results are unconfirmed. 9 Presumptive Positive Presumptive positive results are unconfirmed. 10 The urine specimen was tested at the listed cutoffs: Drug class test level (ng/mL) Amphetamines 500 Barbiturates 200 Benzodiazepine metabolites 200 Cocaine metabolites 150 Cannabinoids 50 Opiates 300 Pcp 25 Specimen was received without chain of custody. Results should be used for medical purposes only. 11 [facility] Severe Sepsis and Septic Shock Management Bundle Measure requires all lactic acids initially measuring >2.0 mmol/L be repeated. 12 Presumptive Positive Presumptive positive results are unconfirmed. 13 The urine specimen was tested at the listed cutoffs: Drug class test level (ng/mL) Amphetamines 500 Barbiturates 200 Benzodiazepine metabolites 200 Cocaine metabolites 150 Cannabinoids 50 Opiates 300 Pcp 25 Specimen was received without chain of custody. Results should be used for medical purposes only. 14 Because ethnic data is not always [...] 5 Kidney failure <15 (or dialysis) 15 Therapeutic concentration: <50 ug/mL Toxic concentration: >120 ug/mL 16 <5.0 Negative 5.0 - 25.0 Indeterminate (Repeat testing recommended after 72 hours) >25.0 Positive Perimenopausal women can display HCG levels of up to 20 mIU/mL 17 SEE RESULT BELOW Name: ЮЛИЯ THOMAS : [address]: Paulette Godwin MD Acct: [id number] Unit: [id number] AGE: 39 Location: [place] [address] Re08/24/19 SEX: F Status: ADM Rl SPEC: [id number] LEON: 08/24/[address]: Rudolph Vieira MD REQ: [id number] RECD: 08/24/19 STATUS: CRESCENCIO DAMON DR: Chary Glass MD _ SOURCE: URINE SPDESC: ORDERED: Urine Culture Procedure Result Reported Site Urine Culture Final 08/25/19- 1447 ML No growth of clinically significant organisms * ML - Main Lab . END OF REPORT DEPARTMENT OF PATHOLOGY, [address] [place] [address] Johan Quiroz M.D. Director [facility] # [id number] Procedures Date Code Description Status 12/18/2019 31122 ECHO Transthorasic Realtime 2D W Doppler & Color Flow Hosp Completed Medical Devices Description No Information Available Encounters Type Date Location Provider Dx Diagnosis Office Visit 12/23/2019 [facility] Nephrology Lilliana Brennan N17.9 Acute kidney 11:47a MD Jenise failure, unspecified Office Visit 12/22/2019 [facility] Nephrology Lilliana Brennan N17.9 Acute kidney 11:17a MD Jenise failure, unspecified Office Visit 12/19/2019 [facility] Nephrology Matilde Alex MD N17.9 Acute kidney 3:04p failure, unspecified E87.70 Fluid overload, unspecified Office 08/24/2019 [facility] T42.4x2A Poisoning by Visit 10:06a Assoc,ky Godwin MD benzodiazepines, Hospitalists intentional self-harm, init T42.6x1A Poisoning by oth antieplptc and sed-hypntc drugs, acc, init T50.992A Poisoning by oth drug/meds/biol subst, self-harm, init F41.9 Anxiety disorder, unspecified F32.9 Major depressive disorder, single episode, unspecified F43.10 Post-traumatic stress disorder, unspecified Office Visit 07/08/2019 11:20a [facility] Internal Leonora Keanen, F32.9 Major depressive Medicine - N.P. disorder, single Ccmob episode, unspecified M54.5 Low back pain Z71.51 Drug abuse counseling and surveillance of drug abuser Assessments Date Code Description Provider 12/23/2019 N17.9 Acute kidney failure, unspecified Lilliana Burden MD 12/22/2019 N17.9 Acute kidney failure, unspecified Lilliana Burden MD 12/19/2019 N17.9 Acute kidney failure, unspecified Matilde Alex MD 12/19/2019 E87.70 Fluid overload, unspecified Matilde Alex MD 08/25/2019 T42.4x2A Poisoning by benzodiazepines, intentional Paulette Godwin MD self-harm, initial encounter 08/25/2019 T42.6x1A Poisoning by other antiepileptic and Paulette Godwin MD sedative-hypnotic drugs, accidental (unintentional), initial encounter 08/25/2019 T50.992A Poisoning by other drugs, medicaments and Paulette Godwin MD biological substances, intentional self-harm, initial encounter 08/25/2019 E66.01 Morbid (severe) obesity due to excess Paulette Godwin MD calories 08/24/2019 T42.4x2A Poisoning by benzodiazepines, intentional Paulette Godwin MD self-harm, initial encounter 08/24/2019 T42.6x1A Poisoning by other antiepileptic and Paulette Godwin MD sedative-hypnotic drugs, accidental (unintentional), initial encounter 08/24/2019 T50.992A Poisoning by other drugs, medicaments and Paulette Godwin MD biological substances, intentional self-harm, initial encounter 08/24/2019 F41.9 Anxiety disorder, unspecified Paulette Godwin MD 08/24/2019 F32.9 Major depressive disorder, single episode, Paulette Godwin MD unspecified 08/24/2019 F43.10 Post-traumatic stress disorder, unspecified Paulette Godwin MD 07/08/2019 F32.9 Major depressive disorder, single episode, Leonora Hoffman [employer]. unspecified 07/08/2019 M54.5 Low back pain Leonora Hoffman N.P. 07/08/2019 Z71.51 Drug abuse counseling and surveillance of Leonora Hoffman N.P. drug abuser Plan of Treatment Future Appointment(s):07/26/2020 1:00 pm - Leonora Hoffman NZaire. [facility] Leonora Hoffman N.KaylaF32.9 Major depressive disorder , single episode, unspecifiedComments:For your depression, anxiety, and substance abuse management, please continue your management with the folks at [facility]. I also think you would benefit from [...]
--- OUTSIDE RECORDS SUMMARY | 2019-12-26 12:43 | XMS REPORT | Continuity of Care Document ---
:1980 Author Organization [facility] Address [address] [place] [address] Phone Care Team Providers Name Role Phone Anita Lind NP Unavailable Unavailable Allergies, Adverse Reactions, Alerts Substance Reaction Status Penicillins Hives/Skin Rash Active Medications Medication Instructions Dosage Effective Dates Status Comments (start - stop) EFFEXOR XR (unknown Not Available - Active strength) GABAPENTIN (unknown Not Available - Active strength) METHADONE HCL (unknown Not Available - Active strength) CLONIDINE HCL (unknown Not Available - Active strength) ATIVAN (unknown Not Available - Active strength) TESTOSTERONE CYPIONATE Not Available - Active (unknown strength) BUSPIRONE HCL (unknown Not Available - Active strength) Problems Condition Effective Dates (start - Clinical Status Comments stop) Encounter for screening for malignant neoplasm of cervix Encounter for oth screening for malignant neoplasm of breast Encntr screen for infections w sexl mode of transmiss 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 [address], [place], [place], [place], [address], [place] tel:+7 [place], [id number], [place] tel:+ [phone] [facility] Encounter for Mar-1 [facility] [place] screening for . [address] Provider: Of Greater malignant [address], Anita [place], neoplasm of [place], [place], [place], [address] cerv[address]ounter [address], [place] for oth tel:+[address], [place], [place] [address] [place], [id number], [place], [address]. [place] neoplasm of tel:+ tel:+ breastEncntr [phone] screen for infections w sexl mode of transmissEncntr for cableman exam (general) (routine) w/o abn findingsCervical high risk HPV DNA test positive [facility] [place] immunodeficiency 1-201 [address]. [address] Provider: Of Greater virus [HIV] [address], [place]ini [place], counselingEncoun [place], [place], [place] [address] [place] [address]. s, [address], [place] test, tel:+ [address], [place], result [id number] [place], [id number], [place], [address]. [place] screen for tel:+ tel:+72 infections w [phone] sexl mode of transmissAcute vaginitis [facility] [place] immunodeficiency 4-201 Of Greater virus [HIV] 8 [place], counselingEncntr [address], [place] infections w [place], [place], sexl mode of [id number], transmissEncount [place] er for oth tel:+ general cnsl and [id number] advice on contraceptionUlc eration of vulva Family History Family Member Diagnosis Age At Onset 1st degree relative No hx of cancer of breast, colon, endometrium or ovary 1st degree relative No hx of coronary heart disease (female <65, male <55) 1st degree relative No hx of venous thromboembolism Immunizations Vaccine Date Status Comments No information Payers Payer name Insurance type Covered green party ID Authorization(s) Edgar ALMENDAREZ [facility] CI [id number] Social History Type Description Quantity Date Captured Comments Alcohol Use Details Unknown Caffeine Use Details Unknown Tobacco Use Status Smoking Status Heavy tobacco smoker Sex Female Vital Signs Date / Height Weight BMI Pulse Blood Temperature Respiratory Body Head BMI Pulse Inhaled Time: Rate Pressure Rate Surface Circumference percentile Ox Ox Area No information Chief Complaint And Reason For Visit No information Reason For Referral Reason For Referral No [...] Information No information Assessments Type Assessment Date No information Goals Health Concern Goal Type Priority Status Date No information Medical Equipment Description Device [place] Device Identifier Effective Dates (start - stop ) Status No information Mental Status Date Cognitive Assessment No information Health Concerns Observation Date No information Concern Status Date No information
--- OUTSIDE RECORDS SUMMARY | 2019-12-26 12:43 | XMS REPORT | Continuity of Care Document ---
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 Medicine Problems Active Problems Provider Date History [...] Code Status Date Vaccine Reaction Lot # [id number] Given 08/16/2018 Influenza Virus Vaccine, No immediate [...] H/L Range Note Date Laboratory test 12/17/2019 [facility] Lactic 4.7 mmol/L Critical 0.5-2.0 [address] [place] [address] [phone] Laboratory test 12/17/2019 [facility] Lactic 6.1 mmol/L Critical 0.5-2.0 [address] [place] [address] [phone] CBC Auto Diff 12/17/2019 [facility] White 31.1 High 3.5-10.[address] Blood 10^3/[place] [address] Count [phone] Red Blood Count 5.25 10^6/uL High 3.70-4.87 [...] Blood Cells % 0.1 Urinalysis Profile 12/17/2019 [facility] Urine Color Yellow [address] [place] [address] [phone] Urine Appearance Cloudy Urine Specific [place] 1.006 Low 1.010-1.030 Urine pH 5.0 Normal [...] Present Abnormal Absent Comp Metabolic Panel 12/17/2019 [facility] Sodium 134 mmol/L Low 135-145 [address] [place] [address] [phone] Potassium 5.0 mmol/L Normal 3.5-5.0 Chloride 97 [...] Egfr 41.0 >60 3 Laboratory test 12/17/2019 [facility] HCG < 0.60 mIU/ mL [address] [place] [address] [phone] Acetaminophen < 15 g/mL 5 Alcohol < 10 mg/dL Normal <10 Salicylate < 2.50 mg/dL <30 Thyroxine 4.42 g/dL Low 6.09-12.23 TSH (Thyroid Stim Horm) 3.87 mcIU/mL Normal 0.34-5.60 C Reactive Protein 4.19 mg/L Normal <8.01 Urine Drug 12/17/2019 [facility] Urine None Detected None Detect SCR ED & [address] [place] [address] Screen [phone] Urine Barbiturates Screen None Detected None Detect Urine Benzodiazepine Screen None Detected None Detect Urine Cannabinoids Screen None Detected None Detect Urine Cocaine Screen None Detected None Detect Urine Opiates Screen None Detected None Detect Urine Phencyclidine Screen None Detected None Detect 6 Urine Culture And 12/17/2019 [facility] Urine Culture SEE RESULT [address] [place] [address] [phone] Urine Drug SCR ED 12/03/2019 [facility] Urine None None & Pain Clinic [address] [place] [address] Screen [phone] Urine Barbiturates Screen None Detected None Detect Urine Benzodiazepine Screen None Detected None Detect Urine Cannabinoids Screen None Detected None Detect Urine Cocaine Screen Presumptive Posi <SEE NOTE> Abnormal None Detect 8 Urine Opiates Screen Presumptive Posi <SEE NOTE> Abnormal None Detect 9 Urine Phencyclidine Screen None Detected None Detect 10 Urinalysis Profile 08/24/2019 [facility] Urine Color Dayana [address] [place] [address] [phone] Urine Appearance Cloudy Urine Specific [place] 1.030 Normal 1.010-1.030 Urine pH 5.0 Normal [...] Oxalate Cryst Present Abnormal Absent Laboratory 08/24/2019 [facility] Lactic Acid 1.5 mmol/L Normal 0.5-2.0 11 test finding [address] [place] [address] [phone] Urine Drug 08/24/2019 [facility] Urine None None SCR ED & Pain [address] Amphetamine [place] [address] Screen [phone] Urine Barbiturates Screen None Detected None Detect Urine Benzodiazepine Screen None Detected None Detect Urine Cannabinoids Screen None Detected None Detect Urine Cocaine Screen Presumptive Posi <SEE NOTE> Abnormal None Detect 12 Urine Opiates Screen None Detected None Detect Urine Phencyclidine Screen None Detected None Detect 13 CBC Auto 08/24/2019 [facility] White Blood 10.6 10^3/uL Normal 3.5-10.[address] [place] [address] [phone] Red Blood Count 4.10 10^6/uL Normal 3.70-4.87 [...] Blood Cells % 0.1 Comp Metabolic 08/24/2019 [facility] Sodium 136 mmol/L Normal 135-[address] [place] [address] [phone] Potassium 3.7 mmol/L Normal 3.5-5.0 Chloride 101 [...] Egfr 76.0 >60 14 Laboratory test 08/24/2019 [facility] Acetaminophen < 15 g/mL [address] [place] [address] [phone] Alcohol < 10 mg/dL Normal <10 Salicylate < 2.50 mg/dL <30 HCG 0.70 mIU/mL 16 TSH (Thyroid Stim Horm) 2.04 mcIU/mL Normal 0.34-5.60 Urine Culture And 08/24/2019 [facility] Urine Culture SEE RESULT [address] [place] [address] [phone] 1 Critical Result LACT:4.7 Called to [id number] at: 15:30:22 by:[id number] Read back by:[id number] [facility] Severe Sepsis and Septic Shock Management Bundle Measure requires all lactic acids initially measuring >2.0 mmol/L be repeated. 2 Critical Result LACT:6.1 Called to [id number] at: 09:48:40 by:[id number] Read back by:[id number] [facility] Severe Sepsis and Septic Shock Management Bundle Measure requires all lactic acids initially measuring >2.0 mmol/L be repeated. [facility] Severe Sepsis and Septic Shock Management [...] [address]: Cora Lomas MD Acct: [id number] Unit: [id number] AGE: 39 Location: ICU Re12/17/19 SEX: F Status: ADM IN SPEC: [id number] LEON: 12/17/19-[address]: Nette Kelly MD REQ: [id number] RECD: 12/17/19 STATUS: COMP OTHR DR: Chary Glass MD _ SOURCE: URINE SPDESC: ORDERED: Urine Culture Procedure Result Reported Site Urine Culture Final 12/18/19- 0947 ML No Growth (<1,000 CFU/mL) * ML - Main Lab . END OF REPORT DEPARTMENT OF PATHOLOGY, [address] [place] [address] Johan Quiroz M.D. Director [facility] # [id number] 8 Presumptive Positive Presumptive positive results are unconfirmed. 9 Presumptive Positive Presumptive positive results are unconfirmed. 10 The urine specimen was tested at the listed cutoffs: Drug class test level (ng/mL) Amphetamines 500 Barbiturates 200 Benzodiazepine metabolites 200 Cocaine metabolites 150 Cannabinoids 50 Opiates 300 Pcp 25 Specimen was received without chain of custody. Results should be used for medical purposes only. 11 [facility] Severe Sepsis and Septic Shock Management [...] [address]: Paulette Godwin MD Acct: [id number] Unit: [id number] AGE: 39 Location: [place] [address] Re08/24/19 SEX: F Status: ADM Rl SPEC: [id number] LEON: 08/24/[address]: Rudolph Vieira MD REQ: [id number] RECD: 08/24/19 STATUS: CRESCENCIO DAMON DR: Chary Glass MD _ SOURCE: URINE SPDESC: ORDERED: Urine Culture Procedure Result Reported Site Urine Culture Final 08/25/19- 1447 ML No growth of clinically significant organisms * ML - Main Lab . END OF REPORT DEPARTMENT OF PATHOLOGY, [address] [place] [address] Johan Quiroz M.D. Director [facility] # [id number] Procedures Date Code Description Status 12/18/2019 42045 ECHO Transthorasic Realtime 2D W Doppler & Color Flow Hosp Completed Medical Devices Description No Information Available Encounters Type Date Location Provider Dx Diagnosis Office Visit 12/22/2019 [facility] Nephrology Lilliana Brennan N17.9 Acute kidney 11:17a MD Jenise failure, unspecified Office Visit 12/19/2019 [facility] Nephrology Matilde Alex MD N17.9 Acute kidney 3:04p failure, unspecified E87.70 Fluid overload, unspecified Office 08/24/2019 [facility] T42.4x2A Poisoning by Visit 10:06a Assoc,pc MD [facility] benzodiazepines, Hospitalists intentional self-harm, init T42.6x1A Poisoning by oth antieplptc and sed-hypntc drugs, acc, init T50.992A Poisoning by oth drug/meds/biol subst, self-harm, init F41.9 Anxiety disorder, unspecified F32.9 Major depressive disorder, single episode, unspecified F43.10 Post-traumatic stress disorder, unspecified Office Visit 07/08/2019 11:20a [facility] Internal Leonora Hoffman, F32.9 Major depressive Medicine - N.P. disorder, [...] unspecified 07/08/2019 M54.5 Low back pain Leonora Hoffamn N.P. 07/08/2019 Z71.51 Drug abuse counseling and surveillance of Leonora Hoffman N.P. drug abuser Plan of Treatment Future Appointment(s):07/26/2020 1:00 pm - Leonora Hoffman N.P. at [facility] Internal Medicine - [facility]07/08/2019 - Leonora Hoffman N.KaylaF32.9 Major depressive disorder , single episode, unspecifiedComments:For your depression, anxiety, and substance abuse management, please continue your management with the folks at [facility]. I also think you would benefit [...]
--- OUTSIDE RECORDS SUMMARY | 2019-12-26 12:43 | XMS REPORT | Continuity of Care Document ---
:1980 External Reference #:[id number] Author Name Matilde Alex MD (transmitted by agent of provider Rosalinda Herman) Address [address] [place] [address] Care Team Providers Name Role Phone Chary Glass MD - Internal Care Team Information Bottom Buffer Medicine Problems Active Problems Provider Date History of drug abuse Leonora Hoffman, N.P. Onset: 02/08/2018 Viral hepatitis C Leonora Keanen, N.P. Onset: 02/08/2018 Depressive disorder Leonora Varn, N.P. Onset: 02/08/2018 Anxiety Leonora Varn, N.P. Onset: 02/08/2018 Note: cigarette Cigarette smoker Leonora Varsherif, N.P. Onset: 02/08/2018 Gastroesophageal reflux disease Leonora Varn, N.P. Onset: 02/19/2018 Social History Type Date [...] Code Status Date Vaccine Reaction Lot # [id number] Given 08/16/2018 Influenza Virus Vaccine, No immediate [...] H/L Range Note Date Laboratory test 12/17/2019 [facility] Lactic 4.7 mmol/L Critical 0.5-2.0 [address] [place] [address] [phone] Laboratory test 12/17/2019 [facility] Lactic 6.1 mmol/L Critical 0.5-2.0 [address] [place] [address] [phone] CBC Auto Diff 12/17/2019 [facility] White 31.1 High 3.5-10.[address] Blood 10^3/[place] [address] Count [phone] Red Blood Count 5.25 10^6/uL High 3.70-4.87 [...] Blood Cells % 0.1 Urinalysis Profile 12/17/2019 [facility] Urine Color Yellow [address] [place] [address] [phone] Urine Appearance Cloudy Urine Specific [place] 1.006 Low 1.010-1.030 Urine pH 5.0 Normal [...] Present Abnormal Absent Comp Metabolic Panel 12/17/2019 [facility] Sodium 134 mmol/L Low 135-145 [address] [place] [address] [phone] Potassium 5.0 mmol/L Normal 3.5-5.0 Chloride 97 [...] Egfr 41.0 >60 3 Laboratory test 12/17/2019 [facility] HCG < 0.60 mIU/ mL [address] [place] [address] [phone] Acetaminophen < 15 g/mL 5 Alcohol < 10 mg/dL Normal <10 Salicylate < 2.50 mg/dL <30 Thyroxine 4.42 g/dL Low 6.09-12.23 TSH (Thyroid Stim Horm) 3.87 mcIU/mL Normal 0.34-5.60 C Reactive Protein 4.19 mg/L Normal <8.01 Urine Drug 12/17/2019 [facility] Urine None Detected None Detect SCR ED & [address] A[place] [address] Screen [phone] Urine Barbiturates Screen None Detected None Detect Urine Benzodiazepine Screen None Detected None Detect Urine Cannabinoids Screen None Detected None Detect Urine Cocaine Screen None Detected None Detect Urine Opiates Screen None Detected None Detect Urine Phencyclidine Screen None Detected None Detect 6 Urine Culture And 12/17/2019 [facility] Urine Culture SEE RESULT [address] [place] [address] [phone] Urine Drug SCR ED 12/03/2019 [facility] Urine None None & Pain Clinic [address] [place] [address] Screen [phone] Urine Barbiturates Screen None Detected None Detect Urine Benzodiazepine Screen None Detected None Detect Urine Cannabinoids Screen None Detected None Detect Urine Cocaine Screen Presumptive Posi <SEE NOTE> Abnormal None Detect 8 Urine Opiates Screen Presumptive Posi <SEE NOTE> Abnormal None Detect 9 Urine Phencyclidine Screen None Detected None Detect 10 Urinalysis Profile 08/24/2019 [facility] Urine Color Dayana [address] [place] [address] [phone] Urine Appearance Cloudy Urine Specific [place] 1.030 Normal 1.010-1.030 Urine pH 5.0 Normal [...] Oxalate Cryst Present Abnormal Absent Laboratory 08/24/2019 [facility] Lactic Acid 1.5 mmol/L Normal 0.5-2.0 11 test finding [address] [place] [address] [phone] Urine Drug 08/24/2019 [facility] Urine None None SCR ED & Pain [address] Amphetamine [place] [address] Screen [phone] Urine Barbiturates Screen None Detected None Detect Urine Benzodiazepine Screen None Detected None Detect Urine Cannabinoids Screen None Detected None Detect Urine Cocaine Screen Presumptive Posi <SEE NOTE> Abnormal None Detect 12 Urine Opiates Screen None Detected None Detect Urine Phencyclidine Screen None Detected None Detect 13 CBC Auto 08/24/2019 [facility] White Blood 10.6 10^3/uL Normal 3.5-10.[address] [place] [address] [phone] Red Blood Count 4.10 10^6/uL Normal 3.70-4.87 [...] Blood Cells % 0.1 Comp Metabolic 08/24/2019 [facility] Sodium 136 mmol/L Normal 135-[address] [place] [address] [phone] Potassium 3.7 mmol/L Normal 3.5-5.0 Chloride 101 [...] Egfr 76.0 >60 14 Laboratory test 08/24/2019 [facility] Acetaminophen < 15 g/mL [address] [place] [address] [phone] Alcohol < 10 mg/dL Normal <10 Salicylate < 2.50 mg/dL <30 HCG 0.70 mIU/mL 16 TSH (Thyroid Stim Horm) 2.04 mcIU/mL Normal 0.34-5.60 Urine Culture And 08/24/2019 [facility] Urine Culture SEE RESULT [address] [place], [place] [address] [phone] 1 Critical Result LACT:4.7 Called to [id number] at: 15:30:22 by:[id number] Read back by:[id number] [facility] Severe Sepsis and Septic Shock Management Bundle Measure requires all lactic acids initially measuring >2.0 mmol/L be repeated. 2 Critical Result LACT:6.1 Called to [id number] at: 09:48:40 by:[id number] Read back by:[id number] [facility] Severe Sepsis and Septic Shock Management Bundle Measure requires all lactic acids initially measuring >2.0 mmol/L be repeated. [facility] Severe Sepsis and Septic Shock Management [...] [address]: Cora Lomas MD Acct: [id number] Unit: [id number] AGE: 39 Location: ICU [id number] Re12/17/19 SEX: F Status: ADM IN SPEC: [id number] LEON: 12/17/19-[address]: Nette Kelly MD REQ: [id number] RECD: 12/17/19 STATUS: CRESCENCIO DAMON DR: Chary Glass MD _ SOURCE: URINE SPDESC: ORDERED: Urine Culture Procedure Result Reported Site Urine Culture Final 12/18/19- 0947 ML No Growth (<1,000 CFU/mL) * ML - Main Lab . END OF REPORT DEPARTMENT OF PATHOLOGY, [address] [place] [address] Johan Quiroz M.D. Director [facility] # [id number] 8 Presumptive Positive Presumptive positive results are unconfirmed. 9 Presumptive Positive Presumptive positive results are unconfirmed. 10 The urine specimen was tested at the listed cutoffs: Drug class test level (ng/mL) Amphetamines 500 Barbiturates 200 Benzodiazepine metabolites 200 Cocaine metabolites 150 Cannabinoids 50 Opiates 300 Pcp 25 Specimen was received without chain of custody. Results should be used for medical purposes only. 11 [facility] Severe Sepsis and Septic Shock Management [...] [address]: Paulette Godwin MD Acct: [id number] Unit: [id number] AGE: 39 Location: [place] [address] Re08/24/19 SEX: F Status: ADM Rl SPEC: [id number] LEON: 08/24/19-[address]: Rudolph Vieira MD REQ: [id number] RECD: 08/24/19 STATUS: CRESCENCIO DAMON DR: Chary Glass MD _ SOURCE: URINE SPDESC: ORDERED: Urine Culture Procedure Result Reported Site Urine Culture Final 08/25/19- 1447 ML No growth of clinically significant organisms * ML - Main Lab . END OF REPORT DEPARTMENT OF PATHOLOGY, [address] [place] [address] Johan Quiroz M.D. Director [facility] # [id number] Procedures Date Code Description Status 12/18/2019 21795 ECHO Transthorasic Realtime 2D W Doppler & Color Flow Hosp Completed Medical Devices Description No Information Available Encounters Type Date Location Provider Dx Diagnosis Office Visit 12/19/2019 [facility] Nephrology Matilde Alex MD N17.9 Acute kidney 3:04p failure, unspecified E87.70 Fluid overload, unspecified Office 08/24/2019 [facility] Paulette T42.4x2A Poisoning by Visit 10:06a Assoc,ky Godwin MD benzodiazepines, Hospitalists intentional self-harm, init T42.6x1A Poisoning by oth antieplptc and sed-hypntc drugs, acc, init T50.992A Poisoning by oth drug/meds/biol subst, self-harm, init F41.9 Anxiety disorder, unspecified F32.9 Major depressive disorder, single episode, unspecified F43.10 Post-traumatic stress disorder, unspecified Office Visit 07/08/2019 11:20a [facility] Internal Leonora Keanen, F32.9 Major depressive Medicine - N.P. disorder, single Ccmob episode, unspecified M54.5 Low back pain Z71.51 Drug abuse counseling and surveillance of drug abuser Assessments Date Code Description Provider 12/19/2019 N17.9 Acute kidney failure, unspecified Matilde [...] Major depressive disorder, single episode, Leonora Hoffman [place]. unspecified 07/08/2019 M54.5 Low back pain Leonora Hoffman N.P. 07/08/2019 Z71.51 Drug abuse counseling and surveillance of Leonora Hoffman N.P. drug abuser Plan of Treatment Future Appointment(s):07/26/2020 1:00 pm - Leonora Hoffman [place]. at [facility] Internal Medicine - [facility]07/08/2019 - Leonora Hoffman N.P.F32.9 Major depressive disorder , single episode, unspecifiedComments:For your depression, anxiety, and substance abuse management, please continue your management with the folks at [facility]. I also think you would benefit from [...]
[2019-12-26 13:04] VITALS: BP 154/102
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
== END 2019-12-26 13:50 | disposition home or self-care (01) ==
LOC: UCEAST 12:35
DX: T23.001D Burn of unspecified degree of right hand, unspecified site, subsequent encounter (principal); X08.8XXD Exposure to other specified smoke, fire and flames, subsequent encounter; N17.9 Acute kidney failure, unspecified; Z88.0 Allergy status to penicillin; F17.210 Nicotine dependence, cigarettes, uncomplicated
CPT/HCPCS: 99212; G0463

== ENCOUNTER 2020-01-20 12:39 | Emergency (ER) | payer OTHER ==
[2020-01-20] MEDS ORDERED: NS 0.9% 1000 ML** 1,000 ML IV ONE (12:53)
--- NOTE | 2020-01-20 12:59 | ED ---
HPI Chest Pain - HPI Summary HPI Summary: 39 y/o F presenting to [facility] c/o 03/10 generalized chest pain and fatigue starting today. Patient took blood pressure at home today with monitor which showed tachycardia. Patient called her primary care provider and was referred to the ED. Patient denies n/v/d. No SOB. No exertional CP or LIRA. Patient recently admitted 12/16 and d/c from 12/23 for possible opioid overdose. Patient reports exposure to confirmed COVID19 case and was tested for it on 01/15 which was negative. Symptoms aggravated by nothing. Symptoms alleviated by nothing. Medications reviewed. Allergies reviewed. - History of Current Complaint Chief Complaint: EDChestPainROMI Time Seen by Provider: 01/20/20 12:49 Hx Obtained From: Patient Onset/Duration: Started Hours Ago, Still Present Timing: Constant Current Severity: Moderate Pain Intensity: 6 Pain Scale Used: 0-10 Numeric Aggravating Factor(s): Nothing Alleviating Factor(s): Nothing Associated Signs and Symptoms: Positive: Other: - fatigue - Additional Pertinent History Primary Care Physician: ANTHONY - Allergy/Home Medications Allergies/Adverse Reactions: Allergies Allergy/AdvReac Type Severity Reaction Status Date / Time Penicillins Allergy Severe Rash Verified 12/26/19 12:42 Home Medications: Home Medications Venlafaxine EXT RELEASE CAP* [Effexor Xr CAP*] 150 mg PO DAILY cap.sr 06/22/19 [Rx Confirmed 01/20/20] busPIRone TAB* [Buspar TAB *] 15 mg PO BID tab 06/22/19 [Rx Confirmed 01/20/20] Gabapentin [Neurontin] 600 mg PO QAM 08/25/19 [History Confirmed 01/20/20] LORazepam [Ativan 1 MG TAB] 1 mg PO DAILY 12/26/19 [History Confirmed 01/20/20] Acetaminophen TAB* [Tylenol TAB*] 325 mg PO Q4H PRN 01/20/20 [History Confirmed 01/20/20] Buprenorp/Nalox 8-2 MG FILM [Suboxone 8 mg-2 mg Sl Film] 3 each SL DAILY [History Confirmed 01/20/20] Gabapentin CAP(*) [Neurontin 300 CAP(*)] 300 mg PO QPM 01/20/20 [History Confirmed 01/20/20] Testosterone Cypionate [Depo-Testosterone] 100 mg IM FR 01/20/20 [History Confirmed 01/20/20] amLODIPine TAB* [Norvasc 5 mg TAB*] 10 mg PO DAILY 01/20/20 [History Confirmed 01/20/20] PMH/Surg Hx/FS Hx/Imm Hx Endocrine/Hematology History: Denies: Hx Diabetes, Hx Sickle Cell Disease Cardiovascular History: Denies: Hx Hypertension, Hx Pacemaker/ICD Respiratory History: Reports: Hx Asthma, Hx Chronic Bronchitis, Hx Pneumonia, Hx Sleep Apnea Comment Only: Other Respiratory Problems/Disorders - HX OF MULTIPLE PNEUMONIAS GI History: Reports: Hx Gastroesophageal Reflux Disease History: Reports: Other Problems/Disorders - PCOS Musculoskeletal History: Reports: Hx Arthritis - Bilateral knees, Hx Back Problems, Other Musculoskeletal History - Torn meniscus left knee x 2 Sensory History: Reports: Other Sensory Impairments - bilateral eye surgeries Denies: Hx Contacts or Glasses Opthamlomology History: Reports: Other Sensory Impairments - bilateral eye surgeries Denies: Hx Contacts or Glasses Psychiatric History: Reports: Hx Anxiety, Hx Depression, Hx Post Traumatic Stress Disorder, Hx Inpatient Treatment - 4 [facility] admissions, Hx Community Mental Health Tx, Hx Suicide Attempt, Hx of Violent Episodes Against Others - Multiple fights in longterm, Hx Substance Abuse Denies: Hx Eating Disorder, Hx Panic Disorder, Hx Schizophrenia - Cancer History Cancer Type, Location and Year: 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 APPENDECTOMY - 2008. BREAST REDUCTION - 2003. BILAT EYE SURGERY AT AGE 9 (SO SHE WOULD NOT HAVE TO WEAR GLASSES). left knee arthroscopic surgery, LT KNEE DEBRIDEMENT Hx Anesthesia Reactions: No - Immunization History Date of Tetanus Vaccine: Unknown Date of Influenza Vaccine: never Infectious Disease History: No Infectious Disease History: Reports: Hx Hepatitis - Hepatitis C, Hx of Known/ Suspected MRSA - per pt nares Denies: Hx Shingles, Hx Tuberculosis, History Other Infectious Disease, Traveled Outside the [place] in Last 30 Days - Family History Known Family History: Negative: Hypertension Family History: ETOH. anxiety. depression - Social History Alcohol Use: None Hx Substance Use: Yes Substance Use Type: Reports: Cocaine, Heroin Hx Tobacco Use: Yes Smoking Status (MU): Heavy Every Day Tobacco Smoker Type: Cigarettes Amount Used/How Often: 1 ppd Length of Time of Smoking/Using Tobacco: 10 Have You Smoked in the Last Year: Yes Review of Systems Positive: Fatigue Positive: Chest Pain Negative: Vomiting, Diarrhea, Nausea All Other Systems Reviewed And Are Negative: Yes Physical Exam - Summary Physical Exam Summary: Constitutional: Well-developed, Well-nourished, Alert. (-) Distressed Skin: Warm, Dry HENT: Normocephalic; Atraumatic Eyes: Conjunctiva normal Neck: Musculoskeletal ROM normal neck. (-) JVD, (-) Stridor, (-) Nuchal rigidity Cardio: Rhythm regular, tachycardic, Heart sounds normal; Intact distal pulses; Radial pulses are 2+ and symmetric. (-) Murmur Pulmonary/Chest wall: Effort normal. (-) Respiratory distress, (-) Wheezes, (-) Rales Abd: Soft, (-) tenderness, (-) Distension, (-) Guarding, (-) Rebound Musculoskeletal: (-) Edema Neuro: Alert, Oriented x3 Psych: Mood and affect Normal Triage Information Reviewed: Yes Vital Signs On Initial Exam: Initial Vitals Temp Pulse Resp BP Pulse Ox 96.8 F 134 18 132/100 97 01/20/20 12:42 01/20/20 12:42 01/20/20 12:42 01/20/20 12:42 01/20/20 12:42 Vital Signs Reviewed: Yes Procedures - Sedation Patient Received Moderate/Deep Sedation with Procedure: No Diagnostics - Vital Signs Vital Signs Temp Pulse Resp BP Pulse Ox 01/20/20 12:42 96.8 F 134 18 132/100 97 - Laboratory Result Diagrams: 01/20/20 13:33 01/20/20 15:06 Lab Statement: Any lab studies that have been ordered have been reviewed, and results considered in the medical decision making process. - Radiology CXR Radiology Interpretation Completed By: Radiologist - IMPRESSION: NO ACUTE CARDIOPULMONARY PROCESS BY RADIOGRAPH. ED physician has reviewed this imaging report. - EKG 1249 Cardiac Rate: Tachycardia - 121 BPM EKG Rhythm: Sinus Tachycardia Summary of EKG Findings: An EKG at 1249 reveals normal sinus tachycardia 121 BPM , nml axis, nml intervals. No STEMI. No acute changes. ED physician has reviewed and interpreted this EKG. Re-Evaluation - Re-Evaluation First Eval Re-Evaluation Time: 15:50 Change: Improved - d/w patient lab results, HR down to 90's. Feels much better. Given sandwhich. Chest Pain Course/Dx - Course Course Of Treatment: 39 y/o F w hx recent overdose c/b kidney failure p/w episode of tachycardia and CP (now resolved). - PE well appearing, NAD. Reports feeling tired. Recent neg COVID test. No SOB. No current CP. No cardiac history. CXR unremarkable. Trop negative. Improved Cr to normal. - No e/o PNA or PTX on CXR. No tearing CP or mediastinal widening suggestive of dissection. Do not suspect ACS, ekg unchanged and trop neg. Heart score 1, low risk. - d/w patient results, no recurrent CP. Will follow up w PCP - Diagnoses Provider Diagnoses: Chest pain, Fatigue - Critical Care Time Critical Care Statement: Critical care time is provided exclusive of any time spent performing procedures. Discharge ED - Sign-Out/Discharge Documenting (check all that apply): Patient Departure - Discharge Plan Condition: Stable Disposition: HOME Patient Education Materials: Fatigue (ED), Tachycardia (ED) Referrals: Whitney Aguirre MD [Primary Care Provider] - Additional Instructions: You were seen in the emergency department for fast heart rate. Your kidney function has returned to normal. Your XRay did not show any abnormalities. Please follow up with your primary care doctor in next 2-3 days and return to emergency department for worsening pain, shortness of breath, passing out or concerning symptoms. It was a pleasure taking care of you today. - Billing Disposition and Condition Condition: STABLE Disposition: Home - Attestation Statements Document Initiated by Maikibe: Yes Documenting Scribe: Maricel Frausto Provider For Whom Irma is Documenting (Include Credential): Nette Kelly MD Scribe Attestation: I, Maricel Frausto, scribed for Nette Kelly MD on 01/20/20 at 1610. Scribe Documentation Reviewed: Yes Provider Attestation: The documentation as recorded by the Maricel hernández accurately reflects the service I personally performed and the decisions made by me, Nette Kelly MD Status of Scribe Document: Viewed
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
--- OUTSIDE RECORDS SUMMARY | 2020-01-20 13:04 | XMS REPORT | Continuity of Care Document ---
:1980 Author Organization [facility] Address [address] [place] [address] Phone Care Team Providers Name Role Phone Madhavi Mason ORGAN PIPE VOICER, Lizeth Unavailable Unavailable Allergies, Adverse Reactions, Alerts Substance [...] w sexl mode of transmiss Encntr for nurse obgyn exam (general) (routine) w/o abn findings Cervical [...] For Visit Copied on Encounter [facility] [place] [address] [place] Of Greater [address]. [address] [place], [address], [address] [place], [place], [place] [address]. [place], [place], tel:[phone], [phone] [place] tel:[phone] [facility] Encounter for Nov- [place] [facility] [place] screening for 2 [address]. [address] Provider: Of Greater malignant [address], [place], neoplasm of [place], [place], [place], [address] cervixEncounter [address], [place] for oth tel:[phone], [place], [place] [address] [place], [id number], [place], [address]. [place] neoplasm of tel:+60 tel:+72 breastEncntr [phone] screen for infections w sexl mode of transmissEncntr for nurse obgyn exam (general) (routine) w/o abn findingsCervical high risk HPV DNA test positive [facility]-0 [place] [facility] [place] immunodeficiency 1-201 [address]. [address] Provider: Of Greater virus [HIV] [address], [place], counselingEncoun [place], [place], [place] [address] [place] [address]. s, [address], [place] test, tel:[phone], [place], result [address] [place], [phone], [place], [address]. [place] screen for tel:+60 tel:[phone] infections w [phone] sexl mode of transmissAcute vaginitis [facility] May-0 [facility] [place] immunodeficiency 4-201 Of Greater virus [HIV] [address] [place], counselingEncntr [address], [place] infections w [place], [place], sexl mode of [id number], transmissEncount [place] er for oth tel:[phone] general cnsl and [phone] advice on contraceptionUlc eration of vulva Family [...] Covered green party ID Authorization(s) Edgar ALMENDAREZ [facility] CI [id number] Social History Type Description Quantity Date Captured [...] Date No information Medical Equipment Description Device [place] Device Identifier Effective Dates (start - stop ) Status No information Mental Status Date Cognitive Assessment No information Health Concerns Observation Date No information Concern Status Date No information
--- OUTSIDE RECORDS SUMMARY | 2020-01-20 13:04 | XMS REPORT | Continuity of Care Document ---
:1980 External Reference #:[id number] Author Name Kacey Cash N.P. 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 Medicine Problems Active Problems Provider Date [...] Code Status Date Vaccine Reaction Lot # [id number] Given 08/16/2018 Influenza Virus Vaccine, No immediate [...] H/L Range Note Date Laboratory test 12/17/2019 [facility] Lactic 4.7 mmol/L Critical 0.5-2.0 [address] [place] [address] [phone] Laboratory test 12/17/2019 [facility] Lactic 6.1 mmol/L Critical 0.5-2.0 [address] [place] [address] [phone] CBC Auto Diff 12/17/2019 [facility] White 31.1 High 3.5-10.[address] Blood 10^3/[place] [address] Count [phone] Red Blood Count 5.25 10^6/uL High 3.70-4.87 [...] Blood Cells % 0.1 Urinalysis Profile 12/17/2019 [facility] Urine Color Yellow [address] [place] [address] [phone] Urine Appearance Cloudy Urine Specific [place] 1.006 Low 1.010-1.030 Urine pH 5.0 Normal [...] Present Abnormal Absent Comp Metabolic Panel 12/17/2019 [facility] Sodium 134 mmol/L Low 135-145 [address] [place] [address] [phone] Potassium 5.0 mmol/L Normal 3.5-5.0 Chloride 97 [...] Egfr 41.0 >60 3 Laboratory test 12/17/2019 [facility] HCG < 0.60 mIU/ mL [address] [place] [address] [phone] Acetaminophen < 15 g/mL 5 Alcohol < 10 mg/dL Normal <10 Salicylate < 2.50 mg/dL <30 Thyroxine 4.42 g/dL Low 6.09-12.23 TSH (Thyroid Stim Horm) 3.87 mcIU/mL Normal 0.34-5.60 C Reactive Protein 4.19 mg/L Normal <8.01 Urine Drug 12/17/2019 [facility] Urine None Detected None Detect SCR ED & [address] [place] [address] Screen [phone] Urine Barbiturates Screen None Detected None Detect Urine Benzodiazepine Screen None Detected None Detect Urine Cannabinoids Screen None Detected None Detect Urine Cocaine Screen None Detected None Detect Urine Opiates Screen None Detected None Detect Urine Phencyclidine Screen None Detected None Detect 6 Urine Culture And 12/17/2019 [facility] Urine Culture SEE RESULT [address] [place] [address] [phone] Urine Drug SCR ED 12/03/2019 [facility] Urine None None & [facility] [address] [place] [address] Screen [phone] Urine Barbiturates Screen None Detected None Detect Urine Benzodiazepine Screen None Detected None Detect Urine Cannabinoids Screen None Detected None Detect Urine Cocaine Screen Presumptive Posi <SEE NOTE> Abnormal None Detect 8 Urine Opiates Screen Presumptive Posi <SEE NOTE> Abnormal None Detect 9 Urine Phencyclidine Screen None Detected None Detect 10 Urinalysis Profile 08/24/2019 [facility] Urine Color [place] [address] [place] [address] [phone] Urine Appearance Cloudy Urine Specific [place] 1.030 Normal 1.010-1.030 Urine pH 5.0 Normal [...] Oxalate Cryst Present Abnormal Absent Laboratory 08/24/2019 [facility] Lactic Acid 1.5 mmol/L Normal 0.5-2.0 11 test finding [address] [place] [address] [phone] Urine Drug 08/24/2019 [facility] Urine None None SCR ED & Pain [address] Amphetamine [place] [address] Screen [phone] Urine Barbiturates Screen None Detected None Detect Urine Benzodiazepine Screen None Detected None Detect Urine Cannabinoids Screen None Detected None Detect Urine Cocaine Screen Presumptive Posi <SEE NOTE> Abnormal None Detect 12 Urine Opiates Screen None Detected None Detect Urine Phencyclidine Screen None Detected None Detect 13 CBC Auto 08/24/2019 [facility] White Blood 10.6 10^3/uL Normal 3.5-10.[address] [place] [address] [phone] Red Blood Count 4.10 10^6/uL Normal 3.70-4.87 [...] Blood Cells % 0.1 Comp Metabolic 08/24/2019 [facility] Sodium 136 mmol/L Normal 135-145 Panel [address] [place] [address] [phone] Potassium 3.7 mmol/L Normal 3.5-5.0 Chloride 101 [...] Egfr 76.0 >60 14 Laboratory test 08/24/2019 [facility] Acetaminophen < 15 g/mL [address] [place] [address] [phone] Alcohol < 10 mg/dL Normal <10 Salicylate < 2.50 mg/dL <30 HCG 0.70 mIU/mL 16 TSH (Thyroid Stim Horm) 2.04 mcIU/mL Normal 0.34-5.60 Urine Culture And 08/24/2019 [facility] Urine Culture SEE RESULT [address] [place] [address] [phone] 1 Critical Result LACT:4.7 Called to [id number] at: 15:30:22 by:[id number] Read back by:[id number] [facility] Severe Sepsis and Septic Shock Management Bundle Measure requires all lactic acids initially measuring >2.0 mmol/L be repeated. 2 Critical Result LACT:6.1 Called to [id number] at: 09:48:40 by:[id number] Read back by:[id number] [facility] Severe Sepsis and Septic Shock Management Bundle Measure requires all lactic acids initially measuring >2.0 mmol/L be repeated. [facility] Severe Sepsis and Septic Shock Management Bundle [...] [address]: Cora Lomas MD Acct: [id number] Unit: [id number] AGE: 39 Location: ICU Re12/17/19 SEX: F Status: ADM IN SPEC: [id number] LEON: 12/17/19-[address]: Nette Kelly MD REQ: [id number] RECD: 12/17/19 STATUS: CRESCENCIO DAMON DR: Chary Glass MD _ SOURCE: URINE SPDESC: ORDERED: Urine Culture Procedure Result Reported Site Urine Culture Final 12/18/19- 0947 ML No Growth (<1,000 CFU/mL) * ML - Main Lab . END OF REPORT DEPARTMENT OF PATHOLOGY, [address] [place] [address] Johan Quiroz M.D. Director [facility] # [id number] 8 Presumptive Positive Presumptive positive results are unconfirmed. 9 Presumptive Positive Presumptive positive results are unconfirmed. 10 The urine specimen was tested at the listed cutoffs: Drug class test level (ng/mL) Amphetamines 500 Barbiturates 200 Benzodiazepine metabolites 200 Cocaine metabolites 150 Cannabinoids 50 Opiates 300 Pcp 25 Specimen was received without chain of custody. Results should be used for medical purposes only. 11 [facility] Severe Sepsis and Septic Shock Management Bundle [...] [address]: Paulette Godwin MD Acct: [id number] Unit: [id number] AGE: 39 Location: [place] [address] Re08/24/19 SEX: F Status: ADM Rl SPEC: [id number] LEON: 08/24/[address]: Rudolph Vieira MD REQ: [id number] RECD: 08/24/19 STATUS: CRESCENCIO DAMON DR: Chary Glass MD _ SOURCE: URINE SPDESC: ORDERED: Urine Culture Procedure Result Reported Site Urine Culture Final 08/25/19- 1447 ML No growth of clinically significant organisms * ML - Main Lab . END OF REPORT DEPARTMENT OF PATHOLOGY, [address] [place] [address] Johan Quiroz M.D. Director [facility] # [id number] Procedures Date Code Description Status 12/18/2019 91533 ECHO Transthorasic Realtime 2D W Doppler & Color Flow Hosp Completed Medical Devices Description No Information Available Encounters Type Date Location Provider Dx Diagnosis Office Visit 12/23/2019 [facility] Justin Yancey7.9 Acute kidney 1:54p ky Delgadillo MD failure, Hospitalists unspecified F19.10 Other psychoactive substance abuse, uncomplicated B19.20 Unspecified viral hepatitis C without hepatic coma F32.9 Major depressive disorder, single episode, unspecified Office Visit 12/23/2019 [facility] Nephrology Lilliana Brennan N17.9 Acute kidney 11:47a MD Jenise failure, unspecified Office Visit 12/22/2019 [facility] T23.261D Burn of second 9:05a For Infectious Mckeon, CLIENT EXPERIENCE CONSULTANT degree of back Diseases of right hand, subs encntr N17.9 Acute kidney failure, unspecified F19.10 Other psychoactive substance abuse, uncomplicated Office Visit 12/22/2019 1:54p [facility] Paulette Anderson7.9 Acute kidney Assocky MD failure, Hospitalists unspecified F19.10 Other psychoactive substance abuse, uncomplicated B19.20 Unspecified viral hepatitis C without hepatic coma F32.9 Major depressive disorder, single episode, unspecified Office Visit 12/22/2019 11:17a [facility] Nephdiya Anderson7.Sushil Acute kidney MD Jenise failure, unspecified Office Visit 12/21/2019 1:53p [facility] Justin Yancey7.9 Acute kidney Assocky MD failure, Hospitalists unspecified F19.10 Other psychoactive substance abuse, uncomplicated B19.20 Unspecified viral hepatitis C without hepatic coma F32.9 Major depressive disorder, single episode, unspecified Office Visit 12/20/2019 1:52p [facility] Shailesh, N17.9 Acute kidney Assoc,pc N.P. failure, Hospitalists unspecified F19.10 Other psychoactive substance abuse, uncomplicated B19.20 Unspecified viral hepatitis C without hepatic coma F32.9 Major depressive disorder, single episode, unspecified Office Visit 12/19/2019 [facility] Hilda Chu L03.113 Cellulitis of 8:49a For Infectious Mckeon, CLIENT EXPERIENCE CONSULTANT right upper limb Diseases N17.9 Acute kidney failure, unspecified F19.10 Other psychoactive substance abuse, uncomplicated Office [facility] N17.9 Acute kidney Assoc,pc N.P. failure, Hospitalists unspecified F19.10 Other psychoactive substance abuse, uncomplicated B19.20 Unspecified viral hepatitis C without hepatic coma F32.9 Major depressive disorder, single episode, unspecified Office Visit 12/19/2019 3:04p [facility] Nephrology Matilde Alex, N17.9 Acute kidney MD failure, unspecified E87.70 Fluid overload, unspecified Office 08/24/2019 [facility] Paulette T42.4x2A Poisoning by Visit 10:06a Assoc,ky Godwin MD benzodiazepines, Hospitalists intentional self-harm, init T42.6x1A Poisoning by oth antieplptc and sed-hypntc drugs, acc, init T50.992A Poisoning by oth drug/meds/biol subst, self-harm, init F41.9 Anxiety disorder, unspecified F32.9 Major depressive disorder, single episode, unspecified F43.10 Post-traumatic stress disorder, unspecified Office Visit 07/08/2019 11:20a [facility] Internal Leonora Varn, F32.9 Major depressive Medicine - N.P. disorder, single Ccmob episode, unspecified M54.5 Low back pain Z71.51 Drug abuse counseling and surveillance of drug abuser Assessments Date Code Description Provider 12/23/2019 N17.9 Acute kidney failure, unspecified Paulette [...] second degree of back of Hilda Mckeon, DOMINGO right hand, subsequent encounter 12/22/2019 F19.10 Other psychoactive substance abuse, Paulette Godwin MD uncomplicated 12/22/2019 N17.9 Acute kidney failure, unspecified Lilliana Burden MD 12/22/2019 B19.20 Unspecified viral hepatitis C Paulette Godwin MD without hepatic coma 12/22/2019 N17.9 Acute kidney failure, unspecified Hilda Mckeon , CLIENT EXPERIENCE CONSULTANT 12/22/2019 F32.9 Major depressive disorder, single Paulette Godwin MD episode, unspecified 12/22/2019 F19.10 Other psychoactive substance abuse, Hilda Mckeon, CLIENT EXPERIENCE CONSULTANT uncomplicated 12/21/2019 N17.9 Acute kidney failure, unspecified Paulette Godwin MD 12/21/2019 F19.10 Other psychoactive substance abuse, Paulette Godwin MD uncomplicated 12/21/2019 B19.20 Unspecified viral hepatitis C Paulette Godwin MD without hepatic coma 12/21/2019 F32.9 Major depressive disorder, single Paulette Godwin MD episode, unspecified 12/20/2019 N17.9 Acute kidney failure, unspecified Kacey Cash, N.P. 12/20/2019 F19.10 Other psychoactive substance abuse, Kacey Cash, N.P. uncomplicated 12/20/2019 B19.20 Unspecified viral hepatitis C Kacey Cash, N.P. without hepatic coma 12/20/2019 F32.9 Major depressive disorder, single Kacey Cash, N.P. episode, unspecified 12/19/2019 N17.9 Acute kidney failure, unspecified Kacey Cash, N.P. 12/19/2019 F19.10 Other psychoactive substance abuse, Kacey Cash, N.P. uncomplicated 12/19/2019 L03.113 Cellulitis of right upper limb Hilda Mckeon, CLIENT EXPERIENCE CONSULTANT 12/19/2019 B19.20 Unspecified viral hepatitis C Kacey Cash, N.P. without hepatic coma 12/19/2019 F32.9 Major depressive disorder, single Kacey Cash N.P. episode, unspecified 12/19/2019 N17.9 Acute kidney failure, unspecified Matilde Alex MD 12/19/2019 N17.9 Acute kidney failure, unspecified Hilda Mckeon , CLIENT EXPERIENCE CONSULTANT 12/19/2019 E87.70 Fluid overload, unspecified Matilde Alex MD 12/19/2019 F19.10 Other psychoactive substance abuse, Hilda Mckeon, CLIENT EXPERIENCE CONSULTANT uncomplicated 12/18/2019 N17.9 Acute kidney failure, unspecified Cora [...] 07/08/2019 F32.9 Major depressive disorder, single Leonora Hoffman N.P. episode, unspecified 07/08/2019 M54.5 Low back pain Leonora Hoffman N.POly 07/08/2019 Z71.51 Drug abuse counseling and Leonora Hoffman N.Kayla surveillance of drug abuser Plan of Treatment Future Appointment(s):07/26/2020 1:00 pm - Leonora Hoffman NAllyson at [facility] Internal Medicine - [facility]07/08/2019 - Leonora Hoffman N.KaylaF32.9 Major depressive disorder [...]
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
--- OUTSIDE RECORDS SUMMARY | 2020-01-20 13:04 | XMS REPORT | Continuity of Care Document ---
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 Onset: 02/08/2018 Viral hepatitis C Leonora Lakhwindern, N.P. Onset: 02/08/2018 Depressive disorder Leonora Varn, N.P. Onset: 02/08/2018 Anxiety Leonora Varn, N.P. Onset: 02/08/2018 Note: cigarette Cigarette smoker Leonora Varn, N.P. Onset: 02/08/2018 Gastroesophageal reflux disease Leonora Keanen, N.P. Onset: 02/19/2018 Social History Type Date [...] Code Status Date Vaccine Reaction Lot # [id number] Given 08/16/2018 Influenza Virus Vaccine, No immediate [...] 0.5-2.0 [address] [place] [address] [phone] Laboratory test 12/17/2019 [facility] Lactic 6.1 mmol/L Critical 0.5-2.0 [address] [place] [address] [phone] CBC Auto Diff 12/17/2019 [facility] White 31.1 High 3.5-10.8 [address] [facility] Blood 10^3/[place] [address] Count [phone] Red Blood Count 5.25 10^6/uL High 3.70-4.87 [...] [facility] Urine Color Yellow [address] [place] [address] [phone] Urine Appearance Cloudy Urine Specific [place] 1.006 Low 1.010-1.030 Urine pH 5.0 Normal [...] Center Sodium 134 mmol/L Low 135-145 [address] [place] [address] [phone] Potassium 5.0 mmol/L Normal 3.5-5.0 Chloride 97 [...] mIU/ mL [address] [place] [address] [phone] Acetaminophen < 15 g/mL 5 Alcohol < 10 mg/dL Normal <10 Salicylate < 2.50 mg/dL <30 Thyroxine 4.42 g/dL Low 6.09-12.23 TSH (Thyroid Stim Horm) 3.87 mcIU/mL Normal 0.34-5.60 C Reactive Protein 4.19 mg/L Normal <8.01 Urine Drug 12/17/2019 [facility] Urine None Detected None Detect SCR ED & [address] [place] [address] Screen [phone] Urine Barbiturates Screen None Detected None Detect Urine Benzodiazepine Screen None Detected None Detect Urine Cannabinoids Screen None Detected None Detect Urine Cocaine Screen None Detected None Detect Urine Opiates Screen None Detected None Detect Urine Phencyclidine Screen None Detected None Detect 6 Urine Culture And 12/17/2019 [facility] Urine Culture SEE RESULT [address] [place], [place] [address] [phone] Urine Drug SCR ED 12/03/2019 [facility] Urine None None & Pain Clinic [address] [place] [address] Screen [phone] Urine Barbiturates Screen None Detected None Detect Urine Benzodiazepine Screen None Detected None Detect Urine Cannabinoids Screen None Detected None Detect Urine Cocaine Screen Presumptive Posi <SEE NOTE> Abnormal None Detect 8 Urine Opiates Screen Presumptive Posi <SEE NOTE> Abnormal None Detect 9 Urine Phencyclidine Screen None Detected None Detect 10 Urinalysis Profile 08/24/2019 [facility] Urine Color Day[place] [address] [place] [address] [phone] Urine Appearance Cloudy Urine Specific [place] 1.030 Normal 1.010-1.030 Urine pH 5.0 Normal [...] 0.5-2.0 11 test finding [address] [place] [address] [phone] Urine Drug 08/24/2019 [facility] Urine None None SCR ED & Pain [address] Amphetamine [place] [address] Screen [phone] Urine Barbiturates Screen None Detected None Detect [...] Normal 3.5-10.[address] [place] [address] [phone] Red Blood Count 4.10 10^6/uL Normal 3.70-4.87 [...] mmol/L Normal 135-[address] [place] [address] [phone] Potassium 3.7 mmol/L Normal 3.5-5.0 Chloride 101 [...] 15 g/mL [address] [place] [address] [phone] Alcohol < 10 mg/dL Normal <10 Salicylate < 2.50 mg/dL <30 HCG 0.70 mIU/mL 16 TSH (Thyroid Stim Horm) 2.04 mcIU/mL Normal 0.34-5.60 Urine Culture And 08/24/2019 [facility] Urine Culture SEE RESULT [address] [place] [address] [phone] 1 Critical Result LACT:4.7 Called to [id number] at: 15:30:22 by:[id number] Read back by:[id number] [facility] Severe Sepsis and Septic Shock Management Bundle Measure requires all lactic acids initially measuring >2.0 mmol/L be repeated. 2 Critical Result LACT:6.1 Called to [id number] at: 09:48:40 by:[id number] Read back by:[id number] [facility] Severe Sepsis and Septic Shock Management Bundle Measure requires all lactic acids initially measuring >2.0 mmol/L be repeated. [facility] Severe Sepsis and Septic Shock [...] [address]: Cora Lomas MD Acct: [id number] Unit: [id number] AGE: 39 Location: ICU [id number] Re12/17/19 SEX: F Status: ADM IN SPEC: [id number] LEON: 12/17/19-[address] [facility] [address]: Nette Kelly MD REQ: [id number] RECD: 12/17/19 STATUS: CRECSENCIO DAMON DR: Chary Glass MD _ SOURCE: URINE SPDESC: ORDERED: Urine Culture Procedure Result Reported Site Urine Culture Final 12/18/19- 0947 ML No Growth (<1,000 CFU/mL) * ML - Main Lab . END OF REPORT DEPARTMENT OF PATHOLOGY, [address] [place] [address] Johan Quiroz M.D. Director [facility] # [id number] 8 Presumptive Positive Presumptive positive results are unconfirmed. 9 Presumptive Positive Presumptive positive results are unconfirmed. 10 The urine specimen was tested at the listed cutoffs: Drug class test level (ng/mL) Amphetamines 500 Barbiturates 200 Benzodiazepine metabolites 200 Cocaine metabolites 150 Cannabinoids 50 Opiates 300 Pcp 25 Specimen was received without chain of custody. Results should be used for medical purposes only. 11 [facility] Severe Sepsis and Septic Shock [...] [address]: Paulette Godwin MD Acct: [id number] Unit: [id number] AGE: 39 Location: [place] [address] Re08/24/19 SEX: F Status: ADM Rl SPEC: [id number] LEON: 08/24/[address]: Rudolph Vieira MD REQ: [id number] RECD: 08/24/19 STATUS: COMP OTHR DR: Chary Glass MD _ SOURCE: URINE SPDESC: ORDERED: Urine Culture Procedure Result Reported Site Urine Culture Final 08/25/19- 1447 ML No growth of clinically significant organisms * ML - Main Lab . END OF REPORT DEPARTMENT OF PATHOLOGY, [address] [place] [address] Johan Quiroz M.D. Director [facility] # [id number] Procedures Date Code Description Status 12/18/2019 94994 ECHO Transthorasic Realtime 2D W Doppler & Color Flow Hosp Completed Medical Devices Description No Information Available Encounters Type Date Location Provider Dx Diagnosis Office Visit 12/23/2019 [facility] Justin Yancey7.Sushil Acute kidney 1:54p ky Delgadillo MD failure, Hospitalists unspecified F19.10 Other psychoactive substance abuse, uncomplicated B19.20 Unspecified viral hepatitis C without hepatic coma F32.9 Major depressive disorder, single episode, unspecified Office Visit 12/23/2019 [facility] Nephrology Lilliana Brennan N17.9 Acute kidney 11:47a MD Jenise failure, unspecified Office Visit 12/22/2019 [facility] Hilda George T23.261D Burn of second 9:05a For Infectious Mckeon, 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 of back Diseases of right hand, subs encntr N17.9 Acute kidney failure, unspecified F19.10 Other psychoactive substance abuse, uncomplicated Office Visit 12/22/2019 1:54p [facility] Paulette Anderson7.9 Acute kidney Assocky MD failure, Hospitalists unspecified F19.10 Other psychoactive substance abuse, uncomplicated B19.20 Unspecified viral hepatitis C without hepatic coma F32.9 Major depressive disorder, single episode, unspecified Office Visit 12/22/2019 11:17a [facility] Nephrology Lilliana Anderson7.Sushil Acute kidney MD Jenise failure, unspecified Office Visit 12/21/2019 1:53p [facility] Justin Yancey7.Sushil Acute kidney Assky godinez MD failure, Hospitalists unspecified F19.10 Other psychoactive substance abuse, uncomplicated B19.20 Unspecified viral hepatitis C without hepatic coma F32.9 Major depressive disorder, single episode, unspecified [facility] N17.9 Acute kidney Assoc,pc N.P. 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 failure, Hospitalists unspecified F19.10 Other psychoactive substance abuse, uncomplicated B19.20 Unspecified viral hepatitis C without hepatic coma F32.9 Major depressive disorder, single episode, unspecified Office Visit 12/19/2019 3:04p [facility] Nephrology Matilde Alex, N17.9 Acute kidney MD failure, unspecified E87.70 Fluid overload, unspecified Office 08/24/2019 [facility] Paulette T42.4x2A Poisoning by Visit 10:06a Assoc,ky Godwin MD benzodiazepines, Hospitalists intentional self-harm, init T42.6x1A Poisoning by oth antieplptc and sed-hypntc drugs, acc, init T50.992A Poisoning by oth drug/meds/biol subst, self-harm, init F41.9 Anxiety disorder, unspecified F32.9 Major depressive disorder, single episode, unspecified F43.10 Post-traumatic stress disorder, unspecified Office Visit 07/08/2019 11:20a [facility] Internal Leonora Lakhwindern, F32.9 Major depressive Medicine - N.P. disorder, [...] second degree of back of Hilda Mckeon, PAINT ROLLER COVER MACHINE SETTER right hand, subsequent encounter 12/22/2019 F19.10 Other psychoactive substance abuse, Paulette Godwin MD uncomplicated 12/22/2019 N17.9 Acute kidney failure, unspecified Lilliana Burden MD 12/22/2019 B19.20 Unspecified viral hepatitis C Paulette Godwin MD without hepatic coma 12/22/2019 N17.9 Acute kidney failure, unspecified Hilda Mckeon , DOMINGO 12/22/2019 F32.9 Major depressive disorder, single Paulette Godwin MD episode, unspecified 12/22/2019 F19.10 Other psychoactive substance abuse, Hilda Mckeon, DOMINGO uncomplicated 12/21/2019 N17.9 Acute kidney failure, unspecified [...] Acute kidney failure, unspecified Hilda Mckeon , PAINT ROLLER COVER MACHINE SETTER 12/19/2019 E87.70 Fluid overload, unspecified Matilde Alex MD 12/19/2019 F19.10 Other psychoactive substance abuse, Hilda Mckeon, PAINT ROLLER COVER MACHINE SETTER uncomplicated 12/18/2019 N17.9 Acute kidney failure, unspecified [...] E66.01 Morbid (severe) obesity due to Paulette Arbach, MD excess calories 08/24/2019 T42.4x2A Poisoning by [...] 1:00 pm - Leonora Hoffman NAllyson at [facility] Internal Medicine - [facility]07/08/2019 - Leonora Hoffman N.[employer].F32.9 Major depressive disorder , single episode, unspecifiedComments:For your depression, anxiety, and substance abuse management, please continue your management with the folks at [facility]. I also think you would benefit [...]
--- OUTSIDE RECORDS SUMMARY | 2020-01-20 13:04 | XMS REPORT | Continuity of Care Document ---
:1980 External Reference #:[id number] Author Name Kacey Cash N.P. 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 Medicine Problems Active Problems Provider Date History [...] Code Status Date Vaccine Reaction Lot # [id number] Given 08/16/2018 Influenza Virus Vaccine, No immediate [...] H/L Range Note Date Laboratory test 12/17/2019 [facility] Lactic 4.7 mmol/L Critical 0.5-2.0 [address] [place] [address] [phone] Laboratory test 12/17/2019 [facility] Lactic 6.1 mmol/L Critical 0.5-2.0 [address] [place] [address] [phone] CBC Auto Diff 12/17/2019 [facility] White 31.1 High 3.5-10.[address] Blood 10^3/[place] [address] Count [phone] Red Blood Count 5.25 10^6/uL High 3.70-4.87 [...] Blood Cells % 0.1 Urinalysis Profile 12/17/2019 [facility] Urine Color Yellow [address] [place] [address] [phone] Urine Appearance Cloudy Urine Specific [place] 1.006 Low 1.010-1.030 Urine pH 5.0 Normal [...] Present Abnormal Absent Comp Metabolic Panel 12/17/2019 [facility] Sodium 134 mmol/L Low 135-145 [address] [place] [address] [phone] Potassium 5.0 mmol/L Normal 3.5-5.0 Chloride 97 [...] Egfr 41.0 >60 3 Laboratory test 12/17/2019 [facility] HCG < 0.60 mIU/ mL [address] [place] [address] [phone] Acetaminophen < 15 g/mL 5 Alcohol < 10 mg/dL Normal <10 Salicylate < 2.50 mg/dL <30 Thyroxine 4.42 g/dL Low 6.09-12.23 TSH (Thyroid Stim Horm) 3.87 mcIU/mL Normal 0.34-5.60 C Reactive Protein 4.19 mg/L Normal <8.01 Urine Drug 12/17/2019 [facility] Urine None Detected None Detect SCR ED & [address] A[place] [address] Screen [phone] Urine Barbiturates Screen None Detected None Detect Urine Benzodiazepine Screen None Detected None Detect Urine Cannabinoids Screen None Detected None Detect Urine Cocaine Screen None Detected None Detect Urine Opiates Screen None Detected None Detect Urine Phencyclidine Screen None Detected None Detect 6 Urine Culture And 12/17/2019 [facility] Urine Culture SEE RESULT [address] [place] [address] [phone] Urine Drug SCR ED 12/03/2019 [facility] Urine None None & Pain Clinic [address] A[place]hetamine [place] [address] Screen [phone] Urine Barbiturates Screen None Detected None Detect Urine Benzodiazepine Screen None Detected None Detect Urine Cannabinoids Screen None Detected None Detect Urine Cocaine Screen Presumptive Posi <SEE NOTE> Abnormal None Detect 8 Urine Opiates Screen Presumptive Posi <SEE NOTE> Abnormal None Detect 9 Urine Phencyclidine Screen None Detected None Detect 10 Urinalysis Profile 08/24/2019 [facility] Urine Color Dayana [address] [place] [address] [phone] Urine Appearance Cloudy Urine Specific [place] 1.030 Normal 1.010-1.030 Urine pH 5.0 Normal [...] Oxalate Cryst Present Abnormal Absent Laboratory 08/24/2019 [facility] Lactic Acid 1.5 mmol/L Normal 0.5-2.0 11 test finding [address] [place] [address] [phone] Urine Drug 08/24/2019 [facility] Urine None None SCR ED & Pain [address] Amphetamine [place] [address] Screen [phone] Urine Barbiturates Screen None Detected None Detect Urine Benzodiazepine Screen None Detected None Detect Urine Cannabinoids Screen None Detected None Detect Urine Cocaine Screen Presumptive Posi <SEE NOTE> Abnormal None Detect 12 Urine Opiates Screen None Detected None Detect Urine Phencyclidine Screen None Detected None Detect 13 CBC Auto 08/24/2019 [facility] White Blood 10.6 10^3/uL Normal 3.5-10.[address] [place] [address] [phone] Red Blood Count 4.10 10^6/uL Normal 3.70-4.87 [...] Blood Cells % 0.1 Comp Metabolic 08/24/2019 [facility] Sodium 136 mmol/L Normal 135-145 Panel [address] [place] [address] [phone] Potassium 3.7 mmol/L Normal 3.5-5.0 Chloride 101 [...] Egfr 76.0 >60 14 Laboratory test 08/24/2019 [facility] Acetaminophen < 15 g/mL [address] [place] [address] [phone] Alcohol < 10 mg/dL Normal <10 Salicylate < 2.50 mg/dL <30 HCG 0.70 mIU/mL 16 TSH (Thyroid Stim Horm) 2.04 mcIU/mL Normal 0.34-5.60 Urine Culture And 08/24/2019 [facility] Urine Culture SEE RESULT [address] [place] [address] [phone] 1 Critical Result LACT:4.7 Called to [id number] at: 15:30:22 by:[id number] Read back by:[id number] [facility] Severe Sepsis and Septic Shock Management Bundle Measure requires all lactic acids initially measuring >2.0 mmol/L be repeated. 2 Critical Result LACT:6.1 Called to [id number] at: 09:48:40 by:[id number] Read back by:[id number] [facility] Severe Sepsis and Septic Shock Management Bundle Measure requires all lactic acids initially measuring >2.0 mmol/L be repeated. [facility] Severe Sepsis and Septic Shock Management [...] only. 7 SEE RESULT BELOW Name: ЮЛИЯ CONRAD : [address]: Cora Lomas MD Acct: [id number] Unit: [id number] AGE: 39 Location: ICU Re12/17/19 SEX: F Status: ADM IN SPEC: [id number] LEON: 12/17/19-[address]: Nette Kelly MD REQ: [id number] RECD: 12/17/19 STATUS: CRESCENCIO DAMON DR: Chary Glass MD _ SOURCE: URINE SPDESC: ORDERED: Urine Culture Procedure Result Reported Site Urine Culture Final 12/18/19- 0947 ML No Growth (<1,000 CFU/mL) * ML - Main Lab . END OF REPORT DEPARTMENT OF PATHOLOGY, [address] [place] [address] Johan Quiroz M.D. Director [facility] # [id number] 8 Presumptive Positive Presumptive positive results are unconfirmed. 9 Presumptive Positive Presumptive positive results are unconfirmed. 10 The urine specimen was tested at the listed cutoffs: Drug class test level (ng/mL) Amphetamines 500 Barbiturates 200 Benzodiazepine metabolites 200 Cocaine metabolites 150 Cannabinoids 50 Opiates 300 Pcp 25 Specimen was received without chain of custody. Results should be used for medical purposes only. 11 [facility] Severe Sepsis and Septic Shock Management [...] mIU/mL 17 SEE RESULT BELOW Name: ЮЛИЯ CONRAD : [address]: Paulette Godwin MD Acct: [id number] Unit: [id number] AGE: 39 Location: [place] [address] Re08/24/19 SEX: F Status: ADM Rl SPEC: [id number] LEON: 08/24/[address]: Rudolph Vieira MD REQ: [id number] RECD: 08/24/19 STATUS: CRESCENCIO DAMON DR: Chary Glass MD _ SOURCE: URINE SPDESC: ORDERED: Urine Culture Procedure Result Reported Site Urine Culture Final 08/25/19- 1447 ML No growth of clinically significant organisms * ML - Main Lab . END OF REPORT DEPARTMENT OF PATHOLOGY, [address] [place] [address] Johan Quiroz M.D. Director [facility] # [id number] Procedures Date Code Description Status 12/18/2019 36642 ECHO Transthorasic Realtime 2D W Doppler & Color Flow Hosp Completed Medical Devices Description No Information Available Encounters Type Date Location Provider Dx Diagnosis Office Visit 12/23/2019 [facility] Nephrology Lilliana Burden N17.9 Acute kidney 11:47a MD failure, unspecified Office Visit 12/22/2019 [facility] T23.261D Burn of second 9:05a Infectious DOMINGO Mckeon degree of back of Diseases right hand, subs encntr N17.9 Acute kidney failure, unspecified F19.10 Other psychoactive substance abuse, uncomplicated Office Visit 12/22/2019 1:54p [facility] Paulette N17.9 Acute kidney Assoc,pc MD Citlali failure, Hospitalists unspecified F19.10 Other psychoactive substance abuse, uncomplicated B19.20 Unspecified viral hepatitis C without hepatic coma F32.9 Major depressive disorder, single episode, unspecified Office Visit 12/22/2019 11:17a [facility] Nephrology Lilliana Anderson7.Sushil Acute kidney MD Jenise failure, unspecified Office Visit 12/21/2019 1:53p [facility] Paulette Godwin N17.9 Acute kidney Assoc,pc MD failure, Hospitalists unspecified F19.10 Other psychoactive substance abuse, uncomplicated B19.20 Unspecified viral hepatitis C without hepatic coma F32.9 Major depressive disorder, single episode, unspecified Office Visit 12/19/2019 [facility] L03.113 Cellulitis of 8:49a For Yoselin Mckeon NP right upper limb Diseases N17.9 Acute kidney failure, unspecified F19.10 Other psychoactive substance abuse, uncomplicated Office Visit 12/19/2019 1:51p [facility] Kacey Shailesh, N17.9 Acute kidney Assoc,pc N.P. failure, Hospitalists unspecified F19.10 Other psychoactive substance abuse, uncomplicated B19.20 Unspecified viral hepatitis C without hepatic coma F32.9 Major depressive disorder, single episode, unspecified Office Visit 12/19/2019 3:04p [facility] Nephrology Matilde Alex, N17.9 Acute kidney MD failure, unspecified E87.70 Fluid overload, unspecified Office 08/24/2019 [facility] Paulette T42.4x2A Poisoning by Visit 10:06a Assoc,pc MD [place] benzodiazepines, Hospitalists intentional self-harm, init T42.6x1A Poisoning by oth antieplptc and sed-hypntc drugs, acc, init T50.992A Poisoning by oth drug/meds/biol subst, self-harm, init F41.9 Anxiety disorder, unspecified F32.9 Major depressive disorder, single episode, unspecified F43.10 Post-traumatic stress disorder, unspecified Office Visit 07/08/2019 11:20a [facility] Internal Leonora Lakhwindern, F32.9 Major depressive [...] of second degree of back of Hilda Kimberley 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, 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 right hand, subsequent encounter 12/22/2019 F19.10 Other psychoactive substance abuse, Paulette Godwin MD uncomplicated 12/22/2019 N17.9 Acute kidney failure, unspecified Lilliana Burden MD 12/22/2019 B19.20 Unspecified viral hepatitis C Paulette Godwin MD without hepatic coma 12/22/2019 N17.9 Acute kidney failure, unspecified Hilda Mckeon , 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 12/22/2019 F32.9 Major depressive disorder, single Paulette Godwin MD episode, unspecified 12/22/2019 F19.10 Other psychoactive substance abuse, Hilda Mckeon, 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 uncomplicated 12/21/2019 N17.9 Acute kidney failure, unspecified [...] 12/20/2019 B19.20 Unspecified viral hepatitis C Kacey Shailesh, N.P. without hepatic coma 12/20/2019 F32.9 Major depressive disorder, single Kacey Cash, N.P. episode, unspecified 12/19/2019 N17.9 Acute kidney failure, unspecified Kacey Shailesh, N.P. 12/19/2019 F19.10 Other psychoactive substance abuse, Kacey Shailesh, N.P. uncomplicated 12/19/2019 L03.113 Cellulitis of right upper limb Hilda Mckeon, 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 12/19/2019 B19.20 Unspecified viral hepatitis C Kacey Shailesh, N.P. without hepatic coma 12/19/2019 F32.9 Major depressive disorder, single Kacey Cash, N.P. episode, unspecified 12/19/2019 N17.9 Acute kidney failure, unspecified Matilde Alex MD 12/19/2019 N17.9 Acute kidney failure, unspecified Hilda Mckeon , DOMINGO 12/19/2019 E87.70 Fluid overload, unspecified Matilde Alex MD 12/19/2019 F19.10 Other psychoactive substance abuse, Hilda Mckeon, 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 uncomplicated 12/18/2019 N17.9 Acute kidney failure, unspecified [...] F32.9 Major depressive disorder, single Leonora Hoffman N.[employer]. episode, unspecified 07/08/2019 M54.5 Low back pain Leonora Hoffman N.P. 07/08/2019 Z71.51 Drug abuse counseling and Leonora Hoffman N.P. surveillance of drug abuser Plan of Treatment Future Appointment(s):07/26/2020 1:00 pm - Leonora Hoffman NZaire. at [facility] - Leonora Hoffman N.P.F32.9 Major depressive disorder , single episode, unspecifiedComments:For your depression, anxiety, and substance abuse management, please continue your management with the folks at [facility]. I also think you would [...]
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
[2020-01-20 13:42] LABS: ABS Basophils 0.1 10^3/ul (0-0.2); ABS Eosinophils 0.2 10^3/ul (0-0.6); ABS Lymphocytes 2.3 10^3/ul (1.0-4.8); ABS Monocytes 0.4 10^3/ul (0-0.8); ABS Neutrophils 3.4 10^3/ul (1.5-7.7); Eosinophil % 3.6 %; Hematocrit 40 % (35-47); Hemoglobin 13.8 g/dL (12.0-16.0); Lymphocyte % 36.4 %; Mean Corpuscular HGB Conc 35 g/dL (31-36); Mean Corpuscular Hemoglobin 30 pg (27-31); Mean Corpuscular Volume 87 fL (80-97); Mean Platelet Volume 9.8 fL (7.4-10.4); Nucleated Red Blood Cells % 0.1; Platelet Count 367 10^3/uL (150-450); Red Blood Count 4.55 10^6 /uL (3.70-4.87); Red Cell Distribution Width 14 % (10-15); White Blood Count 6.3 10^3/uL (3.5-10.8)
[2020-01-20 14:40] LABS: TSH (Thyroid Stimulating Horm) 4.25 mcIU/mL (0.34-5.60)
[2020-01-20 14:42] LABS: Free T4 0.63 ng/dL (0.61-1.12)
[2020-01-20 14:43] LABS: Albumin 4.9 g/dL (3.2-5.2); CO2 Carbon Dioxide 31 mmol/L (22-32); Calcium 9.8 mg/dL (8.6-10.3); Chloride 99 mmol/L (101-111)
[2020-01-20 14:44] LABS: Anion Gap 8 mmol/L (2-11); Sodium 138 mmol/L (135-145)
[2020-01-20 14:49] LABS: ALT 14 U/L (7-52); Albumin/Globulin Ratio 1.8 (1-3); Alkaline Phosphatase 74 U/L (34-104); BUN/Creatinine Ratio 16.3 (8-20); Blood Urea Nitrogen 13 mg/dL (6-24); EGFR African American 97.1 (>60); EGFR Non-African American 80.3 (>60); Globulin 2.7 g/dL (2-4); Glucose 92 mg/dL (70-100); Total Protein 7.6 g/dL (6.4-8.9)
[2020-01-20 15:31] LABS: Albumin/Globulin Ratio 1.7 (1-3); BUN/Creatinine Ratio 15.2 (8-20); EGFR African American 98.6 (>60); EGFR Non-African American 81.4 (>60); Globulin 2.3 g/dL (2-4); Potassium 3.7 mmol/L (3.5-5.0); Total Bilirubin 0.3 mg/dL (0.2-1.0); Total Protein 6.3 g/dL (6.4-8.9)
[2020-01-20 15:56] VITALS: BP 123/93
== END 2020-01-20 16:01 | disposition home or self-care (01) ==
LOC: ED 12:39
DX: R07.9 Chest pain, unspecified (principal); R53.83 Other fatigue; K21.9 Gastro-esophageal reflux disease without esophagitis; F41.9 Anxiety disorder, unspecified; F32.9 Major depressive disorder, single episode, unspecified; F17.210 Nicotine dependence, cigarettes, uncomplicated; Z88.0 Allergy status to penicillin; Z79.899 Other long term (current) drug therapy
CPT/HCPCS: 36415; 71046; 80053; 84439; 84443; 84484; 85025; 93005; 96360; 99283

== ENCOUNTER 2020-11-12 14:20 | Inpatient (IN) ==
[2020-11-12] MEDS ORDERED: ceFAZolin 1 GM ADVAN 1 GM in NS 0.9% 50 ML 50 ML IVPB ONE (16:58)
[2020-11-12 17:57] LABS: ABS Basophils 0.1 10^3/ul (0-0.2); ABS Eosinophils 0.2 10^3/ul (0-0.6); ABS Lymphocytes 2.2 10^3/ul (1.0-4.8); ABS Monocytes 0.7 10^3/ul (0-0.8); ABS Neutrophils 7.6 10^3/ul (1.5-7.7); Eosinophil % 2.3 %; Hematocrit 43 % (35-47); Hemoglobin 14.9 g/dL (12.0-16.0); Lymphocyte % 20.7 %; Mean Corpuscular HGB Conc 35 g/dL (31-36); Mean Corpuscular Hemoglobin 31 pg (27-31); Mean Corpuscular Volume 89 fL (80-97); Mean Platelet Volume 8.1 fL (7.4-10.4); Platelet Count 289 10^3/uL (150-450); Red Blood Count 4.85 10^6 /uL (3.70-4.87); Red Cell Distribution Width 14 % (10-15); White Blood Count 10.8 10^3/uL (3.5-10.8)
[2020-11-12 18:07] LABS: Albumin 4.6 g/dL (3.2-5.2); Albumin/Globulin Ratio 1.8 (1-3); C Reactive Protein 6.09 mg/L (<8.01); Calcium 9.3 mg/dL (8.6-10.3); EGFR African American 74.7 (>60); EGFR Non-African American 61.7 (>60); Globulin 2.6 g/dL (2-4); Potassium 3.9 mmol/L (3.5-5.0); Total Bilirubin 0.6 mg/dL (0.2-1.0); Total Protein 7.2 g/dL (6.4-8.9)
[2020-11-12] MEDS: Nicotine GUM 4MG FRUIT FLAVOR PO PRN (18:34)
[2020-11-12] MEDS ORDERED: diPHENhydraMINE IV 50 MG/ML 1 ml VIAL (BENADRYL) IV PRN (19:39)
[2020-11-12] MEDS ORDERED: Lactulose 30 ml UDC PO PRN (19:39)
[2020-11-12] MEDS ORDERED: Ondansetron ODT 4 mg TAB 4 MG TAB PO PRN (19:39)
[2020-11-12] MEDS ORDERED: Magnesium Hydroxide LIQ 30 ML UDC PO PRN (19:39)
[2020-11-12] MEDS ORDERED: diPHENhydraMINE 25 mg TAB PO PRN (19:39)
[2020-11-12] MEDS ORDERED: Ondansetron 4 mg VIAL 2 MG/ML 2 ml VIAL IV PRN (19:39)
[2020-11-12 19:46] LABS: Erythrocyte Sed Rate 5 mm/Hr (0-19)
[2020-11-12] MEDS ORDERED: Albuterol HFA INHALER 8 gm MDI INH PRN (19:56)
[2020-11-12] MEDS: Magnesium Hydroxide LIQ 30 ML UDC PO SCH (22:43)
[2020-11-13] MEDS ORDERED: Midazolam 2 mg/2 ml VIAL 1 mg/ml 2 ml VIAL (2 mg) ONE (07:18)
[2020-11-13] MEDS ORDERED: fentaNYL 250 mcg/5 ml 50 MCG/ML 5 ml VIAL (250 MCG) ONE (07:18)
[2020-11-13] MEDS ORDERED: Rocuronium 50 mg VIAL 10 mg/ml 5 ml VIAL (50 mg) ONE (07:18)
[2020-11-13] MEDS ORDERED: Sterile Water for Inj 10 ML ONE (07:19)
[2020-11-13] MEDS ORDERED: Dexamethasone IV 4 MG/ML VIAL 1 ml VIAL ONE (07:19)
[2020-11-13] MEDS ORDERED: Propofol 10 MG/ML 20 ML BTL ONE (07:19)
[2020-11-13] MEDS ORDERED: EPHEDrine (Pressors) 50 MG/ML VIAL ONE (07:19)
[2020-11-13] MEDS ORDERED: Lidocaine 2% PF 5 ML VIAL ONE (07:25)
[2020-11-13] MEDS ORDERED: Phenylephrine 40 mcg/mL 10mL (400mcg) SYRINGE ONE (07:25)
[2020-11-13] MEDS ORDERED: Bacitracin INJECTION 50,000 UNITS ONE (07:40)
[2020-11-13] MEDS ORDERED: Bupivacaine 0.5% SDV PF 30ML VIAL ONE (07:40)
[2020-11-13] MEDS ORDERED: Sodium Citrate/Citric Acid LIQ 15 ML UDC PO ONE (07:47)
[2020-11-13] MEDS ORDERED: Sodium Citrate/Citric Acid LIQ 15 ML UDC ONE (07:59)
[2020-11-13 08:53] LABS: Urine Appearance Clear; Urine Bilirubin Negative (Negative); Urine Blood Negative (Negative); Urine Color Yellow; Urine Glucose Negative (Negative); Urine Ketones Negative (Negative); Urine Nitrite Negative (Negative); Urine Protein Negative (Negative); Urine Specific Gravity 1.018 (1.010-1.030); Urine Urobilinogen Negative (Negative)
[2020-11-13] MEDS ORDERED: Venlafaxine XR 75 mg PO SCH (09:00)
[2020-11-13] MEDS ORDERED: Buprenorp/Nalox 8-2 MG FILM SL FILM SCH ×2 (09:00)
[2020-11-13] MEDS ORDERED: Vancomycin 1,750 MG in NS 0.9% 500 ml BAG 500 ML IVPB ONE (09:00)
[2020-11-13] MEDS ORDERED: diPHENhydraMINE IV 50 MG/ML 1 ml VIAL (BENADRYL) IV PRN (09:16)
[2020-11-13] MEDS ORDERED: Naloxone 0.4 mg VIAL 0.4 mg/ml 1 ml VIAL IV PRN (09:16)
[2020-11-13] MEDS ORDERED: DiMENhydriNATE IV 50 mg/ml 1 ml VIAL IV PUSH PRN (09:16)
[2020-11-13] MEDS ORDERED: fentaNYL 100 mcg/2 ml 50 MCG/ML VIAL IV PRN (09:16)
[2020-11-13] MEDS ORDERED: Ondansetron 4 mg VIAL 2 MG/ML 2 ml VIAL IV PRN (09:16)
[2020-11-13] MEDS ORDERED: Acetaminophen IV 1 GM/100ML 1,000 MG/100 ML VIAL IVPB PRN (09:16)
[2020-11-13] MEDS ORDERED: HYDROmorphone 1 MG/1 ML SYRINGE ONE (09:19)
[2020-11-13] MEDS: HYDROmorphone 1 MG/1 ML SYRINGE IV PRN ×2 (09:20→09:32)
[2020-11-13 09:28] LABS: Urine Bacteria Absent (Absent); Urine Red Blood Cell Trace(0-2/hpf) (Absent); Urine Squamous Epithelial Cell Present (Absent); Urine White Blood Cell Trace(0-5/hpf) (Absent)
[2020-11-13] MEDS: Nicotine PATCH 21 MG/24 HR PATCH TRANSDERM SCH (10:54)
[2020-11-13] MEDS: Mometasone/Formoter 200/5 MDI INH SCH ×2 (10:55→19:54)
[2020-11-13] MEDS: Magnesium Hydroxide LIQ 30 ML UDC PO SCH ×2 (10:55→21:32)
[2020-11-13] MEDS ORDERED: HYDROmorphone 0.5 MG/0.5 ML SYRINGE IV PRN (10:55)
[2020-11-13] MEDS: Venlafaxine XR 75 mg PO SCH (10:56)
[2020-11-13] MEDS: Nicotine GUM 4MG FRUIT FLAVOR PO PRN ×3 (11:02→22:43)
[2020-11-13 14:32] LABS: ABS Lymphocytes 0.7 10^3/ul (1.0-4.8); ABS Monocytes 0.1 10^3/ul (0-0.8); ABS Neutrophils 9.7 10^3/ul (1.5-7.7); Eosinophil % 0.1 %; Hematocrit 45 % (35-47); Hemoglobin 15.1 g/dL (12.0-16.0); Lymphocyte % 6.2 %; Mean Corpuscular HGB Conc 34 g/dL (31-36); Mean Corpuscular Hemoglobin 31 pg (27-31); Mean Corpuscular Volume 91 fL (80-97); Mean Platelet Volume 8.2 fL (7.4-10.4); Platelet Count 282 10^3/uL (150-450); Red Blood Count 4.94 10^6 /uL (3.70-4.87); Red Cell Distribution Width 14 % (10-15); White Blood Count 10.4 10^3/uL (3.5-10.8)
[2020-11-13 14:41] LABS: EGFR African American 74.7 (>60); EGFR Non-African American 61.7 (>60); Potassium 4.4 mmol/L (3.5-5.0)
[2020-11-13 19:31] LABS: Urine Benzodiazepine Screen Presumptive Positive (None Detect); Urine Cannabinoids Screen None Detected (None Detect); Urine Opiates Screen Presumptive Positive (None Detect)
[2020-11-14] MEDS: Nicotine GUM 4MG FRUIT FLAVOR PO PRN ×4 (03:58→18:37)
[2020-11-14 05:15] LABS: ABS Basophils 0.1 10^3/ul (0-0.2); ABS Lymphocytes 1.3 10^3/ul (1.0-4.8); ABS Monocytes 0.9 10^3/ul (0-0.8); ABS Neutrophils 9.5 10^3/ul (1.5-7.7); Eosinophil % 0.1 %; Hematocrit 42 % (35-47); Lymphocyte % 11.2 %; Mean Corpuscular HGB Conc 33 g/dL (31-36); Mean Corpuscular Hemoglobin 30 pg (27-31); Mean Corpuscular Volume 90 fL (80-97); Mean Platelet Volume 8.1 fL (7.4-10.4); Platelet Count 278 10^3/uL (150-450); Red Blood Count 4.66 10^6 /uL (3.70-4.87); Red Cell Distribution Width 14 % (10-15); White Blood Count 11.7 10^3/uL (3.5-10.8)
[2020-11-14 05:29] LABS: BUN/Creatinine Ratio 14.4 (8-20); Calcium 9.3 mg/dL (8.6-10.3); EGFR African American 77.4 (>60); EGFR Non-African American 63.9 (>60)
[2020-11-14 05:34] LABS: Potassium 4.3 mmol/L (3.5-5.0)
[2020-11-14] MEDS: Venlafaxine XR 75 mg PO SCH (09:42)
[2020-11-14] MEDS: Mometasone/Formoter 200/5 MDI INH SCH ×2 (09:44→19:24)
[2020-11-14] MEDS: Magnesium Hydroxide LIQ 30 ML UDC PO SCH ×2 (09:44→19:34)
[2020-11-14] MEDS: Nicotine PATCH 21 MG/24 HR PATCH TRANSDERM SCH (09:45)
[2020-11-14] MEDS ORDERED: Vancomycin per Pharmacy 1 EA NOTE FOLLOW UP SCH (11:00)
[2020-11-14] MEDS: CEFEPIME 2 GM in Dextrose 50 mL IV SCH ×2 (11:56→18:32)
[2020-11-14] MEDS: Vancomycin 1,250 MG in NS 0.9% 250 ml 250 ML IVPB SCH ×2 (13:07→20:20)
[2020-11-14] MEDS ORDERED: HYDROmorphone 1 MG/1 ML SYRINGE IV SLOW PU ONE (19:22)
[2020-11-15] MEDS: CEFEPIME 2 GM in Dextrose 50 mL IV SCH ×2 (03:38→11:43)
[2020-11-15] MEDS: Vancomycin 1,250 MG in NS 0.9% 250 ml 250 ML IVPB SCH ×2 (04:34→15:52)
[2020-11-15 07:50] LABS: EGFR African American 84.3 (>60); EGFR Non-African American 69.7 (>60)
[2020-11-15] MEDS: Venlafaxine XR 75 mg PO SCH (09:00)
[2020-11-15] MEDS: Nicotine PATCH 21 MG/24 HR PATCH TRANSDERM SCH ×2 (09:01→17:31)
[2020-11-15] MEDS: Magnesium Hydroxide LIQ 30 ML UDC PO SCH ×2 (09:02→21:06)
[2020-11-15] MEDS: Mometasone/Formoter 200/5 MDI INH SCH ×2 (09:13→21:04)
[2020-11-15] MEDS: Nicotine GUM 4MG FRUIT FLAVOR PO PRN ×2 (09:28→17:30)
[2020-11-15] MEDS ORDERED: Vancomycin Trough Check NOTE FOLLOW UP ONE (11:30)
[2020-11-16] MEDS: Vancomycin 1000 MG in NS 0.9% 250 ML IVPB SCH ×3 (00:01→15:29)
[2020-11-16 05:52] LABS: ABS Basophils 0.1 10^3/ul (0-0.2); ABS Eosinophils 0.3 10^3/ul (0-0.6); ABS Lymphocytes 2.8 10^3/ul (1.0-4.8); ABS Monocytes 0.4 10^3/ul (0-0.8); ABS Neutrophils 3.8 10^3/ul (1.5-7.7); Eosinophil % 3.7 %; Hematocrit 43 % (35-47); Hemoglobin 14.2 g/dL (12.0-16.0); Lymphocyte % 38.1 %; Mean Corpuscular HGB Conc 33 g/dL (31-36); Mean Corpuscular Hemoglobin 30 pg (27-31); Mean Corpuscular Volume 92 fL (80-97); Mean Platelet Volume 8.3 fL (7.4-10.4); Platelet Count 265 10^3/uL (150-450); Red Cell Distribution Width 14 % (10-15); White Blood Count 7.3 10^3/uL (3.5-10.8)
[2020-11-16 06:07] LABS: Potassium 4.1 mmol/L (3.5-5.0)
[2020-11-16 06:13] LABS: BUN/Creatinine Ratio 13.6 (8-20); EGFR African American 86.6 (>60); EGFR Non-African American 71.5 (>60)
[2020-11-16] MEDS: Nicotine PATCH 21 MG/24 HR PATCH TRANSDERM SCH (07:31)
[2020-11-16] MEDS: Magnesium Hydroxide LIQ 30 ML UDC PO SCH ×2 (07:42→20:58)
[2020-11-16] MEDS: Mometasone/Formoter 200/5 MDI INH SCH ×2 (08:59→21:43)
[2020-11-16] MEDS: Venlafaxine XR 75 mg PO SCH (09:01)
[2020-11-16] MEDS ORDERED: Buffered Lidocaine 1% SYRIN 1 ml INTRADERM ONE (12:04)
[2020-11-16] MEDS: Nicotine GUM 4MG FRUIT FLAVOR PO PRN ×2 (14:47→20:58)
[2020-11-17] MEDS: Vancomycin 1000 MG in NS 0.9% 250 ML IVPB SCH ×2 (00:31→08:40)
[2020-11-17] MEDS ORDERED: Vancomycin Trough Check NOTE FOLLOW UP ONE (07:30)
[2020-11-17] MEDS: Venlafaxine XR 75 mg PO SCH (08:39)
[2020-11-17] MEDS: Mometasone/Formoter 200/5 MDI INH SCH (08:41)
[2020-11-17] MEDS: Magnesium Hydroxide LIQ 30 ML UDC PO SCH (08:41)
[2020-11-17] MEDS: Nicotine PATCH 21 MG/24 HR PATCH TRANSDERM SCH (08:48)
[2020-11-17] MEDS: Nicotine GUM 4MG FRUIT FLAVOR PO PRN (08:57)
[2020-11-17 20:39] VITALS: BP 126/41
[2020-11-18] MEDS ORDERED: CMCS: Testosterone Cypionate (NF) 200 MG/ML VIAL IM SCH (09:00)
== END 2020-11-17 11:33 | disposition swing bed (61) | DRG 721 ==
LOC: ED 14:20 → SSU 17:15
PROVIDERS: ADMIT Orthopaedic Surgery Adult Reconstructive Orthopaedic Surgery; ATTEND Orthopaedic Surgery Adult Reconstructive Orthopaedic Surgery

== ENCOUNTER 2020-11-17 09:48 | Inpatient (IN) ==
[2020-11-17] MEDS ORDERED: Buffered Lidocaine 1% SYRIN 1 ml INTRADERM ONE (10:20)
[2020-11-17] MEDS ORDERED: Albuterol HFA INHALER 8 gm MDI INH PRN (12:00)
[2020-11-17] MEDS ORDERED: Vancomycin per Pharmacy 1 EA NOTE FOLLOW UP SCH (12:00)
[2020-11-17] MEDS: Vancomycin 1000 MG in NS 0.9% 250 ML IVPB SCH (16:13)
[2020-11-18] MEDS: Vancomycin 1000 MG in NS 0.9% 250 ML IVPB SCH ×4 (00:13→23:30)
[2020-11-18] MEDS: Venlafaxine XR 75 mg PO SCH (08:54)
[2020-11-18] MEDS: Nicotine PATCH 21 MG/24 HR PATCH TRANSDERM SCH (08:58)
[2020-11-18] MEDS: Nicotine GUM 4MG FRUIT FLAVOR PO PRN ×2 (09:00→17:34)
[2020-11-18] MEDS: TESTOSTERONE CYPIONATE 200 MG/ML IM SCH (10:37)
[2020-11-19] MEDS ORDERED: Vancomycin Trough Check NOTE FOLLOW UP ONE (08:00)
[2020-11-19] MEDS: Venlafaxine XR 75 mg PO SCH (08:00)
[2020-11-19] MEDS: Nicotine PATCH 21 MG/24 HR PATCH TRANSDERM SCH (08:01)
[2020-11-19 08:36] LABS: EGFR African American 83.3 (>60); EGFR Non-African American 68.8 (>60)
[2020-11-19 09:05] LABS: Vancomycin Trough 11.7 mcg/mL
[2020-11-19] MEDS: Vancomycin 1000 MG in NS 0.9% 250 ML IVPB SCH (09:11)
[2020-11-19] MEDS: VANCOMYCIN 1250 MG IVPB SCH (16:27)
[2020-11-19] MEDS ORDERED: HYDROmorphone 1 MG/1 ML SYRINGE IV ONE (17:08)
[2020-11-19] MEDS: Lidocaine PATCH 5% PATCH TRANSDERM PRN (17:29)
[2020-11-19] MEDS: Lidocaine Patch REMOVE PATCH PATCH OFF SCH (21:30)
[2020-11-20] MEDS: VANCOMYCIN 1250 MG IVPB SCH ×4 (00:08→23:34)
[2020-11-20] MEDS: Nicotine PATCH 21 MG/24 HR PATCH TRANSDERM SCH (07:57)
[2020-11-20] MEDS: Buprenorp/Nalox 8-2 MG FILM SL FILM SCH ×2 (07:59→10:56)
[2020-11-20] MEDS: Venlafaxine XR 75 mg PO SCH (08:06)
[2020-11-20] MEDS: Nicotine GUM 4MG FRUIT FLAVOR PO PRN ×2 (14:11→20:55)
[2020-11-20] MEDS ORDERED: Vancomycin Trough Check NOTE FOLLOW UP ONE (15:30)
[2020-11-20 15:42] LABS: EGFR Non-African American 60.3 (>60)
[2020-11-20 15:54] LABS: Vancomycin Trough 16.2 mcg/mL
[2020-11-20] MEDS: Morphine ORAL.SOLN 10 mg 2 mg/ml UDC 5 ml (10 mg) PO PRN (18:21)
[2020-11-20] MEDS: Lidocaine Patch REMOVE PATCH PATCH OFF SCH (20:53)
[2020-11-21] MEDS: VANCOMYCIN 1250 MG IVPB SCH ×2 (09:27→16:48)
[2020-11-21] MEDS: Morphine ORAL.SOLN 10 mg 2 mg/ml UDC 5 ml (10 mg) PO PRN ×2 (09:27→17:36)
[2020-11-21] MEDS: Venlafaxine XR 75 mg PO SCH (09:30)
[2020-11-21] MEDS: Nicotine PATCH 21 MG/24 HR PATCH TRANSDERM SCH (09:31)
[2020-11-21] MEDS: Buprenorp/Nalox 8-2 MG FILM SL FILM SCH (09:31)
[2020-11-21] MEDS: Nicotine GUM 4MG FRUIT FLAVOR PO PRN (10:54)
[2020-11-21] MEDS ORDERED: Nicotine PATCH 21 MG/24 HR PATCH TRANSDERM ONE (13:57)
[2020-11-21] MEDS: Lidocaine Patch REMOVE PATCH PATCH OFF SCH (22:50)
[2020-11-22] MEDS: VANCOMYCIN 1250 MG IVPB SCH ×4 (00:05→23:56)
[2020-11-22] MEDS: Buprenorp/Nalox 8-2 MG FILM SL FILM SCH (08:32)
[2020-11-22] MEDS: Venlafaxine XR 75 mg PO SCH (08:32)
[2020-11-22 08:38] LABS: ABS Basophils 0.1 10^3/ul (0-0.2); ABS Eosinophils 0.3 10^3/ul (0-0.6); ABS Monocytes 0.5 10^3/ul (0-0.8); ABS Neutrophils 3.6 10^3/ul (1.5-7.7); Eosinophil % 4.8 %; Hematocrit 44 % (35-47); Hemoglobin 14.6 g/dL (12.0-16.0); Lymphocyte % 31.5 %; Mean Corpuscular HGB Conc 33 g/dL (31-36); Mean Corpuscular Hemoglobin 30 pg (27-31); Mean Corpuscular Volume 92 fL (80-97); Mean Platelet Volume 7.6 fL (7.4-10.4); Platelet Count 315 10^3/uL (150-450); Red Blood Count 4.82 10^6 /uL (3.70-4.87); Red Cell Distribution Width 14 % (10-15); White Blood Count 6.5 10^3/uL (3.5-10.8)
[2020-11-22] MEDS: Nicotine PATCH 21 MG/24 HR PATCH TRANSDERM SCH (08:41)
[2020-11-22] MEDS: Morphine ORAL.SOLN 10 mg 2 mg/ml UDC 5 ml (10 mg) PO PRN ×2 (08:41→17:53)
[2020-11-22 09:09] LABS: Albumin 4.2 g/dL (3.2-5.2); Albumin/Globulin Ratio 1.6 (1-3); BUN/Creatinine Ratio 9.8 (8-20); C Reactive Protein 2.61 mg/L (<8.01); EGFR African American 93.9 (>60); EGFR Non-African American 77.6 (>60); Globulin 2.6 g/dL (2-4); Potassium 3.8 mmol/L (3.5-5.0); Total Bilirubin 0.5 mg/dL (0.2-1.0); Total Protein 6.8 g/dL (6.4-8.9)
[2020-11-22] MEDS: Nicotine GUM 4MG FRUIT FLAVOR PO PRN (13:57)
[2020-11-22] MEDS: Lidocaine Patch REMOVE PATCH PATCH OFF SCH (20:58)
[2020-11-23] MEDS: Nicotine PATCH 21 MG/24 HR PATCH TRANSDERM SCH (08:32)
[2020-11-23] MEDS: Venlafaxine XR 75 mg PO SCH (08:33)
[2020-11-23] MEDS: Buprenorp/Nalox 8-2 MG FILM SL FILM SCH (08:34)
[2020-11-23] MEDS: VANCOMYCIN 1250 MG IVPB SCH ×3 (08:35→23:59)
[2020-11-23] MEDS: Morphine ORAL.SOLN 10 mg 2 mg/ml UDC 5 ml (10 mg) PO PRN ×2 (08:36→16:25)
[2020-11-23] MEDS: Nicotine GUM 4MG FRUIT FLAVOR PO PRN (13:11)
[2020-11-23] MEDS: Lidocaine Patch REMOVE PATCH PATCH OFF SCH (21:24)
[2020-11-24] MEDS: Buprenorp/Nalox 8-2 MG FILM SL FILM SCH (07:52)
[2020-11-24] MEDS: Morphine ORAL.SOLN 10 mg 2 mg/ml UDC 5 ml (10 mg) PO PRN ×2 (07:53→16:01)
[2020-11-24] MEDS: Venlafaxine XR 75 mg PO SCH (07:54)
[2020-11-24] MEDS: Nicotine PATCH 21 MG/24 HR PATCH TRANSDERM SCH (07:54)
[2020-11-24] MEDS: VANCOMYCIN 1250 MG IVPB SCH ×3 (07:54→23:33)
[2020-11-24] MEDS: diPHENhydraMINE 25 mg TAB PO PRN (11:57)
[2020-11-24] MEDS: Dextran 70/Hypromellose Tears Eye Drops 15 ml BTL (for Artificials Tears) BOTH EYES PRN (14:24)
[2020-11-24] MEDS: Nicotine GUM 4MG FRUIT FLAVOR PO PRN ×2 (14:24→21:34)
[2020-11-24] MEDS: Lidocaine Patch REMOVE PATCH PATCH OFF SCH (21:26)
[2020-11-25] MEDS ORDERED: Vancomycin Trough Check NOTE FOLLOW UP ONE (07:30)
[2020-11-25 07:45] LABS: EGFR African American 82.2 (>60)
[2020-11-25 08:42] LABS: Vancomycin Trough 16.8 mcg/mL
[2020-11-25] MEDS: Venlafaxine XR 75 mg PO SCH (08:47)
[2020-11-25] MEDS: Nicotine PATCH 21 MG/24 HR PATCH TRANSDERM SCH (08:51)
[2020-11-25] MEDS: VANCOMYCIN 1250 MG IVPB SCH ×3 (09:14→23:30)
[2020-11-25] MEDS: TESTOSTERONE CYPIONATE 200 MG/ML IM SCH (09:14)
[2020-11-25] MEDS: Nicotine GUM 4MG FRUIT FLAVOR PO PRN ×3 (09:54→23:35)
[2020-11-25] MEDS: Lidocaine Patch REMOVE PATCH PATCH OFF SCH (20:02)
[2020-11-25] MEDS: Ondansetron 4 mg VIAL 2 MG/ML 2 ml VIAL IV PRN (20:35)
[2020-11-26] MEDS: Nicotine GUM 4MG FRUIT FLAVOR PO PRN ×3 (08:25→21:59)
[2020-11-26] MEDS: Venlafaxine XR 75 mg PO SCH (08:26)
[2020-11-26] MEDS: VANCOMYCIN 1250 MG IVPB SCH ×2 (08:37→15:55)
[2020-11-26] MEDS: Nicotine PATCH 21 MG/24 HR PATCH TRANSDERM SCH (08:37)
[2020-11-26] MEDS: Lidocaine Patch REMOVE PATCH PATCH OFF SCH (21:54)
[2020-11-26] MEDS: Vancomycin 1,250 MG in NS 0.9% 250 ml 250 ML IVPB SCH (21:57)
[2020-11-27] MEDS: Nicotine GUM 4MG FRUIT FLAVOR PO PRN ×7 (00:44→21:04)
[2020-11-27] MEDS: Vancomycin 1,250 MG in NS 0.9% 250 ml 250 ML IVPB SCH (05:57)
[2020-11-27] MEDS: Venlafaxine XR 75 mg PO SCH (09:04)
[2020-11-27] MEDS: Nicotine PATCH 21 MG/24 HR PATCH TRANSDERM SCH (09:07)
[2020-11-27] MEDS: Ondansetron 4 mg VIAL 2 MG/ML 2 ml VIAL IV PRN (18:21)
[2020-11-27] MEDS: Vancomycin 1,750 MG in NS 0.9% 250 ml 500 ML IVPB SCH (20:02)
[2020-11-27] MEDS: Lidocaine Patch REMOVE PATCH PATCH OFF SCH (21:05)
[2020-11-28] MEDS: Nicotine PATCH 21 MG/24 HR PATCH TRANSDERM SCH (08:29)
[2020-11-28] MEDS: Venlafaxine XR 75 mg PO SCH (08:41)
[2020-11-28] MEDS: Vancomycin 1,750 MG in NS 0.9% 250 ml 500 ML IVPB SCH ×2 (08:45→19:38)
[2020-11-28] MEDS: Nicotine GUM 4MG FRUIT FLAVOR PO PRN ×3 (10:32→21:31)
[2020-11-28] MEDS: Lidocaine Patch REMOVE PATCH PATCH OFF SCH (21:32)
[2020-11-29] MEDS ORDERED: Vancomycin Trough Check NOTE FOLLOW UP ONE (07:30)
[2020-11-29 07:56] LABS: ABS Basophils 0.1 10^3/ul (0-0.2); ABS Eosinophils 0.3 10^3/ul (0-0.6); ABS Lymphocytes 2.1 10^3/ul (1.0-4.8); ABS Monocytes 0.4 10^3/ul (0-0.8); ABS Neutrophils 3.4 10^3/ul (1.5-7.7); Eosinophil % 4.7 %; Hematocrit 45 % (35-47); Hemoglobin 14.9 g/dL (12.0-16.0); Lymphocyte % 33.4 %; Mean Corpuscular HGB Conc 33 g/dL (31-36); Mean Corpuscular Hemoglobin 30 pg (27-31); Mean Corpuscular Volume 92 fL (80-97); Mean Platelet Volume 7.8 fL (7.4-10.4); Nucleated Red Blood Cells % 0.1; Platelet Count 302 10^3/uL (150-450); Red Blood Count 4.91 10^6 /uL (3.70-4.87); Red Cell Distribution Width 14 % (10-15); White Blood Count 6.2 10^3/uL (3.5-10.8)
[2020-11-29 08:04] LABS: Albumin 4.4 g/dL (3.2-5.2); Albumin/Globulin Ratio 1.7 (1-3); BUN/Creatinine Ratio 7.8 (8-20); C Reactive Protein 4.43 mg/L (<8.01); EGFR African American 72.2 (>60); EGFR Non-African American 59.7 (>60); Globulin 2.6 g/dL (2-4); Potassium 3.9 mmol/L (3.5-5.0); Total Bilirubin 0.5 mg/dL (0.2-1.0)
[2020-11-29] MEDS: Nicotine PATCH 21 MG/24 HR PATCH TRANSDERM SCH (09:58)
[2020-11-29] MEDS: Venlafaxine XR 75 mg PO SCH (10:19)
[2020-11-29] MEDS: Vancomycin 1,750 MG in NS 0.9% 250 ml 500 ML IVPB SCH (10:25)
[2020-11-29] MEDS ORDERED: Vancomycin 1,750 MG in NS 0.9% 500 ml BAG 500 ML IVPB SCH (11:01)
[2020-11-29] MEDS: Nicotine GUM 4MG FRUIT FLAVOR PO PRN ×2 (11:53→22:09)
[2020-11-29] MEDS: Vancomycin 1,750 MG in NS 0.9% 500 ml BAG 500 ML IVPB SCH (20:54)
[2020-11-29] MEDS: Lidocaine Patch REMOVE PATCH PATCH OFF SCH (21:02)
[2020-11-30] MEDS: Venlafaxine XR 75 mg PO SCH (09:03)
[2020-11-30] MEDS: Nicotine PATCH 21 MG/24 HR PATCH TRANSDERM SCH (09:05)
[2020-11-30] MEDS: Vancomycin 1,750 MG in NS 0.9% 500 ml BAG 500 ML IVPB SCH ×2 (09:29→21:13)
[2020-11-30] MEDS: Nicotine GUM 4MG FRUIT FLAVOR PO PRN ×2 (09:55→16:44)
[2020-11-30] MEDS: Dextran 70/Hypromellose Tears Eye Drops 15 ml BTL (for Artificials Tears) BOTH EYES PRN (18:00)
[2020-11-30] MEDS: Ondansetron 4 mg VIAL 2 MG/ML 2 ml VIAL IV PRN (18:00)
[2020-11-30] MEDS: Lidocaine Patch REMOVE PATCH PATCH OFF SCH (21:21)
[2020-12-01] MEDS ORDERED: Vancomycin Trough Check NOTE FOLLOW UP ONE (07:30)
[2020-12-01 08:50] LABS: EGFR African American 74.7 (>60); EGFR Non-African American 61.7 (>60)
[2020-12-01 08:55] LABS: Vancomycin Trough 15.1 mcg/mL
[2020-12-01] MEDS: Venlafaxine XR 75 mg PO SCH (09:48)
[2020-12-01] MEDS: Vancomycin 1,750 MG in NS 0.9% 500 ml BAG 500 ML IVPB SCH ×2 (09:50→15:03)
[2020-12-01] MEDS: Nicotine GUM 4MG FRUIT FLAVOR PO PRN (10:01)
[2020-12-01] MEDS: Nicotine PATCH 21 MG/24 HR PATCH TRANSDERM SCH (10:01)
[2020-12-01] MEDS: Lidocaine Patch REMOVE PATCH PATCH OFF SCH (21:18)
[2020-12-02] MEDS: Nicotine PATCH 21 MG/24 HR PATCH TRANSDERM SCH (07:43)
[2020-12-02] MEDS: Vancomycin 1,750 MG in NS 0.9% 500 ml BAG 500 ML IVPB SCH ×2 (07:43→19:35)
[2020-12-02] MEDS: Venlafaxine XR 75 mg PO SCH (07:44)
[2020-12-02] MEDS: TESTOSTERONE CYPIONATE 200 MG/ML IM SCH (09:44)
[2020-12-02] MEDS: Nicotine GUM 4MG FRUIT FLAVOR PO PRN (19:35)
[2020-12-02] MEDS: Lidocaine Patch REMOVE PATCH PATCH OFF SCH (22:46)
[2020-12-03] MEDS: diPHENhydraMINE 25 mg TAB PO PRN (02:39)
[2020-12-03] MEDS: Venlafaxine XR 75 mg PO SCH (08:12)
[2020-12-03] MEDS: Nicotine PATCH 21 MG/24 HR PATCH TRANSDERM SCH (08:15)
[2020-12-03] MEDS: Vancomycin 1,750 MG in NS 0.9% 500 ml BAG 500 ML IVPB SCH ×2 (08:44→19:08)
[2020-12-03] MEDS: Nicotine GUM 4MG FRUIT FLAVOR PO PRN ×3 (15:39→21:40)
[2020-12-03] MEDS: Lidocaine PATCH 5% PATCH TRANSDERM PRN (18:06)
[2020-12-03] MEDS: Lidocaine Patch REMOVE PATCH PATCH OFF SCH (21:40)
[2020-12-04] MEDS: Vancomycin 1,750 MG in NS 0.9% 500 ml BAG 500 ML IVPB SCH ×2 (08:55→20:42)
[2020-12-04] MEDS: Nicotine PATCH 21 MG/24 HR PATCH TRANSDERM SCH (09:00)
[2020-12-04] MEDS: Venlafaxine XR 75 mg PO SCH (09:01)
[2020-12-04] MEDS: Nicotine GUM 4MG FRUIT FLAVOR PO PRN ×3 (09:01→20:36)
[2020-12-04] MEDS: Ondansetron 4 mg VIAL 2 MG/ML 2 ml VIAL IV PRN (19:25)
[2020-12-04] MEDS: Lidocaine Patch REMOVE PATCH PATCH OFF SCH (20:27)
[2020-12-05] MEDS: Nicotine PATCH 21 MG/24 HR PATCH TRANSDERM SCH (07:26)
[2020-12-05] MEDS: Nicotine GUM 4MG FRUIT FLAVOR PO PRN ×2 (09:30→20:16)
[2020-12-05] MEDS: Venlafaxine XR 75 mg PO SCH (09:30)
[2020-12-05] MEDS: diPHENhydraMINE 25 mg TAB PO PRN (09:30)
[2020-12-05] MEDS: Vancomycin 1,750 MG in NS 0.9% 500 ml BAG 500 ML IVPB SCH ×2 (11:33→20:13)
[2020-12-05] MEDS: Ondansetron 4 mg VIAL 2 MG/ML 2 ml VIAL IV PRN (20:44)
[2020-12-05] MEDS: Lidocaine Patch REMOVE PATCH PATCH OFF SCH (21:07)
[2020-12-05] MEDS ORDERED: HYDROmorphone 1 MG/1 ML SYRINGE IV SLOW PU ONE (23:46)
[2020-12-06] MEDS ORDERED: Buffered Lidocaine 1% SYRIN 1 ml INTRADERM ONE ×2 (02:05→07:00)
[2020-12-06] MEDS ORDERED: Vancomycin Trough Check NOTE FOLLOW UP ONE (06:00)
[2020-12-06 06:10] LABS: ABS Eosinophils 0.2 10^3/ul (0-0.6); ABS Lymphocytes 2.3 10^3/ul (1.0-4.8); ABS Monocytes 0.3 10^3/ul (0-0.8); ABS Neutrophils 2.6 10^3/ul (1.5-7.7); Eosinophil % 4.1 %; Hematocrit 43 % (35-47); Hemoglobin 14.4 g/dL (12.0-16.0); Lymphocyte % 42.1 %; Mean Corpuscular HGB Conc 34 g/dL (31-36); Mean Corpuscular Hemoglobin 31 pg (27-31); Mean Corpuscular Volume 90 fL (80-97); Mean Platelet Volume 7.7 fL (7.4-10.4); Platelet Count 279 10^3/uL (150-450); Red Blood Count 4.71 10^6 /uL (3.70-4.87); Red Cell Distribution Width 14 % (10-15); White Blood Count 5.5 10^3/uL (3.5-10.8)
[2020-12-06] MEDS: diPHENhydraMINE 25 mg TAB PO PRN ×2 (06:31→20:03)
[2020-12-06 06:32] LABS: Albumin 3.9 g/dL (3.2-5.2); Albumin/Globulin Ratio 1.6 (1-3); C Reactive Protein 3.8 mg/L (<8.01); Calcium 8.7 mg/dL (8.6-10.3); EGFR African American 87.7 (>60); EGFR Non-African American 72.5 (>60); Globulin 2.5 g/dL (2-4); Potassium 3.9 mmol/L (3.5-5.0); Total Bilirubin 0.7 mg/dL (0.2-1.0); Total Protein 6.4 g/dL (6.4-8.9)
[2020-12-06 06:44] LABS: Vancomycin Trough 16.5 mcg/mL
[2020-12-06] MEDS: Nicotine PATCH 21 MG/24 HR PATCH TRANSDERM SCH (08:31)
[2020-12-06] MEDS: Venlafaxine XR 75 mg PO SCH (08:34)
[2020-12-06] MEDS: Vancomycin 1,750 MG in NS 0.9% 500 ml BAG 500 ML IVPB SCH ×2 (08:37→20:03)
[2020-12-06] MEDS: Nicotine GUM 4MG FRUIT FLAVOR PO PRN ×3 (08:37→20:03)
[2020-12-06] MEDS: Lidocaine Patch REMOVE PATCH PATCH OFF SCH (20:10)
[2020-12-07] MEDS: Ondansetron 4 mg VIAL 2 MG/ML 2 ml VIAL IV PRN ×2 (01:22→14:57)
[2020-12-07] MEDS: Venlafaxine XR 75 mg PO SCH (08:21)
[2020-12-07] MEDS: Vancomycin 1,750 MG in NS 0.9% 500 ml BAG 500 ML IVPB SCH ×2 (08:21→21:28)
[2020-12-07] MEDS: Nicotine GUM 4MG FRUIT FLAVOR PO PRN ×2 (08:21→21:29)
[2020-12-07] MEDS: Nicotine PATCH 21 MG/24 HR PATCH TRANSDERM SCH (08:23)
[2020-12-07] MEDS: Lidocaine Patch REMOVE PATCH PATCH OFF SCH (21:30)
[2020-12-08] MEDS: Nicotine PATCH 21 MG/24 HR PATCH TRANSDERM SCH (07:55)
[2020-12-08] MEDS: Nicotine GUM 4MG FRUIT FLAVOR PO PRN ×3 (07:56→17:11)
[2020-12-08] MEDS: Venlafaxine XR 75 mg PO SCH (07:57)
[2020-12-08] MEDS: Vancomycin 1,750 MG in NS 0.9% 500 ml BAG 500 ML IVPB SCH ×2 (07:58→21:01)
[2020-12-08] MEDS: Lidocaine PATCH 5% PATCH TRANSDERM PRN (13:28)
[2020-12-08] MEDS: Ondansetron 4 mg VIAL 2 MG/ML 2 ml VIAL IV PRN (17:12)
[2020-12-08] MEDS: Lidocaine Patch REMOVE PATCH PATCH OFF SCH (21:07)
[2020-12-08] MEDS ORDERED: Witch Hazel PAD JAR TOPICAL PRN (22:44)
[2020-12-09] MEDS: Nicotine PATCH 21 MG/24 HR PATCH TRANSDERM SCH (08:47)
[2020-12-09] MEDS: Nicotine GUM 4MG FRUIT FLAVOR PO PRN (08:47)
[2020-12-09] MEDS: Venlafaxine XR 75 mg PO SCH (08:48)
[2020-12-09] MEDS: Vancomycin 1,750 MG in NS 0.9% 500 ml BAG 500 ML IVPB SCH ×3 (08:55→21:10)
[2020-12-09] MEDS: TESTOSTERONE CYPIONATE 200 MG/ML IM SCH (10:45)
[2020-12-09 11:40] LABS: BUN/Creatinine Ratio 9.3 (8-20); Calcium 8.9 mg/dL (8.6-10.3); EGFR African American 77.4 (>60); EGFR Non-African American 63.9 (>60); Potassium 3.7 mmol/L (3.5-5.0)
[2020-12-09] MEDS: Buprenorp/Nalox 8-2 MG FILM SL FILM SCH ×2 (13:55→20:52)
[2020-12-09] MEDS: Ondansetron 4 mg VIAL 2 MG/ML 2 ml VIAL IV PRN (17:40)
[2020-12-09] MEDS: Lidocaine Patch REMOVE PATCH PATCH OFF SCH (20:56)
[2020-12-10] MEDS: Ondansetron 4 mg VIAL 2 MG/ML 2 ml VIAL IV PRN (01:35)
[2020-12-10 08:07] VITALS: BP 140/92
[2020-12-10] MEDS: Vancomycin 1,750 MG in NS 0.9% 500 ml BAG 500 ML IVPB SCH (09:12)
[2020-12-10] MEDS: Nicotine PATCH 21 MG/24 HR PATCH TRANSDERM SCH ×2 (09:12→09:23)
[2020-12-10] MEDS: Buprenorp/Nalox 8-2 MG FILM SL FILM SCH (09:13)
[2020-12-10] MEDS: Venlafaxine XR 75 mg PO SCH (09:14)
== END 2020-12-10 12:00 | disposition home or self-care (01) | DRG 721 ==
LOC: SSU 11:36 → SUATTDRO 11:36 → MEDTELE 11-23 10:53
PROVIDERS: ADMIT Internal Medicine; ATTEND Internal Medicine

== ENCOUNTER 2021-08-25 17:10 | Inpatient (IN) ==
[2021-08-25] MEDS: Lactated Ringers 1000 ml BAG 1,000 ML IV ONE ×2 (18:00→18:25)
[2021-08-25 18:28] LABS: ABS Eosinophils 0.1 10^3/ul (0-0.6); ABS Lymphocytes 1.3 10^3/ul (1.0-4.8); ABS Monocytes 0.5 10^3/ul (0-0.8); ABS Neutrophils 7.3 10^3/ul (1.5-7.7); Eosinophil % 0.9 %; Hematocrit 46 % (35-47); Hemoglobin 15.4 g/dL (12.0-16.0); Lymphocyte % 14.2 %; Mean Corpuscular HGB Conc 33 g/dL (31-36); Mean Corpuscular Hemoglobin 31 pg (27-31); Mean Corpuscular Volume 92 fL (80-97); Mean Platelet Volume 8.1 fL (7.4-10.4); Platelet Count 286 10^3/uL (150-450); Red Blood Count 5.04 10^6 /uL (3.70-4.87); Red Cell Distribution Width 14 % (10-15); White Blood Count 9.3 10^3/uL (3.5-10.8)
[2021-08-25 19:48] LABS: Albumin 4.5 g/dL (3.2-5.2); Anion Gap 7 mmol/L (2-11); CO2 Carbon Dioxide 32 mmol/L (22-32); Calcium 8.8 mg/dL (8.6-10.3); Chloride 100 mmol/L (101-111); Potassium 4.6 mmol/L (3.5-5.0); Sodium 139 mmol/L (135-145)
[2021-08-25 19:52] LABS: Acetaminophen < 15 mcg/mL; Alcohol, S < 13 mg/dL (<13); Salicylate < 2.50 mg/dL (<30)
[2021-08-25 19:54] LABS: ALT 13 U/L (7-52); AST 14 U/L (13-39); Albumin/Globulin Ratio 1.7 (1-3); Alkaline Phosphatase 77 U/L (35-149); Blood Urea Nitrogen 10 mg/dL (6-24); Globulin 2.6 g/dL (2-4); Glucose 130 mg/dL (70-100); Total Protein 7.1 g/dL (6.4-8.9); eGFR CKD-EPI 75.8 (>60)
[2021-08-25] MEDS ORDERED: Naloxone Nasal Spray 4 MG/0.1 ML NASAL.SPR INTRANASAL ONE (20:18)
[2021-08-25] MEDS ORDERED: Ondansetron 4 mg VIAL 2 MG/ML 2 ml VIAL IV ONE (20:22)
[2021-08-25] MEDS ORDERED: Naloxone Nasal Spray 4 MG/0.1 ML NASAL.SPR INTRANASAL PRN (20:28)
[2021-08-25 22:13] LABS: PO2 Arterial 71 mmHg (80-100)
[2021-08-25 22:17] LABS: PCO2 Arterial 79 mmHg (35-45)
[2021-08-25] MEDS ORDERED: NS 0.9% 1000 ml BAG 1,000 ML IV ONE (23:09)
[2021-08-26 00:43] LABS: PCO2 Arterial 69 mmHg (35-45); PO2 Arterial 175 mmHg (80-100)
[2021-08-26 01:04] LABS: Urine Benzodiazepine Screen None Detected (None Detect); Urine Cannabinoids Screen None Detected (None Detect); Urine Opiates Screen Presumptive Positive (None Detect)
[2021-08-26 04:39] LABS: PO2 Arterial 92 mmHg (80-100)
[2021-08-26 05:07] LABS: PCO2 Arterial 84 mmHg (35-45)
[2021-08-26] MEDS ORDERED: NS 0.9% 1000 ml BAG 1,000 ML IV ONE (06:29)
[2021-08-26 06:59] LABS: Magnesium 2.1 mg/dL (1.9-2.7)
[2021-08-26 07:07] LABS: PO2 Arterial 85 mmHg (80-100)
[2021-08-26 07:14] LABS: PCO2 Arterial 78 mmHg (35-45)
[2021-08-26] MEDS ORDERED: Naloxone 0.4 mg VIAL 0.4 mg/ml 1 ml VIAL IV PUSH ONE (08:16)
[2021-08-26] MEDS ORDERED: Ondansetron 4 mg VIAL 2 MG/ML 2 ml VIAL IV ONE (08:36)
[2021-08-26] MEDS ORDERED: Albuterol HFA INHALER 8 gm MDI INH PRN (11:02)
[2021-08-26 11:06] LABS: ABS Lymphocytes 0.9 10^3/ul (1.0-4.8); ABS Monocytes 0.7 10^3/ul (0-0.8); ABS Neutrophils 7.3 10^3/ul (1.5-7.7); Eosinophil % 0.1 %; Hematocrit 42 % (35-47); Hemoglobin 13.8 g/dL (12.0-16.0); Lymphocyte % 10.6 %; Mean Corpuscular HGB Conc 33 g/dL (31-36); Mean Corpuscular Hemoglobin 30 pg (27-31); Mean Corpuscular Volume 92 fL (80-97); Mean Platelet Volume 7.6 fL (7.4-10.4); Nucleated Red Blood Cells % 0.1; Platelet Count 231 10^3/uL (150-450); Red Blood Count 4.53 10^6 /uL (3.70-4.87); Red Cell Distribution Width 14 % (10-15)
[2021-08-26 11:24] LABS: Calcium 8.2 mg/dL (8.6-10.3); Potassium 4.3 mmol/L (3.5-5.0); eGFR CKD-EPI 113.7 (>60)
[2021-08-26] MEDS: Venlafaxine XR 75 mg PO SCH (11:54)
[2021-08-26] MEDS: Enoxaparin 40 MG/0.4 ML SYR SUBCUT SCH (11:55)
[2021-08-26] MEDS ORDERED: methylPREDNISolone SOD 40 mg/ml 1 ml VIAL IV SCH (12:00)
[2021-08-26 12:13] LABS: C Reactive Protein 3.45 mg/L (<8.01)
[2021-08-26] MEDS: methylPREDNISolone SOD 40 mg/ml 1 ml VIAL IV SCH (23:24)
[2021-08-27 06:05] LABS: ABS Lymphocytes 0.8 10^3/ul (1.0-4.8); ABS Monocytes 0.2 10^3/ul (0-0.8); ABS Neutrophils 6.5 10^3/ul (1.5-7.7); Hematocrit 44 % (35-47); Hemoglobin 14.6 g/dL (12.0-16.0); Lymphocyte % 10.4 %; Mean Corpuscular HGB Conc 33 g/dL (31-36); Mean Corpuscular Hemoglobin 30 pg (27-31); Mean Corpuscular Volume 92 fL (80-97); Mean Platelet Volume 8.1 fL (7.4-10.4); Nucleated Red Blood Cells % 0.1; Platelet Count 250 10^3/uL (150-450); Red Blood Count 4.83 10^6 /uL (3.70-4.87); Red Cell Distribution Width 14 % (10-15); White Blood Count 7.6 10^3/uL (3.5-10.8)
[2021-08-27 06:26] LABS: Potassium 4.1 mmol/L (3.5-5.0)
[2021-08-27 06:27] LABS: Calcium 9.3 mg/dL (8.6-10.3); eGFR CKD-EPI 116.3 (>60)
[2021-08-27] MEDS: Venlafaxine XR 75 mg PO SCH (09:10)
[2021-08-27] MEDS: methylPREDNISolone SOD 40 mg/ml 1 ml VIAL IV SCH ×2 (09:10→20:54)
[2021-08-27] MEDS: Enoxaparin 40 MG/0.4 ML SYR SUBCUT SCH (13:08)
[2021-08-28] MEDS: Venlafaxine XR 75 mg PO SCH (08:22)
[2021-08-28] MEDS ORDERED: Ondansetron ODT 4 mg TAB 4 MG TAB SL PRN (08:27)
[2021-08-28] MEDS: Enoxaparin 40 MG/0.4 ML SYR SUBCUT SCH (12:39)
[2021-08-28 15:03] VITALS: BP 113/86
== END 2021-08-28 16:04 | disposition home or self-care (01) | DRG 812 ==
LOC: ED 17:10 → EDHOLD 17:10 → SUATTDRO 08-26 11:16 → MEDTELE 08-26 14:49
PROVIDERS: ADMIT Internal Medicine; ATTEND Hospitalist

== ENCOUNTER 2022-05-17 07:00 | Observation (INO) ==
[2022-05-17] MEDS ORDERED: Vancomycin 1,500 MG in NS 0.9% 250 ml 250 ML IVPB ONE (07:52)
[2022-05-17] MEDS ORDERED: Lactated Ringers 1000 ml BAG 1,000 ML IV ONE (08:00)
[2022-05-17 08:37] LABS: ABS Basophils 0.1 10^3/ul (0-0.2); ABS Eosinophils 0.3 10^3/ul (0-0.6); ABS Lymphocytes 2.1 10^3/ul (1.0-4.8); ABS Monocytes 0.7 10^3/ul (0-0.8); ABS Neutrophils 5.7 10^3/ul (1.5-7.7); Eosinophil % 3.3 %; Hematocrit 47 % (35-47); Hemoglobin 15.6 g/dL (12.0-16.0); Lymphocyte % 23.7 %; Mean Corpuscular HGB Conc 33 g/dL (31-36); Mean Corpuscular Hemoglobin 30 pg (27-31); Mean Corpuscular Volume 89 fL (80-97); Mean Platelet Volume 7.9 fL (7.4-10.4); Platelet Count 241 10^3/uL (150-450); Red Blood Count 5.25 10^6 /uL (3.70-4.87); Red Cell Distribution Width 13 % (10-15); White Blood Count 8.9 10^3/uL (3.5-10.8)
[2022-05-17] MEDS ORDERED: Ondansetron 4 mg VIAL 2 MG/ML 2 ml VIAL IV ONE (08:53)
[2022-05-17 09:10] LABS: Albumin 4.5 g/dL (3.2-5.2); Albumin/Globulin Ratio 2.1 (1-3); C Reactive Protein 6.49 mg/L (<8.01); Calcium 9.6 mg/dL (8.6-10.3); Globulin 2.1 g/dL (2-4); Potassium 4.1 mmol/L (3.5-5.0); Total Bilirubin 0.5 mg/dL (0.2-1.0); Total Protein 6.6 g/dL (6.4-8.9); eGFR CKD-EPI 65.9 (>60)
[2022-05-17] MEDS ORDERED: Iohexol 350 (CONTRAST) 500 ML MDV IV ONE (09:32)
[2022-05-17 09:57] LABS: Erythrocyte Sed Rate 1 mm/Hr (0-19)
[2022-05-17] MEDS ORDERED: Ondansetron 4 mg VIAL 2 MG/ML 2 ml VIAL IV PRN (10:28)
[2022-05-17] MEDS ORDERED: Clindamycin 600 MG/D5W BAG IV ONE (11:30)
[2022-05-17] MEDS: Enoxaparin 40 MG/0.4 ML SYR SUBCUT SCH (15:55)
[2022-05-17] MEDS: HYDROmorphone 1 MG/1 ML SYRINGE IV SLOW PU PRN ×2 (16:05→21:01)
[2022-05-17] MEDS: Albuterol HFA INHALER 8 gm MDI INH SCH ×2 (16:14→19:45)
[2022-05-17] MEDS: Nicotine GUM 4MG FRUIT FLAVOR PO PRN ×3 (16:23→23:41)
[2022-05-17] MEDS: Nicotine PATCH 21 MG/24 HR PATCH TRANSDERM SCH (20:02)
[2022-05-17] MEDS: Clindamycin 600 MG/D5W BAG 600 MG/50 ML BAG IV SCH (20:18)
[2022-05-18] MEDS: Albuterol HFA INHALER 8 gm MDI INH SCH ×4 (01:15→18:45)
[2022-05-18] MEDS: Clindamycin 600 MG/D5W BAG 600 MG/50 ML BAG IV SCH ×3 (03:50→21:09)
[2022-05-18] MEDS: Nicotine GUM 4MG FRUIT FLAVOR PO PRN ×5 (03:56→21:18)
[2022-05-18] MEDS: HYDROmorphone 1 MG/1 ML SYRINGE IV SLOW PU PRN ×4 (04:30→21:17)
[2022-05-18 07:20] LABS: ABS Eosinophils 0.2 10^3/ul (0-0.6); ABS Lymphocytes 1.9 10^3/ul (1.0-4.8); ABS Monocytes 0.5 10^3/ul (0-0.8); ABS Neutrophils 4.1 10^3/ul (1.5-7.7); Eosinophil % 3.6 %; Hematocrit 45 % (35-47); Lymphocyte % 28.6 %; Mean Corpuscular HGB Conc 34 g/dL (31-36); Mean Corpuscular Hemoglobin 30 pg (27-31); Mean Corpuscular Volume 90 fL (80-97); Mean Platelet Volume 8.4 fL (7.4-10.4); Nucleated Red Blood Cells % 0.1; Platelet Count 228 10^3/uL (150-450); Red Blood Count 4.94 10^6 /uL (3.70-4.87); Red Cell Distribution Width 13 % (10-15); White Blood Count 6.8 10^3/uL (3.5-10.8)
[2022-05-18 07:30] LABS: Calcium 9.1 mg/dL (8.6-10.3); Magnesium 1.9 mg/dL (1.9-2.7); Potassium 4.3 mmol/L (3.5-5.0); eGFR CKD-EPI 79.7 (>60)
[2022-05-18] MEDS: Venlafaxine XR 75 mg PO SCH (08:38)
[2022-05-18] MEDS: Nicotine PATCH 21 MG/24 HR PATCH TRANSDERM SCH (08:38)
[2022-05-18] MEDS: Enoxaparin 40 MG/0.4 ML SYR SUBCUT SCH (11:51)
[2022-05-18] MEDS ORDERED: Testosterone Cypionate (NF) 200 MG/ML VIAL IM SCH (18:00)
[2022-05-19] MEDS: Albuterol HFA INHALER 8 gm MDI INH SCH ×2 (01:00→07:26)
[2022-05-19] MEDS: Clindamycin 600 MG/D5W BAG 600 MG/50 ML BAG IV SCH (04:03)
[2022-05-19] MEDS: HYDROmorphone 1 MG/1 ML SYRINGE IV SLOW PU PRN ×2 (05:34→08:53)
[2022-05-19] MEDS: Nicotine GUM 4MG FRUIT FLAVOR PO PRN ×2 (05:38→08:52)
[2022-05-19 06:20] LABS: Venous Bicarbonate HCO3 32.1 mmol/L (24-28)
[2022-05-19 07:26] VITALS: BP 121/84
[2022-05-19] MEDS: Nicotine PATCH 21 MG/24 HR PATCH TRANSDERM SCH (08:52)
[2022-05-19] MEDS: Venlafaxine XR 75 mg PO SCH (08:52)
== END 2022-05-19 10:50 | disposition home or self-care (01) ==
LOC: ED 07:00 → EDHOLD 07:00 → MED 15:38
PROVIDERS: ADMIT Internal Medicine; ATTEND Internal Medicine

== ENCOUNTER 2023-11-15 16:38 | Observation (INO) ==
[2023-11-15 18:08] LABS: Urine Appearance Clear; Urine Bilirubin Negative (Negative); Urine Blood Negative (Negative); Urine Color Light-Yellow; Urine Glucose Negative (Negative); Urine Ketones Negative (Negative); Urine Nitrite Negative (Negative); Urine Protein Negative (Negative); Urine Specific Gravity 1.012 (1.002-1.030); Urine Urobilinogen Negative (Negative); Urine pH 6.5 (5.0-8.0)
[2023-11-15 18:12] LABS: Urine Bacteria Absent /HPF (Absent); Urine Red Blood Cell Trace(0-2/hpf) /HPF (0-Trace); Urine Squamous Epithelial Cell Present /HPF (Absent); Urine White Blood Cell Trace(0-5/hpf) /HPF (0-Trace)
[2023-11-15 19:09] LABS: ABS Eosinophils 0.1 10^3/uL (0.0-0.5); ABS Lymphocytes 1.2 10^3/uL (1.0-4.8); ABS Neutrophils 3.3 10^3/uL (1.5-7.6); ABS Nucleated RBC 0.02 10^3/ul; Eosinophil % 1.9 %; Hematocrit 52.1 % (35-45); Hemoglobin 17.3 g/dL (11.5-14.3); Lymphocyte % 20.8 %; Mean Corpuscular Hemoglobin 30.2 pg (27-33); Mean Corpuscular Hgb Conc 33.2 g/dL (31-36); Mean Corpuscular Volume 90.8 fL (80-97); Nucleated Red Blood Cells % 0.4 %/100WBC (0.0-0.8); Platelet Count 184 10^3/uL (150-450); Red Blood Count 5.74 10^6/uL (3.63-4.92); Red Cell Distribution Width 14.4 % (12-17); White Blood Count 5.6 10^3/uL (3.8-11.8)
[2023-11-15 19:28] LABS: ALT 18 U/L (7-52); AST 18 U/L (13-39); Albumin 4.4 g/dL (3.2-5.2); Albumin/Globulin Ratio 1.6 (1-3); Alkaline Phosphatase 74 U/L (35-149); Anion Gap 5 mmol/L (2-16); Blood Urea Nitrogen 8 mg/dL (6-24); C Reactive Protein 27.29 mg/L (<8.01); CO2 Carbon Dioxide 34 mmol/L (22-32); Calcium 9.3 mg/dL (8.6-10.3); Chloride 97 mmol/L (101-111); Creatinine, Serum 0.81 mg/dL (0.51-0.95); Globulin 2.7 g/dL (2-4); Glucose 124 mg/dL (70-100); Lipase < 10 U/L (11.0-82.0); Potassium 3.8 mmol/L (3.5-5.0); Sodium 136 mmol/L (135-145); Total Bilirubin 0.5 mg/dL (0.2-1.0); Total Protein 7.1 g/dL (6.4-8.9); eGFR CKD-EPI 92.9 (>60)
[2023-11-15 19:34] LABS: HCG Pregnancy < 0.60 mIU/mL
[2023-11-15] MEDS: Lidocaine PATCH 5% PATCH TRANSDERM ONE (20:45)
[2023-11-15] MEDS ORDERED: Buprenorp/Nalox 8-2 MG FILM SL PRN (23:38)
[2023-11-16] MEDS: Testosterone Cypionate (NF) 200 MG/ML VIAL IM SCH (02:17)
[2023-11-16] MEDS: Albuterol HFA INHALER 8 gm MDI INH SCH (02:20)
[2023-11-16] MEDS: Buprenorp/Nalox 8-2 MG FILM SL SCH (02:52)
[2023-11-16] MEDS: fentaNYL 100 mcg/2 ml 50 MCG/ML VIAL IV SLOW PU PRN (06:22)
[2023-11-16] MEDS ORDERED: Albuterol HFA INHALER 8 gm MDI INH PRN ×2 (06:25→06:32)
[2023-11-16 06:56] LABS: ABS Eosinophils 0.2 10^3/uL (0.0-0.5); ABS Lymphocytes 1.4 10^3/uL (1.0-4.8); ABS Nucleated RBC 0.03 10^3/ul; Eosinophil % 3.2 %; Hematocrit 50.2 % (35-45); Hemoglobin 16.8 g/dL (11.5-14.3); Lymphocyte % 25.6 %; Mean Corpuscular Hemoglobin 30.4 pg (27-33); Mean Corpuscular Hgb Conc 33.5 g/dL (31-36); Mean Corpuscular Volume 90.7 fL (80-97); Nucleated Red Blood Cells % 0.5 %/100WBC (0.0-0.8); Platelet Count 190 10^3/uL (150-450); Red Blood Count 5.53 10^6/uL (3.63-4.92); Red Cell Distribution Width 14.1 % (12-17); White Blood Count 5.7 10^3/uL (3.8-11.8)
[2023-11-16 07:12] LABS: Calcium 9.4 mg/dL (8.6-10.3); Creatinine, Serum 0.77 mg/dL (0.51-0.95); Potassium 3.5 mmol/L (3.5-5.0); eGFR CKD-EPI 98.7 (>60)
[2023-11-16] MEDS: Venlafaxine XR 75 mg PO SCH (09:47)
[2023-11-16] MEDS: Nicotine GUM 2MG FRUIT FLAVOR PO PRN (20:57)
[2023-11-17 07:09] LABS: ABS Eosinophils 0.2 10^3/uL (0.0-0.5); ABS Lymphocytes 1.2 10^3/uL (1.0-4.8); ABS Monocytes 0.7 10^3/uL (0.0-0.9); ABS Neutrophils 3.2 10^3/uL (1.5-7.6); ABS Nucleated RBC 0.04 10^3/ul; Eosinophil % 3.7 %; Hematocrit 53.6 % (35-45); Hemoglobin 18.2 g/dL (11.5-14.3); Lymphocyte % 22.4 %; Mean Corpuscular Hemoglobin 30.7 pg (27-33); Mean Corpuscular Volume 90.2 fL (80-97); Mean Platelet Volume 7.9 fL (7.5-11.2); Nucleated Red Blood Cells % 0.8 %/100WBC (0.0-0.8); Platelet Count 197 10^3/uL (150-450); Red Blood Count 5.94 10^6/uL (3.63-4.92); Red Cell Distribution Width 14.2 % (12-17); White Blood Count 5.3 10^3/uL (3.8-11.8)
[2023-11-17 07:24] LABS: Calcium 9.4 mg/dL (8.6-10.3); Creatinine, Serum 0.72 mg/dL (0.51-0.95); Potassium 3.1 mmol/L (3.5-5.0)
[2023-11-17] MEDS ORDERED: Potassium Chlor 20 meq TAB.ER PO ONE (08:28)
[2023-11-17] MEDS: Potassium Chlor 20 meq TAB.ER PO ONE ×2 (09:29→11:05)
[2023-11-17] MEDS: Gadoteridol (CONTRAST) 279.3 MG/ML 10 ML IV ONE (12:22)
[2023-11-18 06:26] LABS: Calcium 9.3 mg/dL (8.6-10.3); Creatinine, Serum 0.76 mg/dL (0.51-0.95); Potassium 3.4 mmol/L (3.5-5.0); eGFR CKD-EPI 100.3 (>60)
[2023-11-18 06:39] LABS: ABS Basophils 0.1 10^3/uL (0.0-0.1); ABS Eosinophils 0.2 10^3/uL (0.0-0.5); ABS Lymphocytes 1.8 10^3/uL (1.0-4.8); ABS Monocytes 0.6 10^3/uL (0.0-0.9); ABS Neutrophils 3.7 10^3/uL (1.5-7.6); ABS Nucleated RBC 0.07 10^3/ul; Eosinophil % 2.9 %; Hematocrit 55.6 % (35-45); Hemoglobin 18.5 g/dL (11.5-14.3); Lymphocyte % 28.5 %; Mean Corpuscular Hemoglobin 30.3 pg (27-33); Mean Corpuscular Hgb Conc 33.3 g/dL (31-36); Mean Platelet Volume 7.8 fL (7.5-11.2); Nucleated Red Blood Cells % 1.1 %/100WBC (0.0-0.8); Platelet Count 212 10^3/uL (150-450); Red Blood Count 6.11 10^6/uL (3.63-4.92); Red Cell Distribution Width 14.1 % (12-17); White Blood Count 6.3 10^3/uL (3.8-11.8)
[2023-11-18] MEDS: Potassium Chlor 20 meq TAB.ER PO SCH (08:10)
[2023-11-18] MEDS: Polyethylene Glycol 3350 17 GM PACKET PO SCH (11:35)
[2023-11-18] MEDS: fentaNYL 100 mcg/2 ml 50 MCG/ML VIAL IV SLOW PU PRN (13:07)
[2023-11-19 07:10] LABS: ABS Eosinophils 0.2 10^3/uL (0.0-0.5); ABS Lymphocytes 3.1 10^3/uL (1.0-4.8); ABS Monocytes 0.6 10^3/uL (0.0-0.9); ABS Neutrophils 4.6 10^3/uL (1.5-7.6); ABS Nucleated RBC 0.05 10^3/ul; Eosinophil % 2.9 %; Hemoglobin 18.8 g/dL (11.5-14.3); Mean Corpuscular Hemoglobin 30.7 pg (27-33); Mean Corpuscular Hgb Conc 33.6 g/dL (31-36); Mean Corpuscular Volume 91.4 fL (80-97); Mean Platelet Volume 8.2 fL (7.5-11.2); Nucleated Red Blood Cells % 0.5 %/100WBC (0.0-0.8); Platelet Count 256 10^3/uL (150-450); Red Blood Count 6.12 10^6/uL (3.63-4.92); Red Cell Distribution Width 14.4 % (12-17); White Blood Count 8.5 10^3/uL (3.8-11.8)
[2023-11-19 07:11] LABS: Calcium 9.8 mg/dL (8.6-10.3); Creatinine, Serum 0.91 mg/dL (0.51-0.95); eGFR CKD-EPI 80.8 (>60)
[2023-11-19 07:48] LABS: Potassium 3.5 mmol/L (3.5-5.0)
[2023-11-19 10:02] VITALS: BP 121/109
[2023-11-22] MEDS ORDERED: Testosterone Cypionate (NF) 200 MG/ML VIAL IM SCH ×2 (09:00)
== END 2023-11-19 13:39 | disposition home or self-care (01) ==
LOC: EDHOLD 16:38 → ED 16:38 → SUATTDRO 23:26 → MED 11-16 01:50
PROVIDERS: ADMIT Internal Medicine; ATTEND Internal Medicine